=== PATIENT | male | born 1945 | race Caucasian/White ===

== ENCOUNTER 2018-10-31 08:51 | Inpatient (IN) | payer MEDICAID, SELFPAY ==
[2018-09-10 11:54] VITALS: BMI 28.5
[2018-10-31] VITALS (17 sets, daily range): BP systolic 127–143; BP diastolic 66–98; PULSE 100–124; RESP 15–29; TEMP 36.2–37.3; O2SAT 90–96; BMI 28.8; BMI 29.7; BMI 29.8
--- NOTE | 2018-10-31 08:53 | EKG12_ITS ---
Test Reason : SYNCOPE Blood Pressure : / mmHG Vent. Rate : 101 BPM Atrial Rate : 101 BPM P-R Int : 150 ms QRS Dur : 100 ms QT Int : 394 ms P-R-T Axes : 060 001 060 degrees QTc Int : 510 ms Sinus tachycardia Incomplete right bundle branch block Nonspecific T wave abnormality Abnormal ECG Confirmed by CARMEN HERNANDEZ, FRANCIS ([id number]), health editor ALLYSON HENSLEY ([id number]) on 11/04/2018 4:39:38 PM Referred By: AMBERLY Confirmed By:FRANCIS MORALES MD
--- NOTE | 2018-10-31 08:53 | RAD_ITS ---
STUDY: X-RAY CHEST REASON FOR EXAM: Male, 73 years old. Cough and syncope. TECHNIQUE: Single AP portable view of the chest. COMPARISON: None. FINDINGS: EKG electrodes are seen. The lungs are clear and expanded. There is no demonstrated pleural abnormality. Normal size heart. Normal mediastinum and margarito. Normal visualized pulmonary arteries. There is atherosclerotic tortuosity of the aortic arch and descending thoracic aorta. There are diffuse degenerative changes of the visualized thoracic spine. Normal visualized ribs, clavicles, and shoulders. There is no demonstrated abnormality of the visualized soft tissue structures of the upper abdomen. RAD/Chest 1 View (Portable) IMPRESSION: No acute abnormality is seen. Electronically Signed: Macario Chang MD at 9:43 EST , Service support ,
--- NOTE | 2018-10-31 09:07 | NURSING ---
NO OLD EKGS
--- NOTE | 2018-10-31 09:08 | CT_ITS ---
STUDY: CTA CHEST REASON FOR EXAM: Male, 73 years old. Hypoxia x2 days RADIATION DOSAGE (If Supplied By Facility): CTDIvol = ( 18.27 ) mGy, DLP = ( 492.59 ) mGycm TECHNIQUE: The examination was performed with the intravenous administration of Isovue 370 100 IV. Post-processing of the angiographic images was performed, with multiplanar reformation and 3D reconstruction. Individualized dose optimization techniques were used for this CT. COMPARISON: None. FINDINGS: Large amount of pulmonary emboli noted beginning at the distal aspect of the right and left main pulmonary artery extending into the first and second order branch vessels of both the upper and lower lobes. Currently, there is no saddle component. There appears to be early right heart strain. There is no demonstrated aortic dissection. Normal heart and pericardium. Normal mediastinum. Normal hilar regions. Normal visualized trachea and bronchi. The lungs are well expanded. Normal pulmonary parenchyma. Calcified pleural plaques are noted. Normal chest wall structures. Normal osseous structures. Normal visualized upper abdomen. CT/CTA Chest W/WO Contrast IMPRESSION: Large bilateral pulmonary emboli burden beginning in the distal aspect of the right and left main pulmonary arteries and extending to the first and second branch order vessels of the upper and lower lobes. No evidence of saddle component at this time. Early right heart strain is noted. N.B. : The above information has been verbally conveyed by Ran Zambrano DO to ZE Chacko, on 10/31/2018 10:42:07 (ET). Electronically Signed: Ran Zambrano DO at 10:43 EST Tel , Service support ,
[2018-10-31] MEDS: Ipratropium/Albuterol Sulfate 3 ML AMPUL.NEB INHALATION (09:25)
[2018-10-31 09:28] LABS: Absolute Lymphocyte Count 1.53 X10^3/ul (0.83-4.51); Absolute Neutrophil Count 7.5 X10^3/uL (2.0-7.7); Basophil# 0.03 X10^3/uL; Basophil% 0.3 % (0-1); Eosinophil# 0.31 X10^3/uL; Eosinophils% 3.1 % (0-5); Hematocrit 43.7 % (40-54); Hemoglobin 14.8 g/dl (13.0-16.5); Lymphocyte # 1.53 X10^3/ul (4.0); Lymphocyte % 15.5 % (19-41); Mean Corp Hgb Conc 33.9 g/gl (32-36); Mean Corpuscular Hgb 31.2 pg (27.0-32.0); Mean Platelet Vol. 9.9 fl (6.2-12.0); Monocyte# 0.53 X10^3/uL; Monocyte% 5.4 % (0-10); Neutrophil # 7.46 X10^3/uL (2.7-7.7); Neutrophil % 75.5 % (47-70); POSITIVE COUNT NO; POSITIVE DIFFERENTIAL NO; POSITIVE MORPHOLOGY NO; Platelet Count 160 K/mm3 (150-450); RBC Distribution Width CV 12.8 % (11.6-14.6); RBC Distribution Width SD 42.4 fl (35.1-43.9); Red Blood Count 4.75 M/mm3 (4.6-6.2); White Blood Count 9.9 K/mm3 (4.4-11.0)
--- NOTE | 2018-10-31 09:30 | ED.DCSUM_ITS ---
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 He states over the past few days, he has had shortness of breath. He states he had a mild cough that has been nonproductive. He denies any fevers or chills. He states he is been taking some jbdo-dhq-brftwom medications and actually felt fine today. He states that he was going down his stairs. He had tightness across his chest and was feeling lightheaded. He states that his shortness of breath worsened. He states he got up to his bedroom and his helped him, but then he passed out. He denies any history of prior syncope. He denies any fevers. He states currently, he feels he is back to his normal state of health. His states that at the end of August, he had asymmetric leg swelling. She states that it resolved without any intervention. He has no history of DVT or pulmonary embolus. Physical Examination: Vital signs reviewed General: Well-nourished, well-developed Head: Normocephalic, atraumatic Eyes: Pupils equal and reactive, extraocular muscles intact Neck, supple, no lymphadenopathy Heart: Regular rate and rhythm Respiratory: No distress, clear bilaterally Abdomen: Soft, nontender, nondistended, no peritoneal signs Back: Nontender Extremities: Nontender, no edema, no cords Skin: Normal color no rash Neuro: Alert and oriented, no focal or lateralizing deficits Test Results: [] Emergency Department Course and Treatment: The patient presents with scant cough, chest tightness, dyspnea, and a syncopal event. EKG was obtained on patient arrival. He has an incomplete right bundle branch block and anterior T wave inversions. His chest x-ray was normal. My suspicion was obviously for pulmonary embolus given this patient's history. He was given a nebulized grazyna athing treatment with some improvement of his aeration, but was still having rather significant oxygen requirement. The patient underwent CT of the chest. This does demonstrate rather large bilateral pulmonary emboli. With his EKG changes, indeterminate troponin, hypoxia requiring supplemental oxygen and these bilateral pulmonary emboli, patient is going require admission. I did discuss the patient with the hospitalist will start Lovenox at this time. He did also request an ABG which I feel is reasonable. The patient will be admitted to a monitored unit especially given his significant oxygen requirement. Treatment Plan: [] Disposition: [] Impression: 1. Bilateral pulmonary emboli 2. Hypoxia 3. Syncope. EKG changes This note was generated with [employer] dictation software. It may contain incorrect words, spelling, and punctuation that were not noted in review of the chart prior to signing ED Disposition - Plan for ED Patient: Referrals: Wil Bradshaw DO [Primary Care Provider] -
[2018-10-31 09:45] LABS: ALB/GLOB Ratio 0.9 RATIO (0.9-2.4); AST(SGOT) 47 U/L (15-37); Alanine Aminotransfer ALT/SGPT 37 U/L (16-61); Albumin, Serum 3.1 g/dL (3.2-5.0); Alkaline Phosphatase 75 U/L (45-117); Anion Gap 11 (5-15); BUN 18 mg/dL (7-18); BUN/Creat Ratio 16.5 RATIO (10-20); Calcium,Total 7.9 mg/dL (8.5-10.1); Chloride 108 mmol/L (98-107); Creatinine, Serum 1.09 mg/dL (0.70-1.30); EST Glomerular Filtration Rate 71 mL/min (>60); Est Glom Filt Rate - Afr Amer 86 mL/min (>60); Estimated Creatinine Clearance 55.28 ml/min; Globulin 3.6 g/dL (2.2-4.2); Glucose 245 mg/dL (74-106); Potassium 4.1 mmol/L (3.5-5.1); Protein, Total 6.7 g/dL (6.4-8.2); Sodium Level 139 mmol/L (136-145)
[2018-10-31 09:50] LABS: International Normalized Ratio 1.1; Prothrombin Time (Protime)PT. 14.4 SECONDS (11.7-14.9)
[2018-10-31 09:51] LABS: Partial Thromboplast Time 27.5 Seconds (24.1-36.2)
[2018-10-31 09:54] LABS: BNP,B-Type NATRIURETIC PEPTIDE 93.9 pg/mL (0-100)
--- NOTE | 2018-10-31 10:19 | NURSING ---
PCU PE, SYNCOPE ASHELFAH
[2018-10-31] MEDS: Enoxaparin 80 MG/0.8 ML Syringe SC (10:38)
[2018-10-31 11:01] LABS: Allen Test POS; Base Excess -8 mmol/L (-2 to +2); Blood Gas Specimen Type ART; O2 Delivery Device Nasal Can; PO2 66 mmHG (75-100); SITE R Brachial; SO2 93 % (95-99); Time Given 1054; Total Carbon Dioxide 18 mmol/L; pCO2 28.1 mmHg (35-45); pH 7.39 (7.35-7.45)
--- NOTE | 2018-10-31 11:26 | VDLE_ITS ---
Reason For Study: PE RIGHT LEFT CFV is compressible, spontaneous, phasic, GSV is normal. competent and demonstrates normal CFV is compressible, spontaneous, phasic, augmentation. competent, and demonstrates normal FV is compressible, spontaneous, phasic, augmentation. competent and demonstrates normal FV is compressible, spontaneous, phasic, augmentation. competent and demonstrates normal POP V is compressible, spontaneous, phasic, augmentation. competent and demonstrates normal POP V is compressible, spontaneous, phasic, augmentation. competent and demonstrates normal PTV is compressible. augmentation. T/P Trunk is partially compressible. DVT T/P Trunk is compressible. appears to be loosley attached. PTV is compressible. Peroneal V and Soleus V are dilated and LT PerV is compressible. noncompressible. GSV is dilated and noncompressible up to the S-F Junction. SVT does not extend into the CFV. Procedure Exam performed portable in patient room. The exam was diagnostic. A preliminary report was called and/or faxed to Katiuska KERNS and Dr. Antoine. Interpretation Summary There is no evidence of left lower extremity deep vein thrombosis. Left greater saphenous vein appears patent and compressible segmentally. Acute deep venous thrombosis right tibioperoneal trunk with loose thrombus. Acute deep venous thrombosis right peroneal and soleus veins. Superficial thrombophlebitis right great saphenous vein up to but not extending into the right common femoral vein. Ordering Physician: Matthew Antoine Performed By: Jean Rowland RVT
--- NOTE | 2018-10-31 11:26 | ECHOD_ITS ---
Reason For Study: Emboli Procedure This was a 2D Doppler, Color Flow transthoracic echocardiogram. Exam performed portable in patient room. Left Ventricle Normal LV size. D shaped septum in systole and diastole. Left ventricular systolic function is normal. The estimated ejection fraction is 65 %. No evidence for diastolic dysfunction. No regional wall motion abnormalities noted. Right Ventricle Moderately dilated right ventricle. Normal systolic function. Atria Normal left atrium. The right atrium is moderately enlarged. No doppler evidence for ASD. Mitral Valve There is no mitral annular calcification. Normal mitral valve. Trivial mitral valve insufficiency. Tricuspid Valve Normal tricuspid valve. Mild tricuspid valve insufficiency. Right ventricular systolic pressure estimated to be 78 mmHg. Aortic Valve Trisinus/trileaflet aortic valve. Normal aortic valve. Pulmonic Valve The pulmonic valve is not well visualized. Trivial pulmonic valve insufficiency. Great Vessels Normal sized aortic root. Pericardium/Pleural No pericardial effusion. MMode/2D Measurements & Calculations LVIDd: 3.5 cm IVSd: 1.4 cm Ao root diam: 3.5 cm LVIDs: 2.0 cm LVPWd: 1.2 cm RVDd: 4.8 cm FS: 43.0 % LAV(MOD-bp): 18.2 ml LVAd ap4: 13.1 cm2 SV(MOD-sp4): 16.3 ml LAV(MOD-bp) Indexed: 9.8 ml/m2 EDV(MOD-sp4): 24.0 ml LAV(MOD-sp2): 23.6 ml EDV(sp4-el): 24.2 ml LAV(MOD-sp4): 12.9 ml LVAs ap4: 6.3 cm2 ESV(MOD-sp4): 7.8 ml ESV(sp4-el): 7.5 ml EF(MOD-sp4): 67.7 % EF(sp4-el): 69.2 % SV(sp4-el): 16.7 ml LA A4 area: 7.4 cm2 LA dimension(2D): 3.5 cm RA A4 area: 22.1 cm2 Doppler Measurements & Calculations MV E max arsalan: 45.7 cm/sec Lat Peak E' Arsalan: 11.2 cm/sec Med Peak E' Arsalan: 7.5 cm/sec MV A max arsalan: 74.7 cm/sec E/E' lat: 4.1 E/E' med: 6.1 MV E/A: 0.61 Ao V2 max: 131.0 cm/sec LV V1 max: 118.9 cm/sec PA V2 max: 38.9 cm/sec Ao max P.9 mmHg LV V1 max P.7 mmHg Ao V2 mean: 86.1 cm/sec Ao mean P.4 mmHg Ao V2 VTI: 16.4 cm PI end-d arsalan: 97.1 cm/sec TR max arsalan: 416.8 cm/sec TR max P.5 mmHg Interpretation Summary Left ventricular systolic function is normal. The estimated ejection fraction is 65 %. D shaped septum in systole and diastole. Moderately dilated right ventricle. Normal systolic function. The right atrium is moderately enlarged. Trivial mitral valve insufficiency. Mild tricuspid valve insufficiency. Trivial pulmonic valve insufficiency. Right ventricular systolic pressure estimated to be 78 mmHg c/w severe pulmonary hypertension. No evidence for diastolic dysfunction. Ordering Physician: Matthew Antoine Referring Physician: Wil Bradshaw Performed By: Ethel Underwood, NANDA, RVT
--- NOTE | 2018-10-31 12:09 | HP.PCM_ITS ---
Problem List (1) Indeterminate troponin Status: Acute (2) Acute respiratory failure with hypoxia Status: Acute (3) Bilateral pulmonary embolism Status: Acute (4) Benign tumor of colon Status: Chronic (5) Enlarged prostate Status: Chronic (6) Arthritis Status: Chronic History of Present Illness Date of Admission: 10/31/18 Chief Complaint: Syncope, shortness of breath. The patient is a 73 year old M with past medical history as mentioned above presented to the emergency room because of syncope and shortness of breath. Patient's illness started around 4 weeks ago with flulike symptoms, was given antibiotics for 5 days and since then, he has been complaining of slowly and progressively increasing shortness of breath, it is exertional, aggravated by any type of activity, relieved with rest, got worse over the last couple of days, associated with mild dry cough and he had syncopal episode this morning. Since yesterday, he noticed that he is more short of breath and this morning after he woke up, he was dizzy, lightheaded, had an episode of chest tightness, there was no real pain and he passed out. After he woke up, he feels better but he continued to have chest tightness and shortness of breath. He had a history of benign colon tumor that was removed 5 years ago, status post colostomy and he stated that after that surgery, he had DVT of the right leg. In the emergency department, patient was tachycardic, tachypneic and hypoxic, pulse ox was 90% on 6 L and he was afebrile. Blood pressure was stable. Routine blood work was remarkable for blood sugar of 245, otherwise normal. EKG revealed sinus tachycardia, prolonged QTC and no acute ischemic changes. His troponin was indeterminate at 0.067. Chest x-ray showed no acute findings. CTA of the chest revealed large bilateral pulmonary emboli in the distal aspect of the right and left main coronary arteries without evidence of saddle embolus. He is being admitted for acute extensive bilateral PEs, acute hypoxic respiratory failure and indeterminate troponin. Past Medical History Past Medical History (Chronic Problems): Chronic Problems (Last Updated 10/31/18 @ 12:03 by Matthew Antoine MD) Benign tumor of colon (Chronic) Enlarged prostate (Chronic) Arthritis (Chronic) Medical History: Medical History (Last Updated 10/31/18 @ 12:03 by Matthew Antoine MD) Benign tumor of colon (Chronic) D12.6 Enlarged prostate (Chronic) N40.0 Arthritis (Chronic) M19.90 Allergies No Known Allergies Allergy (Unverified 10/31/18 09:17) Home Medications: Ambulatory Orders Medication Instructions Recorded Ascorbic Acid [Vitamin C] 500 mg PO DAILY 10/31/18 Surgical History: Surgical History (Last Reviewed 09/10/18 @ 11:54 by Cecilia Vazquez) History of colostomy Surgical History: colectomy Psychiatric History: No pertinent psych hx Lives: Spouse/ Significant Other Smoking Status: Former smoker Alcohol: Rare Drugs: None - *Family History Maternal History Items: No pertinent history - No family history of clotting disorders. Paternal History Items: No pertinent history Review of Systems Constitutional: Denies: Anorexia, Chills, Fever, Weakness Eyes: Denies: Blurred vision, Drainage, Eyelid Inflammation, Redness, Vision Change HEENT: Denies: Difficulty Hearing, Ear Pain, Eye Pain, Nasal Congestion, Sore Throat Cardiovascular: Reports: Chest Tightness, Light Headedness, Syncope. Denies: Chest Pain, Edema, Heaviness, Orthopnea, Palpitations, Paroxysmal Noc. Dyspnea Respiratory: Reports: Cough, Shortness of Breath, Shortness of breath at rest, Shortness of breath upon exertion. Denies: Pleuritic Pain, Sputum production, Wheezing Gastrointestinal: Denies: Abdominal Pain, Constipation, Diarrhea, Nausea, Vomiting Genitourinary: Denies: Dysuria, Frequency, Hematuria Musculoskeletal: Denies: Arm Pain, Back Pain, Foot Pain Skin: Denies: Dryness, Rash Neurological: Denies: Balance problems, Double vision, Change in Speech, Slurred speech, Confusion, Headaches, Incoordination, Numbness Psychiatric: Denies: Anxiety, Depression Endocrine: Denies: Change in Body Habitus, Polydipsia VTE Information - Inpt Only VTE Present on Admission: Yes VTE Mechan Device Prophylaxis: None VTE Pharm Prophylaxis ordered?: No Patient Problems: Active and Suspected Problems (Last Updated 10/31/18 @ 12:03 by Matthew Antoine MD) Indeterminate troponin (Acute) Acute respiratory failure with hypoxia (Acute) Bilateral pulmonary embolism (Acute) - Physical Exam General: Alert, Oriented x3, Cooperative, - - Moderately short of breath. HEENT: Atraumatic, PERRLA, EOMI, Normocephalic Oral: Moist Mucosa, No Gingival or Mucosal Lesions/ Ulcerations Neck: Supple, No JVD, Negative Carotid Bruits, Trachea Midline, Thyroid Normal Size and Texture Lungs: Clear to auscultation, No rhonchi, No wheeze, No rales, Diminished Cardiovascular: Regular rate, Regular Rhythm, Normal S1, Normal S2, No murmurs, PMI Normal, Tachycardic Abdomen: Bowel Sounds Present, Soft, Non Tender, Non-Distended, No Hepato-sple nomegaly, - - Colostomy bag in place. Extremities: No clubbing, No cyanosis, No edema Skin: No rashes, No breakdown Lymphatic: No Cervical, Supraclavicular, or Inguinal Adenopathy Neurological: Cranial nerves II-XII grossly intact, Motor Exam 5/5 strength throughout Psych/Mental Status: Normal Affect, Appropriate, Alert and oriented to time, place, person, mood and affect Vital Signs Temp Pulse Resp BP Pulse Ox 97.1 F L 105 H 22 H 128/98 H 94 10/31/18 08:54 10/31/18 10:17 10/31/18 10:17 10/31/18 10:00 10/31/18 10:17 Oxygen Flow Rate (L/min) 6 Oxygen Delivery Method Nasal Cannula Weight: 178 lb 12.718 oz Body Mass Index (BMI) 28.8 Laboratory Tests Past 24 Hrs 10/31/18 10/31/18 10/31/18 09:15 09:15 09:15 WBC 9.9 RBC 4.75 Hgb 14.8 Hct 43.7 MCV 92.0 MCH 31.2 MCHC 33.9 RDW 12.8 RDW Differential 42.4 Plt Count 160 MPV 9.9 Immature Gran % (Auto) 0.200 Neut % (Auto) 75.5 H Lymph % (Auto) 15.5 L Greeley % (Auto) 5.4 Eos % (Auto) 3.1 Baso % (Auto) 0.3 Absolute Neuts (auto) 7.5 Absolute Lymphs (auto) 1.53 Total Counted Not Reportable PT INR APTT Specimen Type Sample Site pH Bicarbonate Actual POC Total CO2 Base Excess O2 Saturation ABG pCO2 ABG pO2 Ronni Test O2 Delivery Device Liter Flow Blood Gas Notified Whom Blood Gas Notified Time Sodium 139 Potassium 4.1 Chloride 108 H Carbon Dioxide 20.0 L Anion Gap 11 BUN 18 Creatinine 1.09 Estim Creat Clear Calc 55.28 Est GFR (MDRD) Af Amer 86 Est GFR (MDRD) Non-Af 71 BUN/Creatinine Ratio 16.5 Glucose 245 H Hemoglobin A1c Calcium 7.9 L Total Bilirubin 0.70 AST 47 H ALT 37 Alkaline Phosphatase 75 Troponin I 0.067 H B-Natriuretic Peptide 93.9 Total Protein 6.7 Albumin 3.1 L Globulin 3.6 Albumin/Globulin Ratio 0.9 10/31/18 10/31/18 10/31/18 09:15 09:30 10:55 WBC RBC Hgb Hct MCV MCH MCHC RDW RDW Differential Plt Count MPV Immature Gran % (Auto) Neut % (Auto) Lymph % (Auto) Gree[place] % (Auto) Eos % (Auto) Baso % (Auto) Absolute Neuts (auto) Absolute Lymphs (auto) Total Counted PT 14.4 INR 1.1 APTT 27.5 Specimen Type ART Sample Site R Brachial pH 7.39 Bicarbonate Actual 17.0 L POC Total CO2 18 Base Excess -8 L O2 Saturation 93 L ABG pCO2 28.1 L ABG pO2 66 L Ronni Test POS O2 Delivery Device Nasal Can Liter Flow 6.0 Blood Gas Notified Whom ED Blood Gas Notified Time 1054 Sodium Potassium Chloride Carbon Dioxide Anion Gap BUN Creatinine Estim Creat Clear Calc Est GFR (MDRD) Af Amer Est GFR (MDRD) Non-Af BUN/Creatinine Ratio Glucose Hemoglobin A1c Pending Calcium Total Bilirubin AST ALT Alkaline Phosphatase Troponin I B-Natriuretic Peptide Total Protein Albumin Globulin Albumin/Globulin Ratio Clinical Impression(s) from Imaging Studies Chest X-Ray 10/31/18 08:53 IMPRESSION: No acute abnormality is seen. Electronically Signed: Macario Chang MD at 9:43 EST , Service support , Chest CTA 10/31/18 09:08 IMPRESSION: Large bilateral pulmonary emboli burden beginning in the distal aspect of the right and left main pulmonary arteries and extending to the first and second branch order vessels of the upper and lower lobes. No evidence of saddle component at this time. Early right heart strain is noted. N.B. : The above information has been verbally conveyed by Ran Zambrano DO to ZE Chacko, on 10/31/2018 10:42:07 (ET). Electronically Signed: Ran Zambrano DO at 10:43 EST Tel , Service support , ADDENDUM: 10/31/18 1050 IMPRESSION: Large bilateral pulmonary emboli burden beginning in the distal aspect of the right and left main pulmonary arteries and extending to the first and second branch order vessels of the upper and lower lobes. No evidence of saddle component at this time. Early right heart strain is noted. N.B. : The above information has been verbally conveyed by Ran Zambrano DO to ZE Chacko, on 10/31/2018 10:42:07 (ET). Electronically Signed: Ran Zambrano DO at 10:43 EST Tel , Service support , Assessment/Plan All Active Problems (Last Updated 10/31/18 @ 12:03 by Matthew Antoine MD) Indeterminate troponin (Acute) Acute respiratory failure with hypoxia (Acute) Bilateral pulmonary embolism (Acute) This is a 73 years old male patient presented to the emergency because of syncopal episode of shortness of breath, found to have large extensive bilateral pulmonary embolism complicated by acute hypoxic respiratory failure as well as indeterminate troponin likely due to heart strain. #1 acute extensive bilateral pulmonary emboli: Probably due to lower leg DVT as patient mentioned that he had leg swelling on the right leg a few weeks ago, resolved spontaneously. He has no history of cancer, no recent surgery and he is active at home. CTA chest reviewed. EKG revealed sinus tachycardia, no acute ischemic changes or cardiac arrhythmias. Troponin is indeterminate. At this time, patient is hypoxic, requiring up to 6 L of oxygen. Plan: Admit to PCU, cardiac monitoring, serial cardiac enzymes, start IV heparin drip without bolus as patient received 1 dose of Lovenox in the ED, hypercoagulable workup, 2D echocardiogram, bilateral venous Doppler of both legs, IV fluids, Tylenol as needed, Zofran as needed, PT OT evaluation and treatment. #2 acute hypoxic respiratory failure: Secondary to above. Patient is dyspneic, tachypneic and tachycardic, ABG revealed pH of 7.39, PCO2 of 28 and PO2 of 66. He is requiring up to 6 days of oxygen. Plan: IV heparin as above, O2 by nasal cannula to keep O2 sat more than 92%, albuterol every 6 hours. #3 indeterminate troponin: Probably due to heart strain secondary to extensive PEs. Plan: Cardiac monitoring, serial cardiac enzymes, repeat EKG tomorrow morning, 2D echocardiogram. #4 syncopal episode: Probably due to the massive bilateral PEs. EKG revealed sinus tachycardia, no acute ischemic changes or cardiac arrhythmias. Blood pressure stable, tachycardic. Plan as above. #5 hyperglycemia: Without history of diabetes. Blood glucose is 245. Plan: Hemoglobin A1c, Accu-Cheks every 6 hours, insulin sliding scale. #6 history of elevated PSA: Patient has a history of prostate issues, his PSA was 1140 on Jan, 2017. He was seen by urology [facility] and he was informed that he has prostate cancer based on his numbers, never had a prostate biopsy and according to him, he was started on injections for prostate cancer. Since then, he had not followed up with his urologist. Today, I recommended that we should consult urology but he was hesitant because he is afraid that his insurance will not pay for this consultation as he supposed to see Dr. Allen as outpatient but his insurance denied coverage. Prostate cancer is in the differential diagnosis. Plan: We will check PSA. #7 history of benign tumor of the colon: Status post resection of the rectum, status post colostomy. Stable. #8 DVT prophylaxis: Plan to start IV heparin as above. This note was generated with [employer] dictation software. It may contain incorrect words, spelling, and punctuation that were not noted in checking the note before signing. Code Visit Inpatient E&M: 88647 Init Hosp L3
[2018-10-31 12:45] LABS: Hemoglobin A1c 7.5 % (4.2-6.3)
[2018-10-31] MEDS: HEPARIN/D5w 25,000 UNITS 25,000 UNITS/250 ML IV.SOLN. 12 UNITS IV (13:12)
[2018-10-31 17:45] LABS: Bedside Glucose 166 mg/dL (70-110)
[2018-10-31] MEDS: 0.9% Normal Saline 1,000 ML 75 ML IV (18:36)
[2018-10-31 19:30] LABS: Partial Thromboplast Time 75.4 Seconds (24.1-36.2)
[2018-10-31] MEDS: Acetaminophen 325 MG Tablet 650 MG PO (19:56)
[2018-10-31 20:32] LABS: PSA,Total- Diagnostic > 2000.00 ng/mL (0.0-4.0)
[2018-10-31 23:20] LABS: Bedside Glucose 186 mg/dL (70-110)
[2018-11-01] VITALS (22 sets, daily range): BP systolic 102–136; BP diastolic 71–121; PULSE 92–105; RESP 12–25; TEMP 36.3–37; O2SAT 92–96
[2018-11-01 02:04] LABS: Partial Thromboplast Time 100.1 Seconds (24.1-36.2)
--- NOTE | 2018-11-01 05:55 | EKG12_ITS ---
Test Reason : AM EKG Blood Pressure : / mmHG Vent. Rate : 095 BPM Atrial Rate : 095 BPM P-R Int : 134 ms QRS Dur : 092 ms QT Int : 394 ms P-R-T Axes : 062 017 170 degrees QTc Int : 495 ms Normal sinus rhythm Incomplete right bundle branch block Inferior infarct , age undetermined , cannot be excluded T wave abnormality, consider anterolateral ischemia Abnormal ECG Confirmed by LILIA HERNANDEZ, VEE ([id number]), associate editor ALLYSON HENSLEY ([id number]) on 11/05/2018 10:56:53 AM Referred By: JOSE JUAN Confirmed By:VEE RODRIGUES MD
[2018-11-01] MEDS: Aspirin 325 MG Tablet PO (06:19)
[2018-11-01] MEDS: Acetaminophen 325 MG Tablet 650 MG PO (06:20)
[2018-11-01 06:30] LABS: Bedside Glucose 183 mg/dL (70-110)
[2018-11-01 07:03] LABS: Absolute Lymphocyte Count 1.73 X10^3/ul (0.83-4.51); Absolute Neutrophil Count 6.1 X10^3/uL (2.0-7.7); Basophil# 0.03 X10^3/uL; Basophil% 0.3 % (0-1); Eosinophil# 0.06 X10^3/uL; Eosinophils% 0.7 % (0-5); Hematocrit 41.4 % (40-54); Hemoglobin 13.5 g/dl (13.0-16.5); Lymphocyte # 1.73 X10^3/ul (4.0); Lymphocyte % 20.1 % (19-41); Mean Corp Hgb Conc 32.6 g/gl (32-36); Mean Corpuscular Hgb 30.5 pg (27.0-32.0); Mean Corpuscular Volume 93.5 fL (80-94); Mean Platelet Vol. 10.3 fl (6.2-12.0); Monocyte% 8.1 % (0-10); Neutrophil # 6.08 X10^3/uL (2.7-7.7); Neutrophil % 70.6 % (47-70); Platelet Count 168 K/mm3 (150-450); RBC Distribution Width CV 13.1 % (11.6-14.6); RBC Distribution Width SD 43.6 fl (35.1-43.9); Red Blood Count 4.43 M/mm3 (4.6-6.2); White Blood Count 8.6 K/mm3 (4.4-11.0)
[2018-11-01 07:05] LABS: POSITIVE COUNT NO; POSITIVE DIFFERENTIAL NO; POSITIVE MORPHOLOGY NO
[2018-11-01 07:14] LABS: Anion Gap 9 (5-15); BUN 17 mg/dL (7-18); BUN/Creat Ratio 16.5 RATIO (10-20); Chloride 109 mmol/L (98-107); Creatinine, Serum 1.03 mg/dL (0.70-1.30); EST Glomerular Filtration Rate 75 mL/min (>60); Est Glom Filt Rate - Afr Amer 91 mL/min (>60); Estimated Creatinine Clearance 52.17 ml/min; Glucose 174 mg/dL (74-106); Potassium 4.1 mmol/L (3.5-5.1); Sodium Level 141 mmol/L (136-145)
--- NOTE | 2018-11-01 08:35 | PCM.PROGNOTE ---
Patient Problems: Active and Suspected Problems (Last Updated 10/31/18 @ 12:03 by Matthew Antoine MD) Indeterminate troponin (Acute) Acute respiratory failure with hypoxia (Acute) Bilateral pulmonary embolism (Acute) Subjective: Chief complaint: Follow-up after admission for extensive bilateral femoral emboli, acute DVT of the right leg, acute hypoxic respiratory failure, highly elevated PSA with high suspicion of prostate cancer and indeterminate troponin. Patient seen and examined. No acute events overnight. This morning, he is still complaining of shortness of breath, worsening on minimal exertion. Still complaining of chest tightness, no pain. Denied dizziness or lightheadedness. He is afebrile, heart rate is still has been around 100, blood pressure is maintained, pulse ox is 93% on 6 L. - Physical Exam General: Alert, Oriented x3, Cooperative, - - Moderately short of breath. HEENT: Atraumatic, PERRLA, EOMI, Normocephalic Oral: Moist Mucosa, No Gingival or Mucosal Lesions/ Ulcerations Neck: Supple, No JVD, Negative Carotid Bruits, Trachea Midline, Thyroid Normal Size and Texture Lungs: Clear to auscultation, No rhonchi, No wheeze, No rales, Diminished Cardiovascular: Regular rate, Regular Rhythm, Normal S1, Normal S2, No murmurs, PMI Normal, Tachycardic Abdomen: Bowel Sounds Present, Soft, Non Tender, Non-Distended, No Hepato-splenomegaly Extremities: No clubbing, No cyanosis, No edema Skin: No rashes, No breakdown Lymphatic: No Cervical, Supraclavicular, or Inguinal Adenopathy Neurological: Cranial nerves II-XII grossly intact, Motor Exam 5/5 strength throughout Psych/Mental Status: Normal Affect, Appropriate, Alert and oriented to time, place, person, mood and affect Vital Signs Temp Pulse Resp BP Pulse Ox 97.3 F L 92 18 115/86 H 94 11/01/18 08:28 11/01/18 08:28 11/01/18 08:28 11/01/18 08:28 11/01/18 08:28 Oxygen Flow Rate (L/min) 6 Oxygen Delivery Method Nasal Cannula Weight: 167 lb 15.876 oz Body Mass Index (BMI) 29.7 Intake and Output for Last 24 Hours 10/30/18 10/31/18 11/01/18 23:59 23:59 23:59 Intake Total 1076.5 / 1076.5 296 / 296 Output Total 300 / 300 150 / 150 Balance 776.5 / 776.5 146 / 146 Laboratory Tests Past 24 Hrs 10/31/18 10/31/18 10/31/18 09:15 09:15 09:15 WBC 9.9 RBC 4.75 Hgb 14.8 Hct 43.7 MCV 92.0 MCH 31.2 MCHC 33.9 RDW 12.8 RDW Differential 42.4 Plt Count 160 MPV 9.9 Immature Gran % (Auto) 0.200 Neut % (Auto) 75.5 H Lymph % (Auto) 15.5 L [place]illes[place] % (Auto) 5.4 Eos % (Auto) 3.1 Baso % (Auto) 0.3 Absolute Neuts (auto) 7.5 Absolute Lymphs (auto) 1.53 Total Counted Not Reportable PT INR APTT Protein C Antigen Prot C Funct Activity Functional Protein S Free Protein S Total Protein S Func Antithrombin III Factor V Leiden Mutat Specimen Type Sample Site pH Bicarbonate Actual POC Total CO2 Base Excess O2 Saturation ABG pCO2 ABG pO2 Ronni Test O2 Delivery Device Liter Flow Blood Gas Notified Whom Blood Gas Notified Time Sodium 139 Potassium 4.1 Chloride 108 H Carbon Dioxide 20.0 L Anion Gap 11 BUN 18 Creatinine 1.09 Estim Creat Clear Calc 55.28 Est GFR (MDRD) Af Amer 86 Est GFR (MDRD) Non-Af 71 BUN/Creatinine Ratio 16.5 Glucose 245 H Hemoglobin A1c Calcium 7.9 L Total Bilirubin 0.70 AST 47 H ALT 37 Alkaline Phosphatase 75 Troponin I 0.067 H B-Natriuretic Peptide 93.9 Total Protein 6.7 Albumin 3.1 L Globulin 3.6 Albumin/Globulin Ratio 0.9 Total PSA Anti-Cardiolipin IgG Ab Anti-Cardiolipin IgM Ab 10/31/18 10/31/18 10/31/18 09:30 10:55 12:10 WBC RBC Hgb Hct MCV MCH MCHC RDW RDW Differential Plt Count MPV Immature Gran % (Auto) Neut % (Auto) Lymph % (Auto) Gillespie % (Auto) Eos % (Auto) Baso % (Auto) Absolute Neuts (auto) Absolute Lymphs (auto) Total Counted PT 14.4 INR 1.1 APTT 27.5 Protein C Antigen Prot C Funct Activity Functional Protein S Free Protein S Total Protein S Func Antithrombin III Factor V Leiden Mutat Specimen Type ART Sample Site R Brachial pH 7.39 Bicarbonate Actual 17.0 L POC Total CO2 18 Base Excess -8 L O2 Saturation 93 L ABG pCO2 28.1 L ABG pO2 66 L Ronni Test POS O2 Delivery Device Nasal Can Liter Flow 6.0 Blood Gas Notified Whom ED MD Blood Gas Notified Time 1054 Sodium Potassium Chloride Carbon Dioxide Anion Gap BUN Creatinine Estim Creat Clear Calc Est GFR (MDRD) Af Amer Est GFR (MDRD) Non-Af BUN/Creatinine Ratio Glucose Hemoglobin A1c 7.5 H Calcium Total Bilirubin AST ALT Alkaline Phosphatase Troponin I B-Natriuretic Peptide Total Protein Albumin Globulin Albumin/Globulin Ratio Total PSA Anti-Cardiolipin IgG Ab Anti-Cardiolipin IgM Ab 10/31/18 10/31/18 10/31/18 12:10 15:13 15:13 WBC RBC Hgb Hct MCV MCH MCHC RDW RDW Differential Plt Count MPV Immature Gran % (Auto) Neut % (Auto) Lymph % (Auto) [place]illespie % (Auto) Eos % (Auto) Baso % (Auto) Absolute Neuts (auto) Absolute Lymphs (auto) Total Counted PT INR APTT Protein C Antigen Pending Prot C Funct Activity Pending Functional Protein S Pending Free Protein S Pending Total Protein S Pending Func Antithrombin III Pending Factor V Leiden Mutat Pending Specimen Type Sample Site pH Bicarbonate Actual POC Total CO2 Base Excess O2 Saturation ABG pCO2 ABG pO2 Ronni Test O2 Delivery Device Liter Flow Blood Gas Notified Whom Blood Gas Notified Time Sodium Potassium Chloride Carbon Dioxide Anion Gap BUN Creatinine Estim Creat Clear Calc Est GFR (MDRD) Af Amer Est GFR (MDRD) Non-Af BUN/Creatinine Ratio Glucose Hemoglobin A1c Calcium Total Bilirubin AST ALT Alkaline Phosphatase Troponin I 0.200 H 0.273 H B-Natriuretic Peptide Total Protein Albumin Globulin Albumin/Globulin Ratio Total PSA Anti-Cardiolipin IgG Ab Pending Anti-Cardiolipin IgM Ab Pending 10/31/18 10/31/18 11/01/18 15:13 18:59 01:42 WBC RBC Hgb Hct MCV MCH MCHC RDW RDW Differential Plt Count MPV Immature Gran % (Auto) Neut % (Auto) Lymph % (Auto) [place] % (Auto) Eos % (Auto) Baso % (Auto) Absolute Neuts (auto) Absolute Lymphs (auto) Total Counted PT INR APTT 75.4 H 100.1 H* Protein C Antigen Prot C Funct Activity Functional Protein S Free Protein S Total Protein S Func Antithrombin III Factor V Leiden Mutat Specimen Type Sample Site pH Bicarbonate Actual POC Total CO2 Base Excess O2 Saturation ABG pCO2 ABG pO2 Ronni Test O2 Delivery Device Liter Flow Blood Gas Notified Whom Blood Gas Notified Time Sodium Potassium Chloride Carbon Dioxide Anion Gap BUN Creatinine Estim Creat Clear Calc Est GFR (MDRD) Af Amer Est GFR (MDRD) Non-Af BUN/Creatinine Ratio Glucose Hemoglobin A1c Calcium Total Bilirubin AST ALT Alkaline Phosphatase Troponin I B-Natriuretic Peptide Total Protein Albumin Globulin Albumin/Globulin Ratio Total PSA > 2000.00 H Anti-Cardiolipin IgG Ab Anti-Cardiolipin IgM Ab 11/01/18 11/01/18 05:50 05:50 WBC 8.6 RBC 4.43 L Hgb 13.5 Hct 41.4 MCV 93.5 MCH 30.5 MCHC 32.6 RDW 13.1 RDW Differential 43.6 Plt Count 168 MPV 10.3 Immature Gran % (Auto) 0.200 Neut % (Auto) 70.6 H Lymph % (Auto) 20.1 [place]illespie % (Auto) 8.1 Eos % (Auto) 0.7 Baso % (Auto) 0.3 Absolute Neuts (auto) 6.1 Absolute Lymphs (auto) 1.73 Total Counted Not Reportable PT INR APTT Protein C Antigen Prot C Funct Activity Functional Protein S Free Protein S Total Protein S Func Antithrombin III Factor V Leiden Mutat Specimen Type Sample Site pH Bicarbonate Actual POC Total CO2 Base Excess O2 Saturation ABG pCO2 ABG pO2 Ronni Test O2 Delivery Device Liter Flow Blood Gas Notified Whom Blood Gas Notified Time Sodium 141 Potassium 4.1 Chloride 109 H Carbon Dioxide 23.0 Anion Gap 9 BUN 17 Creatinine 1.03 Estim Creat Clear Calc 52.17 Est GFR (MDRD) Af Amer 91 Est GFR (MDRD) Non-Af 75 BUN/Creatinine Ratio 16.5 Glucose 174 H Hemoglobin A1c Calcium 8.0 L Total Bilirubin AST ALT Alkaline Phosphatase Troponin I B-Natriuretic Peptide Total Protein Albumin Globulin Albumin/Globulin Ratio Total PSA Anti-Cardiolipin IgG Ab Anti-Cardiolipin IgM Ab POC Glucose 11/01/18 10/31/18 10/31/18 06:19 23:13 17:29 POC Glucose 183 H 186 H 166 H Medical Necessity - Tobacco Use Smoking Status: Former smoker Assessment/Plan All Active Problems (Last Updated 10/31/18 @ 12:03 by Matthew Antoine MD) Indeterminate troponin (Acute) Acute respiratory failure with hypoxia (Acute) Bilateral pulmonary embolism (Acute) This is a 73 years old male patient presented to the emergency because of syncopal episode of shortness of breath, found to have large extensive bilateral pulmonary embolism complicated by acute hypoxic respiratory failure as well as indeterminate troponin likely due to heart strain. #1 acute extensive bilateral pulmonary emboli: He is on IV heparin drip. He remained slightly tachycardic, hypoxic, still requiring 6 L of oxygen, remained dyspneic and tachypneic. Etiology of this extensive PEs and DVTs could be due to undiagnosed prostate cancer. PSA is very highly elevated. Hypercoagulability workup is pending. 2D echocardiogram revealed ejection fraction of 65%, moderately dilated right ventricle, RVSP of 78 consistent with severe pulmonary hypertension. Plan to continue same treatment. #2 acute hypoxic respiratory failure: Secondary to above. Patient remains symptomatic, dyspneic, tachypneic, heart rate slightly improved. Plan to treat underlying etiology as above. #3 acute DVT of the right peroneal and soleus vein: Patient has a history of DVT of the right leg 5 years ago and again this could be due to undiagnosed prostate cancer. He is on IV heparin as above, plan as above. #4 indeterminate troponin/severe pulmonary hypertension: Probably due to heart strain secondary to extensive PEs. Troponin are borderline elevated. 2D echocardiogram revealed normal ejection fraction, RVSP of 78, other findings reviewed. Plan as above. #5 syncopal episode: Probably due to the massive bilateral PEs. EKG revealed sinus tachycardia, no acute ischemic changes or cardiac arrhythmias. #6 Type 2 diabetes mellitus: Diagnosed based on fasting blood sugar more than 200 as well as hemoglobin A1c of 7.5. At this time, patient is on sliding scale only. His blood sugar has been around 160-180. Plan to change diet to ADA diet, continue same treatment for now, will start glimepiride. #7 history of elevated PSA: PSA repeated again yesterday and it came back highly elevated more than 2000. I spoke to the patient and I explained to him that this highly elevated PSA is likely due to prostate cancer and this cancer could be the reason why he had blood clots in his legs and his lungs as well. I explained to him that prostate cancer is curable if treated early and chances of recovery are good but he still wants to take care of this issue as outpatient and refused to have neurology or oncology see him during this hospital stay. I tried to explain to him that we should take care of this issue as soon as we can but he again mentioned that he would like to hold off now and he will take care of it as outpatient. 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 Stable. #9 DVT prophylaxis: Plan to start IV heparin as above. This note was generated with [employer] software. It may contain incorrect words, spelling, and punctuation that were not noted in checking the note before signing. Code Visit Inpatient E&M: 67743 Subs Hosp L3
[2018-11-01] MEDS: HEPARIN/D5w 25,000 UNITS 25,000 UNITS/250 ML IV.SOLN. 10 UNITS IV (10:16)
[2018-11-01 10:26] LABS: Partial Thromboplast Time 68.9 Seconds (24.1-36.2)
--- NOTE | 2018-11-01 11:14 | EKG12_ITS ---
Test Reason : AM EKG Blood Pressure : / mmHG Vent. Rate : 083 BPM Atrial Rate : 083 BPM P-R Int : 130 ms QRS Dur : 092 ms QT Int : 426 ms P-R-T Axes : 055 002 000 degrees QTc Int : 500 ms Normal sinus rhythm ST & T wave abnormality, consider anterolateral ischemia Prolonged QT Abnormal ECG Confirmed by LILIA HERNANDEZ, VEE ([id number]), pictures editor ALLYSON HENSLEY ([id number]) on 11/05/2018 10:50:07 AM Referred By: JOSE JUAN Confirmed By:VEE RODRIGUES MD
[2018-11-01 11:31] LABS: Bedside Glucose 191 mg/dL (70-110)
--- NOTE | 2018-11-01 11:56 | CM.UR ---
Addendum entered by Yoly Monaco 11/01/18 15:51: Attempted to see patient again but he was sleeping. Said, not now. Jesus Monaco RN, CCM. Original Note: Addendum entered by Yoly Monaco 11/01/18 12:56: Dr. Antoine mentioned concern over patient being able to pay for assisted anticoagulation. He has [employer] and according to their formulary they cover Eliquis, Xarelto and Coumadin. There is no copay & no PA required. Notified LUIS F Okeefe. Jesus Monaco RN, CCM. Original Note: Attempted to meet with patient to do RN CM assessment however the patient requested we do at a later time due to he wasn't feeling well. Jesus Monaco RN, CCM.
--- NOTE | 2018-11-01 13:17 | NURSING ---
student nurse charting reviewed.
[2018-11-01] MEDS: Morphine 2 MG/ML Syringe 1 MG IV (13:41)
--- NOTE | 2018-11-01 14:04 | CON.PCM_ITS ---
Problem List (1) Chest pain Status: Acute (2) Indeterminate troponin Status: Acute (3) Abnormal electrocardiogram Status: Acute (4) Bilateral pulmonary embolism Status: Acute (5) Abnormal PSA Status: Chronic Reason for Consult Date of Consultation: 11/01/18 History of Present Illness: The patient is a 73 year old White male with no past cardiovascular history who presents for evaluation of syncope with associated concerns of chest discomfort, difficulty breathing, findings compatible with tachycardia, tachypnea, hypoxemia, with subsequent notation of a report of extensive bilateral pulmonary emboli who is now referred for evaluation of indeterminate troponin I level, abnormal ECG, as well as an abnormal transthoracic echocardiogram. The patient states that the best of his knowledge he has no definitive cardiovascular disease and does not recall undergoing cardiovascular testing in the past. He states he has been diagnosed in the past with DVT. He was treated for such. He does not recall any history of pulmonary emboli. He also notes that he has been diagnosed in the past with colon carcinoma. He is status post medical therapy/surgical therapy. He does have a colostomy. He knows his PSA level has been elevated. He has been evaluated by [facility] urology x1. He has not presented back for outpatient followup. He states he has never had a prostate biopsy for definitive diagnosis. His most recent PSA level available for review was reported at greater than 2000. Recently he has been having episodes of chest discomfort and shortness of breath/dyspnea. He states he was treated for upper respiratory tract related illnesses with medical management. However he was at home, with his family member present, when he stated he felt as if he was going to lose consciousness. Apparently he did transiently lose consciousness. She was brought to the emergency department for further evaluation. He underwent evaluation that demonstrated the aforementioned objective findings on his vital signs and subsequent evaluation demonstrating by a chest CT scan extensive bilateral pulmo nary emboli. He was placed in the PCU for further evaluation and care. He was placed on medical management including IV heparin. He has had troponin I levels which have been indeterminate. His ECG has been followed. He was noted to have sinus rhythm with an incomplete right bundle branch block pattern with nonspecific T-wave abnormality. He has subsequently been noted to have a change in his T-wave abnormality compatible with T- waves/inversion compatible with anterolateral myocardial ischemia. He had a transthoracic echocardiogram performed. His left ventricle was normal at the time with respect wall motion and systolic function. His right ventricle and right atrium were enlarged. His estimated RV systolic pressure was markedly elevated at 78 mmHg. He has denied, when feeling well, any other concerning chest discomfort at rest or with activity. He has denied, when feeling well, any concerns of worsening shortness of breath or dyspnea. There has been no other reports of near syncope or syncope. He states he has had intermittent erythema, edema, and warmth of his lower extremity. At the present time he states, since his admission and initiation medical therapy he still feels discomfort in his shoulder/neck area. He also still feels short of breath and dyspneic with activity/movement. [] Past Medical History Allergies/Adverse Reactions: Allergies No Known Allergies Allergy (Unverified 10/31/18 09:17) Home Medications: Ambulatory Orders Medication Instructions Recorded Ascorbic Acid [Vitamin C] 500 mg PO DAILY 10/31/18 Past Medical History (Chronic Problems): Chronic Problems (Last Updated 10/31/18 @ 12:03 by Matthew Antoine MD) Abnormal PSA (Chronic) Benign tumor of colon (Chronic) Enlarged prostate (Chronic) Arthritis (Chronic) Surgical History: colectomy Psychiatric History: No pertinent psych hx - *Family History Maternal History Items: No pertinent history - No family history of clotting disorders. Paternal History Items: No pertinent history Lives: Spouse/ Significant Other Smoking Status: Former smoker Alcohol: Rare Drugs: None Review of Systems - Review of Systems General: Denies: Fever, Night Sweats, Fatigue Cardiovascular: Reports: Chest Discomfort, Shortness of Breath, Syncope. Denies: Orthopnea, PND, Peripheral Edema, Palpitations, Lightheadedness, Dizziness, Near Syncope Respiratory: Reports: Shortness of Breath. Denies: Cough, Sputum Production, Hemoptysis Gastrointestinal: Denies: Hematemesis, Hematochezia, Melena Genitourinary: Denies: Dysuria, Hematuria Skin: Denies: Rash Subjectve: This is a 73-year-old white male who despite his ongoing symptoms does not appear to be in any acute distress at this time. Objective: Vital Signs Temp Pulse Resp BP Pulse Ox 97.4 F L 92 18 125/91 H 95 11/01/18 11:25 11/01/18 11:25 11/01/18 11:25 11/01/18 11:25 11/01/18 11:25 Oxygen Flow Rate (L/min) 6 Oxygen Delivery Method Nasal Cannula Weight: 167 lb 15.876 oz Body Mass Index (BMI) 29.7 Intake and Output for Last 24 Hours 10/30/18 10/31/18 11/01/18 23:59 23:59 23:59 Intake Total 1076.5 / 1076.5 839 / 839 Output Total 300 / 300 150 / 150 Balance 776.5 / 776.5 689 / 689 General: Awake, Alert, Oriented x 3, Cooperative HEENT: Atraumatic, Normocephalic, PERRL, EOMI, Sclera Non Icteric Oral: Moist Mucosa Neck: Supple, Good ROM, No JVD Lungs: Diminished Ze Bases Cardiovascular: Regular Rhythm, Normal S1, Normal S2 Vascular: No Carotid Bruits Abdomen: Bowel Sounds Present, Soft, Non Tender Extremities: Trace RLE Edema Psych/Mental Status: Appropriate 10/31/18 15:13: Troponin I 0.273 H 10/31/18 18:59: APTT 75.4 H 11/01/18 01:42: APTT 100.1 H* 11/01/18 05:50: WBC 8.6, RBC 4.43 L, Hgb 13.5, Hct 41.4, MCV 93.5, MCH 30.5, MCHC 32.6, RDW 13.1, RDW Differential 43.6, Plt Count 168, MPV 10.3, Immature Gran % (Auto) 0.200, Neut % (Auto) 70.6 H, Lymph % (Auto) 20.1, [place] % (Auto) 8.1, Eos % (Auto) 0.7, Baso % (Auto) 0.3, Absolute Neuts (auto) 6.1, Total Counted Not Reportable 11/01/18 05:50: Sodium 141, Potassium 4.1, Chloride 109 H, Carbon Dioxide 23.0, Anion Gap 9, BUN 17, Creatinine 1.03, Est GFR (MDRD) Af Amer 91, Est GFR (MDRD) Non-Af 75, BUN/Creatinine Ratio 16.5, Glucose 174 H, Calcium 8.0 L 11/01/18 09:10: APTT 68.9 H Rhythm:Sinus rhythm EKG:As noted above ECHO:[id number]: Left ventricle normal with an LVEF of 65%, moderately dilated right ventricle with overall preserved RV systolic function; moderately dilated right atrium; estimated RV systolic pressure of 78 mmHg Assessment/Plan 1. Chest pain The patient continues with an episode of chest pain and shortness of breath. This may be compatible with his extensive bilateral pulmonary emboli demonstrated on his chest CT scan. There is some concern as to whether or not he has any underlying cardiovascular component with respect of CAD or myocardial ischemia. He has had cardiac enzymes which have been indeterminate. They may be related to his pulmonary emboli and RV strain. He has had ECG changes suggesting myocardial ischemia in the anterolateral distribution. It is unclear whether this is related to his underlying pulmonary disease process alone versus being superimposed upon an underlying previously undiagnosed cardiovascular disease process. At the present time he will continue to be followed. He will be monitored. He will have followup enzymes and ECGs. He will continue medical management which will include medical therapy for the possibility of underlying CAD and myocardial ischemia. This will include his aspirin therapy, anticoagulant therapy, nitrates, beta blockers, etc. He may eventually need further noninvasive and/or invasive cardiovascular evaluation to further define his coronary anatomy/physiology, etc. However hopefully he can continue initial medical management for his extensive bilateral pulmonary emboli went off anticoagulation for a period of time period of proceed ing in such a manner. 2. Indeterminate troponin I level Again this may be secondary to his pulmonary emboli and right ventricular strain. This will be followed. He will continue vitamin E care as noted above. 3. Abnormal electrocardiogram His electrocardiogram does suggest changes compatible with anterolateral myocardial ischemia. It is unclear whether this represents changes related to th is acute pulmonary disease process and elevated right sided pressures alone versus being superimposed upon some underlying cardiovascular disease/CT process. At the present time he will continue evaluation care as noted above. He will continue medical therapy. Again he may eventually need further noninvasive or invasive studies. Hopefully he can continue initial medical management for his bilateral pulmonary emboli prior too and eruption on medical therapy for additional studies-especially invasive studies, etc. 4. Pulmonary emboli He does have extensive bilateral pulmonary emboli. He has had DVTs. There is concern this may be related to underlying history of carcinoma including undiagnosed prostate carcinoma. At the present time based upon his marked bilateral pulmonary embolisms he remains in the hospital. He remains on cardiac rhythm monitoring. He continues with O2 support. He continues with IV heparin. 5. Carcinoma There is concern based upon his elevated PSA of underlying prostate carcinoma. He should consider allowing himself be further evaluated by urology/oncology. Comment: The patient's case was discussed with the patient's family member is present, and Dr. Antoine. This note was generated using a voice recognition system and there may be incorrect words, spelling or punctuation that were not noted when reviewing the office note prior to saving.
[2018-11-01] MEDS: Isosorbide DN 10 MG Tablet PO ×2 (15:30→22:31)
[2018-11-01] MEDS: oxyCODONE 5 MG Tablet PO (15:32)
[2018-11-01 15:43] LABS: Partial Thromboplast Time 53.2 Seconds (24.1-36.2)
[2018-11-01] MEDS: Heparin Injection (Vial) 5,000 UNIT/ML VIAL IV (16:39)
[2018-11-01 17:00] LABS: Bedside Glucose 185 mg/dL (70-110)
[2018-11-01] MEDS: Metoprolol Tartrate 25 MG Tablet PO (22:31)
[2018-11-01 22:41] LABS: Bedside Glucose 223 mg/dL (70-110)
--- NOTE | 2018-11-01 23:04 | NURSING ---
Patient refused 0000 insulin
[2018-11-01 23:14] LABS: Partial Thromboplast Time 67.5 Seconds (24.1-36.2)
[2018-11-02] VITALS (13 sets, daily range): BP systolic 101–120; BP diastolic 71–83; PULSE 75–95; RESP 16–20; TEMP 36.2–36.6; O2SAT 92–96
[2018-11-02] MEDS: oxyCODONE 5 MG Tablet PO ×2 (02:58→20:21)
[2018-11-02] MEDS: Isosorbide DN 10 MG Tablet PO ×3 (05:49→21:51)
--- NOTE | 2018-11-02 05:55 | EKG12_ITS ---
Test Reason : CP Blood Pressure : / mmHG Vent. Rate : 094 BPM Atrial Rate : 094 BPM P-R Int : 138 ms QRS Dur : 092 ms QT Int : 418 ms P-R-T Axes : 051 -09 167 degrees QTc Int : 522 ms Normal sinus rhythm Incomplete right bundle branch block Minimal voltage criteria for LVH, may be normal variant T wave abnormality, consider anterolateral ischemia Prolonged QT Abnormal ECG Confirmed by LILIA HERNANDEZ, VEE ([id number]), supervising editor trailer ALLYSON HENSLEY ([id number]) on 11/05/2018 10:55:16 AM Referred By: HAYDE Confirmed By:VEE RODRIGUES MD
[2018-11-02 06:01] LABS: Bedside Glucose 178 mg/dL (70-110)
[2018-11-02 06:28] LABS: Partial Thromboplast Time 63.4 Seconds (24.1-36.2)
--- NOTE | 2018-11-02 08:12 | PCM.PROGNOTE ---
Patient Problems: Active and Suspected Problems (Last Updated 10/31/18 @ 12:03 by Matthew Antoine MD) Abnormal electrocardiogram (Acute) Chest pain (Acute) Indeterminate troponin (Acute) Acute respiratory failure with hypoxia (Acute) Bilateral pulmonary embolism (Acute) Subjective: Chief complaint: Follow-up after admission for extensive bilateral femoral emboli, acute DVT of the right leg, acute hypoxic respiratory failure, highly elevated PSA with high suspicion of prostate cancer and indeterminate troponin/EKG changes. Patient seen and examined. No acute events overnight. This morning, he reported minimal improvement of his shortness of breath. Chest pain and discomfort improved. Denied palpitation, dizziness or lightheadedness. He is afebrile, heart rate is down to 80s, blood pressure stable, pulse ox is 94% on 5 L. - Physical Exam General: Alert, Oriented x3, Cooperative, No apparent distress HEENT: Atraumatic, PERRLA, EOMI, Normocephalic Oral: Moist Mucosa, No Gingival or Mucosal Lesions/ Ulcerations Neck: Supple, No JVD, Negative Carotid Bruits, Trachea Midline, Thyroid Normal Size and Texture Lungs: Clear to auscultation, No rhonchi, No wheeze, No rales, Diminished Cardiovascular: Regular rate, Regular Rhythm, Normal S1, Normal S2, No murmurs, PMI Normal Abdomen: Bowel Sounds Present, Soft, Non Tender, Non-Distended, No Hepato-splenomegaly Extremities: No clubbing, No cyanosis, No edema Skin: No rashes, No breakdown Lymphatic: No Cervical, Supraclavicular, or Inguinal Adenopathy Neurological: Cranial nerves II-XII grossly intact, Neuro grossly intact Psych/Mental Status: Normal Affect, Appropriate, Alert and oriented to time, place, person, mood and affect Vital Signs Temp Pulse Resp BP Pulse Ox 97.8 F 80 20 H 101/83 H 94 11/02/18 03:00 11/02/18 07:18 11/02/18 03:00 11/02/18 03:00 11/02/18 03:00 Oxygen Flow Rate (L/min) 5 Oxygen Delivery Method Nasal Cannula Weight: 167 lb 15.876 oz Body Mass Index (BMI) 29.7 Intake and Output for Last 24 Hours 10/31/18 11/01/18 11/02/18 23:59 23:59 23:59 Intake Total 1076.5 / 1076.5 1689.9 / 1689.9 240 / 240 Output Total 300 / 300 350 / 350 100 / 100 Balance 776.5 / 776.5 1339.9 / 1339.9 140 / 140 Laboratory Tests Past 24 Hrs 11/01/18 11/01/18 11/01/18 09:10 15:15 15:15 APTT 68.9 H 53.2 H Troponin I 0.135 H 11/01/18 11/02/18 22:56 04:56 APTT 67.5 H 63.4 H Troponin I POC Glucose 11/02/18 11/01/18 11/01/18 05:48 22:34 16:45 POC Glucose 178 H 223 H 185 H 11/01/18 11:21 POC Glucose 191 H Medical Necessity - Tobacco Use Smoking Status: Former smoker Assessment/Plan All Active Problems (Last Updated 10/31/18 @ 12:03 by Matthew Antoine MD) Abnormal electrocardiogram (Acute) Chest pain (Acute) Indeterminate troponin (Acute) Acute respiratory failure with hypoxia (Acute) Bilateral pulmonary embolism (Acute) This is a 73 years old male patient presented to the emergency because of syncopal episode of shortness of breath, found to have large extensive bilateral pulmonary embolism complicated by acute hypoxic respiratory failure as well as indeterminate troponin likely due to heart strain. #1 acute extensive bilateral pulmonary emboli: Remained on IV heparin drip. He is less tachycardic, oxygen requirement is down to 5 L, blood pressure stable, afebrile. Etiology of this extensive PEs and DVTs could be due to undiagnosed prostate cancer. PSA is very highly elevated. Hypercoagulability workup is pending. 2D echocardiogram revealed ejection fraction of 65%, moderately dilated right ventricle, RVSP of 78 consistent with severe pulmonary hypertension. Plan to continue same treatment. #2 acute hypoxic respiratory failure: Secondary to above. Patient symptoms improved, he is down to 5 L, less tachycardic. Plan as above. #3 acute DVT of the right peroneal and soleus vein: Patient has a history of DVT of the right leg 5 years ago and again this could be due to undiagnosed prostate cancer. He is on IV heparin as above, plan as above. #4 indeterminate troponin/EKG changes: EKG from yesterday revealed T wave inversion in lateral chest leads. His troponin was indeterminate. Cardiology consulted and recommended no intervention at this time. His EKG changes and abnormal troponin is likely due to extensive bilateral PEs. 2D echocardiogram revealed normal ejection fraction, RVSP of 78, other findings reviewed. Started on isosorbide mononitrate and metoprolol. Plan to continue same treatment. #5 syncopal episode: Probably due to the massive bilateral PEs. EKG revealed sinus tachycardia, no acute ischemic changes or cardiac arrhythmias. #6 Type 2 diabetes mellitus: Blood sugar has been around 150-200. He is on insulin sliding scale, will start glimepiride today. Diagnosed based on fasting blood sugar more than 200 as well as hemoglobin A1c of 7.5. #7 history of elevated PSA: PSA repeated again yesterday and it came back highly elevated more than 2000. I spoke to the patient and I explained to him that this highly elevated PSA is likely due to prostate cancer and this cancer could be the reason why he had blood clots in his legs and his lungs as well. I explained to him that prostate cancer is curable if treated early, chances of recovery are good but he still wants to take care of this issue as outpatient and refused to have urology or oncology see him during this hospital stay. I tried to explain to him that we should take care of this issue as soon as we can but he again mentioned that he would like to hold off now and he will take care of it as outpatient. 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 Stable. #9 DVT prophylaxis he is on IV heparin as above. This note was generated with [employer] dictation software. It may contain incorrect words, spelling, and punctuation that were not noted in checking the note before signing. Code Visit Inpatient E&M: 54816 Subs Hosp L2
[2018-11-02] MEDS: Metoprolol Tartrate 25 MG Tablet PO (09:20)
[2018-11-02] MEDS: HEPARIN/D5w 25,000 UNITS 25,000 UNITS/250 ML IV.SOLN. 11 UNITS IV (10:34)
[2018-11-02 11:36] LABS: Bedside Glucose 196 mg/dL (70-110)
--- NOTE | 2018-11-02 13:59 | PCM.PN.CARD ---
Subjectve: The patient states she is feeling better today. He states his chest discomfort is less prominent and his breathing concerns or less prominent. Objective: Vital Signs Temp Pulse Resp BP Pulse Ox 97.5 F L 75 16 109/71 96 11/02/18 09:00 11/02/18 11:08 11/02/18 09:00 11/02/18 09:20 11/02/18 09:00 Oxygen Flow Rate (L/min) 4 Oxygen Delivery Method Nasal Cannula Weight: 167 lb 15.876 oz Body Mass Index (BMI) 29.7 Intake and Output for Last 24 Hours 10/31/18 11/01/18 11/02/18 23:59 23:59 23:59 Intake Total 1076.5 / 1076.5 1689.9 / 1689.9 240 / 240 Output Total 300 / 300 350 / 350 100 / 100 Balance 776.5 / 776.5 1339.9 / 1339.9 140 / 140 General: Awake, Alert, Oriented x 3, Cooperative, No Acute Distress HEENT: Atraumatic, Normocephalic, PERRL, EOMI, Sclera Non Icteric Oral: Moist Mucosa Neck: Supple, Good ROM, No JVD Lungs: - - No obvious rales or rhonchi Cardiovascular: Regular Rhythm, Normal S1, Normal S2 Abdomen: Bowel Sounds Present, Soft, Non Tender Extremities: No edema Psych/Mental Status: Appropriate 11/01/18 15:15: APTT 53.2 H 11/01/18 15:15: Troponin I 0.135 H 11/01/18 22:56: APTT 67.5 H 11/02/18 04:56: APTT 63.4 H Rhythm:Sinus rhythm EKG:Sinus rhythm; T-wave abnormality compatible with anterolateral myocardial ischemia; compared to the previous ECG the aforementioned T-wave abnormality in the high lateral limb leads appears to be less prominent and returning towards baseline at this time Medical Necessity - Tobacco Use Smoking Status: Former smoker Assessment/Plan 1. Chest pain The patient continues with an episode of chest pain and shortness of breath. This may be compatible with his extensive bilateral pulmonary emboli demonstrated on his chest CT scan. There is some concern as to whether or not he has any underlying cardiovascular component with respect of CAD or myocardial ischemia. He has had cardiac enzymes which have been indeterminate. His repeat troponin level is decreasing. They may be related to his pulmonary emboli and RV strain. He has had ECG changes suggesting myocardial ischemia in the anterolateral distribution. This appears to be somewhat improved with respect to as high lateral limb leads. It is unclear whether this is related to his underlying pulmonary disease process alone versus being superimposed upon an underlying previously undiagnosed cardiovascular disease process. At the present time he will continue to be followed. He will be monitored. He will continue medical management which will include medical therapy for the possibility of underlying CAD and myocardial ischemia. This will include his aspirin therapy, anticoagulant therapy, nitrates, beta blockers, etc. He may eventually need further noninvasive and/or invasive cardiovascular evaluation to further define his coronary anatomy/physiology, etc. However hopefully he can continue initial medical management for his extensive bilateral pulmonary emboli went off anticoagulation for a period of time period of proceeding in such a manner. 2. Indeterminate troponin I level Again this may be secondary to his pulmonary emboli and right ventricular strain. His troponin I levels are decreasing. 3. Abnormal electrocardiogram His electrocardiogram does suggest changes compatible with anterolateral myocardial ischemia. It is unclear whether this represents changes related to this acute pulmonary disease process and elevated right sided pressures alone versus being superimposed upon some underlying cardiovascular disease/CT process. At the present time he will continue evaluation care as noted above. He will continue medical therapy. Again he may eventually need further noninvasive or invasive studies. Hopefully he can continue initial medical management for his bilateral pulmonary emboli prior too and eruption on medical therapy for additional studies-especially invasive studies, etc. 4. Pulmonary emboli He does have extensive bilateral pulmonary emboli. He has had DVTs. There is concern this may be related to underlying history of carcinoma including undiagnosed prostate carcinoma.He has declined evaluation by urology/oncology. At the present time based upon his marked bilateral pulmonary embolisms he remains in the hospital. He remains on cardiac rhythm monitoring. He continues with O2 support. He continues with IV heparin. 5. Carcinoma There is concern based upon his elevated PSA of underlying prostate carcinoma. Again he has declined evaluation by urology/oncology. Comment: The patient's case was discussed with the patient's family member present. This note was generated using a voice recognition system and there may be incorrect words, spelling or punctuation that were not noted when reviewing the office note prior to saving.
[2018-11-02] MEDS: Morphine 2 MG/ML Syringe 1 MG IV ×2 (16:27→21:42)
[2018-11-02 16:45] LABS: Bedside Glucose 166 mg/dL (70-110)
[2018-11-02] MEDS: BENZOCAINE/MENTHOL 1 LOZENGE MUCOUS MEM (20:21)
[2018-11-02] MEDS: 0.9% NaCl Peripheral Flush Adult/Peds IV ×2 (21:42→21:45)
[2018-11-02 23:11] LABS: Bedside Glucose 186 mg/dL (70-110)
[2018-11-03] VITALS (13 sets, daily range): BP systolic 114–149; BP diastolic 73–87; PULSE 89–113; RESP 18; TEMP 36.6–37; O2SAT 94–95
[2018-11-03] MEDS: Morphine 2 MG/ML Syringe 1 MG IV (01:42)
[2018-11-03] MEDS: 0.9% NaCl Peripheral Flush Adult/Peds IV ×2 (01:42→01:44)
[2018-11-03] MEDS: oxyCODONE 5 MG Tablet PO ×3 (03:01→21:13)
[2018-11-03] MEDS: Isosorbide DN 10 MG Tablet PO ×3 (05:16→21:14)
[2018-11-03 05:21] LABS: Bedside Glucose 160 mg/dL (70-110)
--- NOTE | 2018-11-03 05:55 | EKG12_ITS ---
Test Reason : AM EKG Blood Pressure : / mmHG Vent. Rate : 092 BPM Atrial Rate : 092 BPM P-R Int : 128 ms QRS Dur : 094 ms QT Int : 402 ms P-R-T Axes : 053 015 005 degrees QTc Int : 497 ms Normal sinus rhythm Possible Left atrial enlargement ST & T wave abnormality, consider anterolateral ischemia Prolonged QT Abnormal ECG Confirmed by LILIA HERNANDEZ, VEE ([id number]), editor school photograph ALLYSON HENSLEY ([id number]) on 11/05/2018 10:45:28 AM Referred By: DR MANZANO Confirmed By:VEE RODRIGUES MD
[2018-11-03 06:33] LABS: Partial Thromboplast Time 59.2 Seconds (24.1-36.2)
--- NOTE | 2018-11-03 08:10 | PCM.PN.CARD ---
Subjectve: The patient states that he is feeling better overall. He continues with an element of chest/back discomfort and shortness of breath. He has been able to be up in the chair. Objective: Vital Signs Temp Pulse Resp BP Pulse Ox 97.8 F 89 18 114/81 H 94 11/03/18 03:15 11/03/18 07:13 11/03/18 03:15 11/03/18 03:15 11/03/18 03:15 Oxygen Flow Rate (L/min) 3 Oxygen Delivery Method Nasal Cannula Weight: 167 lb 15.876 oz Body Mass Index (BMI) 29.7 Intake and Output for Last 24 Hours 11/01/18 11/02/18 11/03/18 23:59 23:59 23:59 Intake Total 1689.9 / 1689.9 2172 / 2172 182 / 182 Output Total 350 / 350 900 / 900 Balance 1339.9 / 1339.9 1272 / 1272 182 / 182 General: Awake, Alert, Oriented x 3, Cooperative, No Acute Distress HEENT: Atraumatic, Normocephalic, PERRL, EOMI, Sclera Non Icteric Oral: Moist Mucosa Neck: Supple, Good ROM, No JVD Lungs: Diminished Right Base Cardiovascular: Regular Rhythm, Normal S1, Normal S2, Positive S4 Abdomen: Bowel Sounds Present, Soft, Non Tender Extremities: No Cyanosis, No Clubbing, No edema Psych/Mental Status: Appropriate 11/03/18 05:25: APTT 59.2 H Rhythm: Sinus rhythm EKG: Sinus rhythm; possible left atrial enlargement; T wave abnormality compatible with anterolateral myocardial ischemia-compared to the previous ECGs the T wave abnormality appears to be somewhat less prominent Medical Necessity - Tobacco Use Smoking Status: Former smoker Assessment/Plan 1. Chest pain The patient continues with an episode of chest pain and shortness of breath. This may be compatible with his extensive bilateral pulmonary emboli demonstrated on his chest CT scan. There is some concern as to whether or not he has any underlying cardiovascular component with respect of CAD or myocardial ischemia. He has had cardiac enzymes which have been indeterminate. His repeat troponin level is decreasing. They may be related to his pulmonary emboli and RV strain. He has had ECG changes suggesting myocardial ischemia in the anterolateral distribution. This appears to be somewhat improved with respect to as high lateral limb leads. It is unclear whether this is related to his underlying pulmonary disease process alone versus being superimposed upon an underlying previously undiagnosed cardiovascular disease process. He will continue medical management which will include medical therapy for the possibility of underlying CAD and myocardial ischemia. This will include his aspirin therapy, anticoagulant therapy, nitrates, beta blockers, etc. As he appears to stabilize from his acute pulmonary embolic event consideration will be given to a pharmacologic stress nuclear imaging study to further evaluate him for any obvious underlying significant myocardial ischemia that would warrant interruption of his anticoagulant therapy and further cardiovascular invasive evaluation with diagnostic cardiac catheterization. 2. Indeterminate troponin I level Again this may be secondary to his pulmonary emboli and right ventricular strain. His troponin I levels are decreasing. 3. Abnormal electrocardiogram His electrocardiogram does suggest changes compatible with anterolateral myocardial ischemia. It is unclear whether this represents changes related to this acute pulmonary disease process and elevated right sided pressures alone versus being superimposed upon some underlying cardiovascular disease/CT process. At the present time he will continue evaluation care as noted above. He will continue medical therapy. He will be considered for further evaluation as noted above. 4. Pulmonary emboli He does have extensive bilateral pulmonary emboli. He has had DVTs. There is concern this may be related to underlying history of carcinoma including undiagnosed prostate carcinoma.He has declined evaluation by urology/oncology. At the present time based upon his marked bilateral pulmonary embolisms he remains in the hospital. He remains on cardiac rhythm monitoring. He continues with O2 support. He continues with IV heparin. Will eventually need to be transitioned to oral anticoagulant therapy. 5. Carcinoma There is concern based upon his elevated PSA of underlying prostate carcinoma. Again he has declined evaluation by urology/oncology. Comment: The patient's case was discussed with the patient. This note was generated using a voice recognition system and there may be incorrect words, spelling or punctuation that were not noted when reviewing the office note prior to saving.
[2018-11-03 08:28] LABS: International Normalized Ratio 1.2; Prothrombin Time (Protime)PT. 15.3 SECONDS (11.7-14.9)
[2018-11-03] MEDS: HEPARIN/D5w 25,000 UNITS 25,000 UNITS/250 ML IV.SOLN. 12 UNITS IV (10:06)
--- NOTE | 2018-11-03 11:45 | CASEMGMT ---
Addendum entered by Gilma Hugo 11/03/18 15:14: Pt states no preference for DME company if oxygen needed at discharge. Vicky KERNS CM Original Note: LUIS F LOPEZ assessment: Face to Face with patient for initial transition planning/care coordination assessment. LUIS F LOPEZ introduced self and role at [facility], pt voices understanding and consents to assessment at this time. Pt is sitting up in chair in no distress at this time. Pt is A/Ox4 at this time and answers all questions appropriately at this time. Care providers, pharmacy, and demographics verified at this time. PCP: [facility] Specialists: Pt states currently has no specialists. Preferred Pharmacy: [facility] Insurance: [facility] Prescription Benefit: CRS Living Will/HPOA: Pt states does not have LW/HPOA and declines info at this time. LNOK: Geoffrey Foster, Living Arrangements: Pt states lives with in 1 story home and states no concerns at home at this time. Pt states is normally independent with ADL's. Transportation: Pt states drives self and states no transportation concerns at this time. DME/HHC: Pt states does not currently have any DME and states no need for any DME at this time. Pt states has had [facility]HC in the past but states no need for any HHC at discharge. Pt states no hx of SNF. Pt states no concerns with going home at time of discharge. Pt states is retired. Pt states does not smoke or drink ETOH. Pt states no further concerns/needs at this time. CM to follow for Eliquis coverage/co-pay, home oxygen, and for any further discharge planning/needs. Advised pt to ask for CM if any further questions/concerns/needs arise, voices understanding.. Plan: Home Vicky KERNS CM
[2018-11-03 11:55] LABS: Bedside Glucose 278 mg/dL (70-110)
--- NOTE | 2018-11-03 12:51 | PCM.PN.HOSP ---
Patient Problems: Active and Suspected Problems (Last Updated 10/31/18 @ 12:03 by Matthew Antoine MD) Abnormal electrocardiogram (Acute) Chest pain (Acute) Indeterminate troponin (Acute) Acute respiratory failure with hypoxia (Acute) Bilateral pulmonary embolism (Acute) Subjective: Patient is a 73-year-old gentleman admitted with extensive bilateral femoral emboli, acute DVT of the right leg,. He was also found to have markedly elevated PSA levels suspicious for prostate cancer. Patient also had indeterminate troponin EKG changes consultation was placed to cardiology patient has been seen by Dr. Ledesma with plans for patient to undergo a nuclear stress test on 11/04/2018 Objective: GENERAL: cooperative HEENT: Atraumatic; moist oral mucosa EYES; Anicteric, Normal Conjunctiva NECK; supple, normal thyroid, no distended JVD. RESPIRATORY: Diminished to auscultation bilaterally, CARDIOVASCULAR: Regular S1 S2, no audible murmurs GI: soft, non-tender, normoactive bowel sounds, : No Renal angle tenderness; EXTREMITIES: No edema, no clubbing, no cyanosis. MUSCULOSKELETAL: No Joint Tenderness; no muscle waisting NEURO: Awake; no lateralizing signs. SKIN: No Rash PSYCH; flat affect Vitals/I&O's: Vital Signs Temp Pulse Resp BP Pulse Ox 98.5 F 113 H 18 125/73 H 95 11/03/18 10:00 11/03/18 12:18 11/03/18 10:00 11/03/18 10:00 11/03/18 10:00 Oxygen Flow Rate (L/min) 3 Oxygen Delivery Method Nasal Cannula Weight: 76.2 kg Body Mass Index (BMI) 29.7 Intake and Output for Last 24 Hours 11/01/18 11/02/18 11/03/18 23:59 23:59 23:59 Intake Total 1689.9 / 1689.9 2172 / 2172 602 / 602 Output Total 350 / 350 900 / 900 350 / 350 Balance 1339.9 / 1339.9 1272 / 1272 252 / 252 Laboratory Results 11/02/18 16:23: POC Glucose 166 H 11/02/18 23:07: POC Glucose 186 H 11/03/18 05:13: POC Glucose 160 H 11/03/18 05:25: APTT 59.2 H 11/03/18 05:25: PT 15.3 H, INR 1.2 11/03/18 11:52: POC Glucose 278 H Current Medications Acetaminophen (Tylenol) 650 mg PO Q6H PRN PRN PRN Reason: Fever, headache, pain Last Admin: 11/01/18 06:20 Dose: 650 mg Alprazolam (Xanax) 0.5 mg PO Q12H PRN PRN Reason: ANXIETY Glimepiride (Amaryl) 4 mg PO DAILY@0800 [facility] Last Admin: 11/03/18 10:14 Dose: Not Given Heparin Sodium (Porcine) (Heparin Na) 0 unit IV UD PRN; Protocol Last Admin: 11/01/18 16:39 Dose: 1,000 unit Heparin Sodium/Dextrose () 25,000 units in 250 mls @ 12 mls/hr IV .[id number] [facility]; Protocol Last Admin: 11/03/18 10:06 Dose: 12 mls/hr Insulin Human Lispro (Humalog Kwikpen (Bkc)) 0 unit SC Q6 [facility]; Protocol Last Admin: 11/03/18 11:58 Dose: Not Given Isosorbide Dinitrate (Isordil) 10 mg PO TID [facility] Last Admin: 11/03/18 05:16 Dose: 10 mg Magnesium Hydroxide (Milk Of Magnesia) 30 ml PO DAILY PRN PRN Reason: Constipation Metoprolol Tartrate (Lopressor (Beta Jessica)) 5 mg IV Q6 PRN PRN Reason: tachycardia Metoprolol Tartrate (Lopressor (Beta Jessica)) 25 mg PO BID [facility] Last Admin: 11/03/18 10:14 Dose: Not Given Morphine Sulfate () 1 mg IV Q4H PRN PRN PRN Reason: SEVERE PAIN (6-10/10) Last Admin: 11/03/18 01:42 Dose: 1 mg Ondansetron HCl (Zofran) 4 mg IV Q6H PRN PRN PRN Reason: NAUSEA/VOMITING Oxycodone HCl (Oxyir) 5 mg PO Q6H PRN PRN PRN Reason: SEVERE PAIN (6-10/10) Last Admin: 11/03/18 03:01 Dose: 5 mg Sodium Chloride () 5 - 15 ml IV UD PRN PRN Reason: SALINE FLUSH Last Admin: 11/03/18 01:44 Dose: 10 ml Throat Lozenges (Cepacol Sore Throat Lozenge) 1 lozenge MUCOUS MEM Q4H PRN PRN PRN Reason: SORE THROAT Last Admin: 11/02/18 20:21 Dose: 1 lozenge Zolpidem Tartrate (Ambien (Generic)) 5 mg PO QHS PRN PRN PRN Reason: INSOMNIA Medical Necessity - Tobacco Use Smoking Status: Former smoker Assessment/Plan All Active Problems (Last Updated 10/31/18 @ 12:03 by Matthew Antoine MD) Abnormal electrocardiogram (Acute) Chest pain (Acute) Indeterminate troponin (Acute) Acute respiratory failure with hypoxia (Acute) Bilateral pulmonary embolism (Acute) Patient is a 73-year-old gentleman admitted with extensive bilateral femoral emboli, acute DVT of the right leg,. He was also found to have markedly elevated PSA levels suspicious for prostate cancer. Patient also had indeterminate troponin EKG changes consultation was placed to cardiology patient has been seen by Dr. Ledesma with plans for patient to undergo a nuclear stress test on 11/04/2018 1. Acute thromboembolism. CTA of the chest obtained demonstrated Large bilateral pulmonary emboli burden beginning in the distal aspect of the right and left main pulmonary arteries and extending to the first and second branch order vessels of the upper and lower lobes. No evidence of saddle component at this time. Early right heart strain is noted. Patient was also noted to have extensive bilateral femoral emboli patient remains on heparin with plans to start new oral anticoagulant on discharge insurance approval 2. Acute hypoxic respiratory failure present on admission 3. Indeterminate troponin with EKG changes do suspect patient massive pulmonary embolism to be the etiology however consultation was placed to cardiology patient has been seen by Dr. Ledesma plan is for patient undergo nuclear stress test in a.m (11/04/2018) 4. New onset diabetes mellitus type 2 hemoglobin A1c on admission 7.5 patient has been started on glimepiride as well as sliding scale coverage 5. Markedly elevated PSA greater than 2000 has been explained to patient by several physicians on the need to undergo urological evaluation however he is reluctant due to insurance concerns. He is afraid he may not be paid by his insurance did explain to patient that since he is in the hospital but this would likely be covered he asked for time to think about this to make a decision this discussion was held in the presence of patient's 6. 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 Active Medications Acetaminophen (Tylenol) 650 mg PO Q6H PRN PRN PRN Reason: Fever, headache, pain Last Admin: 11/01/18 06:20 Dose: 650 mg Alprazolam (Xanax) 0.5 mg PO Q12H PRN PRN Reason: ANXIETY Glimepiride (Amaryl) 4 mg PO DAILY@0800 [facility] Last Admin: 11/03/18 10:14 Dose: Not Given Heparin Sodium (Porcine) (Heparin Na) 0 unit IV UD PRN; Protocol Last Admin: 11/01/18 16:39 Dose: 1,000 unit Heparin Sodium/Dextrose () 25,000 units in 250 mls @ 12 mls/hr IV .[id number] [facility]; Protocol Last Admin: 11/03/18 10:06 Dose: 12 mls/hr Insulin Human Lispro (Humalog Kwikpen (Bkc)) 0 unit SC Q6 [facility]; Protocol Last Admin: 11/03/18 11:58 Dose: Not Given Isosorbide Dinitrate (Isordil) 10 mg PO TID [facility] Last Admin: 11/03/18 05:16 Dose: 10 mg Magnesium Hydroxide (Milk Of Magnesia) 30 ml PO DAILY PRN PRN Reason: Constipation Metoprolol Tartrate (Lopressor (Beta Jessica)) 5 mg IV Q6 PRN PRN Reason: tachycardia Metoprolol Tartrate (Lopressor (Beta Jessica)) 25 mg PO BID [facility] Last Admin: 11/03/18 10:14 Dose: Not Given Morphine Sulfate () 1 mg IV Q4H PRN PRN PRN Reason: SEVERE PAIN (6-10/10) Last Admin: 11/03/18 01:42 Dose: 1 mg Ondansetron HCl (Zofran) 4 mg IV Q6H PRN PRN PRN Reason: NAUSEA/VOMITING Oxycodone HCl (Oxyir) 5 mg PO Q6H PRN PRN PRN Reason: SEVERE PAIN (6-10/10) Last Admin: 11/03/18 03:01 Dose: 5 mg Sodium Chloride () 5 - 15 ml IV UD PRN PRN Reason: SALINE FLUSH Last Admin: 11/03/18 01:44 Dose: 10 ml Throat Lozenges (Cepacol Sore Throat Lozenge) 1 lozenge MUCOUS MEM Q4H PRN PRN PRN Reason: SORE THROAT Last Admin: 11/02/18 20:21 Dose: 1 lozenge Zolpidem Tartrate (Ambien (Generic)) 5 mg PO QHS PRN PRN PRN Reason: INSOMNIA Clinical Impression(s) from Imaging Studies Chest X-Ray 10/31/18 08:53 IMPRESSION: No acute abnormality is seen. Electronically Signed: Macario Chang MD at 9:43 EST , Service support , Chest CTA 10/31/18 09:08 IMPRESSION: Large bilateral pulmonary emboli burden beginning in the distal aspect of the right and left main pulmonary arteries and extending to the first and second branch order vessels of the upper and lower lobes. No evidence of saddle component at this time. Early right heart strain is noted. N.B. : The above information has been verbally conveyed by Ran Zambrano DO to ZE Chacko, on 10/31/2018 10:42:07 (ET). Electronically Signed: Ran Zambrano DO at 10:43 EST Tel , Service support , ADDENDUM: 10/31/18 1050 IMPRESSION: Large bilateral pulmonary emboli burden beginning in the distal aspect of the right and left main pulmonary arteries and extending to the first and second branch order vessels of the upper and lower lobes. No evidence of saddle component at this time. Early right heart strain is noted. N.B. : The above information has been verbally conveyed by Ran Zambrano DO to ZE Chacko, on 10/31/2018 10:42:07 (ET). Electronically Signed: Ran Zambrano DO at 10:43 EST Tel , Service support , Code Visit Inpatient E&M: [id number] [facility] Hosp L3
[2018-11-03 18:01] LABS: Bedside Glucose 209 mg/dL (70-110)
[2018-11-03 20:07] LABS: Protein C Antigen 94 % (60-150); Protein C, Functional 125 % (73-180)
[2018-11-04] VITALS (19 sets, daily range): BP systolic 116–155; BP diastolic 71–117; PULSE 80–140; RESP 18–28; TEMP 36.3–37.1; O2SAT 91–98
[2018-11-04 05:40] LABS: Absolute Lymphocyte Count 1.85 X10^3/ul (0.83-4.51); Absolute Neutrophil Count 4.8 X10^3/uL (2.0-7.7); Basophil# 0.03 X10^3/uL; Basophil% 0.4 % (0-1); Eosinophil# 0.13 X10^3/uL; Eosinophils% 1.7 % (0-5); Hematocrit 38.2 % (40-54); Hemoglobin 12.6 g/dl (13.0-16.5); Lymphocyte # 1.85 X10^3/ul (4.0); Lymphocyte % 24.6 % (19-41); Mean Corpuscular Hgb 30.5 pg (27.0-32.0); Mean Corpuscular Volume 92.5 fL (80-94); Monocyte# 0.64 X10^3/uL; Monocyte% 8.5 % (0-10); Neutrophil # 4.82 X10^3/uL (2.7-7.7); Neutrophil % 64.3 % (47-70); Platelet Count 217 K/mm3 (150-450); Red Blood Count 4.13 M/mm3 (4.6-6.2); White Blood Count 7.5 K/mm3 (4.4-11.0)
[2018-11-04 05:41] LABS: POSITIVE COUNT NO; POSITIVE DIFFERENTIAL NO; POSITIVE MORPHOLOGY NO
[2018-11-04 05:46] LABS: International Normalized Ratio 1.2
[2018-11-04 05:48] LABS: Partial Thromboplast Time 61.2 Seconds (24.1-36.2)
--- NOTE | 2018-11-04 05:55 | EKG12_ITS ---
Test Reason : AM EKG Blood Pressure : / mmHG Vent. Rate : 090 BPM Atrial Rate : 090 BPM P-R Int : 132 ms QRS Dur : 092 ms QT Int : 412 ms P-R-T Axes : 049 003 012 degrees QTc Int : 504 ms Normal sinus rhythm Incomplete right bundle branch block Inferior infarct , age undetermined ST & T wave abnormality, consider anterolateral ischemia Prolonged QT Abnormal ECG Confirmed by CARMEN HERNANDEZ, FRANCIS ([id number]), tape editor ALLYSON HENSLEY ([id number]) on 11/06/2018 4:01:57 PM Referred By: JOSE JUAN Confirmed By:FRANCIS MORALES MD
[2018-11-04 05:58] LABS: Anion Gap 11 (5-15); BUN 24 mg/dL (7-18); BUN/Creat Ratio 22.9 RATIO (10-20); Calcium,Total 8.2 mg/dL (8.5-10.1); Chloride 104 mmol/L (98-107); Creatinine, Serum 1.05 mg/dL (0.70-1.30); EST Glomerular Filtration Rate 74 mL/min (>60); Est Glom Filt Rate - Afr Amer 89 mL/min (>60); Estimated Creatinine Clearance 51.18 ml/min; Glucose 154 mg/dL (74-106); Sodium Level 138 mmol/L (136-145)
[2018-11-04 06:40] LABS: Bedside Glucose 160 mg/dL (70-110)
[2018-11-04 08:18] LABS: Anti-Cardiolipin Ab, IgG, Qn < 9 GPL U/mL (0-14); Anti-Cardiolipin Ab, IgM, Qn 11 MPL U/mL (0-12); Antithrombin 3 Function 118 % (75-135); Protein S, Free 162 % (57-157); Protein S, Funtional 122 % (63-140); Protein S, Total 151 % (60-150)
--- NOTE | 2018-11-04 09:46 | PN_ITS ---
Patient Problems: Active and Suspected Problems (Last Updated 10/31/18 @ 12:03 by Matthew Antoine MD) Abnormal electrocardiogram (Acute) Chest pain (Acute) Indeterminate troponin (Acute) Acute respiratory failure with hypoxia (Acute) Bilateral pulmonary embolism (Acute) Subjective: Patient seen scheduled to undergo nuclear stress test this a.m. Objective: GENERAL: cooperative HEENT: Atraumatic; moist oral mucosa EYES; Anicteric, Normal Conjunctiva NECK; supple, normal thyroid, no distended JVD. RESPIRATORY: Diminished to auscultation bilaterally, CARDIOVASCULAR: Regular S1 S2, no audible murmurs GI: soft, non-tender, normoactive bowel sounds, : No Renal angle tenderness; EXTREMITIES: No edema, no clubbing, no cyanosis. MUSCULOSKELETAL: No Joint Tenderness; no muscle waisting NEURO: Awake; no lateralizing signs. SKIN: No Rash PSYCH; flat affect Vitals/I&O's: Vital Signs Temp Pulse Resp BP Pulse Ox 97.9 F 90 18 130/71 H 93 11/04/18 08:26 11/04/18 08:26 11/04/18 08:26 11/04/18 08:26 11/04/18 08:26 Oxygen Flow Rate (L/min) 2 Oxygen Delivery Method Nasal Cannula Weight: 76.2 kg Body Mass Index (BMI) 29.7 Intake and Output for Last 24 Hours 11/02/18 11/03/18 11/04/18 23:59 23:59 23:59 Intake Total 2172 / 2172 1161.5 / 1161.5 65.1 / 65.1 Output Total 900 / 900 1100 / 1100 200 / 200 Balance 1272 / 1272 61.5 / 61.5 -134.9 / -134.9 Laboratory Results 10/31/18 15:13: Protein C Antigen 94, Prot C Funct Activity 125, Functional Protein S 122, Free Protein S 162 H, Total Protein S 151 H, Func Antithrombin III 118, Factor V Leiden Mutat Comment, Anti-Cardiolipin IgG Ab < 9, Anti- Cardiolipin IgM Ab 11 11/03/18 11:52: POC Glucose 278 H 11/03/18 17:48: POC Glucose 209 H 11/04/18 05:25: PT 15.0 H, INR 1.2, APTT 61.2 H 11/04/18 05:25: WBC 7.5, RBC 4.13 L, Hgb 12.6 L, Hct 38.2 L, MCV 92.5, MCH 30.5, MCHC 33.0, RDW 13.0, RDW Differential 43.0, Plt Count 217, MPV 10.0, Immature Gran % (Auto) 0.500, Neut % (Auto) 64.3, Lymph % (Auto) 24.6, [place] % (Auto) 8.5, Eos % (Auto) 1.7, Baso % (Auto) 0.4, Absolute Neuts (auto) 4.8, Absolute Lymphs (auto) 1.85, Total Counted Not Reportable 11/04/18 05:25: Sodium 138, Potassium 4.0, Chloride 104, Carbon Dioxide 23.0, Anion Gap 11, BUN 24 H, Creatinine 1.05, Estim Creat Clear Calc 51.18, Est GFR (MDRD) Af Amer 89, Est GFR (MDRD) Non-Af 74, BUN/Creatinine Ratio 22.9 H, Glucose 154 H, Calcium 8.2 L 11/04/18 06:04: POC Glucose 160 H Current Medications Acetaminophen (Tylenol) 650 mg PO Q6H PRN PRN PRN Reason: Fever, headache, pain Last Admin: 11/01/18 06:20 Dose: 650 mg Alprazolam (Xanax) 0.5 mg PO Q12H PRN PRN Reason: ANXIETY Glimepiride (Amaryl) 4 mg PO DAILY@0800 [facility] Last Admin: 11/04/18 08:33 Dose: Not Given Heparin Sodium (Porcine) (Heparin Na) 0 unit IV UD PRN; Protocol Last Admin: 11/01/18 16:39 Dose: 1,000 unit Heparin Sodium/Dextrose () 25,000 units in 250 mls @ 12 mls/hr IV .[id number] [facility]; Protocol Last Admin: 11/03/18 23:33 Dose: Not Given Insulin Human Lispro (Humalog Kwikpen (Bkc)) 0 unit SC ACHS [facility]; Protocol Isosorbide Dinitrate (Isordil) 10 mg PO TID [facility] Last Admin: 11/04/18 06:11 Dose: Not Given Magnesium Hydroxide (Milk Of Magnesia) 30 ml PO DAILY PRN PRN Reason: Constipation Metoprolol Tartrate (Lopressor (Beta Jessica)) 5 mg IV Q6 PRN PRN Reason: tachycardia Metoprolol Tartrate (Lopressor (Beta Jessica)) 25 mg PO BID [facility] Last Admin: 11/03/18 21:14 Dose: Not Given Morphine Sulfate () 1 mg IV Q4H PRN PRN PRN Reason: SEVERE PAIN (6-10/10) Last Admin: 11/03/18 01:42 Dose: 1 mg Ondansetron HCl (Zofran) 4 mg IV Q6H PRN PRN PRN Reason: NAUSEA/VOMITING Oxycodone HCl (Oxyir) 5 mg PO Q6H PRN PRN PRN Reason: SEVERE PAIN (6-10/10) Last Admin: 11/03/18 21:13 Dose: 5 mg Senna (Senokot) 1 tablet PO BID PRN PRN Reason: CONSTIPATION Sodium Chloride () 5 - 15 ml IV UD PRN PRN Reason: SALINE FLUSH Last Admin: 11/03/18 01:44 Dose: 10 ml Throat Lozenges (Cepacol Sore Throat Lozenge) 1 lozenge MUCOUS MEM Q4H PRN PRN PRN Reason: SORE THROAT Last Admin: 11/02/18 20:21 Dose: 1 lozenge Zolpidem Tartrate (Ambien (Generic)) 5 mg PO QHS PRN PRN PRN Reason: INSOMNIA Medical Necessity - Tobacco Use Smoking Status: Former smoker Assessment/Plan All Active Problems (Last Updated 10/31/18 @ 12:03 by Matthew Antoine MD) Abnormal electrocardiogram (Acute) Chest pain (Acute) Indeterminate troponin (Acute) Acute respiratory failure with hypoxia (Acute) Bilateral pulmonary embolism (Acute) Patient is a 73-year-old gentleman admitted with extensive bilateral femoral emboli, acute DVT of the right leg,. He was also found to have markedly elevated PSA levels suspicious for prostate cancer. Patient also had indeterminate troponin EKG changes consultation was placed to cardiology patient has been seen by Dr. Ledesma with plans for patient to undergo a nuclear stress test on 11/04/2018 1. Acute thromboembolism. CTA of the chest obtained demonstrated Large bilateral pulmonary emboli burden beginning in the distal aspect of the right and left main pulmonary arteries and extending to the first and second branch order vessels of the upper and lower lobes. No evidence of saddle component at this time. Early right heart strain is noted. Patient was also noted to have extensive bilateral femoral emboli patient remains on heparin with plans to start new oral anticoagulant on discharge insurance approval 2. Acute hypoxic respiratory failure present on admission 3. Indeterminate troponin with EKG changes do suspect patient massive pulmonary embolism to be the etiology however consultation was placed to cardiology patient has been seen by Dr. Ledesma plan is for patient undergo nuclear stress test (11/04/2018) 4. New onset diabetes mellitus type 2 hemoglobin A1c on admission 7.5 patient has been started on glimepiride as well as sliding scale coverage 5. Markedly elevated PSA greater than 2000 has been explained to patient by several physicians on the need to undergo urological evaluation however he is reluctant due to insurance concerns. He is afraid he may not be paid by his insurance did explain to patient that since he is in the hospital but this would likely be covered he asked for time to think about this to make a decision this discussion was held in the presence of patient's 6. 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
--- NOTE | 2018-11-04 11:15 | NURSING ---
Patient came back from stress test lab intermittently in afib rvr. HR ranging from 160-190. Patient asymptomatic, BP stable. Dr. Ledesma notified and Lopressor PO was increased.
[2018-11-04] MEDS: HEPARIN/D5w 25,000 UNITS 25,000 UNITS/250 ML IV.SOLN. 12 UNITS IV (12:12)
[2018-11-04] MEDS: Metoprolol Tartrate 50 MG Tablet PO (12:13)
[2018-11-04 12:20] LABS: Bedside Glucose 147 mg/dL (70-110)
[2018-11-04] MEDS: Isosorbide DN 10 MG Tablet PO ×2 (13:57→21:57)
[2018-11-04] MEDS: Senna Tablet 1 TABLET PO (15:31)
--- NOTE | 2018-11-04 17:00 | STRESSREP ---
Stress Test Report Date: 11-04-2018 Procedure: Pharmacologic stress nuclear imaging study Indications: Chest pain; shortness of breath; abnormal ECG; bilateral pulmonary emboli Consent: Per the patient Procedure: Myocardial perfusion imaging study: Technique: The patient was injected with 12.0 millicuries of technetium 99m Cardiolite and subsequently rest SPECT Cardiolite nuclear imaging was obtained in the horizontal long, vertical long, and short axis views. The patient was subsequently noted to develop atrial fibrillation with rapid ventricular response. Thus, the remainder of the pharmacologic stress nuclear imaging study procedure was not performed. The patient was returned to the PCU for further evaluation and care. Interpretation: Rest SPECT Cardiolite nuclear imaging status post realignment and normalization demonstrated relative uniform tracer uptake and myocardial perfusion appearing within normal limits . Impression: 1. Rest aspect Cardiolite nuclear imaging status post realignment normalization demonstrated relative uniform tracer uptake and myocardial perfusion appearing within normal limits . This note was generated with Fundbaseation software. It may contain incorrect words, spelling, and punctuation that were not noted in checking the note before signing.
--- NOTE | 2018-11-04 17:03 | STRESSREP_ITS ---
Stress Test Report Date: 11-04-2018 Procedure: Pharmacologic stress nuclear imaging study Indications: Chest pain; shortness of breath; abnormal ECG; bilateral pulmonary emboli Consent: Per the patient Procedure: Myocardial perfusion imaging study: Technique: The patient was injected with 12.0 millicuries of technetium 99m Cardiolite and subsequently rest SPECT Cardiolite nuclear imaging was obtained in the horizontal long, vertical long, and short axis views. The patient was subsequently noted to develop atrial fibrillation with rapid ventricular r esponse. Thus, the remainder of the pharmacologic stress nuclear imaging study procedure was not performed. The patient was returned to the PCU for further evaluation and care. Interpretation: Rest SPECT Cardiolite nuclear imaging status post realignment and normalization demonstrated relative uniform tracer uptake and myocardial perfusion appearing within normal limits . Impression: 1. Rest aspect Cardiolite nuclear imaging status post realignment normalization demonstrated relative uniform tracer uptake and myocardial perfusion appearing within normal limits . This note was generated with Zin.[employer] software. It may contain incorrect words, spelling, and punctuation that were not noted in checking the note before signing.
--- NOTE | 2018-11-04 19:39 | PN.CARD_ITS ---
Subjectve: The patient was noted earlier this day, during his attempt at a pharmacologic stress nuclear imaging study, between his baseline images and the initiation of his pharmacologic stress nuclear protocol, to develop atrial fibrillation with rapid ventricular response. Thus he did not proceed with completion of his procedure at that time. He was subsequently noted have spontaneous returned to sinus rhythm. At the present time he states he is resting comfortably. He does not have any ongoing chest discomfort or worsening shortness of breath or dyspnea. He is not complaining of palpitations. There was no near syncope or syncope. Objective: Vital Signs Temp Pulse Resp BP Pulse Ox 97.7 F L 84 27 H 123/98 H 94 11/04/18 16:00 11/04/18 18:57 11/04/18 16:00 11/04/18 16:00 11/04/18 16:00 Oxygen Flow Rate (L/min) 2 Oxygen Delivery Method Nasal Cannula Weight: 167 lb 15.876 oz Body Mass Index (BMI) 29.7 Intake and Output for Last 24 Hours 11/02/18 11/03/18 11/04/18 23:59 23:59 23:59 Intake Total 2172 / 2172 1161.5 / 1161.5 689.4 / 689.4 Output Total 900 / 900 1100 / 1100 1000 / 1000 Balance 1272 / 1272 61.5 / 61.5 -310.6 / -310.6 General: Awake, Alert, Oriented x 3, Cooperative, No Acute Distress HEENT: Atraumatic, Normocephalic, EOMI, Sclera Non Icteric Oral: Moist Mucosa Neck: Supple, Good ROM, No JVD Lungs: - - No obvious rales or rhonchi Cardiovascular: Regular Rhythm, Normal S1, Normal S2 Abdomen: Bowel Sounds Present, Soft, Non Tender Extremities: No edema Psych/Mental Status: Appropriate 11/04/18 05:25: PT 15.0 H, INR 1.2, APTT 61.2 H 11/04/18 05:25: WBC 7.5, RBC 4.13 L, Hgb 12.6 L, Hct 38.2 L, MCV 92.5, MCH 30.5, MCHC 33.0, RDW 13.0, RDW Differential 43.0, Plt Count 217, MPV 10.0, Immature Gran % (Auto) 0.500, Neut % (Auto) 64.3, Lymph % (Auto) 24.6, Frederick % (Auto) 8.5, Eos % (Auto) 1.7, Baso % (Auto) 0.4, Absolute Neuts (auto) 4.8, Total Counted Not Reportable 11/04/18 05:25: Sodium 138, Potassium 4.0, Chloride 104, Carbon Dioxide 23.0, Anion Gap 11, BUN 24 H, Creatinine 1.05, Est GFR (MDRD) Af Amer 89, Est GFR (MDRD) Non-Af 74, BUN/Creatinine Ratio 22.9 H, Glucose 154 H, Calcium 8.2 L Rhythm:Sinus rhythm Stress Test:Baseline rest aspect a nuclear imaging: Myocardial perfusion appearing within normal limits Medical Necessity - Tobacco Use Smoking Status: Former smoker Assessment/Plan 1. Chest pain The patient was to undergo further evaluation this day with a pharmacologic stress nuclear imaging study. Status post the baseline images, after urinating, he developed atrial fibrillation with rapid ventricular response. Thus he did not complete the examination. He was subsequently noted to have spontaneous returned to sinus rhythm. He has been resting comfortably at that time with no acute symptoms. He has remained in sinus rhythm. He was offered a reattempt to complete his aforementioned pharmacologic stress nuclear imaging study which the pharmacologic portion and the post stress specked images. However the present time he states he does not want to proceed with any other diagnostic studies. He only wants to continue medical therapy for his underlying blood clots . 2. Indeterminate troponin I level Again this may be secondary to his pulmonary emboli and right ventricular strain. His troponin I levels are decreasing. 3. Abnormal electrocardiogram His electrocardiogram does suggest changes compatible with anterolateral myocardial ischemia. It is unclear whether this represents changes related to this acute pulmonary disease process and elevated right sided pressures alone versus being superimposed upon some underlying cardiovascular disease/CT process. At the present time he will continue evaluation care as noted above. He will continue medical therapy. 4. Paroxysmal atrial fibrillation The patient did have an episode of paroxysmal fibrillation with rapid ventricular response. He returned to sinus rhythm spontaneously. He will continue rate control therapy. His beta anand dose was increased. He will continue anticoagulant therapy. 5. Pulmonary emboli He does have extensive bilateral pulmonary emboli. He has had DVTs. There is concern this may be related to underlying history of carcinoma including undiagnosed prostate carcinoma.He has declined evaluation by urology/oncology. At the present time based upon his marked bilateral pulmonary embolisms he remains in the hospital. He remains on cardiac rhythm monitoring. He continues with O2 support. He continues with IV heparin. As he does not want to proceed with any other noninvasive or invasive studies at this time, he can be considered for transition from IV heparin to an oral systemic anticoagulant agent. 6. Carcinoma There is concern based upon his elevated PSA of underlying prostate carcinoma. Again he has declined evaluation by urology/oncology. Comment: The patient's case was discussed with the patient. This note was generated using a voice recognition system and there may be incorrect words, spelling or punctuation that were not noted when reviewing the office note prior to saving.
[2018-11-04 19:51] LABS: Bedside Glucose 196 mg/dL (70-110)
[2018-11-04 22:20] LABS: Bedside Glucose 160 mg/dL (70-110)
[2018-11-05] VITALS (8 sets, daily range): BP systolic 106–115; BP diastolic 70–79; PULSE 77–92; RESP 16–20; TEMP 36.4–36.7; O2SAT 85–95
[2018-11-05] MEDS: HEPARIN/D5w 25,000 UNITS 25,000 UNITS/250 ML IV.SOLN. 12 UNITS IV (04:08)
[2018-11-05 05:57] LABS: Partial Thromboplast Time 55.4 Seconds (24.1-36.2)
[2018-11-05] MEDS: Isosorbide DN 10 MG Tablet PO (06:06)
[2018-11-05] MEDS: Senna Tablet 1 TABLET PO (06:11)
[2018-11-05 07:00] LABS: Bedside Glucose 128 mg/dL (70-110)
--- NOTE | 2018-11-05 08:47 | DCINST_ITS ---
- Discharge Diagnoses Current Active Problems: Current Active and Chronic Problems (Last Updated 10/31/18 @ 12:03 by Matthew Antoine MD) Abnormal electrocardiogram (Acute) Chest pain (Acute) Abnormal PSA (Chronic) Indeterminate troponin (Acute) Acute respiratory failure with hypoxia (Acute) Bilateral pulmonary embolism (Acute) You will use the following diet at home:: Calorie/Carbohydrate Controlled (specify 1200, 1400, etc) - 1800 Your food should be the consistency of: Regular Discharge Activity: Return to Normal Activity Allergies/Adverse Reactions: Allergies No Known Allergies Allergy (Unverified 10/31/18 09:17) Medications to take at Discharge Ascorbic Acid [Vitamin C] 500 mg PO DAILY 10/31/18 Acetaminophen [Tylenol Tablet] 650 mg PO Q6H PRN PRN tablet 11/05/18 Apixaban [Eliquis] 5 mg PO BID #120 tablet 11/05/18 Glimepiride [Amaryl] 4 mg PO DAILY@0800 #60 tablet 11/05/18 Metoprolol Tartrate [Lopressor (beta anand)] 50 mg PO BID #120 tablet 11/05/18 Zolpidem Tartrate [Ambien] 5 mg PO QHS PRN PRN tablet 11/05/18 The following prescriptions were given: Apixaban [Eliquis] 5 mg PO BID #120 tablet Glimepiride [Amaryl] 4 mg PO DAILY@0800 #60 tablet Metoprolol Tartrate [Lopressor (beta anand)] 50 mg PO BID #120 tablet Primary Care Physician: Wil Bradshaw DO [Primary Care Provider] - Please follow up with your Primary Care Physician in: in 5-7 days Test Results: Test results from this visit will be discussed in further detail at your follow- up appointment, if applicable. Please Follow Up With: Yossi Ledesma MD When: in 2-4 weeks Please Follow Up With: Yung Allen MD When: please call for an Appt Proposed Discharge Date: 11/05/18
--- NOTE | 2018-11-05 08:47 | PCM.DC.SUM ---
Discharge Date and Diagnosis - Problem List Patient Problems: Active and Suspected Problems (Last Updated 10/31/18 @ 12:03 by Matthew Antoine MD) Abnormal electrocardiogram (Acute) Chest pain (Acute) Indeterminate troponin (Acute) Acute respiratory failure with hypoxia (Acute) Bilateral pulmonary embolism (Acute) Date of Admission: 10/31/18 Date of Discharge: 11/05/18 - Primary Discharge Diagnosis Active and Suspected Problems (Last Updated 10/31/18 @ 12:03 by Matthew Antoine MD) Abnormal electrocardiogram (Acute) Chest pain (Acute) Indeterminate troponin (Acute) Acute respiratory failure with hypoxia (Acute) Bilateral pulmonary embolism (Acute) - Secondary Discharge Diagnosis Chronic Problems (Last Updated 10/31/18 @ 12:03 by Matthew Antoine MD) Abnormal PSA (Chronic) Benign tumor of colon (Chronic) Enlarged prostate (Chronic) Arthritis (Chronic) Hospital Course and Treatment Imaging Results: Clinical Impression(s) from Imaging Studies Chest X-Ray 10/31/18 08:53 IMPRESSION: No acute abnormality is seen. Electronically Signed: Macario Chang MD at 9:43 EST , Service support , Chest CTA 10/31/18 09:08 IMPRESSION: Large bilateral pulmonary emboli burden beginning in the distal aspect of the right and left main pulmonary arteries and extending to the first and second branch order vessels of the upper and lower lobes. No evidence of saddle component at this time. Early right heart strain is noted. N.B. : The above information has been verbally conveyed by Ran Zambrano DO to ZE Chacko, on 10/31/2018 10:42:07 (ET). Electronically Signed: Ran Zambrano DO at 10:43 EST Tel , Service support , ADDENDUM: 10/31/18 1050 IMPRESSION: Large bilateral pulmonary emboli burden beginning in the distal aspect of the right and left main pulmonary arteries and extending to the first and second branch order vessels of the upper and lower lobes. No evidence of saddle component at this time. Early right heart strain is noted. N.B. : The above information has been verbally conveyed by Ran Zambrano DO to ZE Chacko, on 10/31/2018 10:42:07 (ET). Electronically Signed: Ran Zambrano DO at 10:43 EST Tel , Service support , Summary of Care Provided: Patient is a 73-year-old gentleman admitted with extensive bilateral femoral emboli, acute DVT of the right leg,. He was also found to have markedly elevated PSA levels suspicious for prostate cancer. Patient also had indeterminate troponin EKG changes c 1. Acute thromboembolism. CTA of the chest obtained demonstrated Large bilateral pulmonary emboli burden beginning in the distal aspect of the right and left main pulmonary arteries and extending to the first and second branch order vessels of the upper and lower lobes. No evidence of saddle component at this time. Early right heart strain is noted. Patient was also noted to have extensive bilateral femoral emboli patient remains on heparin with plans to start new oral anticoagulant on discharge insurance approval 2. Acute hypoxic respiratory failure present on admission 3. Indeterminate troponin with EKG changes do suspect patient massive pulmonary embolism to be the etiology however consultation was placed to cardiology patient has been seen by Dr. Ledesma patient underwent nuclear stress test (11/04/2018) test could not be completed due to development of paroxysmal A. fib during the procedure 4. Paroxysmal atrial fibrillation managed on beta-blockers. Patient is on systemic anticoagulation for his acute VTE 5. New onset diabetes mellitus type 2 hemoglobin A1c on admission 7.5 patient has been started on glimepiride as well as sliding scale coverage 6. Markedly elevated PSA greater than 2000 has been explained to patient by several physicians on the need to undergo urological evaluation however he is reluctant due to insurance concerns. He is afraid he may not be paid by his insurance did explain to patient that since he is in the hospital but this would likely be covered he asked for time to think about this to make a decision this discussion was held in the presence of patient's patient was once again instructed to call Dr. Allen's office to schedule an appointment for an evaluation of his markedly elevated PSA level 7. 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 RESPIRATORY: Diminished to auscultation bilaterally, CARDIOVASCULAR: Regular S1 S2, no audible murmurs GI: soft, non-tender, normoactive bowel sounds, : No Renal angle tenderness; EXTREMITIES: No edema, no clubbing, no cyanosis. MUSCULOSKELETAL: No Joint Tenderness; no muscle waisting NEURO: Awake; no lateralizing signs. SKIN: No Rash PSYCH; flat affect - Physical Exam Vital Signs Temp Pulse Resp BP Pulse Ox 97.6 F L 77 20 H 115/79 95 11/05/18 04:00 11/05/18 04:00 11/05/18 04:00 11/05/18 04:00 11/05/18 07:25 Oxygen Flow Rate (L/min) 2 Oxygen Delivery Method Nasal Cannula Weight: 76.2 kg Body Mass Index (BMI) 29.7 Intake and Output for Last 24 Hours 11/03/18 11/04/18 11/05/18 23:59 23:59 23:59 Intake Total 1161.5 / 1161.5 1000.7 / 1000.7 305.3 / 305.3 Output Total 1100 / 1100 1675 / 1675 600 / 600 Balance 61.5 / 61.5 -674.3 / -674.3 -294.7 / -294.7 Laboratory Tests Past 24 Hrs 11/05/18 05:15 APTT 55.4 H POC Glucose 11/05/18 11/04/18 11/04/18 06:54 21:55 17:38 POC Glucose 128 H 160 H 196 H 11/04/18 12:10 POC Glucose 147 H Discharge Diet: No Restrictions Discharge Activity: Return to Normal Activity Home Medications: Medications to take at Discharge Ascorbic Acid [Vitamin C] 500 mg PO DAILY 10/31/18 Acetaminophen [Tylenol Tablet] 650 mg PO Q6H PRN PRN tablet 11/05/18 Apixaban [Eliquis] 5 mg PO BID #120 tablet 11/05/18 Glimepiride [Amaryl] 4 mg PO DAILY@0800 #60 tablet 11/05/18 Metoprolol Tartrate [Lopressor (beta anand)] 50 mg PO BID #120 tablet 11/05/18 Zolpidem Tartrate [Ambien] 5 mg PO QHS PRN PRN tablet 11/05/18 Following Prescrptions Were Given to Patient: Apixaban [Eliquis] 5 mg PO BID #120 tablet Glimepiride [Amaryl] 4 mg PO DAILY@0800 #60 tablet Metoprolol Tartrate [Lopressor (beta anand)] 50 mg PO BID #120 tablet Primary Care Physician: Wil Bradshaw, [Primary Care Provider] - Please follow up with your Primary Care Physician in: in 5-7 days Please Follow Up With: Yossi Ledesma MD When: in 2-4 weeks Please Follow Up With: Yung Allen MD When: please call for an Appt Disposition: Home Minutes spent on discharge:: 45 Patient Condition:: Stable Medical Necessity - Tobacco Use Smoking Status: Former smoker Meaningful Use Info Meaningful Use Diagnoses (Choose all that apply): VTE - VTE Anticoag overlap given w/in hospital stay or rx'd at dc?: No Pt receive overlap for 5 days?: No Reason overlap not ordered, prescribed, or given for 5 days: Treatment Not Indicated Code Visit Inpatient E&M: 33092 Disch Hosp
--- NOTE | 2018-11-05 08:51 | DS.PCM_ITS ---
Discharge Date and Diagnosis - Problem List Patient Problems: Active and Suspected Problems (Last Updated 10/31/18 @ 12:03 by Matthew Antoine MD) Abnormal electrocardiogram (Acute) Chest pain (Acute) Indeterminate troponin (Acute) Acute respiratory failure with hypoxia (Acute) Bilateral pulmonary embolism (Acute) Date of Admission: 10/31/18 Date of Discharge: 11/05/18 - Primary Discharge Diagnosis Active and Suspected Problems (Last Updated 10/31/18 @ 12:03 by Matthew Antoine MD) Abnormal electrocardiogram (Acute) Chest pain (Acute) Indeterminate troponin (Acute) Acute respiratory failure with hypoxia (Acute) Bilateral pulmonary embolism (Acute) - Secondary Discharge Diagnosis Chronic Problems (Last Updated 10/31/18 @ 12:03 by Matthew Antoine MD) Abnormal PSA (Chronic) Benign tumor of colon (Chronic) Enlarged prostate (Chronic) Arthritis (Chronic) Hospital Course and Treatment Imaging Results: Clinical Impression(s) from Imaging Studies Chest X-Ray 10/31/18 08:53 IMPRESSION: No acute abnormality is seen. Electronically Signed: Macario Chang MD at 9:43 EST , Service support , Chest CTA 10/31/18 09:08 IMPRESSION: Large bilateral pulmonary emboli burden beginning in the distal aspect of the right and left main pulmonary arteries and extending to the first and second branch order vessels of the upper and lower lobes. No evidence of saddle component at this time. Early right heart strain is noted. N.B. : The above information has been verbally conveyed by Ran Zambrano DO to ZE Chacko, on 10/31/2018 10:42:07 (ET). Electronically Signed: Ran Zambrano DO at 10:43 EST Tel , Service support , ADDENDUM: 10/31/18 1050 IMPRESSION: Large bilateral pulmonary emboli burden beginning in the distal aspect of the right and left main pulmonary arteries and extending to the first and second branch order vessels of the upper and lower lobes. No evidence of saddle component at this time. Early right heart strain is noted. N.B. : The above information has been verbally conveyed by Ran Zambrano DO to ZE Chacko, on 10/31/2018 10:42:07 (ET). Electronically Signed: Ran Zambrano DO at 10:43 EST Tel , Service support , Summary of Care Provided: Patient is a 73-year-old gentleman admitted with extensive bilateral femoral emboli, acute DVT of the right leg,. He was also found to have markedly elevated PSA levels suspicious for prostate cancer. Patient also had indeterminate troponin EKG changes c 1. Acute thromboembolism. CTA of the chest obtained demonstrated Large bilateral pulmonary emboli burden beginning in the distal aspect of the right and left main pulmonary arteries and extending to the first and second branch order vessels of the upper and lower lobes. No evidence of saddle component at this time. Early right heart strain is noted. Patient was also noted to have extensive bilateral femoral emboli patient remains on heparin with plans to start new oral anticoagulant on discharge insurance approval 2. Acute hypoxic respiratory failure present on admission 3. Indeterminate troponin with EKG changes do suspect patient massive pulmonary embolism to be the etiology however consultation was placed to cardiology patient has been seen by Dr. Ledesma patient underwent nuclear stress test (11/04/2018) test could not be completed due to development of paroxysmal A. fib during the procedure 4. Paroxysmal atrial fibrillation managed on beta-blockers. Patient is on systemic anticoagulation for his acute VTE 5. New onset diabetes mellitus type 2 hemoglobin A1c on admission 7.5 patient has been started on glimepiride as well as sliding scale coverage 6. Markedly elevated PSA greater than 2000 has been explained to patient by several physicians on the need to undergo urological evaluation however he is reluctant due to insurance concerns. He is afraid he may not be paid by his insurance did explain to patient that since he is in the hospital but this would likely be covered he asked for time to think about this to make a decision this discussion was held in the presence of patient's patient was once again instructed to call Dr. Allen's office to schedule an appointment for an evaluation of his markedly elevated PSA level 7. 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 RESPIRATORY: Diminished to auscultation bilaterally, CARDIOVASCULAR: Regular S1 S2, no audible murmurs GI: soft, non-tender, normoactive bowel sounds, : No Renal angle tenderness; EXTREMITIES: No edema, no clubbing, no cyanosis. MUSCULOSKELETAL: No Joint Tenderness; no muscle waisting NEURO: Awake; no lateralizing signs. SKIN: No Rash PSYCH; flat affect - Physical Exam Vital Signs Temp Pulse Resp BP Pulse Ox 97.6 F L 77 20 H 115/79 95 11/05/18 04:00 11/05/18 04:00 11/05/18 04:00 11/05/18 04:00 11/05/18 07:25 Oxygen Flow Rate (L/min) 2 Oxygen Delivery Method Nasal Cannula Weight: 76.2 kg Body Mass Index (BMI) 29.7 Intake and Output for Last 24 Hours 11/03/18 11/04/18 11/05/18 23:59 23:59 23:59 Intake Total 1161.5 / 1161.5 1000.7 / 1000.7 305.3 / 305.3 Output Total 1100 / 1100 1675 / 1675 600 / 600 Balance 61.5 / 61.5 -674.3 / -674.3 -294.7 / -294.7 Laboratory Tests Past 24 Hrs 11/05/18 05:15 APTT 55.4 H POC Glucose 11/05/18 11/04/18 11/04/18 06:54 21:55 17:38 POC Glucose 128 H 160 H 196 H 11/04/18 12:10 POC Glucose 147 H Discharge Diet: No Restrictions Discharge Activity: Return to Normal Activity Home Medications: Medications to take at Discharge Ascorbic Acid [Vitamin C] 500 mg PO DAILY 10/31/18 Acetaminophen [Tylenol Tablet] 650 mg PO Q6H PRN PRN tablet 11/05/18 Apixaban [Eliquis] 5 mg PO BID #120 tablet 11/05/18 Glimepiride [Amaryl] 4 mg PO DAILY@0800 #60 tablet 11/05/18 Metoprolol Tartrate [Lopressor (beta anand)] 50 mg PO BID #120 tablet 11/05/18 Zolpidem Tartrate [Ambien] 5 mg PO QHS PRN PRN tablet 11/05/18 Following Prescrptions Were Given to Patient: Apixaban [Eliquis] 5 mg PO BID #120 tablet Glimepiride [Amaryl] 4 mg PO DAILY@0800 #60 tablet Metoprolol Tartrate [Lopressor (beta anand)] 50 mg PO BID #120 tablet Primary Care Physician: Wil Bradshaw, [Primary Care Provider] - Please follow up with your Primary Care Physician in: in 5-7 days Please Follow Up With: Yossi Ledesma MD When: in 2-4 weeks Please Follow Up With: Yung Allen MD When: please call for an Appt Disposition: Home Minutes spent on discharge:: 45 Patient Condition:: Stable Medical Necessity - Tobacco Use Smoking Status: Former smoker Meaningful Use Info Meaningful Use Diagnoses (Choose all that apply): VTE - VTE Anticoag overlap given w/in hospital stay or rx'd at dc?: No Pt receive overlap for 5 days?: No Reason overlap not ordered, prescribed, or given for 5 days: Treatment Not Indicated Code Visit Inpatient E&M: 67094 Disch Hosp
--- NOTE | 2018-11-05 09:33 | CASEMGMT ---
Pt to be sent home on Eliquis and med e-scribed to [facility]. Once [facility] updated on [facility] insurance, pt has no co-pay for Eliquis at this time. This RN CM awaiting oxygen qualification at this time. Pt to be updated on Eliquis. SStchapito KERNS CM
[2018-11-05] MEDS: APIXABAN 5 MG TABLET 10 MG PO (09:47)
--- NOTE | 2018-11-05 11:16 | CASEMGMT ---
Pt did qualify for home oxygen at 85% RA at rest. Pt states no preference for DME company at this time. Daughter states that she knows where [facility] is located after list of local to pt at this time. Referral faxed to [facility] at this time and call to [facility] at this time to notify of referral, voices understanding. Pt/daughter aware of $0 co-pay for Eliquis at this time, voice understanding. Pt/daughter voice no further questions/concerns/needs at this time. Pt awaiting oxygen tank from [facility] for discharge. Vicky KERNS CM
--- NOTE | 2018-11-06 15:23 | CASEMGMT ---
LUIS F LOPEZ Discharge Follow-up Phone Call: PEDRO: Francesco Strata: 4 Call Date: 11/06/18 Discharge Date:11/05/18 Time of Call: 1520 Duration: 1 min Admitting Diagnosis: Bilateral PE RN JESSICA attempted to complete follow-up phone call after recent hospitalization. No answer, voice message left with return contact information. Patient had follow-up appts scheduled prior to discharge. Patient was setup with home oxygen.
== END 2018-11-05 14:58 | disposition home or self-care (01) | DRG 134 ==
LOC: ED 09:05 → PCU 11:12
PROVIDERS: Internal Medicine Cardiovascular Disease; Admitting Provider Hospitalist; Emergency Provider Emergency Medicine; Family Provider Family Medicine; PCP Family Medicine; Visit Provider Internal Medicine
DX: I26.99 Other pulmonary embolism without acute cor pulmonale (principal); J96.01 Acute respiratory failure with hypoxia; I82.4Z1 Acute embolism and thrombosis of unspecified deep veins of right distal lower extremity; R55 Syncope and collapse; E11.9 Type 2 diabetes mellitus without complications; R97.20 Elevated prostate specific antigen [PSA]; I48.0 Paroxysmal atrial fibrillation; N40.0 Benign prostatic hyperplasia without lower urinary tract symptoms; R74.8 Abnormal levels of other serum enzymes; R94.31 Abnormal electrocardiogram [ECG] [EKG]; Z93.3 Colostomy status; Z87.891 Personal history of nicotine dependence; Z86.718 Personal history of other venous thrombosis and embolism; Z90.49 Acquired absence of other specified parts of digestive tract; R07.9 Chest pain, unspecified
CPT/HCPCS: 36415; 36600; 71045; 71275; 78452; 80048; 80053; 81241; 82803; 82962; 83036; 83880; 84153; 84484; 85025; 85300; 85302; 85303; 85305; 85306; 85610; 85730; 86147; 93005; 93017; 93306; 93970; 94640; 99285; A9500; J7030; J7040; Q9967; A4216; J2785

== ENCOUNTER → 2018-12-01 08:48 | Outpatient (CLI) | payer MEDICAID, SELFPAY ==
[2018-11-27 14:27] VITALS: BMI 27.2
[2018-12-01 09:57] LABS: AST(SGOT) 16 U/L (15-37); Alanine Aminotransfer ALT/SGPT 19 U/L (16-61); Albumin, Serum 3.4 g/dL (3.2-5.0); Alkaline Phosphatase 60 U/L (45-117); Bilirubin, Direct 0.14 mg/dL (0.00-0.30); Cholesterol 203 mg/dL (200); Globulin 3.3 g/dL (2.2-4.2); High Density Lipoprotein 41 mg/dL; Protein, Total 6.7 g/dL (6.4-8.2); Triglycerides 214 mg/dL; Very Low Density Lipoprotein 43 mg/dL (5-40)
== END ==
PROVIDERS: Family Provider Family Medicine; PCP Family Medicine; Referring Provider Internal Medicine Cardiovascular Disease; Visit Provider Internal Medicine Cardiovascular Disease
DX: I48.0 Paroxysmal atrial fibrillation (principal); I27.20 Pulmonary hypertension, unspecified; R07.9 Chest pain, unspecified; R94.31 Abnormal electrocardiogram [ECG] [EKG]
CPT/HCPCS: 36415; 80061; 80076

== ENCOUNTER → 2019-05-21 08:52 | Outpatient (CLI) | payer MEDICAID, SELFPAY ==
[2019-05-12 09:34] VITALS: BMI 27.9
--- NOTE | 2019-05-21 08:54 | VDLE_ITS ---
Reason For Study: PE RIGHT LEFT CFV is compressible, spontaneous, phasic, CFV is compressible, spontaneous, phasic, competent and demonstrates normal competent, and demonstrates normal augmentation. augmentation. FV is compressible, spontaneous, phasic, competent and demonstrates normal augmentation. POP V is compressible, spontaneous, phasic, competent and demonstrates normal augmentation. PTV is compressible. RT PerV is compressible. T/P Trunk is compressible. Soleus V is compressible. Peroneal V is partially compressible. GSV is partially compressible. Improvement from previous study done 10/31/2018. Procedure Exam performed in department. The exam was diagnostic. Interpretation Summary Chronic deep venous thrombosis right peroneal vein. Chronic superficial thrombophlebitis right great saphenous vein. Improvement noted since 10/31/18. Patent and compressible left common femoral vein Ordering Physician: Wil Bradshaw Performed By: Jean Rowland RVT
== END ==
PROVIDERS: Family Provider Family Medicine; PCP Family Medicine; Referring Provider Family Medicine; Visit Provider Family Medicine
DX: I26.99 Other pulmonary embolism without acute cor pulmonale (principal)
CPT/HCPCS: 93971

== ENCOUNTER → 2019-11-03 | Outpatient (CLI) | payer MEDICAID, SELFPAY ==
[2019-11-02 12:05] VITALS: BMI 28.4
== END | disposition home or self-care (01) ==
LOC: LABSPEC 14:35
PROVIDERS: PCP Family Medicine; Referring Provider Physician Assistant Surgical; Visit Provider Physician Assistant Surgical
DX: N30.00 Acute cystitis without hematuria (principal)
CPT/HCPCS: 87077; 87086; 87088; 87186

== ENCOUNTER → 2019-11-12 09:28 | Outpatient (CLI) | payer MEDICAID, SELFPAY ==
[2019-11-12 09:02] VITALS: BMI 27.7
[2019-11-12 09:49] LABS: Red Blood Cells-Urine 0 SEEN /hpf (0-5); White Blood Cells 0 SEEN /hpf (0-5)
[2019-11-12 12:29] LABS: Color, Urine Yellow (Yellow); Glucose, Dipstick Normal (Normal); Ketone-Dipstick Negative (Negative); Leukocyte Esterase-Dipstick 25 /ul (Negative); Nitrite-Dipstick Negative (Negative); Occult Blood-Urine Negative /ul (Negative); Protein-Dipstick 15 mg/dl (Negative); Specific Gravity, Urine 1.025 (1.002-1.030); Urine Bilirubin Dipstick Negative (Negative); Urine Clarity Clear (Clear); Urine Urobilinogen Normal (Normal)
[2019-11-12 12:38] LABS: Bacteria RARE /hpf (None Seen); Mucous, Urine RARE /hpf (<or=2+); Squamous Epithelial Cells - UA 0-5 SEEN /hpf (0-5)
== END ==
PROVIDERS: PCP Family Medicine; Referring Provider Family Medicine; Visit Provider Family Medicine
DX: N39.0 Urinary tract infection, site not specified (principal)
CPT/HCPCS: 81001; 87086

== ENCOUNTER 2020-08-15 16:09 | Emergency (ER) | payer MEDICAID, SELFPAY ==
[2020-08-15 13:26] VITALS: BMI 27.7
[2020-08-15 16:11] VITALS: BP 139/68; PULSE 77; RESP 17; TEMP 36.3; O2SAT 98; BMI 30.7
--- NOTE | 2020-08-15 16:57 | ED.DCSUM_ITS ---
- ER Visit Summary Date of Service: 08/15/20 Chief Complaint: Concern for blood clot History of Present Illness: The patient is a 74 M presenting with concern for blood clot left leg. Patient states [facility] earlier today. He states the provider felt his leg and told him that he likely had a superficial clot. He was advised to follow-up with his primary care physician. He has a history of previous PE. He stopped Eliquis approximately 6 months ago. He currently takes aspirin. He denies chest pain or shortness of breath. Physical Examination: Vitals are stable. Patient is afebrile. Alert no acute distress. HEENT exam is unremarkable. Neck is supple. Lungs are clear and equal bilaterally. Heart is regular rate and rhythm. Extremities mild left medial calf tenderness. Normal distal pulses Skin is warm and dry. No focal neurologic deficit. Remainder of exam is unremarkable. Emergency Department Course and Treatment: Venous doppler left lower extremity shows Deep venous thrombosis of the left calf. Superficial venous thrombosis of the right saphenous vein. Fluid collection in the left inguinal region with hematoma versus thrombosed pseudoaneurysm. Per photo optics technician the superficial thrombosis in the right saphenous vein is very close to the common femoral and very close to becoming a deep vein thrombosis. He has a history of previous PE on Eliquis. He will be restarted on Eliquis. He has no tenderness or recent injury to the left inguinal region. He will follow-up with his primary care physician. He is advised to return to the ED for worsening complaints. Disposition: Discharge home Impression: Left lower extremity DVT, right lower extremity superficial thrombosis This note was generated with [employer] dictation software. It may contain incorrect words, spelling, and punctuation that were not noted in review of the chart prior to signing ED Disposition - Plan for ED Patient: Instructions: Treating Deep Vein Thrombosis Prescriptions: Apixaban [Eliquis] 5 mg PO BID #74 tab Transmission Status: Received by [facility]/pharmacy #[id number] Referrals: Wil Bradshaw DO [Primary Care Provider] -
--- NOTE | 2020-08-15 17:03 | US_ITS ---
STUDY: VENOUS DOPPLER ULTRASOUND - BILATERAL LOWER EXTREMITIES REASON FOR EXAM: Male, 74 years old. LT MID CALF PAIN, RT THIGH SORENESS TECHNIQUE: Ultrasound evaluation of the deep vein system to include yost-scale imaging and compression was performed. Yost-scale imaging and Doppler sonographic evaluation, including duplex spectral analysis and qualitative color flow sonography, was performed. COMPARISON: None. FINDINGS: RIGHT LEG Common Femoral Vein: Normal compression, spontaneity and augmentation. Normal color Doppler. Greater Saphenous Vein: Incomplete compression. Echogenic material within the lumen. Absent flow from the common femoral to the lower thigh. Deep Femoral Vein: Normal compression, spontaneity and augmentation. Normal color Doppler. Femoral Proximal: Normal compression, spontaneity and augmentation. Normal color Doppler. Femoral Middle: Normal compression, spontaneity and augmentation. Normal color Doppler. Femoral Distal: Normal compression, spontaneity and augmentation. Normal color Doppler. Popliteal Vein: Normal compression, spontaneity and augmentation. Normal color Doppler. Posterior Tibial Vein: Normal compression, spontaneity and augmentation. Normal color Doppler. Peroneal Vein: Normal compression, spontaneity and augmentation. Normal color Doppler. LEFT LEG Common Femoral Vein: Normal compression, spontaneity and augmentation. Normal color Doppler. Common Femoral Vein/Greater Saphenous Junction: Normal compression, spontaneity and augmentation. Normal color Doppler. Deep Femoral Vein: Normal compression, spontaneity and augmentation. Normal color Doppler. Femoral Proximal: Normal compression, spontaneity and augmentation. Normal color Doppler. Femoral Middle: Normal compression, spontaneity and augmentation. Normal color Doppler. Femoral Distal: Normal compression, spontaneity and augmentation. Normal color Doppler. Popliteal Vein: Normal compression, spontaneity and augmentation. Normal color Doppler. Posterior Tibial Vein: Incomplete compression. Echogenic material within the lumen. Absent flow. Peroneal Vein: Incomplete compression. Echogenic material within the lumen. Absent flow. The above findings are consistent with an acute thrombosis. There is 4.9 x 4.3 cm fluid collection at the left inguinal region adjacent to the femoral vessels. US/Venous Duplex Imag/Ze Extrem IMPRESSION: Deep venous thrombosis of the left calf. Superficial venous thrombosis of the right saphenous vein. Fluid collection in the left inguinal region with hematoma versus thrombosed pseudoaneurysm. Electronically Signed: Marco Antonio Guillory MD at 18:27 EST , Service support ,
--- NOTE | 2020-08-15 18:46 | ED.DEP ---
ED Disposition - Plan for ED Patient: Instructions: Treating Deep Vein Thrombosis Prescriptions: Apixaban [Eliquis] 5 mg PO BID #74 tab Transmission Status: Pending to [facility]/pharmacy #[id number] Referrals: Wil Bradshaw DO [Primary Care Provider] -
[2020-08-15 19:34] LABS: Anion Gap 8 (5-15); BUN 19 mg/dL (7-18); BUN/Creat Ratio 17.9 RATIO (10-20); Chloride 106 mmol/L (98-107); Creatinine, Serum 1.06 mg/dL (0.70-1.30); EST Glomerular Filtration Rate 73 mL/min (>60); Est Glom Filt Rate - Afr Amer 88 mL/min (>60); Estimated Creatinine Clearance 51.97 ml/min; Glucose 112 mg/dL (74-106); Potassium 4.3 mmol/L (3.5-5.1); Sodium Level 141 mmol/L (136-145)
[2020-08-15] MEDS: APIXABAN 5 MG TABLET 10 MG PO (20:03)
[2020-08-15 20:04] VITALS: RESP 16
== END 2020-08-15 20:05 | disposition home or self-care (01) ==
LOC: ED 16:55
PROVIDERS: Emergency Provider Emergency Medicine; PCP Family Medicine
DX: I82.4Z2 Acute embolism and thrombosis of unspecified deep veins of left distal lower extremity (principal); I82.811 Embolism and thrombosis of superficial veins of right lower extremity; R30.0 Dysuria; Z86.711 Personal history of pulmonary embolism
CPT/HCPCS: 80048; 81001; 87086; 87088; 93970; 99282

== ENCOUNTER → 2020-08-15 | Outpatient (CLI) | payer MEDICAID, SELFPAY ==
[2020-08-15 13:26] VITALS: BMI 27.7
[2020-08-15 16:31] LABS: Bacteria 0 SEEN /hpf (None Seen); Mucous, Urine 0 SEEN /hpf (<or=2+); Red Blood Cells-Urine 0 SEEN /hpf (0-5)
[2020-08-15 17:05] LABS: Color, Urine Yellow (Yellow); Glucose, Dipstick Normal (Normal); Ketone-Dipstick 5 mg/dl (Negative); Leukocyte Esterase-Dipstick 100 /ul (Negative); Nitrite-Dipstick Negative (Negative); Occult Blood-Urine 25 /ul (Negative); Protein-Dipstick 30 mg/dl (Negative); Urine Bilirubin Dipstick Negative (Negative); Urine Clarity Clear (Clear); Urine Urobilinogen Normal (Normal)
[2020-08-15 17:42] LABS: Squamous Epithelial Cells - UA 0-5 SEEN /hpf (0-5); White Blood Cells 5-10 SEEN /hpf (0-5)
== END | disposition home or self-care (01) ==
LOC: LABSPEC 15:28
PROVIDERS: PCP Family Medicine; Referring Provider Physician Assistant Surgical; Visit Provider Physician Assistant Surgical
DX: R30.0 Dysuria (principal)
CPT/HCPCS: 81001; 87086

== ENCOUNTER → 2020-08-30 15:51 | Outpatient (CLI) | payer MEDICAID, SELFPAY ==
[2020-08-30 15:00] VITALS: BMI 31.0
[2020-08-30 17:01] LABS: Absolute Lymphocyte Count 0.83 X10^3/uL (0.83-4.51); Absolute Neutrophil Count 7.9 X10^3/uL (2.0-7.7); Basophil# 0.03 X10^3/uL; Basophil% 0.3 % (0-1); Eosinophil# 0.01 X10^3/uL; Eosinophils% 0.1 % (0-5); Hematocrit 42.4 % (40-54); Hemoglobin 13.4 g/dL (13.0-16.5); Lymphocyte # 0.83 X10^3/ul (4.0); Lymphocyte % 8.5 % (19-41); Mean Corp Hgb Conc 31.6 g/dL (32-36); Mean Corpuscular Hgb 29.1 pg (27.0-32.0); Mean Platelet Vol. 10.7 fl (6.2-12.0); Monocyte# 0.91 X10^3/uL; Monocyte% 9.4 % (0-10); NRBC Flagged by Analyzer 0 % (0-5); Neutrophil # 7.91 X10^3/uL (2.7-7.7); Neutrophil % 81.4 % (47-70); Platelet Count 185 K/mm3 (150-450); RBC Distribution Width CV 13.3 % (11.6-14.6); RBC Distribution Width SD 45.5 fl (35.1-43.9); Red Blood Count 4.61 M/mm3 (4.6-6.2); White Blood Count 9.7 K/mm3 (4.4-11.0)
[2020-08-30 17:50] LABS: Anion Gap 5 (5-15); BUN 21 mg/dL (7-18); BUN/Creat Ratio 15.4 RATIO (10-20); Calcium,Total 9.1 mg/dL (8.5-10.1); Chloride 104 mmol/L (98-107); Creatinine, Serum 1.36 mg/dL (0.70-1.30); EST Glomerular Filtration Rate 55 mL/min (>60); Est Glom Filt Rate - Afr Amer 66 mL/min (>60); Glucose 139 mg/dL (74-106); PSA,Total- Diagnostic > 2000.00 ng/mL (0.0-4.0); Potassium 3.9 mmol/L (3.5-5.1); Sodium Level 137 mmol/L (136-145)
== END ==
PROVIDERS: PCP Family Medicine; Referring Provider Internal Medicine; Visit Provider Internal Medicine
DX: R97.20 Elevated prostate specific antigen [PSA] (principal); N13.9 Obstructive and reflux uropathy, unspecified
CPT/HCPCS: 36415; 80048; 84153; 85025

== ENCOUNTER → 2020-11-04 11:23 | Outpatient (CLI) | payer MEDICAID, SELFPAY ==
[2020-08-30 15:00] VITALS: BMI 31.0
--- NOTE | 2020-11-04 11:30 | RAD_ITS ---
STUDY: X-RAY - CERVICAL SPINE REASON FOR EXAM: Male, 75 years old. CERVICAL RADICULOPATHY TECHNIQUE: 5 view(s) of the cervical spine were obtained including oblique views. COMPARISON: None FINDINGS: There are degenerative changes of the anterior atlantoaxial articulation. Normal odontoid process. There is straightening of the normal cervical lordosis. There is multi-level endplate spondylosis. There is multi-level degenerative disc disease with multilevel disc space narrowing. Facet joint osteoarthritis moderate degree of lateral neural foraminal stenosis at the C5-6 and C6-C7 levels. There are atherosclerotic vascular calcifications of the carotid arteries. RAD/Cerv Spine 4 or 5 Views IMPRESSION: Multilevel disc space narrowing and spondylosis with narrowing of the intervertebral foramen at the C5-C6 and C6-C7 levels bilaterally. Electronically Signed: Macario Chang MD at 13:51 EST , Service support ,
--- NOTE | 2020-11-04 11:30 | RAD_ITS ---
STUDY: X-RAY - THORACIC SPINE REASON FOR EXAM: Male, 75 years old. THORACIC STRAIN TECHNIQUE: 3 view(s) of the thoracic spine were obtained. COMPARISON: None. FINDINGS: Normal kyphosis of the thoracic spine. Mild dextroscoliosis. Approximately 20% loss of height of a mid dorsal vertebra. There is multilevel disc space narrowing of the thoracic spine. The soft tissue structures are unremarkable. RAD/Thoracic Spine 3 Views IMPRESSION: Multilevel disc space narrowing with loss of height of a mid dorsal vertebrae. Electronically Signed: Macario Chang MD at 13:52 EST , Service support ,
== END ==
PROVIDERS: PCP Family Medicine; Referring Provider Chiropractor; Visit Provider Chiropractor
DX: M54.12 Radiculopathy, cervical region (principal); S23.3XXA Sprain of ligaments of thoracic spine, initial encounter; X58.XXXA Exposure to other specified factors, initial encounter; Y93.9 Activity, unspecified; Y92.9 Unspecified place or not applicable; Y99.9 Unspecified external cause status
CPT/HCPCS: 72050; 72072

== ENCOUNTER 2020-11-05 11:30 | Inpatient (IN) | payer MEDICAID, SELFPAY ==
[2020-08-30 15:00] VITALS: BMI 31.0
[2020-11-05] VITALS (12 sets, daily range): BP systolic 133–156; BP diastolic 71–94; PULSE 79–105; RESP 15–24; TEMP 36.1–37.2; O2SAT 93–100; BMI 30.1; BMI 28.8
--- NOTE | 2020-11-05 12:02 | EKG12_ITS ---
Test Reason : HAND NUMBNESS Blood Pressure : / mmHG Vent. Rate : 077 BPM Atrial Rate : 077 BPM P-R Int : 136 ms QRS Dur : 092 ms QT Int : 420 ms P-R-T Axes : 003 -30 015 degrees QTc Int : 475 ms Sinus rhythm with occasional Premature ventricular complexes Left axis deviation Incomplete right bundle branch block Moderate voltage criteria for LVH, may be normal variant Nonspecific T wave abnormality Prolonged QT Abnormal ECG Confirmed by LILIA HERNANDEZ, VEE ([id number]), image editor MALLORIE FERRER ([id number]) on 11/07/2020 10:04:45 AM Referred By: CHANEL Confirmed By:VEE RODRIGUES MD
--- NOTE | 2020-11-05 12:02 | RAD_ITS ---
STUDY: X-RAY CHEST REASON FOR EXAM: Male, 75 years old. Neuro deficit, acute, stroke suspected TECHNIQUE: Single AP portable view of the chest. COMPARISON: 10/31/2018 FINDINGS: The lungs are clear and expanded. There is no demonstrated pleural abnormality. Normal size heart. Normal mediastinum and margarito. Normal visualized pulmonary arteries. Normal visualized aortic arch and descending thoracic aorta. Normal visualized thoracic spine. Normal visualized ribs, clavicles, and shoulders. There is no demonstrated abnormality of the visualized soft tissue structures of the upper abdomen. RAD/Chest 1 View IMPRESSION: Normal x-ray examination of the chest. Electronically Signed: Ayush Arita MD at 13:00 EST Tel , Service support ,
--- NOTE | 2020-11-05 12:03 | CT_ITS ---
STUDY: CTA HEAD AND NECK WITH CONTRAST REASON FOR EXAM: Male, 75 years old. Neuro deficit, acute, stroke suspected RADIATION DOSAGE (If Supplied By Facility): CTDIvol = ( 27.71 ) mGy, DLP = ( 1454.73 ) mGycm TECHNIQUE: CT angiography was performed with a multi-detector CT scanner. Data acquisition was obtained from the skull base through the vertex following intravenous administration of IV 100mL Isovue-370. MIP images were reconstructed from the axial data set. Post-processing of the angiographic images was performed, with multiplanar reformation and 3D reconstruction. Individualized dose optimization techniques were used for this CT. COMPARISON: No relevant priors. FINDINGS: Normal petrous right internal carotid artery. The left internal carotid arteries occluded. There is calcified plaque formation of the right cavernous carotid artery, without a cross-sectional luminal stenosis. The cavernous left internal carotid artery is occluded. Normal right A1 segments of the anterior cerebral artery. Normal left A1 segments of the anterior cerebral artery. Normal intact anterior communicating artery (ACOM). Normal bilateral A2 segments of the anterior cerebral arteries. Normal right M1 and M2 segments of the middle cerebral arteries, with a normal M1 bifurcation. Normal left M1 and M2 segments of the middle cerebral arteries, with a normal M1 bifurcation. There is a persistent origin of the right posterior cerebral artery with absence of the posterior communicating artery (PCOM). Normal left posterior communicating artery (PCOM). Normal bilateral vertebral arteries. Normal basilar artery with a normal basilar bifurcation. The visualized bilateral superior cerebellar (SCA) arteries are normal. Normal bilateral P1, P2 and visualized P3 segments of the posterior cerebral arteries. There is no demonstrated aneurysm of the [place] of [place]. There is no demonstrated abnormality of the visualized brain. AORTIC ARCH: Normal visualized aortic arch. Normal origins of the brachiocephalic, left common carotid, and left subclavian arteries. RIGHT CAROTID ARTERIES: Normal right common carotid artery (CCA). There is mild atherosclerotic plaque formation with minimal narrowing of the right carotid bulb. There is mild atherosclerotic plaque formation of the origin of the right internal carotid artery with less than 50% cross sectional diameter stenosis. Normal visualized cervical portion of the right internal carotid artery. Normal origin of the right external carotid artery (ECA). LEFT CAROTID ARTERIES: Normal left common carotid artery (CCA). There is mild atherosclerotic plaque formation with minimal narrowing of the left carotid bulb. 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 Normal visualized cervical portion of the left internal carotid artery. Normal origin of the left external carotid artery (ECA). VERTEBRAL ARTERIES: Normal bilateral vertebral arteries. CT/STROKE CTA Head AND Neck W/Con IMPRESSION: 1. Mild (20%) right carotid stenosis. 2. 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 3. Patent vertebral arteries bilaterally. The left vertebral artery arises directly from the aortic arch. The left vertebral artery is dominant. 4. Intracranially normal. N.B. : The above information has been verbally conveyed by Ayush Arita MD to Jaden Leach on 11/05/2020 13:55:59 (ET). Electronically Signed: Ayush Arita MD at 13:57 EST Tel , Service support ,
--- NOTE | 2020-11-05 12:03 | ED.VISSUMM ---
- ER Visit Summary Date of Service: 11/05/20 Chief Complaint: Left hand weakness and loss of dexterity History of Present Illness: The patient is a 75 M 3 of chronic back problems with C5, 6 and 7 foraminal stenosis., Hypertension and prior DVT and PE on Eliquis. Presents since his left hand has been weak with loss of dexterity. He denies any fall or trauma. He saw a chiropractor they did x-rays but he had no stroke work-up. He has had no trouble with his vision or speech. He also states he is walking abnormally but he thinks that is due to his back because he denies any weakness or numbness in his left leg. Physical Examination: Older male coming by his vital signs stable afebrile. H EENT exam unremarkable. Pupils round reactive laser motions are intact. Normal speech. No slurring. No facial droop. Neck nontender. Lungs clear to auscultation bilaterally. Heart regular rhythm rate about 80 no murmur. Abdomen soft nontender normal bowel sounds no peritoneal signs. Patient moving all 4 extremities. No edema. Nontender. Back nontender. Neurologically is awake and alert. 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 5 out of 5 on the right. Loss of dexterity with his left hand cannot do fingertip to nose. He has normal flexion-extension of his elbow and shrugging of his shoulder. NIH score is 2. Test Results: CBC normal white count of 6 hemoglobin 11 hematocrit 35. No bands chemistries BUN 20 creatinine 1.66 worsening renal insufficiency gap of 8. Glucose 148. PT PTT INR unremarkable troponin slightly elevated at 0.421 they been elevated in the past. EKG normal sinus rhythm rhythm rate of 77 with PVCs. No acute signs of OH or ischemia. Chest x-ray portable 1 view shows no acute abnormality interpreted both by myself and the radiologist. CTA head neck showed 100% occlusion left internal carotid artery. Vascular disease. No bleed or mass. No acute stroke called by the radiologist. The CT and CTAs read by the radiologist and reviewed by me. Repeat exam no change at 1600. Emergency Department Course and Treatment: Older male with weakness and loss of dexterity to his left hand only. This has been going on since . Will undergo stroke work-up. Treatment Plan: Spoken to the hospitalist patient will be admitted to the PCU under observation status for further stroke evaluation and work-up. 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 It may contain incorrect words, spelling, and punctuation that were not noted in review of the chart prior to signing ED Disposition - Plan for ED Patient: Referrals: Wil Bradshaw DO [Primary Care Provider] -
[2020-11-05 12:39] LABS: Absolute Lymphocyte Count 1.48 X10^3/uL (0.83-4.51); Absolute Neutrophil Count 3.7 X10^3/uL (2.0-7.7); Basophil# 0.06 X10^3/uL; Eosinophil# 0.23 X10^3/uL; Eosinophils% 3.7 % (0-5); Hematocrit 35.1 % (40-54); Lymphocyte # 1.48 X10^3/ul (4.0); Lymphocyte % 23.6 % (19-41); Mean Corp Hgb Conc 31.3 g/dL (32-36); Mean Corpuscular Volume 92.6 fL (80-94); Mean Platelet Vol. 10.6 fl (6.2-12.0); Monocyte# 0.57 X10^3/uL; Monocyte% 9.1 % (0-10); NRBC Flagged by Analyzer 0.3 % (0-5); Neutrophil % 58.8 % (47-70); Platelet Count 154 K/mm3 (150-450); RBC Distribution Width CV 14.4 % (11.6-14.6); RBC Distribution Width SD 48.1 fl (35.1-43.9); Red Blood Count 3.79 M/mm3 (4.6-6.2); White Blood Count 6.3 K/mm3 (4.4-11.0)
[2020-11-05 12:42] LABS: International Normalized Ratio 1.8
[2020-11-05 12:43] LABS: Partial Thromboplast Time 29.6 Seconds (24.1-36.2)
[2020-11-05 13:01] LABS: Anion Gap 8 (5-15); BUN 28 mg/dL (7-18); BUN/Creat Ratio 16.9 RATIO (10-20); Calcium,Total 9.8 mg/dL (8.5-10.1); Chloride 104 mmol/L (98-107); Creatinine, Serum 1.66 mg/dL (0.70-1.30); EST Glomerular Filtration Rate 43 mL/min (>60); Est Glom Filt Rate - Afr Amer 52 mL/min (>60); Estimated Creatinine Clearance 31.42 ml/min; Glucose 148 mg/dL (74-106); Potassium 3.5 mmol/L (3.5-5.1); Sodium Level 140 mmol/L (136-145)
--- NOTE | 2020-11-05 16:16 | HP.PCM_ITS ---
<Kaya Johnston [employer] DRIVER - Last Filed: 11/05/20 16:50> Problem List (1) History of pulmonary embolism Status: Chronic (2) Balanitis Status: Resolved (3) DM type 2 (diabetes mellitus, type 2) Status: Chronic (4) Nonrheumatic tricuspid (valve) insufficiency Status: Chronic (5) History of creation of ostomy Status: Chronic (6) Nonrheumatic tricuspid (valve) insufficiency Status: Chronic Comment: Mild (1+) pe echo 10/31/2018 (7) Pulmonary hypertension Status: Chronic Comment: RVSP 78 mmhg per echo 10/31/2018 (8) Elevated PSA Status: Chronic (9) Paroxysmal atrial fibrillation Status: Chronic (10) Right bundle branch block Status: Chronic (11) Elevated troponin I level Status: Acute (12) Blood clotting disorder Status: Chronic (13) Abnormal electrocardiogram Status: Chronic (14) Abnormal PSA Status: Chronic (15) Acute respiratory failure with hypoxia Status: Acute (16) Bilateral pulmonary embolism Status: Resolved (17) Benign tumor of colon Status: Chronic (18) Enlarged prostate Status: Chronic (19) Arthritis Status: Chronic History of Present Illness Date of Admission: 11/05/20 Chief Complaint: Left wrist and hand weakness. The patient is a 75 year old M who presents to the emergency room due to left wrist and hand weakness. Patient states this began on and has been intermittent since that time. Patient's at bedside states patient was able to use his left hand yesterday and his weakness became significantly worse today. He denies numbness, tingling. He is able to raise his left arm however his left hand and wrist have minimal use. He denies lower extremity weakness. Denies slurred speech, vision changes or other neurologic symptoms or focal deficits. Patient states he has been seeing a chiropractor due to thoracic back pain. He denies neck pain. 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 Past Medical History Past Medical History (Chronic Problems): Chronic Problems (Last Reviewed 08/30/20 @ 15:08 by Catarina Cruz) History of pulmonary embolism (Chronic) DM type 2 (diabetes mellitus, type 2) (Chronic) Nonrheumatic tricuspid (valve) insufficiency (Chronic) History of creation of ostomy (Chronic) Nonrheumatic tricuspid (valve) insufficiency (Chronic) Mild (1+) pe echo 10/31/2018 Pulmonary hypertension (Chronic) RVSP 78 mmhg per echo 10/31/2018 Elevated PSA (Chronic) Paroxysmal atrial fibrillation (Chronic) Right bundle branch block (Chronic) Blood clotting disorder (Chronic) Abnormal electrocardiogram (Chronic) Abnormal PSA (Chronic) Benign tumor of colon (Chronic) Enlarged prostate (Chronic) Arthritis (Chronic) Medical History: Medical History (Last Reviewed 08/30/20 @ 15:08 by Catarina Cruz) Nonrheumatic tricuspid (valve) insufficiency (Chronic) I36.1 Mild (1+) pe echo 10/31/2018 Pulmonary hypertension (Chronic) I27.20 RVSP 78 mmhg per echo 10/31/2018 Elevated PSA (Chronic) R97.20 Paroxysmal atrial fibrillation (Chronic) I48.0 Right bundle branch block (Chronic) I45.10 Elevated troponin I level (Acute) R74.8 Blood clotting disorder (Chronic) D68.9 Abnormal electrocardiogram (Chronic) R94.31 Acute respiratory failure with hypoxia (Acute) J96.01 Bilateral pulmonary embolism (Resolved) I26.99 Benign tumor of colon (Chronic) D12.6 Enlarged prostate (Chronic) N40.0 Arthritis (Chronic) M19.90 Allergies No Known Allergies Allergy (Verified 11/05/20 11:31) Home Medications: Ambulatory Orders Medication Instructions Recorded ascorbic acid (vitamin C) 500 mg 500 mg PO DAILY 08/30/20 capsule apixaban 5 mg tablet 5 mg PO BID #60 tab 09/05/20 metoprolol tartrate 50 mg tablet 25 mg PO BID #180 tab 10/19/20 Surgical History: Surgical History (Last Reviewed 08/30/20 @ 15:08 by Catarina Cruz) History of colostomy Surgical History: colectomy - Benign colon tumor resection Psychiatric History: No pertinent psych hx Lives: Spouse/ Significant Other Smoking Status: Former smoker Alcohol: Occasional Drugs: None - *Family History Maternal History Items: - - States his mom was in and out of the hospital however denies known specific medical history including cardiac history. Paternal History Items: - - Denies known paternal medical history including cardiac history. Review of Systems Constitutional: Denies: Chills, Fever, Weight Change HEENT: Denies: Head Aches, Sinus Congestion, Sinus Drainage Cardiovascular: Denies: Chest Pain, Palpitations Respiratory: Denies: Cough, Shortness of breath at rest, Sputum production Gastrointestinal: Denies: Abdominal Pain, Nausea, Vomiting Genitourinary: Reports: - - Intermittent difficulty voiding. Denies: Dysuria, Frequency, Hematuria Musculoskeletal: Reports: - - Thoracic back pain Skin: Denies: Rash, Wounds Neurological: Reports: - - Left hand and wrist weakness. Denies: Numbness, Tingling Psychiatric: Denies: Anxiety, Depression, Homicidal Ideations, Suicidal Ideations Hematologic/ Lymphatic: Denies: Easy Bruising, Easy Bleeding VTE Information - Inpt Only VTE Present on Admission: No VTE Mechan Device Prophylaxis: None VTE Pharm Prophylaxis ordered?: No Reason prophylaxis not ordered:: Treatment Not Indicated - Already on anticoagulation with Eliquis Patient Problems: Active and Suspected Problems (Last Reviewed 08/30/20 @ 15:08 by Catarina Cruz) Elevated troponin I level (Acute) Acute respiratory failure with hypoxia (Acute) - Physical Exam Vitals/I&O's: Vital Signs Temp Pulse Resp BP Pulse Ox 97 F L 82 15 133/71 H 98 11/05/20 11:31 11/05/20 13:30 11/05/20 13:30 11/05/20 13:30 11/05/20 13:30 Oxygen Delivery Method Room Air Weight: 170 lb Body Mass Index (BMI) 30.1 Finger Stick Blood Glucose 148 General: Alert, Oriented x3, Cooperative HEENT: Atraumatic, PERRLA, EOMI, Normocephalic Oral: Dry Mucosa Neck: Supple, No JVD, Negative Carotid Bruits Lungs: Clear to auscultation, Normal air movement Cardiovascular: Regular rate, No murmurs Abdomen: Bowel Sounds Present, Soft, Non Tender, Non-Distended, - - Colostomy in place Extremities: No clubbing, No cyanosis, No edema, Capillary Refill Less than 3 Seconds Skin: No rashes, No breakdown Musculoskeletal: No Tenderness to Palpation of Joints or Extremities Neurological: Cranial nerves II-XII grossly intact, - - Severe left wrist and hand weakness, mild tongue deviation to left, mild left facial droop. Psych/Mental Status: Normal Affect, Appropriate Laboratory Results 11/05/20 12:15: WBC 6.3, RBC 3.79 L, Hgb 11.0 L, Hct 35.1 L, MCV 92.6, MCH 29.0, MCHC 31.3 L, RDW Std Deviation 48.1 H, RDW Coeff of Tulio 14.4, Plt Count 154, MPV 10.6, Immature Gran % (Auto) 3.800 H, Neut % (Auto) 58.8, Lymph % (Auto) 23.6, [place] % (Auto) 9.1, Eos % (Auto) 3.7, Baso % (Auto) 1.0, Absolute Neuts (auto) 3.7, Absolute Lymphs (auto) 1.48, Nucleated RBC % 0.3 11/05/20 12:15: PT 20.0 H, INR 1.8, APTT 29.6 11/05/20 12:15: Sodium 140, Potassium 3.5, Chloride 104, Carbon Dioxide 28.0, Anion Gap 8, BUN 28 H, Creatinine 1.66 H, Estim Creat Clear Calc 31.42, Est GFR (MDRD) Af Amer 52 L, Est GFR (MDRD) Non-Af 43 L, BUN/Creatinine Ratio 16.9, Glucose 148 H, Calcium 9.8, Troponin I 0.421 H Current Medications Labetalol HCl (Labetalol (Prefilled) 20 Mg/4 Ml) 20 mg IV X1 PRN PRN Reason: Blood Pressure Assessment/Plan All Active Problems (Last Reviewed 08/30/20 @ 15:08 by Catarina Cruz) Balanitis (Resolved) Elevated troponin I level (Acute) Acute respiratory failure with hypoxia (Acute) Bilateral pulmonary embolism (Resolved) 1. Left wrist/hand weakness-rule out CVA. CTA of head and neck demonstrates mild right carotid stenosis and occluded left internal carotid artery. Patent vertebral arteries. Awaiting brain CT read. Aspirin, statin. Obtain MRI of brain. PT/OT/ST. Echocardiogram ordered. Check hemoglobin A1c, fasting lipid panel. Check TSH, mag. 2. Abnormal troponin-unclear etiology. Trend enzymes. Obtain echocardiogram as noted above. 3. Acute kidney injury-mild. Gentle IV fluids. Trend BMP. 4. Carotid stenosis-CTA of head and neck demonstrates mild right carotid stenosis and occluded left internal carotid artery distal to bifurcation. Patent vertebral arteries bilaterally. Aspirin, statin. 5. 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 Type 2 diabetes mellitus-hemoglobin A1c October 2018 7.5%. Patient is not on medication regimen. Accu-Cheks with sliding scale insulin. Will repeat hemoglobin A1c. 7. Hypertension-stable, continue metoprolol regimen. 8. Hyperlipidemia-fasting lipid panel in a.m. High-dose statin initiated. 9. 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 Paroxysmal atrial fibrillation-on metoprolol, Eliquis. 11. BPH-not on regimen. Patient states he intermittently self caths at home due to difficulty with urination. Will begin Flomax. 12. Markedly elevated PSA-advised as outpatient to follow-up with urology. Patient states he was informed by urology in the past that he likely has prostate cancer based on his numbers however has never had a biopsy. Patient has declined follow-up with urology. Patient reports he is reluctant to follow- up with urology as he is concerned insurance will not cover as local urologist do not take care source, will consult case management. Last total PSA August 2020 greater than 1999. DVT prophylaxis-Eliquis CODE STATUS: Discussed with patient and who is healthcare power of trial attorney. Patient elects full CODE STATUS. This patient was seen by EVERETTE Ramirez under the supervision of Dr. Dunbar. <Jazmin Dunbar - Last Filed: 11/05/20 18:08> History of Present Illness I agree with the above and the following is a representation of my independent history and physical examination Mr. Foster is a 75 year old WM with a past medical history of pulmonary embolism, DM-2, hyperlipidemia hypertension, benign colon tumor, PAF, BPH, and suspected prostate cancer with a markedly elevated PSA who presented to the emergency department at [facility] on 11/05/2020 with a complaint of left hand weakness. He noted that his the symptoms first started on and have waxed and waned since that time. Today he reports that his symptoms are markedly worse and he has the inability to use his left hand. He denies having any other symptoms although his does report he has had some difficulty using his left leg as well. He has been seeing a chiropractor due to thoracic back pain which has been present for 6 to 8 months at this time. He denies any other bone or joint pain. His PSA in 2019 was noted to be greater than 2000 and it appears he has been referred multiple times for urology follow-up but is unclear if he has done so at this time. Based on his medications I suspect he has not followed up. No signs in the emergency department were stable other than some mild hypertension with a max systolic blood pressure of 145. CBC shows a mild anemia with a hemoglobin of 11 this appears to be relatively new in comparison with old data. His BMP shows an elevated BUN and creatinine at 28 and 1.6 respectively (baseline is 20 and 1.0- 1.2 respectively). His blood sugar was 148. He had a mildly elevated troponin at 0.421, up when compared to other troponins drawn here he has chronically elevated but this is higher than he has been in the past. He is having no cardiac symptoms. His EKG shows no acute signs of ischemia. Chest x-ray was performed and had no acute findings. CTA was done and shows mild (20%) right carotid stenosis, an occluded left internal carotid artery just distal to the bifurcation and patent vertebral arteries bilaterally. A CT of the brain was not performed but has been ordered and is pending. The patient will be admitted to PCU and stroke work-up has been initiated. Past Medical History Medical History: Medical History (Last Reviewed 11/05/20 @ 18:[address] Jazmin Dunbar DO) Nonrheumatic tricuspid (valve) insufficiency (Chronic) I36.1 Mild (1+) pe echo 10/31/2018 Pulmonary hypertension (Chronic) I27.20 RVSP 78 mmhg per echo 10/31/2018 Elevated PSA (Chronic) R97.20 Paroxysmal atrial fibrillation (Chronic) I48.0 Right bundle branch block (Chronic) I45.10 Elevated troponin I level (Acute) R74.8 Blood clotting disorder (Chronic) D68.9 Abnormal electrocardiogram (Chronic) R94.31 Acute respiratory failure with hypoxia (Acute) J96.01 Bilateral pulmonary embolism (Resolved) I26.99 Benign tumor of colon (Chronic) D12.6 Enlarged prostate (Chronic) N40.0 Arthritis (Chronic) M19.90 Allergies No Known Allergies Allergy (Verified 11/05/20 11:31) Surgical History: Surgical History (Last Reviewed 11/05/20 @ 18:[address] Jazmin Dunbar DO) History of colostomy Tobacco Use: Non-smoker Review of Systems Constitutional: Denies: Anorexia, Chills, Fever, Night Sweats, Malaise, Weakness, Weight Change, Fatigue Eyes: Denies: Blurred vision, Cataracts, Conjunctivae Inflammation, Double vision, Drainage, Eyelid Inflammation, Pain, Redness, Vision Change HEENT: Denies: Difficulty Hearing, Difficulty Swallowing, Eye Pain, Head Aches, Nasal bleeding, Nasal Congestion, Post Nasal Drip, Sinus Congestion, Sinus Drainage, Sore Throat, Visual Changes Cardiovascular: Denies: Chest Pain, Claudication, Chest Pressure, Chest Tightness, Edema, Heaviness, Light Headedness, Orthopnea, Palpitations, Paroxysmal Noc. Dyspnea, Syncope Respiratory: Denies: Cough, Hemoptysis, Pleuritic Pain, Shortness of Breath, Shortness of breath at rest, Shortness of breath upon exertion, Sputum production, Wheezing Gastrointestinal: Denies: Abdominal Pain, Constipation, Diarrhea, Dyspepsia, Hematemesis, Hematochezia, Nausea, Melena, Vomiting Genitourinary: Reports: Hesitancy, Nocturia, Retention, - - Intermittent difficulty voiding has had to utilize intermittent self cathing. Denies: Dysuria, Frequency, Hematuria, Incontinence, Urgency Musculoskeletal: Reports: Back Pain, -. Denies: Arm Pain, Hand Pain, Joint Pain, Joint stiffness, Joint swelling, Joint Tenderness, Leg Pain, Muscle pain, Neck Pain, Shoulder Pain Skin: Denies: Dryness, Jaundice, Lesions, Pruritis, Rash, Wounds Neurological: Reports: -. Denies: Balance problems, Blurred vision, Double vision, Slurred speech, Confusion, Difficulty swallowing, Focal weakness, Headaches, Incoordination, Numbness, Tingling, Tremor, Seizures Psychiatric: Denies: Anxiety, Depression Endocrine: Denies: Change in Body Habitus, Heat/ Cold Intolerance, Polydipsia, Polyuria Hematologic/ Lymphatic: Reports: Hx of blood clot. Denies: Adenopathy, Anemia, Easy Bruising, Easy Bleeding, Petechiae, Purpura VTE Information - Inpt Only VTE Present on Admission: No VTE Mechan Device Prophylaxis: None VTE Pharm Prophylaxis ordered?: No - Physical Exam Vitals/I&O's: Vital Signs Temp Pulse Resp BP Pulse Ox 97.7 F L 90 24 H 141/82 H 96 11/05/20 16:22 11/05/20 16:22 11/05/20 16:22 11/05/20 16:22 11/05/20 16:22 Oxygen Delivery Method Room Air Weight: 73.8 kg Body Mass Index (BMI) 28.8 Finger Stick Blood Glucose 148 General: Alert, Oriented x3, Cooperative, No apparent distress, Well developed, Well nourished, - - Older white male who appears older than stated age, standing at his bedside, at bedside HEENT: Atraumatic, PERRLA, EOMI, Normocephalic, EAC Clear Oral: No Gingival or Mucosal Lesions/ Ulcerations, Dry Mucosa, - - No thrush, Mallampati 2, poor dentition Neck: Supple, No JVD, Negative Carotid Bruits, Negative Hepatojugular Reflux, No Nodes, No Nuchal Rigidity, Trachea Midline, Thyroid Normal Size and Texture Lungs: Clear to auscultation, Normal air movement, No rhonchi, No wheeze, No rales Cardiovascular: Regular rate, Regular Rhythm, Normal S1, Normal S2, No murmurs, No Ectopic Activity, No rub noted, No Gallop Abdomen: Soft, Non Tender, Non-Distended, - Extremities: No clubbing, No cyanosis, No edema, Capillary Refill Less than 3 Seconds, Peripheral Pulses Normal Skin: No rashes, No breakdown Musculoskeletal: No Tenderness to Palpation of Joints or Extremities, Arthritic Changes Lymphatic: No Cervical, Supraclavicular, or Inguinal Adenopathy Neurological: - - Severe left wrist and hand weakness, mild tongue deviation to left, mild left facial droop. Strength of left wrist and hand are 2- out of 5 for flexion and 1 out of 5 for extension, all other upper extremity testing was 5 out of 5, left foot dorsiflexion was 4+ out of 5, patient was able to toe wal Comment: Hyperreflexia at 3+ on left, slight right tongue deviation, slight left fac Laboratory Results 11/05/20 12:15: WBC 6.3, RBC 3.79 L, Hgb 11.0 L, Hct 35.1 L, MCV 92.6, MCH 29.0, MCHC 31.3 L, RDW Std Deviation 48.1 H, RDW Coeff of Tulio 14.4, Plt Count 154, MPV 10.6, Immature Gran % (Auto) 3.800 H, Neut % (Auto) 58.8, Lymph % (Auto) 23.6, [place] % (Auto) 9.1, Eos % (Auto) 3.7, Baso % (Auto) 1.0, Absolute Neuts (auto) 3.7, Absolute Lymphs (auto) 1.48, Nucleated RBC % 0.3 11/05/20 12:15: PT 20.0 H, INR 1.8, APTT 29.6 11/05/20 12:15: Sodium 140, Potassium 3.5, Chloride 104, Carbon Dioxide 28.0, Anion Gap 8, BUN 28 H, Creatinine 1.66 H, Estim Creat Clear Calc 31.42, Est GFR (MDRD) Af Amer 52 L, Est GFR (MDRD) Non-Af 43 L, BUN/Creatinine Ratio 16.9, Glucose 148 H, Calcium 9.8, Troponin I 0.421 H 11/05/20 12:15: Magnesium Pending, Troponin I Pending, TSH Pending 11/05/20 12:15: Hemoglobin A1c Pending Current Medications Acetaminophen (Acetaminophen 325 Mg Tablet) 650 mg PO Q6H PRN PRN PRN Reason: Pain Score 1-10/Temp > 100.7 F Apixaban (Apixaban 5 Mg Tablet) 5 mg PO BID [facility] Aspirin (Aspirin 81 Mg Tab.Chew) 81 mg PO DAILY@0800 [facility] Atorvastatin Calcium (Atorvastatin Calcium 80 Mg Tablet) 80 mg PO QHS [facility] Sodium Chloride () 1,000 mls @ 100 mls/hr IV .Q10H [facility] Stop: 11/06/20 03:12 Sodium Chloride () 250 mls @ 15 mls/hr IV .[id number] PRN PRN Reason: Saline Flush Sodium Chloride () 250 mls @ 15 mls/hr IV .[id number] PRN PRN Reason: Additional IVPB Infusion Insulin Human Lispro (Insulin Lispro 100 Unit/Ml Insuln.Pen) 0 unit SC ACHS [facility]; Protocol Metoprolol Tartrate (Metoprolol Tartrate 25 Mg Tablet) 25 mg PO BID [facility] Ondansetron HCl (Ondansetron 4 Mg/2 Ml Vial) 4 mg IV Q8H PRN PRN PRN Reason: NAUSEA/VOMITING Oxycodone HCl (Oxycodone 5 Mg Tablet) 5 mg PO Q4H PRN PRN PRN Reason: Pain Score 4-5 Sodium Chloride (0.9% Saline Lock 10 Ml Syringe) 10 - 40 ml IV UD PRN PRN Reason: SALINE FLUSH Tamsulosin HCl (Tamsulosin Hcl 0.4 Mg Capsule) 0.4 mg PO DAILY@1730 [facility] Assessment/Plan ASSESSMENT Left wrist and hand weakness/mild left facial droop/tongue with rightward deviation Occluded left internal carotid artery Mild right carotid stenosis Troponin elevation COY Thoracic pain History of recurrent DVT/PE Markedly elevated PSA--> prostate cancer suspected but patient has not followed up History of DM-2 HTN HPL PAF BPH History of benign colon tumor status post colostomy Normocytic anemia PLAN -CT of head read pending -MRI in a.m. -Check echo -Check a.m. lipids -Start daily baby aspirin -Continue atorvastatin but increase dose to 80 mg nightly -If abnormality on CT or MRI consult SOC -Continue apixaban -Continue metoprolol -Check A1c -Cardiac carb controlled diet -We will discuss PSA status further tomorrow as it appears this has been an issue and he has been instructed to follow-up but has been reluctant to do so as of yet -Flomax -Gentle hydration -Cycle cardiac enzymes -Would recommend outpatient CT of thoracic spine given suspected prostate cancer and prevalence for bony mets Inpatient E&M: 59010 Init Hosp L3
[2020-11-05 17:51] LABS: Hemoglobin A1c 7.1 % (3.8-5.6)
[2020-11-05] MEDS: 0.9% Normal Saline 1,000 ML 100 ML IV (17:59)
[2020-11-05 18:06] LABS: Magnesium 2.1 mg/dL (1.6-2.6); Thyroid Stim Hormone (TSH) 2.15 uIU/mL (0.358-3.74)
[2020-11-05] MEDS: Tamsulosin HCl 0.4 MG Capsule PO (18:41)
[2020-11-05] MEDS: oxyCODONE 5 MG Tablet PO (20:25)
[2020-11-05] MEDS: Metoprolol Tartrate 25 MG Tablet PO (20:25)
[2020-11-05] MEDS: APIXABAN 5 MG TABLET PO (20:25)
[2020-11-05] MEDS: Insulin Lispro 100 UNIT/ML INSULN.PEN SC (21:52)
[2020-11-05 22:30] LABS: Bedside Glucose 151 mg/dL (70-110)
[2020-11-06] VITALS (13 sets, daily range): BP systolic 131–148; BP diastolic 76–81; PULSE 77–101; RESP 16–18; TEMP 36.4–36.9; O2SAT 93–96; BMI 28.8
--- NOTE | 2020-11-06 00:54 | NURSING ---
This RN gave evening meds early per pt request.
[2020-11-06] MEDS: oxyCODONE 5 MG Tablet PO ×4 (01:47→20:32)
[2020-11-06 06:38] LABS: Absolute Lymphocyte Count 1.68 X10^3/uL (0.83-4.51); Absolute Neutrophil Count 3.5 X10^3/uL (2.0-7.7); Basophil# 0.05 X10^3/uL; Basophil% 0.8 % (0-1); Eosinophil# 0.26 X10^3/uL; Hematocrit 30.8 % (40-54); Hemoglobin 9.8 g/dL (13.0-16.5); Lymphocyte # 1.68 X10^3/ul (4.0); Lymphocyte % 26.1 % (19-41); Mean Corp Hgb Conc 31.8 g/dL (32-36); Mean Corpuscular Hgb 29.4 pg (27.0-32.0); Mean Corpuscular Volume 92.5 fL (80-94); Mean Platelet Vol. 10.5 fl (6.2-12.0); Monocyte% 10.9 % (0-10); NRBC Flagged by Analyzer 0.3 % (0-5); Neutrophil # 3.49 X10^3/uL (2.7-7.7); Neutrophil % 54.3 % (47-70); Platelet Count 130 K/mm3 (150-450); RBC Distribution Width CV 14.3 % (11.6-14.6); RBC Distribution Width SD 48.3 fl (35.1-43.9); Red Blood Count 3.33 M/mm3 (4.6-6.2); White Blood Count 6.4 K/mm3 (4.4-11.0)
[2020-11-06 06:51] LABS: Bedside Glucose 138 mg/dL (70-110)
[2020-11-06 07:07] LABS: Anion Gap 11 (5-15); BUN 26 mg/dL (7-18); BUN/Creat Ratio 15.9 RATIO (10-20); Calcium,Total 9.1 mg/dL (8.5-10.1); Chloride 104 mmol/L (98-107); Cholesterol 197 mg/dL (200); Creatinine, Serum 1.64 mg/dL (0.70-1.30); EST Glomerular Filtration Rate 44 mL/min (>60); Est Glom Filt Rate - Afr Amer 53 mL/min (>60); Glucose 134 mg/dL (74-106); High Density Lipoprotein 39 mg/dL; Potassium 3.3 mmol/L (3.5-5.1); Sodium Level 140 mmol/L (136-145); Triglycerides 274 mg/dL; Very Low Density Lipoprotein 55 mg/dL (5-40)
[2020-11-06] MEDS: APIXABAN 5 MG TABLET PO ×2 (09:53→20:32)
[2020-11-06] MEDS: Aspirin 81 MG TAB.CHEW PO (09:53)
[2020-11-06] MEDS: Metoprolol Tartrate 25 MG Tablet PO ×2 (09:53→20:31)
--- NOTE | 2020-11-06 10:09 | PCM.PROGNOTE ---
<PrestonKaya [employer] - Last Filed: 11/06/20 10:18> Patient Problems: Active and Suspected Problems (Last Reviewed 11/05/20 @ 18:[address] Jazmin Dunbar DO) Elevated troponin I level (Acute) Acute respiratory failure with hypoxia (Acute) Subjective: Patient seen and examined. Continues to have left wrist/hand weakness. Denies new neuro symptoms or focal deficits. Discussed recent elevated PSA and patient states he does not want to pursue further workup or treatment for this. - Physical Exam Vitals/I&O's: Vital Signs Temp Pulse Resp BP Pulse Ox 97.6 F L 95 16 133/76 H 94 11/06/20 09:50 11/06/20 09:53 11/06/20 09:50 11/06/20 09:50 11/06/20 09:50 Oxygen Delivery Method Room Air Weight: 162 lb 11.218 oz Body Mass Index (BMI) 28.8 Finger Stick Blood Glucose 148 Intake and Output for Last 24 Hours 11/04/20 11/05/20 11/06/20 23:59 23:59 23:59 Intake Total 240 / 360 1240 / 1240 Output Total 550 / 550 Balance 240 / 10 690 / 690 General: Alert, Oriented x3, Cooperative HEENT: Atraumatic, PERRLA, EOMI, Normocephalic Neck: Supple, No JVD, Negative Carotid Bruits Lungs: Clear to auscultation, Normal air movement Cardiovascular: Regular rate, No murmurs Abdomen: Bowel Sounds Present, Soft, Non Tender, Non-Distended, - - Colostomy in place Extremities: No clubbing, No cyanosis, No edema, Capillary Refill Less than 3 Seconds Skin: No rashes, No breakdown Musculoskeletal: No Tenderness to Palpation of Joints or Extremities Neurological: Cranial nerves II-XII grossly intact, - - Severe left wrist and hand weakness, mild tongue deviation to left, mild left facial droop. Psych/Mental Status: Normal Affect, Appropriate Laboratory Results 11/05/20 12:15: WBC 6.3, RBC 3.79 L, Hgb 11.0 L, Hct 35.1 L, MCV 92.6, MCH 29.0, MCHC 31.3 L, RDW Std Deviation 48.1 H, RDW Coeff of Tulio 14.4, Plt Count 154, MPV 10.6, Immature Gran % (Auto) 3.800 H, Neut % (Auto) 58.8, Lymph % (Auto) 23.6, [place] % (Auto) 9.1, Eos % (Auto) 3.7, Baso % (Auto) 1.0, Absolute Neuts (auto) 3.7, Absolute Lymphs (auto) 1.48, Nucleated RBC % 0.3 11/05/20 12:15: PT 20.0 H, INR 1.8, APTT 29.6 11/05/20 12:15: Sodium 140, Potassium 3.5, Chloride 104, Carbon Dioxide 28.0, Anion Gap 8, BUN 28 H, Creatinine 1.66 H, Estim Creat Clear Calc 31.42, Est GFR (MDRD) Af Amer 52 L, Est GFR (MDRD) Non-Af 43 L, BUN/Creatinine Ratio 16.9, Glucose 148 H, Calcium 9.8, Troponin I 0.421 H 11/05/20 12:15: Magnesium 2.1, Troponin I 0.406 H, TSH 2.15 11/05/20 12:15: Hemoglobin A1c 7.1 H 11/05/20 20:13: Troponin I 0.523 H 11/05/20 21:47: POC Glucose 151 H 11/05/20 23:35: Troponin I 0.499 H 11/06/20 05:56: WBC 6.4, RBC 3.33 L, Hgb 9.8 L, Hct 30.8 L, MCV 92.5, MCH 29.4, MCHC 31.8 L, RDW Std Deviation 48.3 H, RDW Coeff of Tulio 14.3, Plt Count 130 L, MPV 10.5, Immature Gran % (Auto) 3.900 H, Neut % (Auto) 54.3, Lymph % (Auto) 26.1, [place] % (Auto) 10.9 H, Eos % (Auto) 4.0, Baso % (Auto) 0.8, Absolute Neuts (auto) 3.5, Absolute Lymphs (auto) 1.68, Nucleated RBC % 0.3 11/06/20 05:56: Sodium 140, Potassium 3.3 L, Chloride 104, Carbon Dioxide 25.0, Anion Gap 11, BUN 26 H, Creatinine 1.64 H, Estim Creat Clear Calc 31.80, Est GFR (MDRD) Af Amer 53 L, Est GFR (MDRD) Non-Af 44 L, BUN/Creatinine Ratio 15.9, Glucose 134 H, Calcium 9.1, Triglycerides 274 H, Cholesterol 197, LDL Cholesterol 103, VLDL Cholesterol 55 H, HDL Cholesterol 39 L 11/06/20 06:36: POC Glucose 138 H Current Medications Acetaminophen (Acetaminophen 325 Mg Tablet) 650 mg PO Q6H PRN PRN PRN Reason: Pain Score 1-10/Temp > 100.7 F Apixaban (Apixaban 5 Mg Tablet) 5 mg PO BID [facility] Last Admin: 11/06/20 09:53 Dose: 5 mg Documented by: Aspirin (Aspirin 81 Mg Tab.Chew) 81 mg PO DAILY@0800 [facility] Last Admin: 11/06/20 09:53 Dose: 81 mg Documented by: Atorvastatin Calcium (Atorvastatin Calcium 80 Mg Tablet) 80 mg PO QHS [facility] Last Admin: 11/05/20 20:29 Dose: Not Given Documented by: Sodium Chloride () 250 mls @ 15 mls/hr IV .[id number] PRN PRN Reason: Saline Flush Sodium Chloride () 250 mls @ 15 mls/hr IV .[id number] PRN PRN Reason: Additional IVPB Infusion Insulin Human Lispro (Insulin Lispro 100 Unit/Ml Insuln.Pen) 0 unit SC [facility]; Protocol Last Admin: 11/06/20 06:37 Dose: Not Given Documented by: Metoprolol Tartrate (Metoprolol Tartrate 25 Mg Tablet) 25 mg PO BID [facility] Last Admin: 11/06/20 09:53 Dose: 25 mg Documented by: Ondansetron HCl (Ondansetron 4 Mg/2 Ml Vial) 4 mg IV Q8H PRN PRN PRN Reason: NAUSEA/VOMITING Oxycodone HCl (Oxycodone 5 Mg Tablet) 5 mg PO Q4H PRN PRN PRN Reason: Pain Score 4-5 Last Admin: 11/06/20 07:03 Dose: 5 mg Documented by: Sodium Chloride (0.9% Saline Lock 10 Ml Syringe) 10 - 40 ml IV UD PRN PRN Reason: SALINE FLUSH Tamsulosin HCl (Tamsulosin Hcl 0.4 Mg Capsule) 0.4 mg PO DAILY@1730 [facility] Last Admin: 11/05/20 18:41 Dose: 0.4 mg Documented by: Medical Necessity - Tobacco Use Smoking Status: Former smoker Tobacco Use: Non-smoker Assessment/Plan All Active Problems (Last Reviewed 11/05/20 @ 18:[address] Jazmin Dunbar DO) Balanitis (Resolved) Elevated troponin I level (Acute) Acute respiratory failure with hypoxia (Acute) Bilateral pulmonary embolism (Resolved) 1. Left wrist/hand weakness-rule out CVA. CTA of head and neck demonstrates mild right carotid stenosis and occluded left internal carotid artery. Patent vertebral arteries. Brain CT without acute ischemic infarct.. Aspirin, statin. Obtain MRI of brain. PT/OT/ST. Echocardiogram ordered. Plan for SOC consult pending MRI. 2. Abnormal troponin-possibly demand ischemia. Echocardiogram ordered. If acute CVA work-up unremarkable, will consider further cardiac evaluation/cardiology consultation. 3. Acute kidney injury vs CKD-not improved with fluids. Trend BMP. Suspect underlying CKD. 4. Carotid stenosis-CTA of head and neck demonstrates mild right carotid stenosis and occluded left internal carotid artery distal to bifurcation. Patent vertebral arteries bilaterally. Aspirin, statin. 5. 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 Type 2 diabetes mellitus-hemoglobin A1c October 2018 7.5%. Patient is not on medication regimen. Accu-Cheks with sliding scale insulin. Repeat hemoglobin A1c 7.1%. Recommend addition of oral agent at discharge. 7. Hypertension-stable, continue metoprolol regimen. 8. Hyperlipidemia- High-dose statin initiated. 9. 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 Paroxysmal atrial fibrillation-on metoprolol, Eliquis. 11. BPH-not on regimen. Patient states he intermittently self caths at home due to difficulty with urination. Will begin Flomax. 12. Markedly elevated PSA-advised as outpatient to follow-up with urology. Patient states he was informed by urology in the past that he likely has prostate cancer based on his numbers however has never had a biopsy. Patient has declined follow-up with urology. Last total PSA August 2020 greater than 2000. Discussed with patient and he states he does not want to undergo any further evaluation or treatment for presumed prostate cancer. DVT prophylaxis-Eliquis This patient was seen by EVERETTE Ramirez under the supervision of Dr. Marroquin. <Trent Marroquin - Last Filed: 11/06/20 12:06> Subjective: Seen and examined. Patient felt left hand weakness about 3 days ago. Denies any other stroke symptoms including loss of visual field, language/speech abnormality, dysarthria, dysphagia. Patient denies history of previous stroke, [place]/coronary artery disease or peripheral arterial disease. Heart rate and blood pressure in normal range. Physical exam General: Alert, Oriented x3, Cooperative HEENT: Atraumatic, PERRLA, EOMI, Normocephalic Oral: No Gingival or Mucosal Lesions/ Ulcerations Neck: Supple, No JVD, Negative Carotid Bruits Lungs: Air entry diminished in bilateral lung bases. No crepitation/rhonchi Cardiovascular: Normal sinus rhythm, PVCs, Normal S1, Normal S2, No murmurs Abdomen: Bowel Sounds Present, Soft, Non Tender, Non-Distended : No renal angle tenderness. No suprapubic tenderness. Extremities: No edema, Capillary Refill Less than 3 Seconds Skin: No rashes, No breakdown Musculoskeletal: No Tenderness to Palpation of Joints or Extremities. Right lower extremity is swollen, bigger than the LLE probably secondary to chronic DVT Neurological: NIH stroke scale 2, slight drifting left arm and limb ataxia. Cranial nerves II-XII grossly intact. Psych/Mental Status: Normal Affect, Appropriate. - Physical Exam Vitals/I&O's: Vital Signs Temp Pulse Resp BP Pulse Ox 97.6 F L 95 16 133/76 H 94 11/06/20 09:50 11/06/20 09:53 11/06/20 09:50 11/06/20 09:50 11/06/20 09:50 Oxygen Delivery Method Room Air Weight: 162 lb 11.218 oz Body Mass Index (BMI) 28.8 Finger Stick Blood Glucose 148 Intake and Output for Last 24 Hours 11/04/20 11/05/20 11/06/20 23:59 23:59 23:59 Intake Total 240 / 360 1240 / 1240 Output Total 550 / 550 Balance 240 / 10 690 / 690 Laboratory Results 11/05/20 12:15: WBC 6.3, RBC 3.79 L, Hgb 11.0 L, Hct 35.1 L, MCV 92.6, MCH 29.0, MCHC 31.3 L, RDW Std Deviation 48.1 H, RDW Coeff of Tulio 14.4, Plt Count 154, MPV 10.6, Immature Gran % (Auto) 3.800 H, Neut % (Auto) 58.8, Lymph % (Auto) 23.6, [place] % (Auto) 9.1, Eos % (Auto) 3.7, Baso % (Auto) 1.0, Absolute Neuts (auto) 3.7, Absolute Lymphs (auto) 1.48, Nucleated RBC % 0.3 11/05/20 12:15: PT 20.0 H, INR 1.8, APTT 29.6 11/05/20 12:15: Sodium 140, Potassium 3.5, Chloride 104, Carbon Dioxide 28.0, Anion Gap 8, BUN 28 H, Creatinine 1.66 H, Estim Creat Clear Calc 31.42, Est GFR (MDRD) Af Amer 52 L, Est GFR (MDRD) Non-Af 43 L, BUN/Creatinine Ratio 16.9, Glucose 148 H, Calcium 9.8, Troponin I 0.421 H 11/05/20 12:15: Magnesium 2.1, Troponin I 0.406 H, TSH 2.15 11/05/20 12:15: Hemoglobin A1c 7.1 H 11/05/20 20:13: Troponin I 0.523 H 11/05/20 21:47: POC Glucose 151 H 11/05/20 23:35: Troponin I 0.499 H 11/06/20 05:56: WBC 6.4, RBC 3.33 L, Hgb 9.8 L, Hct 30.8 L, MCV 92.5, MCH 29.4, MCHC 31.8 L, RDW Std Deviation 48.3 H, RDW Coeff of Tulio 14.3, Plt Count 130 L, MPV 10.5, Immature Gran % (Auto) 3.900 H, Neut % (Auto) 54.3, Lymph % (Auto) 26.1, [place] % (Auto) 10.9 H, Eos % (Auto) 4.0, Baso % (Auto) 0.8, Absolute Neuts (auto) 3.5, Absolute Lymphs (auto) 1.68, Nucleated RBC % 0.3 11/06/20 05:56: Sodium 140, Potassium 3.3 L, Chloride 104, Carbon Dioxide 25.0, Anion Gap 11, BUN 26 H, Creatinine 1.64 H, Estim Creat Clear Calc 31.80, Est GFR (MDRD) Af Amer 53 L, Est GFR (MDRD) Non-Af 44 L, BUN/Creatinine Ratio 15.9, Glucose 134 H, Calcium 9.1, Triglycerides 274 H, Cholesterol 197, LDL Cholesterol 103, VLDL Cholesterol 55 H, HDL Cholesterol 39 L 11/06/20 06:36: POC Glucose 138 H Current Medications Acetaminophen (Acetaminophen 325 Mg Tablet) 650 mg PO Q6H PRN PRN PRN Reason: Pain Score 1-10/Temp > 100.7 F Apixaban (Apixaban 5 Mg Tablet) 5 mg PO BID [facility] Last Admin: 11/06/20 09:53 Dose: 5 mg Documented by: Aspirin (Aspirin 81 Mg Tab.Chew) 81 mg PO DAILY@0800 [facility] Last Admin: 11/06/20 09:53 Dose: 81 mg Documented by: Atorvastatin Calcium (Atorvastatin Calcium 80 Mg Tablet) 80 mg PO QHS [facility] Last Admin: 11/05/20 20:29 Dose: Not Given Documented by: Sodium Chloride () 250 mls @ 15 mls/hr IV .[id number] PRN PRN Reason: Saline Flush Sodium Chloride () 250 mls @ 15 mls/hr IV .[id number] PRN PRN Reason: Additional IVPB Infusion Insulin Human Lispro (Insulin Lispro 100 Unit/Ml Insuln.Pen) 0 unit SC [facility]; Protocol Last Admin: 11/06/20 06:37 Dose: Not Given Documented by: Metoprolol Tartrate (Metoprolol Tartrate 25 Mg Tablet) 25 mg PO BID [facility] Last Admin: 11/06/20 09:53 Dose: 25 mg Documented by: Ondansetron HCl (Ondansetron 4 Mg/2 Ml Vial) 4 mg IV Q8H PRN PRN PRN Reason: NAUSEA/VOMITING Oxycodone HCl (Oxycodone 5 Mg Tablet) 5 mg PO Q4H PRN PRN PRN Reason: Pain Score 4-5 Last Admin: 11/06/20 07:03 Dose: 5 mg Documented by: Sodium Chloride (0.9% Saline Lock 10 Ml Syringe) 10 - 40 ml IV UD PRN PRN Reason: SALINE FLUSH Tamsulosin HCl (Tamsulosin Hcl 0.4 Mg Capsule) 0.4 mg PO DAILY@1730 [facility] Last Admin: 11/05/20 18:41 Dose: 0.4 mg Documented by: Assessment/Plan This patient was seen in conjunction with Kaya CALDERON. I have independently interviewed and examined the patient and reviewed pertinent history, examination findings, laboratory and plan of management. I have reviewed the note and agree with the documented findings with the few additional points. In brief, patient is 75 question intermittently with left wrist/hand weakness. I think patient has mild chronic right lower extremity weakness secondary to recurrent DVT and is bigger in size than the left lower extremity. CT angio head and neck shows mild right carotid stenosis and occluded left ICA, just distal to the bifurcation. MRI brain shows involutional changes. Acute/subacute embolic infarcts in the periventricular white matter of the parietal lobes, both hemispheres and cerebellum consistent with acute/subacute embolic infarcts. 2D echo has been ordered. Plan for SOC consult. Mildly elevated troponin 0 0.42-0.49 probably secondary to demand supply mismatch ischemia. Patient denies any chest pain. COY or CKD: Patient last normal creatinine was 1.06 in August 2020. Current 1.64. BUN 28. Monitor electrolytes and kidney function. Other comorbidities include recurrent DVT/PE on Eliquis, type 2 diabetes mellitus, hypertension, dyslipidemia, benign colon neoplasm status post resection and colostomy. Paroxysmal A. fib on Eliquis. There is also concern of possible prostate cancer based on elevated PSA, more than 2000 in October 2018 and August 2020. Follow-up urology as an outpatient. Repeat A1c 7.1. Blood sugars are controlled. Mild hypokalemia, potassium replaced. I have discussed my assessment with Kaya CALDERON and orders have been reviewed. Clinical Impression(s) from Imaging Studies Chest X-Ray 11/05/20 12:02 IMPRESSION: Normal x-ray examination of the chest. Head/Neck CTA 11/05/20 12:03 IMPRESSION: 1. Mild (20%) right carotid stenosis. 2. 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 3. Patent vertebral arteries bilaterally. The left vertebral artery arises directly from the aortic arch. The left vertebral artery is dominant. 4. Intracranially normal. IMPRESSION: Chronic involutional changes of the brain. Brain MRI 11/06/20 10:30 IMPRESSION: Involutional changes of the brain, as described above. 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 Electronically Signed: Ayush Arita MD at 11:57 EST Tel , Service support , Inpatient E&M: [id number] Subs Hosp L2
[2020-11-06] MEDS: Potassium Chloride Oral Tablet 20 MEQ 40 MEQ PO (10:21)
--- NOTE | 2020-11-06 10:30 | MRI_ITS ---
We are attempting to reach an attending provider to discuss findings. An addendum with communication details will be sent when the communication is complete. STUDY: MRI BRAIN WITHOUT CONTRAST REASON FOR EXAM: Male, 75 years old. CVA TECHNIQUE: Standardized multiplanar fat and water weighted pulse sequences were obtained. COMPARISON: CT 11/05/2020 FINDINGS: There is moderate cerebral atrophy with widening of the extra-axial spaces and ventricular dilatation. There are a limited number of small white matter hyperintensities, distributed throughout the deep white matter tracts of the cerebral hemispheres, consistent with mild chronic white matter ischemic changes. There are punctate hyperintensities of the periventricular white matter of the parietal lobes as well as both hemispheres and cerebellum which demonstrate diffusion consistent with a acute/subacute embolic infarcts. Normal T2* images of the brain without demonstrated susceptibility artifact. There is no demonstrated hemosiderin stain. Normal bilateral basal ganglia. Normal thalami. There is no extra-axial fluid accumulation. Normal flow voids within the major intracranial circulation suggesting patency by spin echo criteria. Normal sella turcica, pituitary gland, infundibular stalk, optic chiasm and hypothalamus. Normal tectal plate and pineal gland. Normal midbrain, valentine and medulla. Normal cerebellum. Normal basal cisterns. Normal bilateral temporal bones. Normal bilateral internal auditory canals. No demonstrated orbital abnormality, within the constraints of a routine brain study. Normal visualized paranasal sinuses. Normal calvarium and skull base. Normal visualized soft tissue structures. Normal visualized upper cervical spine. MRI/Brain without Contrast IMPRESSION: Involutional changes of the brain, as described above. 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 Electronically Signed: Ayush Arita MD at 11:57 EST Tel , Service support ,
[2020-11-06] MEDS: Insulin Lispro 100 UNIT/ML INSULN.PEN SC ×2 (12:18→20:32)
[2020-11-06 12:26] LABS: Bedside Glucose 155 mg/dL (70-110)
--- NOTE | 2020-11-06 12:31 | TELEMED_ITS ---
SOC Telemed has confirmed receipt of a request for visit. This document confirms receipt of the order initiating the consult. To find the results of the consultation, please view the patient's reports for the scanned Telemed Consult.
--- NOTE | 2020-11-06 15:03 | ECHOTEE_ITS ---
Reason For Study: TIA/CVA Medication LIBBY probe 6VT-D (SN [id number]) passed without difficulty. No complications were noted. Cetacaine Topical Alsey given X3 orally. Versed 1 mg given slow IVP. Fentanyl 50 mcg given slow IVP. Performed a rapid injection of agitated mix of 9 cc saline and 1cc air to assess for atrial septal defect. Left Ventricle Normal LV size. Left ventricular systolic function is normal. The estimated ejection fraction is 60 %. No regional wall motion abnormalities noted. Right Ventricle Normal RV size. Normal systolic function. Atria Normal atrial septum. Bubble contrast study negative for right to left interatrial shunt. Normal left atrium. No thrombus is detected in the left atrial appendage. Normal right atrium. Mitral Valve Normal mitral valve. Mild (1+) eccentric mitral valve insufficiency. Tricuspid Valve Normal tricuspid valve. Aortic Valve Normal aortic valve. Trisinus/trileaflet aortic valve. Pulmonic Valve Normal pulmonic valve. Vessels Normal aortic root. Pericardium No pericardial effusion. Interpretation Summary Normal LV size. Left ventricular systolic function is normal. The estimated ejection fraction is 60 %. Bubble contrast study negative for right to left interatrial shunt. No obvious evidence of embolic source. Ordering Physician: Kaya Johnston Referring Physician: Wil Bradshaw Performed By: Nancy Faust, RDCS, RVT
[2020-11-06 16:11] LABS: Bedside Glucose 148 mg/dL (70-110)
[2020-11-06] MEDS: Tamsulosin HCl 0.4 MG Capsule PO (17:22)
[2020-11-06] MEDS: Atorvastatin Calcium 80 MG Tablet PO (20:32)
--- NOTE | 2020-11-06 22:00 | NURSING ---
Notified pt that he has a LIBBY scheduled for tomorrow and would need to be NPO at midnight. Pt reports that he did not know about this. Educated pt on what a LIBBY is, pt states that he does not want to have that done, and does not want to be NPO overnight. Advised that we cannot make him have this procedure, but recommends being NPO overnight as to not delay procedure if he would decide to go through with it after speaking to the Dr. Pt did not want to do this. Notified ramonita Barajas RN. LUIS F Tyler
[2020-11-06 22:10] LABS: Bedside Glucose 154 mg/dL (70-110)
[2020-11-07] VITALS (7 sets, daily range): BP systolic 115–121; BP diastolic 69–70; PULSE 75–95; RESP 12–14; TEMP 36.5–37.1; O2SAT 93–94; BMI 28.8
[2020-11-07] MEDS: oxyCODONE 5 MG Tablet PO (00:35)
[2020-11-07 05:53] LABS: Hematocrit 29.7 % (40-54); Hemoglobin 9.4 g/dL (13.0-16.5); Mean Corp Hgb Conc 31.6 g/dL (32-36); Mean Corpuscular Hgb 29.2 pg (27.0-32.0); Mean Corpuscular Volume 92.2 fL (80-94); Mean Platelet Vol. 10.4 fl (6.2-12.0); Platelet Count 120 K/mm3 (150-450); RBC Distribution Width CV 14.3 % (11.6-14.6); RBC Distribution Width SD 48.6 fl (35.1-43.9); Red Blood Count 3.22 M/mm3 (4.6-6.2); White Blood Count 5.4 K/mm3 (4.4-11.0)
[2020-11-07 06:23] LABS: Anion Gap 10 (5-15); BUN 28 mg/dL (7-18); BUN/Creat Ratio 17.7 RATIO (10-20); Calcium,Total 9.5 mg/dL (8.5-10.1); Chloride 104 mmol/L (98-107); Creatinine, Serum 1.58 mg/dL (0.70-1.30); EST Glomerular Filtration Rate 46 mL/min (>60); Est Glom Filt Rate - Afr Amer 55 mL/min (>60); Estimated Creatinine Clearance 33.01 ml/min; Glucose 146 mg/dL (74-106); Potassium 3.6 mmol/L (3.5-5.1); Sodium Level 140 mmol/L (136-145)
[2020-11-07 07:06] LABS: Bedside Glucose 158 mg/dL (70-110)
--- NOTE | 2020-11-07 10:44 | CASEMGMT ---
SW met with patient. Introduced self and role at [facility]. SW explained depression screen and purpose. Patient politely declined stating he is fine. Lena DE LA TORRE MSW
--- NOTE | 2020-11-07 11:05 | NURSING ---
NIH late d/t pt being off unit for LIBBY
[2020-11-07] MEDS: Metoprolol Tartrate 25 MG Tablet PO (11:17)
[2020-11-07] MEDS: Aspirin 81 MG TAB.CHEW PO (11:18)
[2020-11-07] MEDS: APIXABAN 5 MG TABLET PO (11:18)
--- NOTE | 2020-11-07 11:40 | DCINST_ITS ---
- Discharge Diagnoses Current Active Problems: Current Active and Chronic Problems (Last Reviewed 11/05/20 @ 18:[address] Jazmin Dunbar DO) History of pulmonary embolism (Chronic) DM type 2 (diabetes mellitus, type 2) (Chronic) Nonrheumatic tricuspid (valve) insufficiency (Chronic) History of creation of ostomy (Chronic) Nonrheumatic tricuspid (valve) insufficiency (Chronic) Mild (1+) pe echo 10/31/2018 Pulmonary hypertension (Chronic) RVSP 78 mmhg per echo 10/31/2018 Elevated PSA (Chronic) Paroxysmal atrial fibrillation (Chronic) Right bundle branch block (Chronic) Elevated troponin I level (Acute) Blood clotting disorder (Chronic) Abnormal electrocardiogram (Chronic) Abnormal PSA (Chronic) Acute respiratory failure with hypoxia (Acute) Benign tumor of colon (Chronic) Enlarged prostate (Chronic) Arthritis (Chronic) You will use the following diet at home:: No restrictions Discharge Activity: Return to Normal Activity Call your doctor if you observe: Shortness of breath, Dizziness, Fainting spells, Chest pain Allergies/Adverse Reactions: Allergies No Known Allergies Allergy (Verified 11/05/20 11:31) Medications to take at Discharge ascorbic acid (vitamin C) 500 mg capsule 500 mg PO DAILY 08/30/20 apixaban 5 mg tablet 5 mg PO BID #60 tab 09/05/20 metoprolol tartrate 50 mg tablet 25 mg PO BID #180 tab 10/19/20 Aspirin [Aspirin, Baby] 81 mg PO DAILY@0800 #30 tab.chew 11/07/20 Atorvastatin Calcium [Lipitor] 80 mg PO QHS #30 tab 11/07/20 Tamsulosin HCl [Flomax] 0.4 mg PO DAILY@1730 #30 cap 11/07/20 The following prescriptions were given: Aspirin [Aspirin, Baby] 81 mg PO DAILY@0800 #30 tab.chew Transmission Status: Pending to [id number] Tamsulosin HCl [Flomax] 0.4 mg PO DAILY@1730 #30 cap Transmission Status: Pending to [id number] Atorvastatin Calcium [Lipitor] 80 mg PO QHS #30 tab Transmission Status: Pending to [id number] Primary Care Physician: Wil Bradshaw DO [Primary Care Provider] - Please follow up with your Primary Care Physician in: 1 Week Test Results: Test results from this visit will be discussed in further detail at your follow- up appointment, if applicable. Please Follow Up With: Matias Adkins MD - Neurology When: 1-2 Weeks Please Follow Up With: Dani Melendez MD - Oncology When: 1 Week, call for appointment Proposed Discharge Date: 11/07/20
[2020-11-07 12:36] LABS: Bedside Glucose 136 mg/dL (70-110)
--- NOTE | 2020-11-07 13:13 | DS.PCM_ITS ---
<Kaya Johnston NP - Last Filed: 11/07/20 13:50> Discharge Date and Diagnosis - Problem List Patient Problems: Active and Suspected Problems (Last Updated 11/07/20 @ 13:26 by Kaya Johnston RETAIL SALESMAN, RETAIL SALESMAN-C) Elevated troponin I level (Acute) Date of Admission: 11/05/20 Date of Discharge: 11/07/20 - Primary Discharge Diagnosis Acute Problems: Active Problems (Last Reviewed 11/05/20 @ 18:[address] Jazmin Dunbar DO) 1. Acute embolic infarcts 2. Abnormal troponin 3. Suspect chronic kidney disease 4. Carotid stenosis 5. 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 Type 2 diabetes mellitus 7. Hypertension 8. Hyperlipidemia 9. 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 Paroxysmal atrial fibrillation 11. BPH 12. Markedly elevated PSA - Secondary Discharge Diagnosis Chronic Problems: Chronic Problems (Last Reviewed 11/05/20 @ 18:[address] Jazmin Dunbar DO) History of pulmonary embolism (Chronic) DM type 2 (diabetes mellitus, type 2) (Chronic) Nonrheumatic tricuspid (valve) insufficiency (Chronic) History of creation of ostomy (Chronic) Nonrheumatic tricuspid (valve) insufficiency (Chronic) Mild (1+) pe echo 10/31/2018 Pulmonary hypertension (Chronic) RVSP 78 mmhg per echo 10/31/2018 Elevated PSA (Chronic) Paroxysmal atrial fibrillation (Chronic) Right bundle branch block (Chronic) Blood clotting disorder (Chronic) Abnormal electrocardiogram (Chronic) Abnormal PSA (Chronic) Benign tumor of colon (Chronic) Enlarged prostate (Chronic) Arthritis (Chronic) Hospital Course and Treatment Imaging Results: Diagnostic Data Chest X-Ray 11/05/20 12:02 IMPRESSION: Normal x-ray examination of the chest. Electronically Signed: Ayush Arita MD at 13:00 EST Tel , Service support , Head/Neck CTA 11/05/20 12:03 IMPRESSION: 1. Mild (20%) right carotid stenosis. 2. 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 3. Patent vertebral arteries bilaterally. The left vertebral artery arises directly from the aortic arch. The left vertebral artery is dominant. 4. Intracranially normal. N.B. : The above information has been verbally conveyed by Ayush Arita MD to Jaden Leach on 11/05/2020 13:55:59 (ET). Electronically Signed: Ayush Arita MD at 13:57 EST Tel , Service support , ADDENDUM: 11/05/20 1404 IMPRESSION: 1. Mild (20%) right carotid stenosis. 2. 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 3. Patent vertebral arteries bilaterally. The left vertebral artery arises directly from the aortic arch. The left vertebral artery is dominant. 4. Intracranially normal. N.B. : The above information has been verbally conveyed by Ayush Arita MD to Jaden Leach on 11/05/2020 13:55:59 (ET). Electronically Signed: Ayush Arita MD at 13:57 EST Tel , Service support , ADDENDUM: 11/05/20 1831 IMPRESSION: Chronic involutional changes of the brain. Electronically Signed: Kamlesh Roblero MD at 18:24 EST , Service support , N.B. : The above information has been verbally conveyed by Ayush Arita MD to Jaden Leach on 11/05/2020 13:55:59 (ET). ADDENDUM: 11/05/20 1834 IMPRESSION: 1. Mild (20%) right carotid stenosis. 2. 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 3. Patent vertebral arteries bilaterally. The left vertebral artery arises directly from the aortic arch. The left vertebral artery is dominant. 4. Intracranially normal. N.B. : The above information has been verbally conveyed by Ayush Arita MD to Jaden Leach on 11/05/2020 13:55:59 (ET). Electronically Signed: Ayush Arita MD at 13:57 EST Tel , Service support , ADDENDUM: 11/05/20 1834 IMPRESSION: Chronic involutional changes of the brain. Electronically Signed: Kamlesh Roblero MD at 18:24 EST , Service support , N.B. : The above information has been verbally conveyed by Ayush Arita MD to Jaden Leach on 11/05/2020 13:55:59 (ET). Brain MRI 11/06/20 10:30 IMPRESSION: Involutional changes of the brain, as described above. 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 Electronically Signed: Ayush Arita MD at 11:57 EST Tel , Service support , ADDENDUM: 11/06/20 1207 IMPRESSION: Involutional changes of the brain, as described above. 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 N.B. : The above information has been verbally conveyed by Ayush Arita MD to Cem Yeboah RN, on 11/06/2020 12:00:08 (ET). Electronically Signed: Ayush Arita MD at 11:57 EST Tel , Service support , Dr. Melendez- Oncology SOC Neurology Operations: None Procedures: Transesophageal Echo Summary of Care Provided: The patient is a 75 year old M admitted 11/05/2020 due to left wrist and hand weakness. 1. Acute embolic infarcts- CTA of head and neck demonstrates mild right carotid stenosis and occluded left internal carotid artery. Patent vertebral arteries. Brain CT without acute ischemic infarct. MRI of brain demonstrates acute embolic infarcts in the periventricular white matter of the parietal lobes in both hemispheres and cerebellum. Suspect hypercoagulable condition/embolic state. Concern for hypercoagulable condition related to presumed cancer. Patient is amendable to outpatient work-up regarding potential prostate/metastatic cancer. In the meantime, plan to continue full anticoagulation with Eliquis along with aspirin and high-dose statin. Once further outpatient work-up is completed regarding extent of underlying cancer, consideration may be made to switch to Lovenox versus Xarelto or continuing Eliquis depending on outpatient findings. Oncology consulted during admission to initiate outpatient follow-up given patient has had poor compliance/follow-up in the past and is now amendable to undergo further evaluation. Follow-up with PCP and neurology in 1 week. Patient underwent LIBBY during admission was reported to be normal per cardiology, report pending. 2. Abnormal troponin-possibly demand ischemia. LIBBY completed as noted above and reported to be normal. Given acute CVA, further cardiac evaluation/consultation deferred at this time. Recommend referral by primary care physician as out patient pending clearance per #1 as well as further cancer evaluation. On aspirin, statin, beta-anand. 3. Suspected chronic kidney disease stage III-follow BMP as outpatient. 4. Carotid stenosis-CTA of head and neck demonstrates mild right carotid stenosis and occluded left internal carotid artery distal to bifurcation. Patent vertebral arteries bilaterally. Occlusion is presumed to be chronic and not contributing to #1. Aspirin, statin at discharge. 5. 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 6. Type 2 diabetes mellitus-hemoglobin A1c October 2018 7.5%. Repeat hemoglobin A1c 7.1%. Discussed in length with patient as he states he was not aware he is a diabetic and thought he was prediabetic. Initiated on Metformin 500 mg daily at discharge. Follow-up with PCP. 7. Hypertension-stable, continue metoprolol regimen. 8. Hyperlipidemia- High-dose statin initiated. 9. 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 Paroxysmal atrial fibrillation-on metoprolol, Eliquis. Patient reports this was found following significant PE, no known recurrence. 11. BPH-not on regimen. Patient states he intermittently self caths at home due to difficulty with urination. Initiated on Flomax. 12. Markedly elevated PSA-Last total PSA August 2020 greater than 2000. patient has been reluctant to undergo work-up/diagnosis as an outpatient and states he has been aware of elevated PSA for several years. He states he was seen at [facility] and told he was not able to undergo biopsy, unclear circumstances behind this. On admission, patient declined further work-up or evaluation and states he did not want to undergo treatment however during admission with subsequent conversations as well as conversation with neurology, patient now agreeable to undergo further work-up and diagnosis. As underlying cancer may contribute to hypercoagulable state, discussed importance of obtaining further work-up to determine if anticoagulation regimen needs adjusted. Given poor compliance and outpatient follow-up with recommendations in the past as well as patient is now agreeable for consultation/further work-up, oncology consulted during admission and patient was seen by Dr. Melendez. Plan is to obtain prior medical records including [facility] records and follow-up with oncology as outpatient for further management. General: Alert, Oriented x3, Cooperative HEENT: Atraumatic, PERRLA, EOMI, Normocephalic Neck: Supple, No JVD, Negative Carotid Bruits Lungs: Clear to auscultation, Normal air movement Cardiovascular: Regular rate, No murmurs Abdomen: Bowel Sounds Present, Soft, Non Tender, Non-Distended, Colostomy in place Extremities: No clubbing, No cyanosis, No edema, Capillary Refill Less than 3 Seconds Skin: No rashes, No breakdown Musculoskeletal: No Tenderness to Palpation of Joints or Extremities Neurological: Cranial nerves II-XII grossly intact, - - Severe left wrist and hand weakness, mild tongue deviation to left, mild left facial droop. Psych/Mental Status: Normal Affect, Appropriate Patient seen and examined prior to discharge. Physical assessment as noted above. Patient is stable for discharge with follow up recommendations as noted above. This patient was seen by EVERETTE Ramirez under the supervision of Dr. Antoine. Patient Problems: Active and Suspected Problems (Last Updated 11/07/20 @ 13:26 by Kaya Johnston NP, RETAIL SALESMAN-C) Elevated troponin I level (Acute) - Physical Exam Vitals/I&O's: Vital Signs Temp Pulse Resp BP Pulse Ox 97.7 F L 91 14 121/70 H 94 11/07/20 11:04 11/07/20 11:17 11/07/20 11:04 11/07/20 11:04 11/07/20 11:04 Oxygen Delivery Method Room Air Weight: 162 lb 11.218 oz Body Mass Index (BMI) 28.8 Finger Stick Blood Glucose 148 Intake and Output for Last 24 Hours 11/05/20 11/06/20 11/07/20 23:59 23:59 23:59 Intake Total 240 / 360 1720 / 1720 Output Total 1775 / 1775 275 / 275 Balance 240 / 10 -55 / -55 -275 / -275 Microbiology Past 72 Hours 11/07/20 09:05 Mucosa - Nasopharyngeal SARS-CoV-2 Antigen (Rapid) - Final Laboratory Results 11/06/20 16:06: POC Glucose 148 H 11/06/20 20:27: POC Glucose 154 H 11/07/20 05:24: WBC 5.4, RBC 3.22 L, Hgb 9.4 L, Hct 29.7 L, MCV 92.2, MCH 29.2, MCHC 31.6 L, RDW Std Deviation 48.6 H, RDW Coeff of Tulio 14.3, Plt Count 120 L, MPV 10.4 11/07/20 05:24: Sodium 140, Potassium 3.6, Chloride 104, Carbon Dioxide 26.0, Anion Gap 10, BUN 28 H, Creatinine 1.58 H, Estim Creat Clear Calc 33.01, Est GFR (MDRD) Af Amer 55 L, Est GFR (MDRD) Non-Af 46 L, BUN/Creatinine Ratio 17.7, Glucose 146 H, Calcium 9.5 11/07/20 06:59: POC Glucose 158 H 11/07/20 12:30: POC Glucose 136 H Current Medications Acetaminophen (Acetaminophen 325 Mg Tablet) 650 mg PO Q6H PRN PRN PRN Reason: Pain Score 1-10/Temp > 100.7 F Apixaban (Apixaban 5 Mg Tablet) 5 mg PO BID [facility] Last Admin: 11/07/20 11:18 Dose: 5 mg Documented by: Aspirin (Aspirin 81 Mg Tab.Chew) 81 mg PO DAILY@0800 [facility] Last Admin: 11/07/20 11:18 Dose: 81 mg Documented by: Atorvastatin Calcium (Atorvastatin Calcium 80 Mg Tablet) 80 mg PO QHS [facility] Last Admin: 11/06/20 20:32 Dose: 80 mg Documented by: Sodium Chloride () 250 mls @ 15 mls/hr IV .[id number] PRN PRN Reason: Saline Flush Sodium Chloride () 250 mls @ 15 mls/hr IV .[id number] PRN PRN Reason: Additional IVPB Infusion Insulin Human Lispro (Insulin Lispro 100 Unit/Ml Insuln.Pen) 0 unit [place] [facility]; Protocol Last Admin: 11/07/20 07:02 Dose: Not Given Documented by: Metoprolol Tartrate (Metoprolol Tartrate 25 Mg Tablet) 25 mg PO BID [facility] Last Admin: 11/07/20 11:17 Dose: 25 mg Documented by: Ondansetron HCl (Ondansetron 4 Mg/2 Ml Vial) 4 mg IV Q8H PRN PRN PRN Reason: NAUSEA/VOMITING Oxycodone HCl (Oxycodone 5 Mg Tablet) 5 mg PO Q4H PRN PRN PRN Reason: Pain Score 4-5 Last Admin: 11/07/20 00:35 Dose: 5 mg Documented by: Sodium Chloride (0.9% Saline Lock 10 Ml Syringe) 10 - 40 ml IV UD PRN PRN Reason: SALINE FLUSH Tamsulosin HCl (Tamsulosin Hcl 0.4 Mg Capsule) 0.4 mg PO DAILY@1730 [facility] Last Admin: 11/06/20 17:22 Dose: 0.4 mg Documented by: Discharge Diet: Low fat/ Low Cholesterol, Carb Control Diet Discharge Activity: Return to Normal Activity Call your doctor if you observe: Shortness of breath, Dizziness, Fainting spells, Chest pain Home Medications: Medications to take at Discharge ascorbic acid (vitamin C) 500 mg capsule 500 mg PO DAILY 08/30/20 apixaban 5 mg tablet 5 mg PO BID #60 tab 09/05/20 metoprolol tartrate 50 mg tablet 25 mg PO BID #180 tab 10/19/20 Aspirin [Aspirin, Baby] 81 mg PO DAILY@0800 #30 tab.chew 11/07/20 Atorvastatin Calcium [Lipitor] 80 mg PO QHS #30 tab 11/07/20 Tamsulosin HCl [Flomax] 0.4 mg PO DAILY@1730 #30 cap 11/07/20 metFORMIN (XR) [Glucophage Xr] 500 mg PO DAILY #30 tab 11/07/20 Following Prescriptions Were Given to Patient: Aspirin [Aspirin, Baby] 81 mg PO DAILY@0800 #30 tab.chew Transmission Status: Received by [facility]/pharmacy #[id number] Tamsulosin HCl [Flomax] 0.4 mg PO DAILY@1730 #30 cap Transmission Status: Received by [facility]/pharmacy #[id number] metFORMIN (XR) [Glucophage Xr] 500 mg PO DAILY #30 tab Transmission Status: Received by [facility]/pharmacy #[id number] Atorvastatin Calcium [Lipitor] 80 mg PO QHS #30 tab Transmission Status: Received by [facility]/pharmacy #[id number] Primary Care Physician: Wil Bradshaw, [Primary Care Provider] - Please follow up with your Primary Care Physician in: 1 Week Please Follow Up With: Matias Adkins MD - Neurology When: 1-2 Weeks Please Follow Up With: Dani Melendez MD - Oncology When: 1 Week, call for appointment Disposition: Home Minutes spent on discharge:: 35 Patient Condition:: Stable Medical Necessity - Tobacco Use Smoking Status: Former smoker Tobacco Use: Non-smoker Meaningful Use Info Meaningful Use Diagnoses (Choose all that apply): Ischemic CVA - CVA Therapy Assessed for PT,OT and/or ST?: Yes - Ischemic Stroke Antithrombotic order at d/c?: Yes Dx of Atrial fib/flutter?: Yes Anticoagulant at discharge?: Yes Statins at discharge?: Yes Primary Dx Acute Ischemic CVA?: Yes IV tPA ordered during stay?: No Reason IV t-PA not ordered: Medical Contraindication <Matthew Antoine - Last Filed: 11/08/20 11:43> Discharge Date and Diagnosis - Primary Discharge Diagnosis Acute Problems: Active Problems (Last Updated 11/07/20 @ 13:26 by Kaya Johnston NP, RETAIL SALESMAN-C) Elevated troponin I level (Acute) - Secondary Discharge Diagnosis Chronic Problems: Chronic Problems (Last Updated 11/07/20 @ 13:26 by Kaya Johnston NP, RETAIL SALESMAN-C) History of pulmonary embolism (Chronic) DM type 2 (diabetes mellitus, type 2) (Chronic) Nonrheumatic tricuspid (valve) insufficiency (Chronic) History of creation of ostomy (Chronic) Nonrheumatic tricuspid (valve) insufficiency (Chronic) Mild (1+) pe echo 10/31/2018 Pulmonary hypertension (Chronic) RVSP 78 mmhg per echo 10/31/2018 Elevated PSA (Chronic) Paroxysmal atrial fibrillation (Chronic) Right bundle branch block (Chronic) Blood clotting disorder (Chronic) Abnormal electrocardiogram (Chronic) Abnormal PSA (Chronic) Benign tumor of colon (Chronic) Enlarged prostate (Chronic) Arthritis (Chronic) Hospital Course and Treatment Summary of Care Provided: Hospitalist note: Discharge summary above reviewed and I concur with above discharge and treatment plan. Patient was presented to the emergency room because of left hand weakness. Initial CT scan brain showed no acute infarct or hemorrhage. He was not a candidate for TPA. MRI brain done and showed acute/Subacute embolic infarcts in the periventricular white matter of the parietal lobes bilaterally as well as cerebellum. CTA of the head and neck done and showed 20% stenosis of the right carotid artery, occluded left internal carotid artery. His EKG revealed normal sinus rhythm, incomplete RBBB, no evidence of cardiac arrhythmias. Patient was started on aspirin, statins. SOC tele-neurology consulted and recommended to start patient on anticoagulation and recommended LIBBY. Patient was started on Eliquis 5 mg p.o. twice daily. LIBBY was done and showed normal LV size and function, bubble contrast study was negative for [id number]-as-hwot shunt, no evidence of embolic source. Patient's blood pressure remained stable throughout the stay. Apart from weakness of the left hand which is minimal, no other focal deficit. Patient had markedly elevated PSA and according to him, this has been going on for several years. He stated that he was seen at [facility] in the past for the same problem. During this hospital stay, we had a conversation with the patient regarding the need for evaluation of this elevation of the PSA and he is agreeable. Patient was evaluated by oncology during this hospital stay and he will follow up with them as outpatient. Patient discharged home in a stable medical condition, discharged on Eliquis, aspirin, statins, continued on his previous home medications including Metformin, metoprolol and Flomax, plan to follow-up with oncology in 1 week, follow-up with neurology in 1 to 2 weeks, follow-up with PCP in 1 week. - Physical Exam General: Alert, Oriented x3, Cooperative, No apparent distress. HEENT: Atraumatic, PERRLA, EOMI. Neck: Supple, No JVD, Negative Carotid Bruits, Trachea Midline, Thyroid Normal. Lungs: Clear to auscultation, Normal air movement, No rhonchi, No wheeze, No rales. Cardiovascular: Regular rate, Regular Rhythm, Normal S1, Normal S2, PMI Normal. Abdomen: Bowel Sounds Present, Soft, Non Tender, Non-Distended, No Hepato- splenomegaly. Extremities: No clubbing, No cyanosis, No edema Skin: No rashes, No breakdown Neurological: Left hand weakness, otherwise no focal deficit. Cranial nerves are intact. This note was generated with e[employer]ov dictation software. It may contain incorrect words, spelling, and punctuation that were not noted in checking the note before signing. - Physical Exam Vitals/I&O's: Vital Signs Temp Pulse Resp BP Pulse Ox 97.7 F L 91 14 121/70 H 94 11/07/20 11:04 11/07/20 11:17 11/07/20 11:04 11/07/20 11:04 11/07/20 11:04 Oxygen Delivery Method Room Air Weight: 162 lb 11.218 oz Body Mass Index (BMI) 28.8 Finger Stick Blood Glucose 148 Intake and Output for Last 24 Hours 11/05/20 11/06/20 11/07/20 23:59 23:59 23:59 Intake Total 240 / 360 1720 / 1720 Output Total 1775 / 1775 275 / 275 Balance 240 / 10 -55 / -55 -275 / -275 Microbiology Past 72 Hours 11/07/20 09:05 Mucosa - Nasopharyngeal SARS-CoV-2 Antigen (Rapid) - Final Laboratory Results 11/06/20 16:06: POC Glucose 148 H 11/06/20 20:27: POC Glucose 154 H 11/07/20 05:24: WBC 5.4, RBC 3.22 L, Hgb 9.4 L, Hct 29.7 L, MCV 92.2, MCH 29.2, MCHC 31.6 L, RDW Std Deviation 48.6 H, RDW Coeff of Tulio 14.3, Plt Count 120 L, MPV 10.4 11/07/20 05:24: Sodium 140, Potassium 3.6, Chloride 104, Carbon Dioxide 26.0, Anion Gap 10, BUN 28 H, Creatinine 1.58 H, Estim Creat Clear Calc 33.01, Est GFR (MDRD) Af Amer 55 L, Est GFR (MDRD) Non-Af 46 L, BUN/Creatinine Ratio 17.7, Glucose 146 H, Calcium 9.5 11/07/20 06:59: POC Glucose 158 H 11/07/20 12:30: POC Glucose 136 H Current Medications Acetaminophen (Acetaminophen 325 Mg Tablet) 650 mg PO Q6H PRN PRN PRN Reason: Pain Score 1-10/Temp > 100.7 F Apixaban (Apixaban 5 Mg Tablet) 5 mg PO BID [facility] Last Admin: 11/07/20 11:18 Dose: 5 mg Documented by: Aspirin (Aspirin 81 Mg Tab.Chew) 81 mg PO DAILY@0800 [facility] Last Admin: 11/07/20 11:18 Dose: 81 mg Documented by: Atorvastatin Calcium (Atorvastatin Calcium 80 Mg Tablet) 80 mg PO QHS [facility] Last Admin: 11/06/20 20:32 Dose: 80 mg Documented by: Sodium Chloride () 250 mls @ 15 mls/hr IV .[id number] PRN PRN Reason: Saline Flush Sodium Chloride () 250 mls @ 15 mls/hr IV .[id number] PRN PRN Reason: Additional IVPB Infusion Insulin Human Lispro (Insulin Lispro 100 Unit/Ml Insuln.Pen) 0 unit [place] [facility]; Protocol Last Admin: 11/07/20 14:06 Dose: Not Given Documented by: Metoprolol Tartrate (Metoprolol Tartrate 25 Mg Tablet) 25 mg PO BID [facility] Last Admin: 11/07/20 11:17 Dose: 25 mg Documented by: Ondansetron HCl (Ondansetron 4 Mg/2 Ml Vial) 4 mg IV Q8H PRN PRN PRN Reason: NAUSEA/VOMITING Oxycodone HCl (Oxycodone 5 Mg Tablet) 5 mg PO Q4H PRN PRN PRN Reason: Pain Score 4-5 Last Admin: 11/07/20 00:35 Dose: 5 mg Documented by: Sodium Chloride (0.9% Saline Lock 10 Ml Syringe) 10 - 40 ml IV UD PRN PRN Reason: SALINE FLUSH Tamsulosin HCl (Tamsulosin Hcl 0.4 Mg Capsule) 0.4 mg PO DAILY@1730 [facility] Last Admin: 11/06/20 17:22 Dose: 0.4 mg Documented by: Disposition: Home Minutes spent on discharge:: 33 Patient Condition:: Stable Meaningful Use Info Meaningful Use Diagnoses (Choose all that apply): Ischemic CVA - CVA Therapy Assessed for PT,OT and/or ST?: Yes - Ischemic Stroke Antithrombotic order at d/c?: Yes Dx of Atrial fib/flutter?: Yes Anticoagulant at discharge?: Yes Statins at discharge?: Yes Primary Dx Acute Ischemic CVA?: Yes IV tPA ordered during stay?: No Reason IV t-PA not ordered: Treatment not Indicated Inpatient E&M: [id number] Disch Hosp
--- NOTE | 2020-11-07 14:23 | CASEMGMT ---
LUIS F LOPEZ assessment: Face to Face with patient for initial transition planning/care coordination assessment. LUIS F LOPEZ introduced self and role at [facility], pt voices understanding and consents to assessment. Pt is sitting up on edge of bed awaiting w/c for discharge at this time. Pt is A/Ox4 and answers all questions at this time. Care providers, pharmacy, and demographics verified. Presentation: Left arm weakness, back pain Admitting dx: Left wrist/hand weakness, r/o CVA PCP: [facility] Specialists: None known Preferred Pharmacy: [facility] Insurance: [facility] Prescription Benefit: [facility] Living Will/HPOA: Pt does not have LW/HPOA and declines AD info at this time. LNOK: Geoffrey Foster, Living Arrangements: Pt states lives with in 1 story home with no steps to enter and states no concerns at home. Pt states is independent with ADL's. Transportation: Pt states drives and states no transportation concerns. DME/HHC: Pt states no current DME or need for any at this time. Pt states no hx of HHC or SNF in the past. Therapy states no further therapy recommended for pt at this time. Pt states no concerns with going home at time of discharge. Pt is retired. Pt states does not smoke cigarettes or drink ETOH. Pt states no further concerns/needs. CM to follow for any further discharge planning/needs. Pt Goal: Home Plan: Home [place] LUIS F LOPEZ
--- NOTE | 2020-11-07 14:43 | PHA.DC.MR ---
Pharmacy Service has performed discharge medication reconciliation for this patient. No new medications at time of discharge medication review. Medications reviewed are from previously reported home medications. Home Medications ascorbic acid (vitamin C) 500 mg capsule 500 mg PO DAILY 08/30/20 apixaban 5 mg tablet 5 mg PO BID #60 tab 09/05/20 metoprolol tartrate 50 mg tablet 25 mg PO BID #180 tab 10/19/20 Aspirin [Aspirin, Baby] 81 mg PO DAILY@0800 #30 tab.chew 11/07/20 Atorvastatin Calcium [Lipitor] 80 mg PO QHS #30 tab 11/07/20 Tamsulosin HCl [Flomax] 0.4 mg PO DAILY@1730 #30 cap 11/07/20 metFORMIN (XR) [Glucophage Xr] 500 mg PO DAILY #30 tab 11/07/20 The patient's discharge medication list was reviewed for discrepancies and discrepancies were resolved.
--- NOTE | 2020-11-08 15:16 | CASEMGMT ---
RN CM Discharge F/U Phone Call LACE: 10 Strata: 3 Discharge date: 11/07/20 Call date: 11/08/20 Call time: [phone] Attempted to reach pt without success at this time, message left for pt to call this RN CM back if/when able. [place] RN CM Admission dx: Left wrist/hand weakness, CVA
== END 2020-11-07 14:30 | disposition home or self-care (01) | DRG 45 ==
LOC: ED 12:12 → PCU 16:52
PROVIDERS: Internal Medicine; Admitting Provider Nurse Practitioner Family; Emergency Provider Emergency Medicine; PCP Family Medicine; Visit Provider Hospitalist
DX: I63.9 Cerebral infarction, unspecified (principal); G83.24 Monoplegia of upper limb affecting left nondominant side; R29.810 Facial weakness; R29.702 NIHSS score 2; I65.22 Occlusion and stenosis of left carotid artery; I12.9 Hypertensive chronic kidney disease with stage 1 through stage 4 chronic kidney disease, or unspecified chronic kidney disease; E11.22 Type 2 diabetes mellitus with diabetic chronic kidney disease; N18.30 Chronic kidney disease, stage 3 unspecified; I24.8 Other forms of acute ischemic heart disease; E87.6 Hypokalemia; I48.20 Chronic atrial fibrillation, unspecified; I48.0 Paroxysmal atrial fibrillation; D68.9 Coagulation defect, unspecified; I36.1 Nonrheumatic tricuspid (valve) insufficiency; I27.20 Pulmonary hypertension, unspecified; N40.0 Benign prostatic hyperplasia without lower urinary tract symptoms; R97.20 Elevated prostate specific antigen [PSA]; E78.5 Hyperlipidemia, unspecified; M54.12 Radiculopathy, cervical region; S23.3XXA Sprain of ligaments of thoracic spine, initial encounter; X58.XXXA Exposure to other specified factors, initial encounter; Y93.9 Activity, unspecified; Y92.9 Unspecified place or not applicable; Y99.9 Unspecified external cause status; M19.90 Unspecified osteoarthritis, unspecified site; Z93.3 Colostomy status; Z79.01 Long term (current) use of anticoagulants; Z79.84 Long term (current) use of oral hypoglycemic drugs; Z79.899 Other long term (current) drug therapy; Z86.718 Personal history of other venous thrombosis and embolism; Z86.711 Personal history of pulmonary embolism; Z87.891 Personal history of nicotine dependence
CPT/HCPCS: 36415; 70496; 70498; 70551; 71045; 72050; 72072; 80048; 80061; 82962; 83036; 83735; 84443; 84484; 85025; 85027; 85610; 85730; 87426; 92523; 92610; 93005; 93312; 93320; 93325; 94762; 97161; 97165; 97530; 97535; 99285; J7030; J7040; Q9967; A4216

== ENCOUNTER → 2020-11-16 15:58 | Outpatient (CLI) | payer MEDICAID, SELFPAY ==
[2020-11-08 11:36] VITALS: BMI 28.8
--- NOTE | 2020-11-16 16:01 | RAD_ITS ---
STUDY: X-RAY - PELVIS AND LEFT HIP REASON FOR EXAM: Male, 75 years old. Hip pain. Left hip pain for several days. Pain has worsened today. TECHNIQUE: 3 views of the pelvis and hip. COMPARISON: None. FINDINGS: There is a non-specific bowel gas pattern. Normal visualized soft tissue structures. Colostomy site is seen overlying the left iliac wing. There are surgical clips in the right pelvis. There is an overall mottled appearance of the visualized bony structures. There are multiple small hypodensities with a loss of the evening appearance most marked in the lower pelvis and left femoral neck. Normal bilateral iliac wings, sacroiliac joints and visualized sacrum. Normal bilateral superior and inferior pubic rami. There is marked sclerosis along the right aspect of the pubic symphysis.. Normal bilateral ischial tuberosities. There is moderate narrowing of the right hip joint. Normal visualized left femoral head. Normal left acetabulum. There is moderate articular joint space narrowing of the left hip. RAD/HIP, UNI W/ Pelvis 2-3 Views IMPRESSION: 1. Moderate narrowing of the left hip joint without fracture or dislocation. 2. Question mottled appearance of the visualized osseous structures. Question metastatic disease. 3. Evidence of left lower quadrant ostomy. Electronically Signed: Christian Mei DO at 21:06 EST Tel [phone], Service support ,
== END ==
PROVIDERS: PCP Family Medicine; Referring Provider Family Medicine; Visit Provider Family Medicine
DX: M25.552 Pain in left hip (principal)
CPT/HCPCS: 73502

== ENCOUNTER 2020-12-24 16:18 | Inpatient (IN) | payer MEDICAID, SELFPAY ==
[2020-12-21 13:11] VITALS: BMI 24.3
[2020-12-24 16:19] VITALS: BP 121/74; PULSE 92; RESP 18; TEMP 36.5; O2SAT 94; BMI 22.8
--- NOTE | 2020-12-24 16:32 | CT_ITS ---
STUDY: CT CHEST WITHOUT CONTRAST REASON FOR EXAM: Male, 75 years old. Increasing weakness for 4-6 weeks, history of prostate cancer, fall today RADIATION DOSAGE (If Supplied By Facility): CTDIvol = ( 17.05 ) mGy, DLP = ( 687.64 ) mGycm TECHNIQUE: Transaxial imaging was performed without the administration of intravenous contrast material. Multiplanar coronal and sagittal images were reformatted. Individualized dose optimization techniques were used for this CT. COMPARISON: None. FINDINGS: Lungs are underexpanded with atelectasis in the bilateral lower lobes. Trace volume right pleural effusion. There is no demonstrated pleural abnormality. There is mild cardiac enlargement. Mildly enlarged lymph nodes of the mediastinum including a 1.6 x 2.0 cm precarinal station for lymph node. No dominant aj mass. No obvious hilar adenopathy. Normal unenhanced pulmonary arteries. Normal aorta arch and descending thoracic aorta. There are multi-level degenerative changes of the thoracic spine. Significant heterogeneity throughout the thoracic spine with areas of sclerosis and lysis new since prior CTA of 10/31/2018. There is a transverse fracture of the posterior left eighth rib. Lateral seventh rib fracture is also demonstrated. Mild right hydronephrosis is partially visualized. There are calcifications layer dependently within the collecting system. Rounded soft tissue density posterior to the right kidney measures 1.8 x 2.2 cm that could represent perinephric lymph node versus an exophytic lesion. Adenopathy of the abdominal retroperitoneum is partially visualized with largest lymph node measuring 2.8 x 3.4 cm. Asymmetric enlargement of the right psoas as related to the left psoas is incompletely visualized. CT/Chest without Contrast IMPRESSION: 1. Retroperitoneal adenopathy suspicious for neoplasm including metastasis or lymphoma. Right hydronephrosis, incompletely visualized, could be from distal ureteral obstruction from either extrinsic mass effect or ureteral calculus. 2. Diffuse sclerosis and lysis of the thoracic spine new since 2019 and suspicious for bone marrow replacement/metastasis. 3. Mild mediastinal adenopathy. 4. Trace right pleural effusion. Atelectasis in the lung bases. 5. Right perinephric soft tissue density could represent renal lesion versus enlarged lymph node. Dedicated renal ultrasound and/or abdomen/pelvis CT with IV contrast recommended. 6. Posterior left eighth and lateral left evident rib fractures. 7. Asymmetric enlargement of the right psoas muscle as compared to the left could be related to retroperitoneal adenopathy but incompletely visualized. Electronically Signed: Tyler He MD ([place]) at 18:08 EDT , Service support ,
--- NOTE | 2020-12-24 16:32 | CT_ITS ---
STUDY: CT BRAIN WITHOUT CONTRAST REASON FOR EXAM: Male, 75 years old. trauma RADIATION DOSAGE (If Supplied By Facility): CTDIvol = ( 44.99 ) mGy, DLP = ( 832.67 ) mGycm TECHNIQUE: Transaxial CT imaging of the brain was performed without administration of intravenous contrast material. Individualized dose optimization techniques were used for this CT. COMPARISON: No relevant priors. FINDINGS: Normal soft tissue structures. Normal calvarium. Normal size ventricles and extra-axial spaces for the patient''s age. Normal white matter tracts of the cerebral hemispheres. Normal basal ganglia and thalami. Normal brainstem. Normal cerebellum. There is no intracranial hemorrhage. There are no findings of an acute ischemic infarction. Normal visualized paranasal sinuses. CT/Brain/Head without Contrast IMPRESSION: No acute intracranial hemorrhage or mass effect. Electronically Signed: Tyler He MD ([place]) at 17:56 EDT , Service support ,
--- NOTE | 2020-12-24 16:34 | MRI_ITS ---
STUDY: MRI LUMBAR SPINE WITH AND WITHOUT CONTRAST REASON FOR EXAM: Male, 75 years old. cord compression -- prostate CA, back pain, weakness TECHNIQUE: Standardized fat and water weighted pulse sequences were obtained in the sagittal and axial planes. 13ml Dotarem via IV was administered for the contrast portion of the examination. COMPARISON: None FINDINGS: There is diffuse osseous metastatic disease with combination of lesions and marrow replacement. However, MRI is suboptimal for evaluation of sclerotic metastases such as prostate cancer. There are probably late subacute or chronic unhealed fractures of T12, L1 and L3 with mild compression of T12. Fractures are pathologic due to heterogeneous neoplastic marrow infiltration. There are extra osseous soft tissue metastases with posterior cortical breakthrough at multiple levels. Thecal sac is severely stenotic at L4-L5 due to disc extrusion and ligamentum flavum and facet hypertrophic degenerative change. Thecal sac is mildly stenotic at L2 due to extensive left anterolateral epidural metastasis. There are large bulky retroperitoneal metastatic lymph nodes. There is right hydronephrosis. Metastatic disease involves the right paraspinous musculature, psoas and obliques. MRI/Spine Lumbar W/WO Contrast IMPRESSION: 1. 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 2. Diffuse osseous metastatic disease. 3. Multiple epidural metastases with mild thecal sac compression. 4. Extensive metastatic retroperitoneal and paraspinous muscle metastases. 5. Right hydronephrosis. N.B. : The above information has been verbally conveyed by Ban Hernandez MD to Yossi Lux MD, , on 12/24/2020 19:24:59 (ET). Electronically Signed: Ban Hernandez MD at 19:25 EDT Tel , Service support ,
--- NOTE | 2020-12-24 16:36 | ED.DCSUM_ITS ---
History of Present Illness Chief Complaint: Weakness Narrative: Patient is complaining of generalized weakness for the past few weeks however worse today to the point where he fell he is also complaining of back pain. He has a history of prostate cancer just started treatment earlier this week. Next week. He has no urinary retention symptoms, he has a history of rectal mass, he now has a colostomy. No recent fever or chills. No upper extremity weakness. He did hurt his left chest wall and his head after the fall he has no neck pain. Social: Noncontributory Medications: Reviewed Past medical history: Reviewed at the bedside and in HPI Review of systems General: Patient has no head injury or loss of consciousness HEENT: No facial injury Neck: No neck pain Cardiovascular: Patient denies any chest pain or palpitations Chest wall: Left-sided chest wall pain Respiratory: There is no shortness of breath GI: There is no nausea vomiting diarrhea or abdominal pain, no abdominal wall contusions Skin: No lacerations or abrasions Neurological: Patient has no memory loss, confusion or any mental status ch anges. He does have lower extremity weakness bilaterally Psychiatric: No recent behavioral changes Back: Back pain Musculoskeletal: No extremity injury All other systems are reviewed and normal Physical exam Vitals reviewed General: Patient appears chronically ill. He does not appear in significant distress currently. HEENT: No facial injury. Dry mucous membranes Head: No head injury Eyes: Extraocular movements intact Neck: No C-spine tenderness with full range of motion Heart: Regular rate normal pulses Chest wall: Left-sided chest wall pain however I do not see any contusions Lungs clear lungs bilaterally with normal inspiration and expiration without tachypnea GI: Abdomen is soft and nontender there is no mass no guarding no abdominal wall contusion : Stable pelvis Musculoskeletal: Moves all extremities without any signs of trauma, there is some bilateral lower extremity weakness but it is symmetric. Back: There is lumbar tenderness without any step-offs Skin: No abrasions or laceration Neurological: Patient is alert and oriented with no focal deficits. He has negative straight leg test bilaterally. He is hyperreflexic on patellar and Achilles on the right and hyporeflexic on the left. Normal plantar flexion bilaterally normal dorsiflexion of feet and great toe bilaterally. Past Medical History - Allergies and Home Meds Allergies/Adverse Reactions: Allergies No Known Allergies Allergy (Verified 12/24/20 16:22) Primary Care Physician: Wil Bradshaw DO [Primary Care Provider] - Surgical History: colectomy Smoking Status: Former smoker - Family History Maternal Family History: Reports: - - States his mom was in and out of the hospital however denies known specific medical history including cardiac history. Paternal Family History: Reports: - - Denies known paternal medical history including cardiac history. Physical Exam Vital Signs/Narrative: Vital Signs Temp Pulse Resp BP Pulse Ox 12/24/20 16:19 97.7 F L 92 18 121/74 H 94 Diagnostic/Tx/Re-eval - Medical Decision Making Patient appears to have multiple metastases throughout the abdomen as well as the spine. No other metastases are impinging on the cord although he does have an L4-L5 disc that is impinging on the thecal sac. He was given steroids initially. Patient will be admitted to weigh his options but this is quite concerning and I believe he will need palliation. ED Disposition - Plan for ED Patient: Disposition: Acute Care Hospital [facility] Diagnosis: Back pain, Prostate cancer metastatic to bone Referrals: Wil Bradshaw DO [Primary Care Provider] -
[2020-12-24 16:53] LABS: Hematocrit 30.7 % (40-54); Hemoglobin 9.9 g/dL (13.0-16.5); Mean Corp Hgb Conc 32.2 g/dL (32-36); Mean Corpuscular Hgb 31.2 pg (27.0-32.0); Mean Corpuscular Volume 96.8 fL (80-94); Mean Platelet Vol. 9.4 fl (6.2-12.0); POSITIVE COUNT YES; POSITIVE MORPHOLOGY YES; Platelet Count 180 K/mm3 (150-450); RBC Distribution Width CV 18.1 % (11.6-14.6); RBC Distribution Width SD 62.6 fl (35.1-43.9); Red Blood Count 3.17 M/mm3 (4.6-6.2); White Blood Count 6.2 K/mm3 (4.4-11.0)
[2020-12-24] MEDS: Ondansetron 4 MG/2 ML Vial IV ×2 (16:57→19:52)
[2020-12-24] MEDS: Morphine 2 MG/ML Syringe IV (16:57)
[2020-12-24] MEDS: 0.9% Normal Saline 1,000 ML 1000 ML IV (16:57)
[2020-12-24 16:58] LABS: Differential Indicated MANUAL DIFF
[2020-12-24] MEDS: dexAMETHasone 10 MG/ML Vial IV (17:06)
[2020-12-24 17:09] LABS: ALB/GLOB Ratio 0.6 RATIO (0.9-2.4); AST(SGOT) 23 U/L (15-37); Alanine Aminotransfer ALT/SGPT 14 U/L (16-61); Albumin, Serum 2.7 g/dL (3.2-5.0); Alkaline Phosphatase 163 U/L (45-117); Anion Gap 8 (5-15); BUN 34 mg/dL (7-18); BUN/Creat Ratio 25.4 RATIO (10-20); Calcium,Total 9.2 mg/dL (8.5-10.1); Chloride 99 mmol/L (98-107); Creatinine, Serum 1.34 mg/dL (0.70-1.30); EST Glomerular Filtration Rate 55 mL/min (>60); Est Glom Filt Rate - Afr Amer 67 mL/min (>60); Estimated Creatinine Clearance 46.72 ml/min; Globulin 4.2 g/dL (2.2-4.2); Glucose 213 mg/dL (74-106); Lipase 253 U/L (73-393); Potassium 3.7 mmol/L (3.5-5.1); Protein, Total 6.9 g/dL (6.4-8.2); Sodium Level 138 mmol/L (136-145)
[2020-12-24 17:27] LABS: Blast 1 % (0-0); Lymphocyte 31 % (19-41); Metamyelocyte 2 % (0-1); Monocyte 3 % (0-10); Neutrophil-Band 8 % (0-5); Neutrophil-Segmented 55 % (47-70); Nucleated Red Bld Cells,Manual 3 % (0-5); Total Cells Counted 100 (MANUAL DIFF)
[2020-12-24 17:29] LABS: Anisocytosis 1+; Polychromasia RARE
[2020-12-24 17:30] LABS: Mucous, Urine 0 SEEN /hpf (<or=2+); Red Blood Cells-Urine 0 SEEN /hpf (0-5); Squamous Epithelial Cells - UA 0 SEEN /hpf (0-5)
[2020-12-24 17:31] LABS: Color, Urine Yellow (Yellow); Glucose, Dipstick 50 mg/dl (Normal); Ketone-Dipstick Negative (Negative); Leukocyte Esterase-Dipstick 100 /ul (Negative); Nitrite-Dipstick Negative (Negative); Occult Blood-Urine 10 /ul (Negative); Protein-Dipstick 30 mg/dl (Negative); Urine Bilirubin Dipstick Negative (Negative); Urine Clarity Sl. Cloudy (Clear); Urine Urobilinogen Normal (Normal)
[2020-12-24 17:31] LABS: Red Cell Morphology N CHROM NORMAL (NORM C&C)
[2020-12-24 17:32] LABS: Absolute Lymphocyte Count 1.92 X10^3/uL (0.83-4.51); Absolute Neutrophil Count 3.9 X10^3/uL (2.0-7.7)
[2020-12-24 17:36] LABS: Bacteria 2+ /hpf (None Seen); White Blood Cells 0-5 SEEN /hpf (0-5)
[2020-12-24] MEDS: HYDROmorphone 1 MG/ML Syringe IV (18:10)
[2020-12-24 19:10] VITALS: BP 106/65; PULSE 86; RESP 16; O2SAT 89
[2020-12-24 19:11] VITALS: O2SAT 92
--- NOTE | 2020-12-24 19:41 | HP.PCM_ITS ---
Problem List (1) Weakness Status: Acute (2) Abnormal PSA Status: Chronic (3) History of creation of ostomy Status: Chronic (4) Nonrheumatic tricuspid (valve) insufficiency Status: Chronic (5) DM type 2 (diabetes mellitus, type 2) Status: Chronic Qualifiers: (6) Balanitis Status: Resolved (7) History of pulmonary embolism Status: Chronic (8) Left hip pain Status: Inactive (9) Restless leg syndrome Status: Chronic (10) Prostate cancer Status: Chronic (11) Lower extremity weakness Status: Acute Qualifiers: Laterality: bilateral Qualified Code(s): R29.898 - Other symptoms and signs involving the musculoskeletal system (12) Urinary frequency Status: Inactive (13) Back pain Status: Acute Qualifiers: Back pain location: thoracic back pain Chronicity: chronic Back pain laterality: midline Qualified Code(s): M54.6 - Pain in thoracic spine; G89.29 - Other chronic pain (14) Prostate cancer metastatic to bone Status: Acute (15) Nonrheumatic tricuspid (valve) insufficiency Status: Chronic Comment: Mild (1+) pe echo 10/31/2018 (16) Pulmonary hypertension Status: Chronic Comment: RVSP 78 mmhg per echo 10/31/2018 (17) Elevated PSA Status: Chronic (18) Paroxysmal atrial fibrillation Status: Chronic (19) Right bundle branch block Status: Chronic (20) Elevated troponin I level Status: Inactive (21) Blood clotting disorder Status: Chronic (22) Abnormal electrocardiogram Status: Chronic (23) Bilateral pulmonary embolism Status: Resolved (24) Benign tumor of colon Status: Chronic Comment: Rectum - 2013 (25) Enlarged prostate Status: Chronic (26) Arthritis Status: Chronic History of Present Illness Date of Admission: 12/24/20 Chief Complaint: weakness The patient is a 75 year old M with a significant history of bilateral pulmonary embolism; CVA; atrial fibrillation; prostate cancer; and colostomy who presents to the emergency department with persistent weakness x1 week. Patient report that patient was weak and causing him to slip and fell at the bathroom. The ambulance was called and he was brought to the emergency department. Of note patient straight cath himself at home. His report that recently patient has had cloudy and strong urinary odor. Patient was recently started on ciprofloxacin at home. Reportedly had taken only 1 dose of the ciprofloxacin. Further, patient has back pain. He was started on Lupron about 3 days ago. History was taken predominantly from patient's over the phone as patient is partly incoherent. Of note patient was admitted on 11/05/2020 at our hospital and discharged on 11/07/2020 for Acute embolic infarcts. Past Medical History Past Medical History (Chronic Problems): Chronic Problems (Last Reviewed 12/24/20 @ 22:[address] 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) insufficiency (Chronic) DM type 2 (diabetes mellitus, type 2) (Chronic) History of pulmonary embolism (Chronic) Restless leg syndrome (Chronic) Prostate cancer (Chronic) Nonrheumatic tricuspid (valve) insufficiency (Chronic) Mild (1+) pe echo 10/31/2018 Pulmonary hypertension (Chronic) RVSP 78 mmhg per echo 10/31/2018 Elevated PSA (Chronic) Paroxysmal atrial fibrillation (Chronic) Right bundle branch block (Chronic) Blood clotting disorder (Chronic) Abnormal electrocardiogram (Chronic) Benign tumor of colon (Chronic) Rectum - 2012 Enlarged prostate (Chronic) Arthritis (Chronic) Medical History: Medical History (Last Reviewed 12/25/20 @ 02:[address] Dani Rinaldi MD) Nonrheumatic tricuspid (valve) insufficiency (Chronic) I36.1 Mild (1+) pe echo 10/31/2018 Pulmonary hypertension (Chronic) I27.20 RVSP 78 mmhg per echo 10/31/2018 Elevated PSA (Chronic) R97.20 Paroxysmal atrial fibrillation (Chronic) I48.0 Right bundle branch block (Chronic) I45.10 Elevated troponin I level (Inactive) R74.8 Blood clotting disorder (Chronic) D68.9 Abnormal electrocardiogram (Chronic) R94.31 Bilateral pulmonary embolism (Resolved) I26.99 Benign tumor of colon (Chronic) D12.6 Rectum - 2013 Enlarged prostate (Chronic) N40.0 Arthritis (Chronic) M19.90 Acute respiratory failure with hypoxia (Resolved) J96.01 Allergies No Known Allergies Allergy (Verified 12/24/20 16:22) Home Medications: Ambulatory Orders Medication Instructions Recorded ascorbic acid (vitamin C) 500 mg 500 mg PO DAILY 08/30/20 capsule apixaban 5 mg tablet 5 mg PO BID #60 tab 09/05/20 metoprolol tartrate 50 mg tablet 25 mg PO BID #180 tab 10/19/20 Atorvastatin Calcium [Lipitor] 80 mg PO QHS #30 tab 11/07/20 hydrocodone 5 mg-acetaminophen 325 1 tablet PO Q6H PRN #20 tablet 11/22/20 mg tablet aspirin 81 mg chewable tablet 81 mg PO DAILY@0800 #90 tablet 12/07/20 metformin 500 mg tablet,extended 500 mg PO DAILY #90 tablet 12/07/20 release 24 hr tamsulosin 0.4 mg capsule 0.4 mg PO DAILY@1730 #90 cap 12/07/20 Ciprofloxacin [Cipro] 500 mg PO DAILY 5 Days #5 tab 12/23/20 Surgical History: Surgical History (Last Reviewed 12/25/20 @ 02:[address] Dani Rinaldi MD) History of colostomy Hx of tonsillectomy Z90.89 Surgical History: colectomy Psychiatric History: No pertinent psych hx Smoking Status: Former smoker - *Family History Maternal History Items: - - States his mom was in and out of the hospital however denies known specific medical history including cardiac history. Paternal History Items: - - Denies knowledge of paternal medical history including cardiac history. Stated that his father lost his leg. Review of Systems Constitutional: Reports: Weakness. Denies: Chills, Fever, Weight Change HEENT: Denies: Head Aches, Sinus Congestion, Sinus Drainage Cardiovascular: Denies: Chest Pain, Palpitations Respiratory: Denies: Cough, Shortness of breath at rest, Sputum production Gastrointestinal: Denies: Abdominal Pain, Nausea, Vomiting Genitourinary: Denies: Dysuria Musculoskeletal: Reports: Back Pain. Denies: Joint Pain, Joint Tenderness Skin: Denies: Rash, Wounds Neurological: Reports: Confusion. Denies: Focal weakness, Numbness, Tingling Psychiatric: Denies: Anxiety, Depression, Homicidal Ideations, Suicidal Ideations Hematologic/ Lymphatic: Denies: Easy Bruising, Easy Bleeding VTE Information - Inpt Only VTE Present on Admission: No VTE Mechan Device Prophylaxis: None VTE Pharm Prophylaxis ordered?: No Reason prophylaxis not ordered:: Treatment Not Indicated - Home Eliquis cont inued Patient Problems: Active and Suspected Problems (Last Reviewed 12/24/20 @ 22:[address] Dani Rinaldi MD) Back pain (Acute) Prostate cancer metastatic to bone (Acute) Weakness (Acute) - Physical Exam Vitals/I&O's: Vital Signs Temp Pulse Resp BP Pulse Ox 97.7 F L 86 16 106/65 92 12/24/20 16:19 12/24/20 19:10 12/24/20 19:10 12/24/20 19:10 12/24/20 19:11 Oxygen Flow Rate (L/min) 2 Oxygen Delivery Method Nasal Cannula Weight: 68.3 kg Body Mass Index (BMI) 22.8 Finger Stick Blood Glucose 148 Intake and Output for Last 24 Hours 12/22/20 12/23/20 12/24/20 23:59 23:59 23:59 Intake Total 1000 / 1000 Balance 1000 / 1000 General: Alert, Confused HEENT: Atraumatic, PERRLA, EOMI, Normocephalic Neck: Supple, No JVD, Negative Carotid Bruits Lungs: Wheezes - mild Cardiovascular: Normal S1, Normal S2, No murmurs Abdomen: Bowel Sounds Present, Soft, Non Tender Extremities: No edema, Capillary Refill Less than 3 Seconds Skin: Excoriated - coccyx, - Musculoskeletal: No Tenderness to Palpation of Joints or Extremities Neurological: Cranial nerves II-XII grossly intact Psych/Mental Status: Normal Affect, Appropriate Laboratory Results 12/24/20 16:43: WBC 6.2, RBC 3.17 L, Hgb 9.9 L, Hct 30.7 L, MCV 96.8 H, MCH 31.2, MCHC 32.2, RDW Std Deviation 62.6 H, RDW Coeff of Tulio 18.1 H, Plt Count 180, MPV 9.4, Neut % (Auto) Not Reportable, Absolute Neuts (auto) 3.9, Absolute Lymphs (auto) 1.92, Total Counted 100, Neutrophils % (Manual) 55, Band Neutrophils % 8 H, Lymphocytes % (Manual) 31, Monocytes % (Manual) 3, Metamyelocytes % 2 H, Blast Cells % 1 H*, Nucleated RBCs/100 WBC 3, Diff Path Review May foll, RBC Morphology N CHROM, Polychromasia RARE, Anisocytosis 1+ 12/24/20 16:43: Sodium 138, Potassium 3.7, Chloride 99, Carbon Dioxide 31.0, Anion Gap 8, BUN 34 H, Creatinine 1.34 H, Estim Creat Clear Calc 46.72, Est GFR (MDRD) Af Amer 67, Est GFR (MDRD) Non-Af 55 L, BUN/Creatinine Ratio 25.4 H, Glucose 213 H, Calcium 9.2, Total Bilirubin 0.60, AST 23, ALT 14 L, Alkaline Phosphatase 163 H, Troponin I < 0.015, Total Protein 6.9, Albumin 2.7 L, Globulin 4.2, Albumin/Globulin Ratio 0.6 L, Lipase 253 12/24/20 17:20: Urine Color Yellow, Urine Clarity Sl. Cloudy, Urine pH 7.0, Ur Specific [place] 1.010, Urine Protein 30 H, Urine Glucose (UA) 50 H, Urine Ketones Negative, Urine Occult Blood 10 H, Urine Nitrite Negative, Urine Bilirubin Negative, Urine Urobilinogen Normal, Ur Leukocyte Esterase 100 H, Urine RBC 0 SEEN, Urine WBC 0-5 SEEN, Ur Squamous Epith Cells 0 SEEN, Urine Bacteria 2+, Urine Mucus 0 SEEN Assessment/Plan All Active Problems (Last Reviewed 12/24/20 @ 22:[address] Dani Rinaldi MD) Balanitis (Resolved) Lower extremity weakness (Acute) Back pain (Acute) Prostate cancer metastatic to bone (Acute) Weakness (Acute) Bilateral pulmonary embolism (Resolved) Acute respiratory failure with hypoxia (Resolved) The patient is a 75 year old M with a significant history of bilateral pulmonary embolism; atrial fibrillation; prostate cancer; and colostomy who presents emergency department with persistent weakness x1 week; back pain and was found to have extensive metastatic lesions throughout his body. Metastatic cancer/intractable back pain Chest CT showed right hydronephrosis; right perinephric soft tissue density for which further imaging was recommended. Renal ultrasound ordered. Received Decadron IV at emergency department. Decadron 4 mg p.o. every 6 hours ordered. Oxycodone and Tylenol as needed for pain. Patient is still a full code. Discussed with patient's that patient may need palliative or hospice involvement. UTI Was on Cipro p.o. which he took 1 dose at home. Will change IV for now. Atrial Fibrillation Eliquis continued. Stage II T2 pressure ulcer Calmoseptine ordered. BPH and urinary retention Flomax continue At home patient straight cath. Indwelling Bhakta urinary catheter ordered while inpatient. Hypertension Blood pressure is within goal Metoprolol continued. Trend blood pressure and adjust blood pressure medications. Diabetes mellitus Patient with hyperglycemia on presentation Metformin held in the hospital setting. Accu-Chek QA CHS with correction scale insulin ordered. 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
[2020-12-24 19:44] VITALS: BP 116/70; PULSE 90; RESP 18; TEMP 36.9; O2SAT 96
[2020-12-24] MEDS: Morphine 4 MG/ML Syringe IV (19:51)
[2020-12-24 20:20] VITALS: BMI 23.7
[2020-12-24 20:36] VITALS: BP 104/59; PULSE 88; RESP 16; TEMP 36.8; O2SAT 96
--- NOTE | 2020-12-24 21:08 | NURSING ---
Called and talked to about pt's home meds since he was unsure of a couple of them. She states pt will need Eliquis, Metoprolol and Flomax tonight.
--- NOTE | 2020-12-24 21:48 | US_ITS ---
STUDY: RENAL ULTRASOUND - COMPLETE REASON FOR EXAM: Male, 75 years old. Right perinephric density; right hydronephrosis TECHNIQUE: Ultrasound evaluation of the kidneys was performed with real-time and static sandoval-scale imaging. COMPARISON: None. FINDINGS: RIGHT KIDNEY: Normal location of the right kidney, which is normal in size. The right kidney measures 10.4 cm x 5.7 cm x 4.5 cm. There is a normal cortex of the right kidney. The renal cortex measures 1.6 cm. There is a 1 cm x 1.1 cm x 1.1 cm cyst. There is a 1.2 cm x 1.3 cm x 1.2 cm echogenic density within the renal pelvis. A neoplastic process should be ruled out. There are no right renal calculi. There is mild hydronephrosis of the right kidney. DISTAL RIGHT URETER: There is non-visualization of the distal right ureter. There is no demonstrated right ureterovesical junction calculus. There is no demonstrated right ureteral jet. LEFT KIDNEY: Normal location of the left kidney, which is normal in size. The left kidney measures 10.5 cm x 5.2 cm x 5.2 cm. There is a normal cortex of the left kidney. The renal cortex measures 1.3 cm. There is no left renal mass or cyst. There are no left renal calculi. There is no left hydronephrosis. DISTAL LEFT URETER: There is non-visualization of the distal left ureter. There is no demonstrated left ureterovesical junction calculus. There is no demonstrated left ureteral jet. BLADDER: A HOPSON catheter is seen within the urinary bladder. The urinary bladder is empty at the time of the examination. US/Kidney and Bladder IMPRESSION: Mild degree of right hydronephrosis. 1.2 cm x 1.3 cm x 1.2 cm echogenic density within the renal pelvis. A neoplastic process should be ruled out. Electronically Signed: Macario Chang MD at 8:46 EDT , Service support ,
[2020-12-24 23:03] VITALS: BP 111/62; PULSE 85
[2020-12-24] MEDS: Tamsulosin HCl 0.4 MG Capsule PO (23:03)
[2020-12-24] MEDS: Metoprolol Tartrate 25 MG Tablet PO (23:03)
[2020-12-24] MEDS: Atorvastatin Calcium 80 MG Tablet PO (23:04)
[2020-12-24] MEDS: Insulin Lispro 100 UNIT/ML INSULN.PEN SC (23:05)
[2020-12-24] MEDS: APIXABAN 5 MG TABLET PO (23:05)
[2020-12-24] MEDS: Ciprofloxacin 400 MG/200 ML BAG 200 MG IV (23:05)
[2020-12-24] MEDS: Menthol/Lanolin/Calamine/Znox 113 GM Tube 1 APPLIC TOPICAL (23:05)
[2020-12-24] MEDS: dexAMETHasone 4 MG Tablet PO (23:06)
[2020-12-24 23:31] LABS: Bedside Glucose 216 mg/dL (70-110)
[2020-12-25] VITALS (7 sets, daily range): BP systolic 98–120; BP diastolic 57–73; PULSE 74–98; RESP 18; TEMP 36.6–36.7; O2SAT 94–96; BMI 23.7
[2020-12-25] MEDS: Insulin Lispro 100 UNIT/ML INSULN.PEN SC ×4 (06:35→23:13)
[2020-12-25] MEDS: dexAMETHasone 4 MG Tablet PO ×4 (06:35→23:12)
[2020-12-25 06:46] LABS: Bedside Glucose 208 mg/dL (70-110)
[2020-12-25 06:47] LABS: Hematocrit 30.1 % (40-54); Hemoglobin 9.3 g/dL (13.0-16.5); Mean Corp Hgb Conc 30.9 g/dL (32-36); Mean Corpuscular Hgb 30.9 pg (27.0-32.0); POSITIVE COUNT YES; POSITIVE MORPHOLOGY YES; Platelet Count 163 K/mm3 (150-450); RBC Distribution Width CV 18.1 % (11.6-14.6); Red Blood Count 3.01 M/mm3 (4.6-6.2); White Blood Count 8.1 K/mm3 (4.4-11.0)
[2020-12-25 07:14] LABS: Anion Gap 8 (5-15); BUN 32 mg/dL (7-18); Calcium,Total 8.9 mg/dL (8.5-10.1); Chloride 103 mmol/L (98-107); Creatinine, Serum 1.23 mg/dL (0.70-1.30); EST Glomerular Filtration Rate 61 mL/min (>60); Est Glom Filt Rate - Afr Amer 74 mL/min (>60); Estimated Creatinine Clearance 47.55 ml/min; Glucose 201 mg/dL (74-106); Potassium 4.2 mmol/L (3.5-5.1); Sodium Level 138 mmol/L (136-145)
[2020-12-25 07:20] LABS: Differential Indicated MANUAL DIFF
[2020-12-25] MEDS: APIXABAN 5 MG TABLET PO ×2 (08:22→23:12)
[2020-12-25] MEDS: Ascorbic Acid 500 MG Tablet PO (08:22)
[2020-12-25] MEDS: Metoprolol Tartrate 25 MG Tablet PO ×2 (08:22→23:12)
[2020-12-25] MEDS: Aspirin 81 MG TAB.CHEW PO (08:22)
[2020-12-25] MEDS: Menthol/Lanolin/Calamine/Znox 113 GM Tube 1 APPLIC TOPICAL ×2 (08:22→23:12)
[2020-12-25] MEDS: Glucerna Shake 120 ML LIQUID PO ×4 (08:27→23:12)
[2020-12-25 08:57] LABS: Eosinophil 3 % (0-5); Lymphocyte 15 % (19-41); Metamyelocyte 3 % (0-1); Monocyte 4 % (0-10); Myelocyte 4 % (0-0); Neutrophil-Band 3 % (0-5); Neutrophil-Segmented 68 % (47-70); Total Cells Counted 100 (MANUAL DIFF)
[2020-12-25 08:58] LABS: Platelet Morphology LARGE
[2020-12-25 09:05] LABS: Absolute Lymphocyte Count 1.22 X10^3/uL (0.83-4.51); Absolute Neutrophil Count 5.8 X10^3/uL (2.0-7.7)
[2020-12-25 09:17] LABS: Platelet Estimate ADEQUATE (ADEQ); Red Cell Morphology NORM C+C NORMAL (NORM C&C)
[2020-12-25] MEDS: Ciprofloxacin 400 MG/200 ML BAG 200 MG IV (09:55)
[2020-12-25 11:31] LABS: Bedside Glucose 252 mg/dL (70-110)
--- NOTE | 2020-12-25 15:03 | PCM.NTREPORT ---
Nutrition Therapy Report - History Nutrition Services has been consulted to:: Manage nutrient details of diet order Current diet / nutrition support order:: Regular diet. 120ml glucerna shake 4 times per day w/ medpass - Anthropometric Measurements Height:: 5 ft 6 in Weight:: 66.7 kg Body Mass Index (BMI):: 23.7 - Relevant Labs Relevant Labs:: RBC 3.01 M/mm3 (4.6-6.2) L 12/25/20 06:10 Hgb 9.3 g/dL (13.0-16.5) L 12/25/20 06:10 Hct 30.1 % (40-54) L 12/25/20 06:10 MCV 100.0 fL (80-94) H 12/25/20 06:10 MCHC 30.9 g/dL (32-36) L 12/25/20 06:10 RDW Std Deviation 65.0 fl (35.1-43.9) H 12/25/20 06:10 RDW Coeff of Tulio 18.1 % (11.6-14.6) H 12/25/20 06:10 Band Neutrophils % 8 % (0-5) H 12/24/20 16:43 Lymphocytes % (Manual) 15 % (19-41) L 12/25/20 06:10 Metamyelocytes % 3 % (0-1) H 12/25/20 06:10 Myelocytes % 4 % (0-0) H 12/25/20 06:10 Blast Cells % 1 % (0-0) H* 12/24/20 16:43 BUN 32 mg/dL (7-18) H 12/25/20 06:10 Creatinine 1.34 mg/dL (0.70-1.30) H 12/24/20 16:43 Est GFR (MDRD) Non-Af 55 mL/min (>60) L 12/24/20 16:43 BUN/Creatinine Ratio 26.0 RATIO (10-20) H 12/25/20 06:10 Glucose 201 mg/dL (74-106) H 12/25/20 06:10 ALT 14 U/L (16-61) L 12/24/20 16:43 Alkaline Phosphatase 163 U/L (45-117) H 12/24/20 16:43 Albumin 2.7 g/dL (3.2-5.0) L 12/24/20 16:43 Albumin/Globulin Ratio 0.6 RATIO (0.9-2.4) L 12/24/20 16:43 - Assessment Food / Nutrition-Related History:: 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 Pt is too painful to conduct NFPA at this time but, does not show visible signs of muscle/fat wasting. Breakfast tray observed~100% consumed including glucerna shake as ordered. Blood glucose elevated but, HgbA1C 7.1% indicates overall good glycemic control. Will provide Corey BID for wound healing and continue glucerna shake as well. - Nutrition Diagnosis Problem / Etiology / Signs & Symptoms (PES):: Severe pro/he malnutrition in the context of chronic/metastatic disease related to increased nutrition needs/energyexpenditure as evidenced by~18% wt loss x past 4-5 months, decline in oral intake and pressure injury of coccyx. Evidence of Malnutrition Exists:: Yes Severe PCM:: Chronic Illness - Nutrition Intervention Nutrition Prescription:: Estimated nutrition needs~9584-0470 kcal (30 kcal/Kg +200 kcal) and ~90-100 gm pro/day (1.4 gm pro/Kg) to meet increased nutrition needs for catabolic/metastatic disease. Estimated fluid needs~0873-8312 ml/day (30 ml/Kg). - Food / Nutrient Delivery Interventions Summary of nutrition intervention:: Will change diet to general carbohydrate-controlled (no caloric restriction) with extra 1-2 oz protein TID with meals. Will add Corey BID w/ meals for wound healing. Will continue glucerna shake w/ medpass as ordered [id number] calories & 20 gm protein). Nutrition support ordered as / adjusted to:: no nutrition support at this time Nutrition education provided?: Yes - MNT Monitoring Further MNT monitoring and evaluation required?: Yes MNT Follow-up in:: 3-5 days
[2020-12-25] MEDS: Magnesium Hydroxide 30 ML UDC PO (15:12)
[2020-12-25 16:31] LABS: Bedside Glucose 231 mg/dL (70-110)
--- NOTE | 2020-12-25 16:36 | PCM.PN.HOSP ---
Patient Problems: Active and Suspected Problems (Last Reviewed 12/25/20 @ 02:[address] Dani Rinaldi MD) Lower extremity weakness (Acute) Back pain (Acute) Prostate cancer metastatic to bone (Acute) Weakness (Acute) Subjective: Feels about the same as when he came in. He has back pain due to metastatic prostate cancer as well as UTI that was recently diagnosed as an outpatient Vitals/I&O's: Vital Signs Temp Pulse Resp BP Pulse Ox 98.1 F 93 18 120/71 94 12/25/20 15:00 12/25/20 15:00 12/25/20 15:00 12/25/20 15:00 12/25/20 15:00 Oxygen Flow Rate (L/min) 2 Oxygen Delivery Method Nasal Cannula Weight: 147 lb 0.773 oz Body Mass Index (BMI) 23.7 Finger Stick Blood Glucose 148 Intake and Output for Last 24 Hours 12/23/20 12/24/20 12/25/20 23:59 23:59 23:59 Intake Total 1036.67 / 1036.67 1043.33 / 1043.33 Output Total 1150 / 1150 Balance 1036.67 / 1036.67 -106.67 / -106.67 General: Alert, Cooperative, No apparent distress HEENT: Atraumatic, PERRLA, EOMI, Normocephalic Oral: Moist Mucosa Neck: Supple, No JVD Lungs: Clear to auscultation, Normal air movement, No rhonchi, No wheeze, No rales, Diminished Cardiovascular: Regular rate, Regular Rhythm, Normal S1, Normal S2, No murmurs Abdomen: Soft, Non Tender, Non-Distended, No Hepato-splenomegaly Extremities: No edema, Capillary Refill Less than 3 Seconds Skin: Ulcer/ Wound - Excoriation over his coccyx Neurological: Neuro grossly intact, Sensory exam intact to light touch and pain Psych/Mental Status: Flat Affect Laboratory Results 12/24/20 16:43: WBC 6.2, RBC 3.17 L, Hgb 9.9 L, Hct 30.7 L, MCV 96.8 H, MCH 31.2, MCHC 32.2, RDW Std Deviation 62.6 H, RDW Coeff of Tulio 18.1 H, Plt Count 180, MPV 9.4, Neut % (Auto) Not Reportable, Absolute Neuts (auto) 3.9, Absolute Lymphs (auto) 1.92, Total Counted 100, Neutrophils % (Manual) 55, Band Neutrophils % 8 H, Lymphocytes % (Manual) 31, Monocytes % (Manual) 3, Metamyelocytes % 2 H, Blast Cells % 1 H*, Nucleated RBCs/100 WBC 3, Diff Path Review May , RBC Morphology N CHROM, Polychromasia RARE, Anisocytosis 1+ 12/24/20 16:43: Sodium 138, Potassium 3.7, Chloride 99, Carbon Dioxide 31.0, Anion Gap 8, BUN 34 H, Creatinine 1.34 H, Estim Creat Clear Calc 46.72, Est GFR (MDRD) Af Amer 67, Est GFR (MDRD) Non-Af 55 L, BUN/Creatinine Ratio 25.4 H, Glucose 213 H, Calcium 9.2, Total Bilirubin 0.60, AST 23, ALT 14 L, Alkaline Phosphatase 163 H, Troponin I < 0.015, Total Protein 6.9, Albumin 2.7 L, Globulin 4.2, Albumin/Globulin Ratio 0.6 L, Lipase 253 12/24/20 17:20: Urine Color Yellow, Urine Clarity Sl. Cloudy, Urine pH 7.0, Ur Specific Shelby 1.010, Urine Protein 30 H, Urine Glucose (UA) 50 H, Urine Ketones Negative, Urine Occult Blood 10 H, Urine Nitrite Negative, Urine Bilirubin Negative, Urine Urobilinogen Normal, Ur Leukocyte Esterase 100 H, Urine RBC 0 SEEN, Urine WBC 0-5 SEEN, Ur Squamous Epith Cells 0 SEEN, Urine Bacteria 2+, Urine Mucus 0 SEEN 12/24/20 22:54: POC Glucose 216 H 12/25/20 06:10: WBC 8.1, RBC 3.01 L, Hgb 9.3 L, Hct 30.1 L, MCV 100.0 H, MCH 30.9, MCHC 30.9 L, RDW Std Deviation 65.0 H, RDW Coeff of Tulio 18.1 H, Plt Count 163, MPV 10.0, Neut % (Auto) Not Reportable, Absolute Neuts (auto) 5.8, Absolute Lymphs (auto) 1.22, Total Counted 100, Neutrophils % (Manual) 68, Band Neutrophils % 3, Lymphocytes % (Manual) 15 L, Monocytes % (Manual) 4, Eosinophils % (Manual) 3, Metamyelocytes % 3 H, Myelocytes % 4 H, Diff Path Review May foll, Platelet Estimate ADEQUATE, Plt Morphology Comment LARGE, RBC Morphology NORM C+C 12/25/20 06:10: Sodium 138, Potassium 4.2, Chloride 103, Carbon Dioxide 27.0, Anion Gap 8, BUN 32 H, Creatinine 1.23, Estim Creat Clear Calc 47.55, Est GFR (MDRD) Af Amer 74, Est GFR (MDRD) Non-Af 61, BUN/Creatinine Ratio 26.0 H, Glucose 201 H, Calcium 8.9 12/25/20 06:33: POC Glucose 208 H 12/25/20 11:20: POC Glucose 252 H 12/25/20 16:25: POC Glucose 231 H Current Medications Acetaminophen (Acetaminophen 325 Mg Tablet) 650 mg PO Q6H PRN PRN PRN Reason: Pain Score 1-10/Temp > 100.7 F Apixaban (Apixaban 5 Mg Tablet) 5 mg PO BID [facility] Last Admin: 12/25/20 08:22 Dose: 5 mg Documented by: Ascorbic Acid (Ascorbic Acid 500 Mg Tablet) 500 mg PO DAILY [facility] Last Admin: 12/25/20 08:22 Dose: 500 mg Documented by: Aspirin (Aspirin 81 Mg Tab.Chew) 81 mg PO DAILY@0800 [facility] Last Admin: 12/25/20 08:22 Dose: 81 mg Documented by: Atorvastatin Calcium (Atorvastatin Calcium 80 Mg Tablet) 80 mg PO QHS [facility] Last Admin: 12/24/20 23:04 Dose: 80 mg Documented by: Calamine/Phenol (Menthol/Lanolin/Calamine/Znox 113 Gm Tube) 1 applic TOPICAL BID [facility]; Protocol Last Admin: 12/25/20 08:22 Dose: 1 applic Documented by: Dexamethasone (Dexamethasone 4 Mg Tablet) 4 mg PO Q6 [facility] Last Admin: 12/25/20 11:22 Dose: 4 mg Documented by: Dextrose (Dextrose 50%-Water 25 Gm/50 Ml Disp.Syrin) 0 gm IV X1 PRN; Protocol PRN Reason: Hypoglycemia Glucagon (Glucagon 1 Mg/Ml Syringe) 1 mg IM .X1 PRN PRN Reason: Hypoglycemia Ciprofloxacin (Cipro) 400 mg in 200 mls @ 200 mls/hr IV Q12 [facility] Last Infusion: 12/25/20 10:55 Dose: Infused Documented by: Sodium Chloride () 250 mls @ 15 mls/hr IV .[id number] PRN PRN Reason: Saline Flush Last Infusion: 12/25/20 00:38 Dose: 15 mls/hr Documented by: Sodium Chloride () 250 mls @ 15 mls/hr IV .[id number] PRN PRN Reason: Additional IVPB Infusion Insulin Human Lispro (Insulin Lispro 100 Unit/Ml Insuln.Pen) 0 unit SC ACHS [facility]; Protocol Last Admin: 12/25/20 11:21 Dose: 4 u Documented by: Magnesium Hydroxide (Magnesium Hydroxide 30 Ml Udc) 30 ml PO DAILY PRN PRN PRN Reason: Constipation Last Admin: 12/25/20 15:12 Dose: 30 ml Documented by: Metoprolol Tartrate (Metoprolol Tartrate 25 Mg Tablet) 25 mg PO BID [facility] Last Admin: 12/25/20 08:22 Dose: 25 mg Documented by: Nutritional Formula (Lactose Free) (Glucerna Shake 120 Ml Liquid) 120 ml PO 4X/DAY [facility] Last Admin: 12/25/20 15:12 Dose: 120 ml Documented by: Ondansetron HCl (Ondansetron 4 Mg/2 Ml Vial) 4 mg IV Q8H PRN PRN PRN Reason: NAUSEA/VOMITING Oxycodone HCl (Oxycodone 5 Mg Tablet) 5 mg PO Q4H PRN PRN PRN Reason: Pain Score 4-5 Oxycodone HCl (Oxycodone 5 Mg Tablet) 10 mg PO Q4H PRN PRN PRN Reason: Pain Score 6-10/10 Senna/Docusate Sodium (Senna/Docusate Sodium 1 Tablet) 1 tablet PO BID [facility] Sodium Chloride (0.9% Saline Lock 10 Ml Syringe) 10 - 40 ml IV UD PRN PRN Reason: SALINE FLUSH Tamsulosin HCl (Tamsulosin Hcl 0.4 Mg Capsule) 0.4 mg PO DAILY@1730 [facility] Last Admin: 12/24/20 23:03 Dose: 0.4 mg Documented by: STROKE Vital Signs/Narrative: Vital Signs Temp Pulse Resp BP Pulse Ox 12/25/20 15:00 98.1 F 93 18 120/71 94 12/25/20 14:06 94 Medical Necessity - Tobacco Use Smoking Status: Former smoker Assessment/Plan All Active Problems (Last Reviewed 12/25/20 @ 02:[address] Dani Rinaldi MD) Balanitis (Resolved) Lower extremity weakness (Acute) Back pain (Acute) Prostate cancer metastatic to bone (Acute) Weakness (Acute) Bilateral pulmonary embolism (Resolved) Acute respiratory failure with hypoxia (Resolved) 1. Weakness with inability to complete ADLs and back pain secondary to metastatic prostate cancer/stage II pressure ulcer/BPH -PT/OT for evaluation and possible placement -Decadron for his metastatic back pain -Recently started Lupron for his prostate cancer can resume on discharge -Continue with oxycodone -Continue with Flomax -Calmoseptine to those stage II pressure ulcer 2. UTI secondary to staph epidermidis -That is resistant to fluoroquinolones -Transition from Cipro to doxy given his history of self cathing and dysuria 3. A. fib/HTN/HLD/pulmonary hypertension -Blood pressure is stable -Continue with Eliquis -Continue with metoprolol for rate control -His previous echo demonstrated pulmonary hypertension with RVSP is in the 70s he is not on Lasix currently -Continue with oxygen via nasal cannula currently requiring 2 L 4. DM 2/CKD 3a -We will hold his metformin and place him on sliding scale insulin -Accu-Cheks AC at bedtime -We will adjust as necessary secondary to his Decadron -Renal function recently worsened any transition from a CKD 2 to a CKD 3a, will continue to monitor -Ultrasound of his kidneys pending DVT: Eliqukristen Inpatient E&M: [id number] Subs Hosp L2
[2020-12-25] MEDS: Tamsulosin HCl 0.4 MG Capsule PO (17:03)
[2020-12-25] MEDS: oxyCODONE 5 MG Tablet 10 MG PO (20:33)
[2020-12-25] MEDS: Atorvastatin Calcium 80 MG Tablet PO (23:12)
[2020-12-25] MEDS: Senna/Docusate Sodium 1 Tablet PO (23:18)
[2020-12-25 23:21] LABS: Bedside Glucose 269 mg/dL (70-110)
[2020-12-26] VITALS (9 sets, daily range): BP systolic 114–141; BP diastolic 66–74; PULSE 76–99; RESP 16–18; TEMP 36.4–36.8; O2SAT 86–95
[2020-12-26] MEDS: oxyCODONE 5 MG Tablet 10 MG PO ×2 (02:06→06:38)
[2020-12-26] MEDS: Acetaminophen 325 MG Tablet 650 MG PO ×3 (02:07→18:31)
[2020-12-26] MEDS: 0.9% Saline Lock 10 ML Syringe IV (02:08)
[2020-12-26] MEDS: Insulin Lispro 100 UNIT/ML INSULN.PEN SC ×4 (06:34→21:54)
[2020-12-26] MEDS: Magnesium Hydroxide 30 ML UDC PO (06:38)
[2020-12-26] MEDS: dexAMETHasone 4 MG Tablet PO ×4 (06:38→23:51)
[2020-12-26 06:55] LABS: Bedside Glucose 230 mg/dL (70-110)
[2020-12-26 07:06] LABS: Hematocrit 24.7 % (40-54); Hemoglobin 7.6 g/dL (13.0-16.5); Mean Corp Hgb Conc 30.8 g/dL (32-36); Mean Corpuscular Hgb 30.2 pg (27.0-32.0); Mean Platelet Vol. 10.2 fl (6.2-12.0); POSITIVE COUNT YES; POSITIVE MORPHOLOGY YES; Platelet Count 156 K/mm3 (150-450); RBC Distribution Width CV 17.9 % (11.6-14.6); Red Blood Count 2.52 M/mm3 (4.6-6.2); White Blood Count 9.2 K/mm3 (4.4-11.0)
[2020-12-26 07:09] LABS: Differential Indicated MANUAL DIFF
[2020-12-26 07:26] LABS: Anion Gap 5 (5-15); BUN 39 mg/dL (7-18); BUN/Creat Ratio 33.6 RATIO (10-20); Calcium,Total 7.9 mg/dL (8.5-10.1); Chloride 100 mmol/L (98-107); Creatinine, Serum 1.16 mg/dL (0.70-1.30); EST Glomerular Filtration Rate 65 mL/min (>60); Est Glom Filt Rate - Afr Amer 79 mL/min (>60); Estimated Creatinine Clearance 50.42 ml/min; Glucose 227 mg/dL (74-106); Potassium 4.6 mmol/L (3.5-5.1); Sodium Level 133 mmol/L (136-145)
[2020-12-26 07:27] LABS: Absolute Neutrophil Count 6.3 X10^3/uL (2.0-7.7); Lymphocyte 28 % (19-41); Metamyelocyte 1 % (0-1); Monocyte 3 % (0-10); Neutrophil-Band 3 % (0-5); Neutrophil-Segmented 65 % (47-70); Platelet Estimate ADEQUATE (ADEQ); Red Cell Morphology NORM C+C NORMAL (NORM C&C); Total Cells Counted 100 (MANUAL DIFF)
[2020-12-26] MEDS: APIXABAN 5 MG TABLET PO (09:36)
[2020-12-26] MEDS: Aspirin 81 MG TAB.CHEW PO (09:36)
[2020-12-26] MEDS: Metoprolol Tartrate 25 MG Tablet PO ×2 (09:36→21:55)
[2020-12-26] MEDS: Doxycycline 100 MG CAPSULE PO (09:43)
[2020-12-26] MEDS: Glucerna Shake 120 ML LIQUID PO ×2 (09:43→21:54)
[2020-12-26] MEDS: Senna/Docusate Sodium 1 Tablet PO ×2 (09:44→21:56)
[2020-12-26] MEDS: oxyCODONE 5 MG Tablet PO ×2 (10:03→18:31)
--- NOTE | 2020-12-26 10:07 | NURSING ---
Was consulted on patient for colostomy. patient states he cares for ostomy himself. states he uses disposable pouches and changes the flange typically 1-2 times a week. pt denies colostomy needs at this time. will monitor.
--- NOTE | 2020-12-26 10:23 | NURSING ---
wound photo: sugey
--- NOTE | 2020-12-26 10:45 | CASEMGMT ---
LUIS F LOPEZ Assessment: Face to Face with pt for initial transition planning/care coordination assessment. LUIS F LOPEZ introduced self and role at [facility], pt voices understanding and consents to assessment. Pt is drowsy but appears to answer questions appropriately at this time. Pt is lying in bed in no distress with O2 on. Care providers, pharmacy, and demographics verified/updated. Admitting Dx: intractable back pain; generalized weakness PCP: Juan Jose Specialists: Nora, oncologist Preferred Pharmacy: [facility] Insurance: [facility] Prescription Benefit: yes LW/HPOA: Pt denies having LW/DPOA. LNOK: , Geoffrey Foster Living Arrangements: Pt lives with in a single story house with 2 steps to enter without rail. Pt states he can be I in ADL's but his assists him. Pt denies concerns at home. Transportation: Pt does not drive now. States his transports him. Denies concerns with transportation. At this point in the assessment, pt became very tired and asked this CM to finish the assessment with . 1230- visiting. LUIS F LOPEZ and ERNESTINA Abarca in to room to finish assessment. DME/HHC/SNF: Pt has a rollator at home. He obtains his ostomy and straight cath supplies through [employer]. Pt reports no previous HHC or SNF stays. Pt states she takes the best care of the patient she can. Tevin discussed SNF stay with . Pt/ states no further concerns/needs. Advised pt to ask CM if any further question/concerns/needs arise, voices understanding. Pt Goal: SNF Plan: SNF
[2020-12-26] MEDS: Lactulose 20 GM/30 ML UDC PO ×2 (11:40→21:53)
[2020-12-26 12:11] LABS: Bedside Glucose 269 mg/dL (70-110)
--- NOTE | 2020-12-26 12:45 | CASEMGMT ---
Pt screened with [facility] Palliative Care Screening Tool, pt met criteria. Dr. Hernadez also requested order for Palliative Care. Referral sent and left message to confirm receipt of referral.
--- NOTE | 2020-12-26 12:55 | CASEMGMT ---
Social Work Note ERNESTINA updated that pt's is requesting SNF at discharge. ERNESTINA and RN CM in to speak with pt and pt's Geoffrey. Geoffrey confirms she would like pt to go to SNF for short term rehabilitation before pt returns home. Patient was provided a list of SNF providers including quality and resource use data and consistent with the patient?s preferred geographic region, medical needs, and insurance network. Geoffrey's preferred provider is [facility] as Geoffrey states they live on [facility]. ERNESTINA asked Geoffrey about pt's cancer and if pt is getting any Chemo. Geoffrey states pt is not on any Chemo, states he was just started on Lupron shot and he takes the shot once every 6 months. Geoffrey states pt hasn't had any of his COVID vaccinations. ERNESTINA explained referral process and that pt will need pre-cert. ERNESTINA explained that pt did refuse therapy today and he will need to work with therapy in order for insurance to pay for SNF. Geoffrey states he will tell pt to work with therapy. ERNESTINA placed a call to [place] at [facility] and provided referral. ERNESTINA faxed referral. Plan: [facility] pending acceptance and pre-cert Gilma Simpson VOLUNTEER COORDINATOR, EXTRACORPOREAL TECHNICIAN
--- NOTE | 2020-12-26 13:23 | PCM.HP.ID ---
Problem List (1) UTI (urinary tract infection) Status: Acute Reason for Consult: uti Consulted by: Dr. Hernadez History of Present Illness: The patient is a 75 year old M with metastatic prostate cancer, straight caths at home, does not re-use catheters. noticed several days of increased urine cloudiness/foul odor, pt had more weakness, dizziness, not feeling well. No fever or chills. Chronic back pain. Neither has gotten covid vaccine. Pt started on cipro, admitted here, started on tetracycline. Feeling a little better, urine no longer cloudy. Full ROS performed and neg except as noted above - Medical History Past Medical History (Chronic Problems): Chronic Problems (Last Reviewed 12/25/20 @ 02:[address] 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) insufficiency (Chronic) DM type 2 (diabetes mellitus, type 2) (Chronic) History of pulmonary embolism (Chronic) Restless leg syndrome (Chronic) Prostate cancer (Chronic) Nonrheumatic tricuspid (valve) insufficiency (Chronic) Mild (1+) pe echo 10/31/2018 Pulmonary hypertension (Chronic) RVSP 78 mmhg per echo 10/31/2018 Elevated PSA (Chronic) Paroxysmal atrial fibrillation (Chronic) Right bundle branch block (Chronic) Blood clotting disorder (Chronic) Abnormal electrocardiogram (Chronic) Benign tumor of colon (Chronic) Rectum - 2012 Enlarged prostate (Chronic) Arthritis (Chronic) Allergies/Adverse Reactions: Allergies No Known Allergies Allergy (Verified 12/24/20 16:22) Home Medications: Ambulatory Orders Medication Instructions Recorded ascorbic acid (vitamin C) 500 mg 500 mg PO DAILY 08/30/20 capsule apixaban 5 mg tablet 5 mg PO BID #60 tab 09/05/20 metoprolol tartrate 50 mg tablet 25 mg PO BID #180 tab 10/19/20 Atorvastatin Calcium [Lipitor] 80 mg PO QHS #30 tab 11/07/20 hydrocodone 5 mg-acetaminophen 325 1 tablet PO Q6H PRN #20 tablet 11/22/20 mg tablet aspirin 81 mg chewable tablet 81 mg PO DAILY@0800 #90 tablet 12/07/20 metformin 500 mg tablet,extended 500 mg PO DAILY #90 tablet 12/07/20 release 24 hr tamsulosin 0.4 mg capsule 0.4 mg PO DAILY@1730 #90 cap 12/07/20 Ciprofloxacin [Cipro] 500 mg PO DAILY 5 Days #5 tab 12/23/20 - Social History SMOKING STATUS:: Former smoker Vital Signs Temp Pulse Resp BP Pulse Ox 97.7 F L 85 18 114/67 94 12/26/20 09:32 12/26/20 09:36 12/26/20 09:32 12/26/20 09:32 12/26/20 09:32 Oxygen Flow Rate (L/min) 3 Oxygen Delivery Method Nasal Cannula Weight: 66.7 kg Body Mass Index (BMI) 23.7 Finger Stick Blood Glucose 148 Laboratory Tests Past 24 Hrs 12/26/20 12/26/20 06:00 06:00 WBC 9.2 RBC 2.52 L Hgb 7.6 L Hct 24.7 L MCV 98.0 H MCH 30.2 MCHC 30.8 L RDW Std Deviation 63.0 H RDW Coeff of Tulio 17.9 H Plt Count 156 MPV 10.2 Neut % (Auto) Not Reportable Absolute Neuts (auto) 6.3 Absolute Lymphs (auto) 2.60 Total Counted 100 Neutrophils % (Manual) 65 Band Neutrophils % 3 Lymphocytes % (Manual) 28 Monocytes % (Manual) 3 Metamyelocytes % 1 Diff Path Review May foll Platelet Estimate ADEQUATE RBC Morphology NORM C+C Sodium 133 L Potassium 4.6 Chloride 100 Carbon Dioxide 28.0 Anion Gap 5 BUN 39 H Creatinine 1.16 Estim Creat Clear Calc 50.42 Est GFR (MDRD) Af Amer 79 Est GFR (MDRD) Non-Af 65 BUN/Creatinine Ratio 33.6 H Glucose 227 H Calcium 7.9 L - Other Studies Radiology: [] reviewed Other Studies: [] Route of nutrition/ use of supplements: [] Nutritional Intake: [] IV Site: [] Bhakta Catheter: [] - Physical Exam General: Cooperative, - - ill appearing HEENT: Atraumatic, PERRLA, EOMI Neck: Supple, No Nodes Lungs: Clear to auscultation, Diminished Cardiovascular: Regular rate, Regular Rhythm Abdomen: Soft, Non Tender, - - ostomy in place Extremities: No edema Skin: No rashes IV Site: Peripheral Musculoskeletal: No Tenderness to Palpation of Joints or Extremities Neurological: Cranial nerves II-XII grossly intact - Assessment/Plan Antibiotics: [] Assessment/Plan: [] Active and Suspected Problems (Last Reviewed 12/25/20 @ 02:[address] Dani Rinaldi MD) Lower extremity weakness (Acute) Back pain (Acute) Prostate cancer metastatic to bone (Acute) Weakness (Acute) MRSElsa uti with straight cath at home - will do 7 days total po doxy. UA with pyuria 12/21. Will follow, thank you, d/w Dr. Hernadez
[2020-12-26 14:10] LABS: Pathologist Review Reviewed
[2020-12-26 14:11] LABS: Pathologist Review Reviewed
[2020-12-26 14:26] LABS: Pathologist Review Reviewed
[2020-12-26] MEDS: Tamsulosin HCl 0.4 MG Capsule PO (16:34)
[2020-12-26 16:41] LABS: Bedside Glucose 223 mg/dL (70-110)
--- NOTE | 2020-12-26 18:40 | PCM.PROGNOTE ---
Patient Problems: Active and Suspected Problems (Last Reviewed 12/25/20 @ 02:[address] Dani Rinaldi MD) Lower extremity weakness (Acute) Back pain (Acute) Prostate cancer metastatic to bone (Acute) Weakness (Acute) UTI (urinary tract infection) (Acute) - Physical Exam Vitals/I&O's: Vital Signs Temp Pulse Resp BP Pulse Ox 97.6 F L 76 18 123/74 H 95 12/26/20 15:48 12/26/20 15:48 12/26/20 15:48 12/26/20 15:48 12/26/20 15:48 Oxygen Flow Rate (L/min) 3 Oxygen Delivery Method Nasal Cannula Weight: 66.7 kg Body Mass Index (BMI) 23.7 Finger Stick Blood Glucose 148 Intake and Output for Last 24 Hours 12/24/20 12/25/20 12/26/20 23:59 23:59 23:59 Intake Total 1036.67 / 1036.67 2235.83 / 2235.83 1117.75 / 1117.75 Output Total 2150 / 2150 1275 / 1275 Balance 1036.67 / 1036.67 85.83 / 85.83 -157.25 / -157.25 Laboratory Results 12/24/20 16:43: Diff Path Review Reviewed 12/25/20 06:10: Diff Path Review Reviewed 12/25/20 23:10: POC Glucose 269 H 12/26/20 06:00: WBC 9.2, RBC 2.52 L, Hgb 7.6 L, Hct 24.7 L, MCV 98.0 H, MCH 30.2, MCHC 30.8 L, RDW Std Deviation 63.0 H, RDW Coeff of Tulio 17.9 H, Plt Count 156, MPV 10.2, Neut % (Auto) Not Reportable, Absolute Neuts (auto) 6.3, Absolute Lymphs (auto) 2.60, Total Counted 100, Neutrophils % (Manual) 65, Band Neutrophils % 3, Lymphocytes % (Manual) 28, Monocytes % (Manual) 3, Metamyelocytes % 1, Diff Path Review Reviewed, Platelet Estimate ADEQUATE, RBC Morphology NORM C+C 12/26/20 06:00: Sodium 133 L, Potassium 4.6, Chloride 100, Carbon Dioxide 28.0, Anion Gap 5, BUN 39 H, Creatinine 1.16, Estim Creat Clear Calc 50.42, Est GFR (MDRD) Af Amer 79, Est GFR (MDRD) Non-Af 65, BUN/Creatinine Ratio 33.6 H, Glucose 227 H, Calcium 7.9 L 12/26/20 06:31: POC Glucose 230 H 12/26/20 11:37: POC Glucose 269 H 12/26/20 16:32: POC Glucose 223 H Current Medications Acetaminophen (Acetaminophen 325 Mg Tablet) 650 mg PO Q6H PRN PRN PRN Reason: Pain Score 1-10/Temp > 100.7 F Last Admin: 12/26/20 18:31 Dose: 650 mg Documented by: Apixaban (Apixaban 5 Mg Tablet) 5 mg PO BID [facility] Last Admin: 12/26/20 09:36 Dose: 5 mg Documented by: Ascorbic Acid (Ascorbic Acid 500 Mg Tablet) 500 mg PO DAILY [facility] Last Admin: 12/26/20 09:52 Dose: Not Given Documented by: Aspirin (Aspirin 81 Mg Tab.Chew) 81 mg PO DAILY@0800 [facility] Last Admin: 12/26/20 09:36 Dose: 81 mg Documented by: Atorvastatin Calcium (Atorvastatin Calcium 80 Mg Tablet) 80 mg PO QHS [facility] Last Admin: 12/25/20 23:12 Dose: 80 mg Documented by: Calamine/Phenol (Menthol/Lanolin/Calamine/Znox 113 Gm Tube) 1 applic TOPICAL BID [facility]; Protocol Last Admin: 12/26/20 09:36 Dose: Not Given Documented by: Dexamethasone (Dexamethasone 4 Mg Tablet) 4 mg PO Q6 [facility] Last Admin: 12/26/20 16:35 Dose: 4 mg Documented by: Dextrose (Dextrose 50%-Water 25 Gm/50 Ml Disp.Syrin) 0 gm IV X1 PRN; Protocol PRN Reason: Hypoglycemia Doxycycline Monohydrate (Doxycycline 100 Mg Capsule) 100 mg PO BID [facility] Last Admin: 12/26/20 09:43 Dose: 100 mg Documented by: Glucagon (Glucagon 1 Mg/Ml Syringe) 1 mg IM .X1 PRN PRN Reason: Hypoglycemia Sodium Chloride () 250 mls @ 15 mls/hr IV .[id number] PRN PRN Reason: Saline Flush Last Infusion: 12/26/20 02:12 Dose: 0 mls/hr Documented by: Sodium Chloride () 250 mls @ 15 mls/hr IV .[id number] PRN PRN Reason: Additional IVPB Infusion Insulin Human Lispro (Insulin Lispro 100 Unit/Ml Insuln.Pen) 0 unit SC [facility]; Protocol Last Admin: 12/26/20 16:34 Dose: 4 u Documented by: Lactulose (Lactulose 20 Gm/30 Ml Udc) 20 gm PO BID [facility] Last Admin: 12/26/20 11:40 Dose: 20 gm Documented by: Magnesium Hydroxide (Magnesium Hydroxide 30 Ml Udc) 30 ml PO DAILY PRN PRN PRN Reason: Constipation Last Admin: 12/26/20 06:38 Dose: 30 ml Documented by: Metoprolol Tartrate (Metoprolol Tartrate 25 Mg Tablet) 25 mg PO BID [facility] Last Admin: 12/26/20 09:36 Dose: 25 mg Documented by: Nutritional Formula (Lactose Free) (Glucerna Shake 120 Ml Liquid) 120 ml PO 4X/DAY [facility] Last Admin: 12/26/20 16:35 Dose: Not Given Documented by: Ondansetron HCl (Ondansetron 4 Mg/2 Ml Vial) 4 mg IV Q8H PRN PRN PRN Reason: NAUSEA/VOMITING Oxycodone HCl (Oxycodone 5 Mg Tablet) 15 - 20 mg PO Q4H PRN PRN PRN Reason: Pain Score 6-10 Last Admin: 12/26/20 18:31 Dose: 15 mg Documented by: Oxycodone HCl (Oxycodone Cr 20 Mg Tablet) 20 mg PO BID [facility] Last Admin: 12/26/20 09:44 Dose: 20 mg Documented by: Senna/Docusate Sodium (Senna/Docusate Sodium 1 Tablet) 1 tablet PO BID [facility] Last Admin: 12/26/20 09:44 Dose: 1 tablet Documented by: Sodium Chloride (0.9% Saline Lock 10 Ml Syringe) 10 - 40 ml IV UD PRN PRN Reason: SALINE FLUSH Last Admin: 12/26/20 02:08 Dose: 10 ml Documented by: Tamsulosin HCl (Tamsulosin Hcl 0.4 Mg Capsule) 0.4 mg PO DAILY@1730 [facility] Last Admin: 12/26/20 16:34 Dose: 0.4 mg Documented by: Medical Necessity - Tobacco Use Smoking Status: Former smoker Assessment/Plan All Active Problems (Last Reviewed 12/25/20 @ 02:[address] Dani Rinaldi MD) Balanitis (Resolved) Lower extremity weakness (Acute) Back pain (Acute) Prostate cancer metastatic to bone (Acute) Weakness (Acute) UTI (urinary tract infection) (Acute) Bilateral pulmonary embolism (Resolved) Acute respiratory failure with hypoxia (Resolved)
--- NOTE | 2020-12-26 18:47 | PN_ITS ---
Patient Problems: Active and Suspected Problems (Last Reviewed 12/25/20 @ 02:[address] Dani Rinaldi MD) Lower extremity weakness (Acute) Back pain (Acute) Prostate cancer metastatic to bone (Acute) Weakness (Acute) UTI (urinary tract infection) (Acute) Subjective: Patient was seen and examined today, I talked with his who was in the room at the time of my examination, patient appears somnolent today, I had to increase his pain medication due to increased back pain. I talked to nursing about his pain medicine adjustment. I subsequently found out late this afternoon that the patient had known that he had had an elevated PSA and had 1 sought treatment but then declined treatment because he became confused whether it was necessary for the treatment. I talked his by phone late this afternoon and she is of the opinion that she would want him to be treated for his discomfort and if anything could be done for the prostate cancer, she would be in favor of it being offered to the patient. I told her that the patient has extensive disease in his spine and that I am not sure he would be a candidate for chemotherapy. I did talk with Dr. Melendez's covering nurse practitioner and they will see the patient tomorrow and probably recommend that he have at least palliative radiation treatment. In looking back of the patient's old PSA testing, he has had a highly elevated PSA since 2017. - Physical Exam Vitals/I&O's: Vital Signs Temp Pulse Resp BP Pulse Ox 97.6 F L 76 18 123/74 H 95 12/26/20 15:48 12/26/20 15:48 12/26/20 15:48 12/26/20 15:48 12/26/20 15:48 Oxygen Flow Rate (L/min) 3 Oxygen Delivery Method Nasal Cannula Weight: 66.7 kg Body Mass Index (BMI) 23.7 Finger Stick Blood Glucose 148 Intake and Output for Last 24 Hours 12/24/20 12/25/20 12/26/20 23:59 23:59 23:59 Intake Total 1036.67 / 1036.67 2235.83 / 2235.83 1117.75 / 1117.75 Output Total 2150 / 2150 1275 / 1275 Balance 1036.67 / 1036.67 85.83 / 85.83 -157.25 / -157.25 General: Oriented x3, Cooperative, No apparent distress, Well developed, Lethargic HEENT: Atraumatic, PERRLA, EOMI, Normocephalic Oral: Moist Mucosa Neck: Supple, No JVD, Negative Carotid Bruits, Trachea Midline, Thyroid Normal Size and Texture Lungs: Clear to auscultation, Normal air movement, No rhonchi, No wheeze, No rales Cardiovascular: Regular rate, Regular Rhythm, Normal S1, Normal S2, No murmurs, PMI Normal, No rub noted, No Gallop Abdomen: Bowel Sounds Present, Soft, Non Tender, Non-Distended, - - Ostomy present Extremities: No clubbing, No cyanosis, No edema, Capillary Refill Less than 3 Seconds Skin: No rashes, No breakdown Musculoskeletal: No Tenderness to Palpation of Joints or Extremities Neurological: Cranial nerves II-XII grossly intact, Neuro grossly intact, Sensory exam intact to light touch and pain, Coordination normal Psych/Mental Status: Normal Affect, Appropriate, Alert and oriented to time, place, person, mood and affect Laboratory Results 12/24/20 16:43: Diff Path Review Reviewed 12/25/20 06:10: Diff Path Review Reviewed 12/25/20 23:10: POC Glucose 269 H 12/26/20 06:00: WBC 9.2, RBC 2.52 L, Hgb 7.6 L, Hct 24.7 L, MCV 98.0 H, MCH 30.2, MCHC 30.8 L, RDW Std Deviation 63.0 H, RDW Coeff of Tulio 17.9 H, Plt Count 156, MPV 10.2, Neut % (Auto) Not Reportable, Absolute Neuts (auto) 6.3, Absolute Lymphs (auto) 2.60, Total Counted 100, Neutrophils % (Manual) 65, Band Neutrophils % 3, Lymphocytes % (Manual) 28, Monocytes % (Manual) 3, Metamyelo cytes % 1, Diff Path Review Reviewed, Platelet Estimate ADEQUATE, RBC Morphology NORM C+C 12/26/20 06:00: Sodium 133 L, Potassium 4.6, Chloride 100, Carbon Dioxide 28.0, Anion Gap 5, BUN 39 H, Creatinine 1.16, Estim Creat Clear Calc 50.42, Est GFR (MDRD) Af Amer 79, Est GFR (MDRD) Non-Af 65, BUN/Creatinine Ratio 33.6 H, Glucose 227 H, Calcium 7.9 L 12/26/20 06:31: POC Glucose 230 H 12/26/20 11:37: POC Glucose 269 H 12/26/20 16:32: POC Glucose 223 H Current Medications Acetaminophen (Acetaminophen 325 Mg Tablet) 650 mg PO Q6H PRN PRN PRN Reason: Pain Score 1-10/Temp > 100.7 F Last Admin: 12/26/20 18:31 Dose: 650 mg Documented by: Apixaban (Apixaban 5 Mg Tablet) 5 mg PO BID [facility] Last Admin: 12/26/20 09:36 Dose: 5 mg Documented by: Ascorbic Acid (Ascorbic Acid 500 Mg Tablet) 500 mg PO DAILY [facility] Last Admin: 12/26/20 09:52 Dose: Not Given Documented by: Aspirin (Aspirin 81 Mg Tab.Chew) 81 mg PO DAILY@0800 [facility] Last Admin: 12/26/20 09:36 Dose: 81 mg Documented by: Atorvastatin Calcium (Atorvastatin Calcium 80 Mg Tablet) 80 mg PO QHS [facility] Last Admin: 12/25/20 23:12 Dose: 80 mg Documented by: Calamine/Phenol (Menthol/Lanolin/Calamine/Znox 113 Gm Tube) 1 applic TOPICAL BID [facility]; Protocol Last Admin: 12/26/20 09:36 Dose: Not Given Documented by: Dexamethasone (Dexamethasone 4 Mg Tablet) 4 mg PO Q6 [facility] Last Admin: 12/26/20 16:35 Dose: 4 mg Documented by: Dextrose (Dextrose 50%-Water 25 Gm/50 Ml Disp.Syrin) 0 gm IV X1 PRN; Protocol PRN Reason: Hypoglycemia Doxycycline Monohydrate (Doxycycline 100 Mg Capsule) 100 mg PO BID [facility] Last Admin: 12/26/20 09:43 Dose: 100 mg Documented by: Glucagon (Glucagon 1 Mg/Ml Syringe) 1 mg IM .X1 PRN PRN Reason: Hypoglycemia Sodium Chloride () 250 mls @ 15 mls/hr IV .[id number] PRN PRN Reason: Saline Flush Last Infusion: 12/26/20 02:12 Dose: 0 mls/hr Documented by: Sodium Chloride () 250 mls @ 15 mls/hr IV .[id number] PRN PRN Reason: Additional IVPB Infusion Insulin Human Lispro (Insulin Lispro 100 Unit/Ml Insuln.Pen) 0 unit SC ACHS [facility]; Protocol Last Admin: 12/26/20 16:34 Dose: 4 u Documented by: Lactulose (Lactulose 20 Gm/30 Ml Udc) 20 gm PO BID [facility] Last Admin: 12/26/20 11:40 Dose: 20 gm Documented by: Magnesium Hydroxide (Magnesium Hydroxide 30 Ml Udc) 30 ml PO DAILY PRN PRN PRN Reason: Constipation Last Admin: 12/26/20 06:38 Dose: 30 ml Documented by: Metoprolol Tartrate (Metoprolol Tartrate 25 Mg Tablet) 25 mg PO BID [facility] Last Admin: 12/26/20 09:36 Dose: 25 mg Documented by: Nutritional Formula (Lactose Free) (Glucerna Shake 120 Ml Liquid) 120 ml PO 4X/DAY [facility] Last Admin: 12/26/20 16:35 Dose: Not Given Documented by: Ondansetron HCl (Ondansetron 4 Mg/2 Ml Vial) 4 mg IV Q8H PRN PRN PRN Reason: NAUSEA/VOMITING Oxycodone HCl (Oxycodone 5 Mg Tablet) 15 - 20 mg PO Q4H PRN PRN PRN Reason: Pain Score 6-10 Last Admin: 12/26/20 18:31 Dose: 15 mg Documented by: Oxycodone HCl (Oxycodone Cr 20 Mg Tablet) 20 mg PO BID [facility] Last Admin: 12/26/20 09:44 Dose: 20 mg Documented by: Senna/Docusate Sodium (Senna/Docusate Sodium 1 Tablet) 1 tablet PO BID [facility] Last Admin: 12/26/20 09:44 Dose: 1 tablet Documented by: Sodium Chloride (0.9% Saline Lock 10 Ml Syringe) 10 - 40 ml IV UD PRN PRN Reason: SALINE FLUSH Last Admin: 12/26/20 02:08 Dose: 10 ml Documented by: Tamsulosin HCl (Tamsulosin Hcl 0.4 Mg Capsule) 0.4 mg PO DAILY@1730 [facility] Last Admin: 12/26/20 16:34 Dose: 0.4 mg Documented by: Medical Necessity - Tobacco Use Smoking Status: Former smoker Assessment/Plan All Active Problems (Last Reviewed 12/25/20 @ 02:[address] Dani Rinaldi MD) Balanitis (Resolved) Lower extremity weakness (Acute) Back pain (Acute) Prostate cancer metastatic to bone (Acute) Weakness (Acute) UTI (urinary tract infection) (Acute) Bilateral pulmonary embolism (Resolved) Acute respiratory failure with hypoxia (Resolved) #1 acute generalized debility secondary to metastatic prostate cancer of the lumbar spine-patient will be seen in consultation by oncology tomorrow, I have adjusted the patient's pain medications and he had agreed to see palliative care-palliative care saw the patient today. I have adjusted the patient's pain medication and the is in favor the patient going to an extended care facility for rehab services of a temporary nature. 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 Inpatient E&M: 66528 Subs Hosp L2
[2020-12-26] MEDS: Atorvastatin Calcium 80 MG Tablet PO (21:54)
[2020-12-26 22:35] LABS: Bedside Glucose 322 mg/dL (70-110)
[2020-12-27] VITALS (11 sets, daily range): BP systolic 120–181; BP diastolic 66–91; PULSE 85–131; RESP 16–18; TEMP 36.2–36.8; O2SAT 2–98
[2020-12-27] MEDS: oxyCODONE 5 MG Tablet PO (02:24)
[2020-12-27] MEDS: Insulin Lispro 100 UNIT/ML INSULN.PEN SC ×4 (06:41→22:37)
[2020-12-27] MEDS: dexAMETHasone 4 MG Tablet PO (06:41)
[2020-12-27 06:50] LABS: Bedside Glucose 224 mg/dL (70-110)
--- NOTE | 2020-12-27 09:39 | CASEMGMT ---
Social Work Note SW placed a call to Gilma at [facility] in admissions and left message about referral. SW waiting for call back. Plan: [facility] pending acceptance and pre-cert Gilma Simpson TRANSMISSION SYSTEM OPERATOR, DRUM TENDER
--- NOTE | 2020-12-27 09:44 | CON.PCM_ITS ---
Problem List (1) Back pain Status: Acute Qualifiers: Back pain location: thoracic back pain Chronicity: chronic Back pain laterality: midline Qualified Code(s): M54.6 - Pain in thoracic spine; G89.29 - Other chronic pain (2) Weakness Status: Acute (3) Prostate cancer metastatic to bone Status: Acute (4) DM type 2 (diabetes mellitus, type 2) Status: Chronic Qualifiers: (5) Balanitis Status: Resolved (6) Restless leg syndrome Status: Chronic (7) Nonrheumatic tricuspid (valve) insufficiency Status: Chronic Comment: Mild (1+) pe echo 10/31/2018 (8) Pulmonary hypertension Status: Chronic Comment: RVSP 78 mmhg per echo 10/31/2018 (9) Paroxysmal atrial fibrillation Status: Chronic (10) Blood clotting disorder Status: Chronic (11) Bilateral pulmonary embolism Status: Resolved (12) Benign tumor of colon Status: Chronic Comment: Rectum - 2013 (13) Arthritis Status: Chronic (14) History of creation of ostomy Status: Chronic (15) Right bundle branch block Status: Chronic (16) Nonrheumatic tricuspid (valve) insufficiency Status: Chronic History of Present Illness Date of Consult: 12/27/20 Reason for Consult: intractable back pain, bone mets Requesting physician: [] Primary care physician: Dr. Wil Bradshaw, DO - History of Present Illness The patient is a 75 year old M with PMH as below, presented to the ED 12/24/2020 with complaints of several weeks of generalized weakness and progressive back pain. Patient ended up having a fall and hit the left side of his head and chest. Patient has a history of prostate cancer, just started treatment about a week ago. Also has history of a rectal mass s/p colostomy. In ED, he had a CT of the brain that was negative for hemorrhage or mass-effect, nothing acute. The patient self caths at home. Urine has recently been very cloudy with very strong and foul odor. He was started on ciprofloxacin at home. In ED: Chest CT had multiple findings, including: retroperitoneal adenopathy suspicious for neoplasm including metastasis or lymphoma, right hydronephrosis, diffuse sclerosis and lysis of the thoracic spine new since 2019 and suspicious for bone marrow replacement/metastasis. Also mild mediastinal adenopathy, trace right pleural effusion, atelectasis to lung bases, right perinephric soft tissue density could represent renal lesion versus enlarged lymph node, posterior left eighth and lateral left rib fractures, asymmetric enlargement of right psoas muscle, possibly related to retroperitoneal adenopathy. Given chest CT findings, a lumbar spine MRI was performed and revealed severe spondylitic thecal sac stenosis at L4-L5, diffuse osseous metastatic disease, multiple epidural metastases with mild thecal sac compression, extensive metastatic retroperitoneal and paraspinous muscle metastases, and right hydronephrosis. There was evidence of late subacute or chronic unhealed fractures at T12, L1, and L3 with mild compression of T12. Fractures likely p athologic due to neoplastic marrow infiltration. Patient was also admitted 11/05/2020 through 11/07/2020 for acute embolic infarcts and elevated troponin level. At that time, he had a head and neck CTA which showed an occluded left internal carotid artery, about 20% stenosis in the right. Brain MRI showed chronic involutional changes and acute/subacute embolic infarcts in the periventricular white matter of the parietal lobes in both hemispheres and cerebellum. It was thought at that time he had hypercoagulable condition related to his cancer. He was anticoagulated with Eliquis and aspirin. Oncology was consulted during that admission to initiate outpatient follow-up. He was noted to decline work-up as an outpatient in the past. A LIBBY was negative. Urine with MRSE UTI, ID consulted and recommended 7 days total of p.o. doxycycline. Patient's pain medication was increased 12/26 due to his uncontrolled back pain. Hospitalist spoke with oncology OFFICE ELECTRICIAN, stated they would probably recommend that he at least have palliative radiation treatment. Plan is for the patient to go to SNF for rehab prior to returning home with his , Geoffrey Foster. He lives in a single-story home with 2 steps to enter with rail. He is mostly independent with ADLs but assists him as needed. He does not drive but transports him. Patient does have a Rollator at home and cares for his ostomy independently. Patient does not have a living will or power of custom car builder. He uses [facility] for pharmacy. Patient does have a small open area to his coccyx. reports she is having increased difficulty taking care of him, he is becoming quite weak. She is at the bedside during my visit, states he is becoming more and more confused. As we are sitting there talking, patient is not making much sense. Trying to tell us about his night and morning. States he did not really know where he was. He denies any pain other than to his left subscapular area and shoulder. He does remember a doctor coming in this morning to discuss further imaging and plan of care. Nursing tells me this was Gertrudis Kenny, oncology OFFICE ELECTRICIAN and Dr. Brown, radiation oncologist. Patient Problems: Chronic Problems (Last Reviewed 12/25/20 @ 02:[address] 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) insufficiency (Chronic) DM type 2 (diabetes mellitus, type 2) (Chronic) History of pulmonary embolism (Chronic) Restless leg syndrome (Chronic) Prostate cancer (Chronic) Nonrheumatic tricuspid (valve) insufficiency (Chronic) Mild (1+) pe echo 10/31/2018 Pulmonary hypertension (Chronic) RVSP 78 mmhg per echo 10/31/2018 Elevated PSA (Chronic) Paroxysmal atrial fibrillation (Chronic) Right bundle branch block (Chronic) Blood clotting disorder (Chronic) Abnormal electrocardiogram (Chronic) Benign tumor of colon (Chronic) Rectum - 2012 Enlarged prostate (Chronic) Arthritis (Chronic) Surgical History: colectomy Psychiatric History: No pertinent psych hx Home Medications: Ambulatory Orders Medication Instructions Recorded ascorbic acid (vitamin C) 500 mg 500 mg PO DAILY 08/30/20 capsule apixaban 5 mg tablet 5 mg PO BID #60 tab 09/05/20 metoprolol tartrate 50 mg tablet 25 mg PO BID #180 tab 10/19/20 Atorvastatin Calcium [Lipitor] 80 mg PO QHS #30 tab 11/07/20 hydrocodone 5 mg-acetaminophen 325 1 tablet PO Q6H PRN #20 tablet 11/22/20 mg tablet aspirin 81 mg chewable tablet 81 mg PO DAILY@0800 #90 tablet 12/07/20 metformin 500 mg tablet,extended 500 mg PO DAILY #90 tablet 12/07/20 release 24 hr tamsulosin 0.4 mg capsule 0.4 mg PO DAILY@1730 #90 cap 12/07/20 Ciprofloxacin [Cipro] 500 mg PO DAILY 5 Days #5 tab 12/23/20 Allergies No Known Allergies Allergy (Verified 12/24/20 16:22) Maternal History Items: - - States his mom was in and out of the hospital however denies known specific medical history including cardiac history. Paternal History Items: - - Denies knowledge of paternal medical history including cardiac history. Stated that his father lost his leg. - Social History Smoking Status: Former smoker Review of Systems Constitutional: Reports: Malaise, Weakness, Fatigue. Denies: Anorexia, Chills, Fever, Weight Change Eyes: Denies: Vision Change HEENT: Denies: Difficulty Swallowing, Head Aches, Sinus Congestion, Sinus Drainage, Sore Throat Cardiovascular: Denies: Chest Pain, Edema, Orthopnea, Palpitations Respiratory: Reports: Shortness of breath upon exertion. Denies: Cough, Hemoptysis, Shortness of breath at rest, Sputum production, Wheezing Gastrointestinal: Reports: Dyspepsia. Denies: Abdominal Pain, Constipation, Diarrhea, Nausea, Vomiting Genitourinary: Reports: - - Bhakta catheter, urine is now clear. Denies: Dysuria Musculoskeletal: Reports: Shoulder Pain - Left-sided. Denies: Joint Pain, Joint Tenderness Skin: Reports: Wounds - Coccyx. Denies: Rash Neurological: Reports: Balance problems. Denies: Change in Speech, Focal weakness, Numbness, Tingling, Seizures Psychiatric: Denies: Anxiety, Depression, Homicidal Ideations, Suicidal Ideations Hematologic/ Lymphatic: Reports: Anemia, Easy Bruising, Hx of blood clot. Denies: Easy Bleeding Physical Exam Subjective: Lying in bed, somewhat confused but conversing. Says all his pain is to the left scapular area. No radiation. Rating about a 6 out of 10. Otherwise, states he has very good pain control. General: Alert, Cooperative, No apparent distress, Confused HEENT: Atraumatic, Normocephalic Oral: Moist Mucosa Neck: Supple, Trachea Midline Lungs: Clear to auscultation, No rhonchi, No wheeze, No rales, Diminished Cardiovascular: Regular rate, Regular Rhythm, Normal S1, Normal S2 Abdomen: Bowel Sounds Present, Soft, Non Tender, Distended Extremities: No edema, Capillary Refill Less than 3 Seconds Skin: No rashes Musculoskeletal: No Tenderness to Palpation of Joints or Extremities Neurological: Cranial nerves II-XII grossly intact Psych/Mental Status: Normal Affect, - - Oriented to self and place, knows the year Objective: Vital Signs Temp Pulse Resp BP Pulse Ox 97.9 F 97 16 158/85 H 94 12/27/20 09:29 12/27/20 09:29 12/27/20 09:29 12/27/20 09:29 12/27/20 09:29 Oxygen Flow Rate (L/min) 2 Oxygen Delivery Method Nasal Cannula Weight: 66.7 kg Body Mass Index (BMI) 23.7 Finger Stick Blood Glucose 148 Intake and Output for Last 24 Hours 12/25/20 12/26/20 12/27/20 23:59 23:59 23:59 Intake Total 2235.83 / 2235.83 1557.75 / 1557.75 Output Total 2150 / 2150 1675 / 1675 600 / 600 Balance 85.83 / 85.83 -117.25 / -117.25 -600 / -600 Laboratory Tests Past 24 Hrs 12/24/20 12/25/20 12/26/20 16:43 06:10 06:00 Diff Path Review Reviewed Reviewed Reviewed Assessment/Plan All Active Problems (Last Reviewed 12/25/20 @ 02:[address] Dani Rinaldi MD) Balanitis (Resolved) Lower extremity weakness (Acute) Back pain (Acute) Prostate cancer metastatic to bone (Acute) Weakness (Acute) UTI (urinary tract infection) (Acute) Bilateral pulmonary embolism (Resolved) Acute respiratory failure with hypoxia (Resolved) 75-year-old male with metastatic prostate cancer, seen today for initial palliative care consultation for symptom management of pain. Plans are for palliative radiation. 1. Back pain: [place] 5/325 mg tabs 1 q6h PRN at home. Current orders include Tylenol 650 mg q6h PRN, dexamethasone 4 mg p.o. q6 hours scheduled, oxycodone 15 to 20 mg q4 hours PRN for breakthrough pain, with OxyContin 20 mg p.o. twice daily. This was just increased on the . OxyContin is good choice for long- acting opioid, however tends to be very expensive. He is relatively opioid na?ve and his pain more controlled but he is having increased confusion. Confusion concerning given being started on long acting opioid, could also be dexa or disease processes, or combination. Recommendations: -decrease dexamethasone to 8mg BID -d/c oxycontin - if radiation effective, would not need long acting opioid -start oxyIR 10mg scheduled q6h -change prn oxyIR to 10mg q4h PRN breakthrough pain. -await cervical MRI and recommendations from oncology and Dr. Brown 2. Metastatic prostate cancer/progressive weakness: In initial stages of work- up, plans are for palliative radiation. Obtaining further imaging and then will await recommendations from oncology and the radiation oncologist, Dr. Brown. 3. PAF/recent bilateral PEs on Eliquis/pulmonary hypertension/RLS/T2DM/nonrheumatic TVI/history of colostomy secondary to benign tumor of rectum/arthritis/UTI: Complicates overall care, management, recovery, and prognosis. Unfortunately, his cancer seems quite advanced and he is having systemic symptoms. He is going to skilled therapy at a senior care once discharged from the hospital. We will continue to follow him there. Thank you for the opportunity to participate in this patient's care, please do not hesitate to contact [facility] with any further questions or concer ns. Palliative direct line is [phone]. We will have RN follow up approximately 3 days after discharge. Currently, and patient are agreeable to palliative services. Goals are for pain control and improvement of quality of life. We will work closely with his oncologist/radiation/PCP. Greater than 50% of F2F visit dedicated to education and counseling of palliative care services, medications, comorbid conditions and potential assistance with management, and plan of care moving forward. Discussed plan of care with my collaborating physician, Dr. Alicia Morris, as well as hospitalist, Dr. Hernadez. Start time: 937 End time: 1119
[2020-12-27] MEDS: Doxycycline 100 MG CAPSULE PO ×2 (10:05→22:16)
[2020-12-27] MEDS: Aspirin 81 MG TAB.CHEW PO (10:06)
[2020-12-27] MEDS: APIXABAN 5 MG TABLET PO ×2 (10:06→22:16)
[2020-12-27] MEDS: Metoprolol Tartrate 25 MG Tablet PO ×2 (10:07→22:16)
[2020-12-27] MEDS: Ascorbic Acid 500 MG Tablet PO (10:08)
--- NOTE | 2020-12-27 11:02 | CASEMGMT ---
TC to [facility] pharmacy per request of Gretta Ramirez to see how much pt oxycontin will be on dc. Per [facility], they cannot give the [place]ohnston of the med until they bill the insurance. Gretta ash.
--- NOTE | 2020-12-27 11:26 | CASEMGMT ---
Addendum entered by Gilma Simpson 12/27/20 14:14: ERNESTINA faxed updated PT to [facility] Original Note: Social Work Note ERNESTINA received message from Gilma in admissions at [facility] stating they are able to accept pt and submitted for pre-cert. ERNESTINA faxed updated OT to [facility], will fax updated PT when available. Plan: [facility] pending pre-cert Gilma Simpson PRODUCE FIELD MERCHANDISER, UX DEVELOPER
--- NOTE | 2020-12-27 11:34 | CON.PCM_ITS ---
Subjective Date of Service:: 12/27/20 Chief Complaint: Prostate Cancer History of Present Illness: Mr. Shyam Foster is a 75-year-old gentleman who was found by his pcp office to have increased PSA of greater than 2000 on 08/31/2020, accompanied by penile swelling, and fullness in groin bilat on physical exam. He underwent X ray of his The patient has claimed that he has had high PSA for many many years and was evaluated by [facility] most recently in 2017 but he has been lost to follow up since that time. Noted to have elevated PSA since 2017, patient reports he was offered a referral to urology but refused on multiple occasions. Also, he has history of a rectal mass and colostomy. 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 Patient was referred to medical oncology for new patient consultation with Dr. Melendez on 11/23/2020. Bone scan was ordered and scheduled however patient no showed for imaging appointment. He returned back to clinic on 12/07/2020 and verbalized concern about back pain but refused any imaging. Was seen again in medical onc ology clinic on 12/14/2020 to discuss treatment options, continued to complain of back pain, MRI spine was ordered and scheduled but again the patient no showed for imaging appointment. He was amenable to treatment with LHRH agonist and began leuprolide on 12/21/20. Presented to [facility] ED via ambulance on 12/24/20 with c/o generalized weakness and fall in his home. MRI lumbar spine showed diffuse osseous metastatic disease, multiple epidural metastases with mild thecal sac compression and extensive metastatic retroperitoneal and paraspinous muscle metastases, right hydronephrosis. Admitted for pain management. Underwent renal US which demonstrated mild degree of right hydronephrosis and 1.2 cm x 1.3 cm x 1.2 cm echogenic density within the renal pelvis. Comorbidities: DM, pulmonary hypertension, RBBB, a fib, h/o VTE and CVA. Upon entering the room, Mr. Foster is sitting upright in bed, awake. Rates back pain 7/10 describes as constant and deep and motions to center of his upper back. Specifically denies numbness/tingling involving his extremities and saddle anesthesia. He is unsure if current analgesia is lessening his pain. Ostomy produced BM last evening. Appetite fair. Past Medical History: Chronic Problems (Last Reviewed 12/25/20 @ 02:[address] 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) insufficiency (Chronic) DM type 2 (diabetes mellitus, type 2) (Chronic) History of pulmonary embolism (Chronic) Restless leg syndrome (Chronic) Prostate cancer (Chronic) Nonrheumatic tricuspid (valve) insufficiency (Chronic) Mild (1+) pe echo 10/31/2018 Pulmonary hypertension (Chronic) RVSP 78 mmhg per echo 10/31/2018 Elevated PSA (Chronic) Paroxysmal atrial fibrillation (Chronic) Right bundle branch block (Chronic) Blood clotting disorder (Chronic) Abnormal electrocardiogram (Chronic) Benign tumor of colon (Chronic) Rectum - 2012 Enlarged prostate (Chronic) Arthritis (Chronic) Past Medical/Surgical History: Past Medical History - Most Recent Inpatient Visit Past Medical History Start: 12/24/20 20:20 Text: Status: Complete Freq: ONCE Protocol: Document 12/24/20 20:20 DC (Rec: 12/24/20 20:35 DC [id number]) BMI Required to complete PMH What is Patient's BMI 23.7 Past Medical History Unable History Recalled No Query Text:Pt Unable/Family Not Present Neurologic Medical History Hx Stroke/TIA Yes: stroke in Oct Hx Dementia/Alzheimer's No Hx Parkinson's Disease No Hx Seizures No Hx Multiple Sclerosis No Hx Migraines No Cardiac Medical History VTE Present on Admission No Hx of Deep Vein Thrombosis/VTE/PE Yes: 5 years ago right leg Hx Hypertension Yes Hx Chest Pain/Angina No Hx Heart Attack No Hx Cardiac Surgery/Stents/Etc. No Hx Heart Failure No Hx Pacemaker/AICD No Hx Irregular Heartbeat and/or Afib No Hx Anticoagulant Therapy Yes: eliquis, ASA Query Text:(Coumadin, Aspirin, Plavix, Xarelto, etc.) Hx Pain in Legs when Walking/Leg Cramps No Respiratory Medical History Hx COPD No Hx Emphysema No Hx Smoking Yes Smoking Status Former smoker Hx Smoking Cessation Date 09/09/1959 Hx Smoking Cessation Counseling No Hx Tobacco Use in last 12 months No Hx of Pipe Smoking No Hx Sleep Apnea No Do you snore loudly (louder than talking No or can be heard through closed doors)? Do you often feel tired/ fatigued/ No sleepy during daytime? Has anyone observed you stop breathing No during sleep? STOP Results Negative GI Medical History Hx Ulcer No Hx Hepatitis No Hx Cirrhosis No Hx GI Bleed No Hx Unplanned Weight Loss Yes Genitourinary Medical History Indwelling Catheter in Place on Arrival/ No Admission Hx Renal Disease No Hx Dialysis No Musculoskeletal History Hx Arthritis Yes Hx Rheumatoid Arthritis No Endocrine Medical History Hx Diabetes Yes Hx Thyroid Disease No Hematologic Medical History Hx of Blood Transfusion No Hx of Transfusion in last 3 Months No Ever experience any problems with No transfusion(s)? Hx of Preganancy in last 3 Months N/A Nurse Filling Out Transfusion & [facility] Questions: Date: 12/24/20 Time: 20:34 Psycho/Social Medical History Hx Depression No Hx Anxiety No Hx Behavior Disorder No Hx Alcohol Use No Hx Substance Use No Other Medical History Hx Blood Disorders No Hx Anemia No Hx Cancer Yes: prostate Hx Drug Resistant Organism No Wound/Pressure Injury Present on Arrival Yes /Admission Query Text:If yes, chart assessment in Shift/Clinical Findings Central Line/PICC/VAD Present on Arrival No /Admission Antibiotics within last 7 days? No Methicillin Resistant Staphylococcus aureus Screening Active MRSA No Risk for Readmission Number of Risk Factors 4 At Risk for Readmission Patient is At Risk For Readmission Patient is eligible for Call Back Y Past Medical History (Last Reviewed 12/25/20 @ 02:[address] Dani Rinaldi MD) Nonrheumatic tricuspid (valve) insufficiency (Chronic) Pulmonary hypertension (Chronic) Elevated PSA (Chronic) Paroxysmal atrial fibrillation (Chronic) Right bundle branch block (Chronic) Elevated troponin I level (Inactive) Blood clotting disorder (Chronic) Abnormal electrocardiogram (Chronic) Bilateral pulmonary embolism (Resolved) Benign tumor of colon (Chronic) Enlarged prostate (Chronic) Arthritis (Chronic) Acute respiratory failure with hypoxia (Resolved) Past Surgical History (Last Reviewed 12/25/20 @ 02:[address] Dani Rinaldi MD) History of colostomy (Acute) Hx of tonsillectomy (Acute) Maternal Family History: - - States his mom was in and out of the hospital however denies known specific medical history including cardiac history. Paternal Family History: - - Denies knowledge of paternal medical history including cardiac history. Stated that his father lost his leg. - Social History Smoking Status: Former smoker Allergies/Adverse Reactions: Allergy/AdvReac Type Severity Reaction Status Date / Time No Known Allergies Allergy Verified 12/24/20 16:22 Review of Systems Constitutional:: Reports: Weakness, Fatigue, Weight loss. Denies: Fever, Sweats, Chills Cardiovascular:: Denies: Chest pain, Palpitations, Orthopnea, PND Respiratory: Denies: Cough, Hemoptysis, Shortness of Breath, Wheezing Gastrointestinal:: Denies: Abdominal pain, Nausea, Vomiting, Diarrhea, Constipation Genitourinary: Denies: Dysuria, Hematuria, 15, Flank pain Musculoskeletal:: Reports: Back pain Neurological:: Denies: Headache, Dizziness, Numbness, Tingling Vital Signs Temperature 97.9 F 12/27/20 09:29 Temperature Source Oral 12/27/20 09:29 Pulse Rate 97 12/27/20 10:07 Pulse Strength Normal (2+) 12/26/20 22:13 Respiratory Rate 16 12/27/20 09:29 Respiratory Effort Non-Labored 12/27/20 02:20 Respiratory Depth Normal 12/27/20 02:20 Respiratory Pattern Normal 12/27/20 02:20 Blood Pressure 158/85 H 12/27/20 09:29 Blood Pressure Mean 109 12/27/20 09:29 Blood Pressure Source Monitor 12/27/20 09:29 Blood Pressure Position Semi-Fowlers 12/27/20 09:29 Blood Pressure Location Right Arm 12/27/20 09:29 Pulse Ox 94 12/27/20 11:02 Oxygen Delivery Method Nasal Cannula 12/27/20 10:21 Oxygen Flow Rate (L/min) 2 12/27/20 10:21 - Physical Exam General: Alert, Oriented x3, No apparent distress HEENT: Atraumatic, PERRLA, EOMI, Normocephalic, - - wears glasses Oropharynx:: Negative for: Dry mucosa Neck:: Supple Cardiac:: Regular rate, Regular rhythm, Normal S1, Normal S2 Lungs: Clear to auscultation, Excusion symmetrical. Negative for: Rhonchi, Wheezes Abdomen:: Bowel sounds x 4, Soft, Non-tender, Non-distended. Negative for: Hepatosplenomegaly Extremities:: Negative for: Cyanosis, Edema Neurological: Neuro grossly intact Skin:: Negative for: Petechiae, Ecchymosis Psychiatric:: Appropriate affect, Euthymic Laboratory Data: Laboratory Tests 12/27/20 12/26/20 12/26/20 Range/Units 06:40 21:51 16:32 Diff Path Review POC Glucose 224 H 322 H 223 H (70-110) mg/dL 12/26/20 12/26/20 12/25/20 Range/Units 11:37 06:00 06:10 Diff Path Review Reviewed Reviewed POC Glucose 269 H (70-110) mg/dL 12/24/20 Range/Units 16:43 Diff Path Review Reviewed POC Glucose (70-110) mg/dL Diagnostic Data: Diagnostic Data Brain CT 12/24/20 16:32 IMPRESSION: No acute intracranial hemorrhage or mass effect. Electronically Signed: Tyler He MD ([place]) at 17:56 EDT , Service support , Chest CT 12/24/20 16:32 IMPRESSION: 1. Retroperitoneal adenopathy suspicious for neoplasm including metastasis or lymphoma. Right hydronephrosis, incompletely visualized, could be from distal ureteral obstruction from either extrinsic mass effect or ureteral calculus. 2. Diffuse sclerosis and lysis of the thoracic spine new since 2019 and suspicious for bone marrow replacement/metastasis. 3. Mild mediastinal adenopathy. 4. Trace right pleural effusion. Atelectasis in the lung bases. 5. Right perinephric soft tissue density could represent renal lesion versus enlarged lymph node. Dedicated renal ultrasound and/or abdomen/pelvis CT with IV contrast recommended. 6. Posterior left eighth and lateral left evident rib fractures. 7. Asymmetric enlargement of the right psoas muscle as compared to the left could be related to retroperitoneal adenopathy but incompletely visualized. Electronically Signed: Tyler He MD ([place]) at 18:08 EDT , Service support , Lumbar Spine MRI 12/24/20 16:34 IMPRESSION: 1. 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 2. Diffuse osseous metastatic disease. 3. Multiple epidural metastases with mild thecal sac compression. 4. Extensive metastatic retroperitoneal and paraspinous muscle metastases. 5. Right hydronephrosis. N.B. : The above information has been verbally conveyed by Ban Hernandez MD to Yossi Lux MD, , on 12/24/2020 19:24:59 (ET). Electronically Signed: Ban Hernandez MD at 19:25 EDT Tel , Service support , ADDENDUM: 12/24/20 193 IMPRESSION: 1. 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 2. Diffuse osseous metastatic disease. 3. Multiple epidural metastases with mild thecal sac compression. 4. Extensive metastatic retroperitoneal and paraspinous muscle metastases. 5. Right hydronephrosis. N.B. : The above information has been verbally conveyed by Ban Hernandez MD to Yossi Lux MD, , on 12/24/2020 19:24:59 (ET). Electronically Signed: Ban Hernandez MD at 19:25 EDT Tel , Service support , Renal Ultrasound 12/24/20 21:48 IMPRESSION: Mild degree of right hydronephrosis. 1.2 cm x 1.3 cm x 1.2 cm echogenic density within the renal pelvis. A neoplastic process should be ruled out. Electronically Signed: Macario Chang MD at 8:46 EDT , Service support , Assessment and Plan Mr. 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 1. Prostate Ca- Diagnosed in 2012, treated with 1 dose of Lupron. Has not sought care for this malignancy since 2017. Now with widely disseminated skeletal disease. He has refused imaging for adequate staging on multiple occasions. Elected to pursue treatment with LHRH agonist only. Began Lupron on 12/21/20. At present, he is not endorsing any s/sx of neurologic complications from epidural involvement. MRI cervical and thoracic spine ordered. Advise palliative care involvement and recommend palliative radiation oncology consultation. 2. Cancer metastatic to bone- Cr 1.16. Serum calcium WNL. Zometa ordered. Case discussed with his primary medical oncologist, Dr. Melendez who was in agreement with aforementioned plan. Gertrudis Kenny, MSN, CLINICAL RESEARCH ASSOCIATE, AOCNP Medications: Medications Added to Medication List This Visit Category Date Time Status Dexamethasone [Decadron] Med 12/27/20 22:00 Ordered 8 mg PO Q12 Oxycodone [Oxyir] Med 12/27/20 11:25 Ordered 10 mg PO Q4H PRN PRN Oxycodone [Oxyir] Med 12/27/20 12:00 Ordered 10 mg PO Q6H PRN Primary Care Provider: Dr. iWl Bradshaw, DO Referring Provider: - Problem List (1) Prostate cancer Status: Chronic (2) Prostate cancer metastatic to bone Status: Acute
--- NOTE | 2020-12-27 11:37 | MRI_ITS ---
STUDY: MRI CERVICAL SPINE WITHOUT CONTRAST REASON FOR EXAM: Male, 75 years old. back pain -- t2 and t1 sag done only ,,pt refused TECHNIQUE: Standardized fat and water weighted pulse sequences were obtained in the sagittal and axial planes. COMPARISON: X-ray 11/04/2020. FINDINGS: This study is significantly limited by the absence of axial imaging. Normal foramen magnum and brainstem-cervical cord junction. Normal craniovertebral junction. Normal visualized odontoid process. Normal cervical lordosis. Diffuse signal abnormality in the cervical and visualized thoracic vertebral bodies suspicious for metastatic disease. Chronic C7 compression fracture. C2-3: Mild retrolisthesis. Borderline canal stenosis due to retrolisthesis. Foramina are patent. C3-4: Disc space narrowing. Mild retrolisthesis. Mild canal stenosis due to retrolisthesis and shortened pedicles. Severe foraminal stenosis due to uncinate hypertrophy. C4-5: Disc space narrowing. Mild canal stenosis predominantly due to shortened pedicles. Severe foraminal stenosis due to uncinate hypertrophy. C5-6: Mild canal stenosis due to spondylosis and shortened pedicles. Severe foraminal stenosis due to uncinate hypertrophy. C6-7: Borderline canal stenosis predominantly due to short pedicles. Severe foraminal stenosis due to uncinate hypertrophy. C7-T1: No disc protrusion, canal or foraminal stenosis. Normal cervical cord. Normal visualized soft tissue structures. MRI/Spine Cervical (Routine) IMPRESSION: 1. Limited study due to patient termination. 2. Extensive vertebral metastases. 3. Mild canal stenosis from C3-4 through C5-6. Borderline stenosis at C2-3 and C6-7. 4. Severe foraminal stenosis from C3-4 through C6-7. Electronically Signed: Dulce Bethea MD at 20:59 EDT Tel , Service support ,
[2020-12-27 12:00] LABS: Bedside Glucose 293 mg/dL (70-110)
[2020-12-27] MEDS: Acetaminophen 325 MG Tablet 650 MG PO (13:36)
[2020-12-27] MEDS: oxyCODONE 5 MG Tablet 10 MG PO ×2 (13:37→18:30)
--- NOTE | 2020-12-27 13:42 | RAO.CONSULT ---
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 History of Present Illness: 2013: According to the patient and his the patient was diagnosed with metastatic prostate cancer in 2012 and received 1 injection of Lupron but then pursued no further therapy as there was confusion about the diagnosis and treatment. He was also diagnosed with what was and apparently a benign rectal tumor in 2012 and had surgery and ostomy creation. 11/06/2020: Patient underwent brain MRI without contrast. Suspected CVA. There is moderate cerebral atrophy with widening of the extra-axial spaces and ventricular dilation. There are limited number of small white matter hyperintensities distributed throughout the deep white matter tracts of the cerebral hemispheres consistent with chronic white matter ischemic changes. There are punctate hyperintensities of the periventricular white matter of the parietal lobes as well as both hemispheres and cerebellum which demonstrate diffusion consistent with acute/subacute embolic infarcts. 11/16/2020: X-ray of the left hip/pelvis was performed due to having left hip pain for several days. There is a question of mottled appearance of the visualized osseous structures which may represent metastatic disease. Moderate narrowing of the left hip joint without fracture or dislocation. 11/23/2020: Patient was evaluated by medical oncology due to having a very elevated PSA as well as pelvic bone changes on x-ray potentially consistent with metastatic disease. Recommended obtaining bone scan for further staging. 12/24/2020: Patient presented to the emergency room with generalized weakness and worse discomfort involving his back. 12/24/2020: CT chest without contrast was performed after sustaining a fall. This demonstrated evidence for retroperitoneal adenopathy suspicious for neoplasm. Right hydronephrosis which is incompletely visualized and may be from distal ureteral obstruction from either extrinsic mass or calculus. There is diffuse sclerosis and lysis of the thoracic spine which is new since 2019 and consistent with bone metastasis. There is mild mediastinal adenopathy. There is trace right pleural effusion with atelectasis in the lung bases. There is evidence for posterior left eighth and lateral left 11th rib fractures. There is asymmetric enlargement of the right psoas muscle which may be retroperitoneal adenopathy. There is a right perinephric soft tissue density which may represent a renal lesion versus enlarged retroperitoneal lymph node. 12/24/2020: MRI lumbar spine with and without contrast was performed. This demonstrated diffuse osseous metastatic disease with combination of lesions and marrow placement. There are probably late subacute or chronic unhealed fractures of T12, L1, and L3 with mild compression of T12. There are extraosseous soft tissue metastases with posterior cortical breakthrough at multiple levels and the thecal sac is severely stenotic at L4-L5, thecal sac is mildly stenotic at L2 due to extensive left anterolateral epidural metastasis. There is evidence of large bulky retroperitoneal metastatic lymph nodes as well as right hydronephrosis. Metastatic disease involves the right paraspinous musculature, psoas, and obliques. 12/24/2020: CT brain without contrast was performed which demonstrated no acute intracranial hemorrhage or mass-effect. Radiation Treatment History: No prior history of radiation therapy. No pacemaker. No diagnosis of collagen vascular disease. Interval History: Patient was seen in the hospital room with his . They report that he was originally diagnosed with metastatic prostate adenocarcinoma in 2012 and had a lot of confusion about the diagnosis and treatment as to whether he really had this disease or not and ended up only getting 1 injection of Lupron and for the last 7-8 years he has had no treatment and PSA has remained very high. Patient is currently on narcotic pain medication and has some difficulty with having accurate conversations and has some confusion so much of the history was gathered from discussing with his . Patient reports that he had been doing well overall in the last few months when he began having worsening back pain. It is not currently clear where most of the back pain is located but the patient and believe that it has been mostly in the upper back between the shoulders. However he did have a fall last Saturday which brought him into the emergency room which potentially could have caused injury. He denies having difficulty with the ostomy bag and has had regular bowel movements. He denies urinary incontinence, focal weakness or new numbness. Prior to the last couple months patient reports being able to care for himself very easily and was staying very active without any restrictions or limitations, he had no difficulty walking. He denies having cough, shortness of breath, chest pain, abdominal pain. Patient denies having unexpected weight loss or change in appetite recently. Medical History (Last Reviewed 12/25/20 @ 02:[address] Dani Rinaldi MD) Nonrheumatic tricuspid (valve) insufficiency (Chronic) Mild (1+) pe echo 10/31/2018 Pulmonary hypertension (Chronic) RVSP 78 mmhg per echo 10/31/2018 Elevated PSA (Chronic) Paroxysmal atrial fibrillation (Chronic) Right bundle branch block (Chronic) Elevated troponin I level (Inactive) Blood clotting disorder (Chronic) Abnormal electrocardiogram (Chronic) Bilateral pulmonary embolism (Resolved) Benign tumor of colon (Chronic) Rectum - 2013 Enlarged prostate (Chronic) Arthritis (Chronic) Acute respiratory failure with hypoxia (Resolved) Surgical History (Last Reviewed 12/25/20 @ 02:[address] Dani Rinaldi MD) History of colostomy (Acute) Hx of tonsillectomy (Acute) Social History - Tobacco Smoking Status Former smoker Social History - Living Arrangements Patients Living Arrangements With Significant Other Home Medications Medication Instructions Recorded ascorbic acid (vitamin C) 500 mg 500 mg PO DAILY 08/30/20 capsule apixaban 5 mg tablet 5 mg PO BID #60 tab 09/05/20 metoprolol tartrate 50 mg tablet 25 mg PO BID #180 tab 10/19/20 Atorvastatin Calcium [Lipitor] 80 mg PO QHS #30 tab 11/07/20 hydrocodone 5 mg-acetaminophen 325 1 tablet PO Q6H PRN #20 tablet 11/22/20 mg tablet aspirin 81 mg chewable tablet 81 mg PO DAILY@0800 #90 tablet 12/07/20 metformin 500 mg tablet,extended 500 mg PO DAILY #90 tablet 12/07/20 release 24 hr tamsulosin 0.4 mg capsule 0.4 mg PO DAILY@1730 #90 cap 12/07/20 Ciprofloxacin [Cipro] 500 mg PO DAILY 5 Days #5 tab 12/23/20 Allergy/AdvReac Type Severity Reaction Status Date / Time No Known Allergies Allergy Verified 12/24/20 16:22 Review of Systems: A 12-point review of systems was completed and was negative except for what is noted in the HPI/Interval History and by the nurse. Height/Weight/BMI: Height: 5 ft 6 in Weight: 147 lbs Vital Signs Temperature 98.1 F 12/27/20 13:16 Temperature Source Oral 12/27/20 13:16 Pulse Rate 85 12/27/20 13:16 Pulse Strength Normal (2+) 12/26/20 22:13 Respiratory Rate 16 12/27/20 13:16 Respiratory Effort Non-Labored 12/27/20 02:20 Respiratory Depth Normal 12/27/20 02:20 Respiratory Pattern Normal 12/27/20 02:20 Blood Pressure 120/76 12/27/20 13:16 Blood Pressure Mean 90 12/27/20 13:16 Blood Pressure Source Monitor 12/27/20 13:16 Blood Pressure Position Sitting 12/27/20 13:16 Blood Pressure Location Right Arm 12/27/20 13:16 Pulse Ox 93 12/27/20 13:16 Oxygen Delivery Method Nasal Cannula 12/27/20 13:16 Oxygen Flow Rate (L/min) 2 12/27/20 13:16 Physical Exam: ECO-3 KARNOFSKY SCORE: 50-60% CONSTITUTIONAL: Well-developed, well-nourished, and in no apparent distress. NECK: Supple,with no thyromegaly, and non-tender. Trachea midline. No cervical or supraclavicular adenopathy noted. CARDIAC: Regular rate and rhythm. Normal S1, S2. No murmurs, rubs, or gallops. PULMONARY/CHEST: Lungs are clear to auscultation and percussion bilaterally. No wheezes, rhonchi, or crackles noted. No increased work of breathing. ABDOMINAL: Abdomen soft, non-tender, non-distended. No hepatomegaly. Normoactive bowel sounds in all four quadrants. No guarding, rebound. BACK: Straight and aligned. No CVA tenderness. Axial skeleton non-tender to percussion. EXTREMITIES: Full range of motion in all four extremities, with normal strength equally and symmetrically. No evidence of edema. No clubbing. SKIN: Skin is warm and dry. No rashes or lesions evident. NEUROLOGICAL EXAM: Alert and oriented x 3. Cranial nerves II through XII are grossly intact. No focal neurological deficit. Speech is fluent. There is no upper or lower extremity sensory deficit or motor deficit. Muscle strength is 5/5 in all muscle groups. Gait and posture are steady. There are no abnormal cerebellar signs. PSYCHIATRIC: Appropriate mood and affect for the clinical situation. 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 Patient was seen in his hospital room with his . He does appear to have some confusion and difficulty remembering his medical story likely due to increase in narcotic pain medications, his was able to provide some history. He has had elevated PSA in the thousands for at least 4 years, previous PSA levels are not available to review at this time but his history is that he was diagnosed in 2012 and during 2012 had apparently received a Lupron injection but then nothing since then. I had a detailed discussion with the patient regarding the imaging findings including the MRI lumbar spine and CT chest which demonstrate evidence of diffuse metastatic disease involving the appendicular and axial skeleton as well as bulky disease involving the retroperitoneal lymph nodes and right paraspinal musculature. PSA is greater than 2000, he has apparently not had any treatment for prostate cancer and PSA has been elevated to a very high degree for many years. He is now taking Lupron since last week. Clinically he has declined and has a relatively poor performance status at this time, it is felt that he cannot tolerate any more aggressive systemic therapy at this time. He does not have any neurologic compromise from his disease but there is evidence of epidural disease involving L2 and I plan to review further with radiology to get a better sense of the extent of epidural disease. There is possibly evidence of old fractures within the lumbar spine but no significant height loss. I did review options of pursuing palliative radiation therapy and explained that treatment will need to be directed at the sites of disease that are felt to provide the largest degree of improvement in his current symptoms and also potentially to sites of disease where he has epidural involvement to prevent neurologic compromise. He currently believes that most of the pain is located in the upper thoracic spine near the shoulder blades and does not complain of pain elsewhere, his does corroborate this and says that he was complaining more of that sort of pain when he came into the hospital on Saturday. Plan is to complete further work-up including MRI of the cervical and thoracic spine as well as CT abdomen/pelvis to further define the extent of disease. I briefly reviewed the logistics of radiation therapy including CT simulation, treatment planning, and daily fractionated treatment delivery likely for 5 treatments, I did explain the for limited volume bone metastasis a single fraction may be an option. The risks, benefits, and alternatives to radiation therapy were reviewed and questions were addressed. Plan: 1) MRI of remaining spine and CT abdomen/pelvis to complete disease evaluation. Depending on imaging findings and ability to isolate areas needing palliation will pursue palliative radiation therapy in addition to ADT. Thank you for allowing me to participate in the management and care of your patient. If I may answer any questions in the interim, please do not hesitate to contact me at any time. Cali Brown DO, MS [employer] Engineer, Department of Radiation Oncology [facility] Inpatient E&M: 25505 Init Hosp L3
--- NOTE | 2020-12-27 14:08 | CT_ITS ---
STUDY: CT ABDOMEN AND PELVIS WITH AND WITHOUT CONTRAST REASON FOR EXAM: Male, 75 years old. hydronephrosis -- prostate CA, oral and IV contrast need to be used RADIATION DOSAGE (If Supplied By Facility): CTDIvol = ( 22.99 ) mGy, DLP = ( 2386.25 ) mGycm TECHNIQUE: Transaxial images were obtained from the dome of the diaphragm to the symphysis pubis without oral contrast. Oral and amp; IV Gastrografin and amp; 100mL Isovue-370 was administered. Sagittal and coronal images were reconstructed. Individualized dose optimization techniques were used for this CT. COMPARISON: None. FINDINGS: There are small bilateral pleural effusion slightly larger on the right.. The visualized portions of the heart are within normal limits. Normal liver. Normal gallbladder and extrahepatic biliary system. Normal spleen. Normal pancreas. Normal bilateral adrenal glands. There are tiny nonobstructing right renal calculi. There is moderate hydroureteronephrosis which appears to be due to obstruction by multiple enlarged retroperitoneal nodes. There is a small renal cyst. Normal left kidney. Nonspecific gastric distention in association with diffuse ileus pattern. No evidence for small bowel obstruction.. There is a colostomy in the left lower quadrant. No evidence for acute appendicitis. Atherosclerotic disease with distal abdominal aortic aneurysm measuring approximately 4.1 x 3.6 cm. There is atherosclerotic plaque however, there also appears to be an intimal flap suggesting short segmental dissection.. Normal inferior vena cava. There is massive retroperitoneal adenopathy the mid and lower abdomen as well as extensive bilateral iliac adenopathy greater on the right. There is left internal iliac adenopathy as well as obturator adenopathy and femoral adenopathy. There is also right internal iliac and external iliac, obturator and femoral adenopathy There is an enlarged prostate in association with indwelling HOPSON catheter within collapsed bladder. Normal abdominal wall. There is extensive osseous metastasis involving the entire lumbar spine and pelvis. There is an old healed fracture of the left ilium. CT/CT Abd/Pelvis W/WO Contrast IMPRESSION: Moderate right-sided hydronephrosis secondary to ureteral encasement by massive retroperitoneal adenopathy or severe on the right. There is also extensive osseous metastases involving the spine and pelvis from known prostate carcinoma.. Incidental finding of distal abdominal aortic aneurysm with findings suggestive of focal segmental dissection just proximal to the bifurcation without involvement of the common iliacs Electronically Signed: Jaden Ken MD at 21:05 EDT , Service support ,
--- NOTE | 2020-12-27 15:22 | PCM.PROGNOTE ---
Patient Problems: Active and Suspected Problems (Last Reviewed 12/25/20 @ 02:[address] Dani Rinaldi MD) Lower extremity weakness (Acute) Back pain (Acute) Prostate cancer metastatic to bone (Acute) Weakness (Acute) UTI (urinary tract infection) (Acute) Subjective: Patient was seen and examined today, I talked with his who was in the room at the time of my examination. I also talked with radiation oncology today as well as oncology about the patient's care. Oncology has ordered an MRI of the patient's neck to try to delineate if the patient has spread of his presumed prostate cancer into the cervical spine area. Radiation oncology requested a CT of the abdomen and pelvis to be ordered to help delineate the extent of the patient's prostate cancer inside the abdominal pelvic cavity. Patient still remains moderately confused today, I talked with palliative care and they thought it was secondary to his pain medications and they have adjusted them. - Physical Exam Vitals/I&O's: Vital Signs Temp Pulse Resp BP Pulse Ox 98.1 F 85 16 120/76 93 12/27/20 13:16 12/27/20 13:16 12/27/20 13:16 12/27/20 13:16 12/27/20 13:16 Oxygen Flow Rate (L/min) 2 Oxygen Delivery Method Nasal Cannula Weight: 66.7 kg Body Mass Index (BMI) 23.7 Finger Stick Blood Glucose 148 Intake and Output for Last 24 Hours 12/25/20 12/26/20 12/27/20 23:59 23:59 23:59 Intake Total 2235.83 / 2235.83 1557.75 / 1557.75 Output Total 2150 / 2150 1675 / 1675 600 / 600 Balance 85.83 / 85.83 -117.25 / -117.25 -600 / -600 General: Alert, No apparent distress, Well developed, - - Patient is frail-appearing and older than his stated age, he has moderate confusion HEENT: Atraumatic, PERRLA, EOMI, Normocephalic Oral: Moist Mucosa Neck: Supple, No JVD, Trachea Midline, Thyroid Normal Size and Texture Lungs: Clear to auscultation, Normal air movement, No rhonchi, No wheeze Cardiovascular: Regular rate, Regular Rhythm, Normal S1, Normal S2, No murmurs, PMI Normal, No rub noted, Tachycardic Abdomen: Bowel Sounds Present, Soft, Non Tender, Non-Distended Extremities: No clubbing, No cyanosis, No edema, Capillary Refill Less than 3 Seconds Skin: No rashes, No breakdown Musculoskeletal: No Tenderness to Palpation of Joints or Extremities Neurological: Cranial nerves II-XII grossly intact, Neuro grossly intact, Sensory exam intact to light touch and pain Psych/Mental Status: Flat Affect, - - Patient exhibits moderate confusion Laboratory Results 12/26/20 16:32: POC Glucose 223 H 12/26/20 21:51: POC Glucose 322 H 12/27/20 06:40: POC Glucose 224 H 12/27/20 11:50: POC Glucose 293 H Current Medications Acetaminophen (Acetaminophen 325 Mg Tablet) 650 mg PO Q6H PRN PRN PRN Reason: Pain Score 1-10/Temp > 100.7 F Last Admin: 12/27/20 13:36 Dose: 650 mg Documented by: Apixaban (Apixaban 5 Mg Tablet) 5 mg PO BID [facility] Last Admin: 12/27/20 10:06 Dose: 5 mg Documented by: Ascorbic Acid (Ascorbic Acid 500 Mg Tablet) 500 mg PO DAILY [facility] Last Admin: 12/27/20 10:08 Dose: 500 mg Documented by: Aspirin (Aspirin 81 Mg Tab.Chew) 81 mg PO DAILY@0800 [facility] Last Admin: 12/27/20 10:06 Dose: 81 mg Documented by: Atorvastatin Calcium (Atorvastatin Calcium 80 Mg Tablet) 80 mg PO QHS [facility] Last Admin: 12/26/20 21:54 Dose: 80 mg Documented by: Calamine/Phenol (Menthol/Lanolin/Calamine/Znox 113 Gm Tube) 1 applic TOPICAL BID [facility]; Protocol Last Admin: 12/27/20 11:52 Dose: Not Given Documented by: Dexamethasone (Dexamethasone 4 Mg Tablet) 8 mg PO Q12 [facility] Dextrose (Dextrose 50%-Water 25 Gm/50 Ml Disp.Syrin) 0 gm IV X1 PRN; Protocol PRN Reason: Hypoglycemia Doxycycline Monohydrate (Doxycycline 100 Mg Capsule) 100 mg PO BID [facility] Last Admin: 12/27/20 10:05 Dose: 100 mg Documented by: Glucagon (Glucagon 1 Mg/Ml Syringe) 1 mg IM .X1 PRN PRN Reason: Hypoglycemia Sodium Chloride () 250 mls @ 15 mls/hr IV .[id number] PRN PRN Reason: Saline Flush Last Infusion: 12/26/20 02:12 Dose: 0 mls/hr Documented by: Sodium Chloride () 250 mls @ 15 mls/hr IV .[id number] PRN PRN Reason: Additional IVPB Infusion Insulin Human Lispro (Insulin Lispro 100 Unit/Ml Insuln.Pen) 0 unit SC ACHS [facility]; Protocol Last Admin: 12/27/20 11:53 Dose: 6 u Documented by: Iopamidol (Contrast Allergy Safety Check) 0 ml IV X1 BRENDA Lactulose (Lactulose 20 Gm/30 Ml Udc) 20 gm PO BID [facility] Last Admin: 12/27/20 10:09 Dose: Not Given Documented by: Magnesium Hydroxide (Magnesium Hydroxide 30 Ml Udc) 30 ml PO DAILY PRN PRN PRN Reason: Constipation Last Admin: 12/26/20 06:38 Dose: 30 ml Documented by: Metoprolol Tartrate (Metoprolol Tartrate 25 Mg Tablet) 25 mg PO BID [facility] Last Admin: 12/27/20 10:07 Dose: 25 mg Documented by: Nutritional Formula (Lactose Free) (Glucerna Shake 120 Ml Liquid) 120 ml PO 4X/DAY [facility] Last Admin: 12/27/20 13:41 Dose: Not Given Documented by: Ondansetron HCl (Ondansetron 4 Mg/2 Ml Vial) 4 mg IV Q8H PRN PRN PRN Reason: NAUSEA/VOMITING Oxycodone HCl (Oxycodone 5 Mg Tablet) 10 mg PO Q4H PRN PRN PRN Reason: Pain Score 6-10 Last Admin: 12/27/20 13:37 Dose: 10 mg Documented by: Oxycodone HCl (Oxycodone 5 Mg Tablet) 10 mg PO Q6 [facility] Senna/Docusate Sodium (Senna/Docusate Sodium 1 Tablet) 1 tablet PO BID [facility] Last Admin: 12/27/20 10:09 Dose: Not Given Documented by: Sodium Chloride (0.9% Saline Lock 10 Ml Syringe) 10 - 40 ml IV UD PRN PRN Reason: SALINE FLUSH Last Admin: 12/26/20 02:08 Dose: 10 ml Documented by: Tamsulosin HCl (Tamsulosin Hcl 0.4 Mg Capsule) 0.4 mg PO DAILY@1730 [facility] Last Admin: 12/26/20 16:34 Dose: 0.4 mg Documented by: Medical Necessity - Tobacco Use Smoking Status: Former smoker Assessment/Plan All Active Problems (Last Reviewed 12/25/20 @ 02:[address] Dani Rinaldi MD) Balanitis (Resolved) Lower extremity weakness (Acute) Back pain (Acute) Prostate cancer metastatic to bone (Acute) Weakness (Acute) UTI (urinary tract infection) (Acute) Bilateral pulmonary embolism (Resolved) Acute respiratory failure with hypoxia (Resolved) #1 acute generalized debility secondary to metastatic prostate cancer of the lumbar spine-it is planned that the patient will go to an extended care facility for short-term rehab services, he may be set up for palliative radiation as an outpatient, this plan is pending at this point #2 metastatic prostate cancer-patient does not appear to be a candidate for chemotherapy, he is currently getting hormonal therapy as an outpatient, it appears that the patient had a diagnosis of prostate cancer as early as 2012 according to oncology. It is unknown why the patient has not been compliant with outpatient treatment for this prostate cancer, patient's told me yesterday that the patient felt he was not getting adequate answers from his physicians as to whether to continue treatment in the past. It appears that the patient now has advanced prostate cancer and is not a candidate for aggressive treatment. 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 Inpatient E&M: 20790 Subs Hosp L2
[2020-12-27 16:36] LABS: Bedside Glucose 335 mg/dL (70-110)
[2020-12-27 16:55] LABS: Hematocrit 29.9 % (40-54); Hemoglobin 9.5 g/dL (13.0-16.5); Mean Corp Hgb Conc 31.8 g/dL (32-36); Mean Corpuscular Hgb 30.4 pg (27.0-32.0); Mean Corpuscular Volume 95.8 fL (80-94); POSITIVE COUNT YES; POSITIVE MORPHOLOGY YES; Platelet Count 218 K/mm3 (150-450); RBC Distribution Width CV 17.7 % (11.6-14.6); RBC Distribution Width SD 60.4 fl (35.1-43.9); Red Blood Count 3.12 M/mm3 (4.6-6.2)
[2020-12-27 17:31] LABS: Eosinophil 1 % (0-5); Lymphocyte 28 % (19-41); Metamyelocyte 1 % (0-1); Monocyte 4 % (0-10); Myelocyte 2 % (0-0); Neutrophil-Band 1 % (0-5); Neutrophil-Segmented 62 % (47-70); Total Cells Counted 100 (MANUAL DIFF)
[2020-12-27 17:37] LABS: Differential Indicated MANUAL DIFF
[2020-12-27 17:50] LABS: Corrected WBC 9.5 K/mm3 (4.4-11.0); Nucleated Red Bld Cells,Manual 10 % (0-5)
[2020-12-27 17:52] LABS: Absolute Lymphocyte Count 2.66 X10^3/uL (0.83-4.51)
[2020-12-27 17:55] LABS: Blast 1 % (0-0)
[2020-12-27] MEDS: Tamsulosin HCl 0.4 MG Capsule PO (18:30)
[2020-12-27] MEDS: Oxymetazoline 0.05% 1 SPRAY SPRAY.BTL 2 SPRAY NASAL (21:09)
[2020-12-27] MEDS: dexAMETHasone 4 MG Tablet 8 MG PO (22:15)
[2020-12-27] MEDS: QUEtiapine 25 MG Tablet PO (22:15)
[2020-12-27] MEDS: Atorvastatin Calcium 80 MG Tablet PO (22:16)
[2020-12-27] MEDS: hydrALAZINE 20 MG/ML Vial 5 MG IV (22:17)
[2020-12-27] MEDS: 0.9% Saline Lock 10 ML Syringe IV (22:17)
[2020-12-27] MEDS: Senna/Docusate Sodium 1 Tablet PO (22:18)
[2020-12-27 22:46] LABS: Bedside Glucose 313 mg/dL (70-110)
[2020-12-28] VITALS (7 sets, daily range): BP systolic 116–137; BP diastolic 63–84; PULSE 89–108; RESP 16–18; TEMP 36.3–36.9; O2SAT 91–96
[2020-12-28] MEDS: Insulin Lispro 100 UNIT/ML INSULN.PEN SC ×4 (06:28→23:08)
[2020-12-28 06:35] LABS: Bedside Glucose 272 mg/dL (70-110)
--- NOTE | 2020-12-28 08:57 | NURSING ---
Patient has been pulling the ostomy appliance apart. nursing had to snap the pouch back on this morning. will try a one piece appliance to see of this will help from keeping patient from pulling it apart. stoma is pink and well budded. peristomal skin is intact. cleansed skin with warm water. pat dry. applied a flat 1 piece [place] appliance with a small amount of stoma paste. pt tolerated well. will continue to monitor.
--- NOTE | 2020-12-28 09:05 | CASEMGMT ---
Addendum entered by Gilma Simpson 12/28/20 14:48: ERNESTINA placed a call to Shiela in radiation ([phone]) to get pt's radiation treatment schedule for [facility]. Shiela states pt will get radiation treatment tomorrow at 9:00am and then Saturday, Saturday, Saturday, Saturday at 1:00pm. ERNESTINA placed a call to Gilma at [facility] and updated her on radiation treatment schedule. Gilma states she will relay schedule to their transportation. Addendum entered by Gilma Simpson 12/28/20 13:46: ERNESTINA received call from Gilma at [facility] stating pre-cert was obtained. ERNESTINA explained that plan is for pt to stay at [facility] today and then will discharge to [facility] tomorrow after radiation. Gilma states understanding, states she will just need to know the radiation schedule so they can arrange transportation for pt. ERNESTINA informed Gilma that this worker will reach out to product development chemist today to get radiation schedule and will call her back with schedule. Gilma states understanding. Plan: [facility] tomorrow after pt gets radiation treatment Addendum entered by Gilma Simpson 12/28/20 13:17: ERNESTINA updated pt and pt's on acceptance to [facility] pending pre-cert. ERNESTINA explained that plan is for pt to discharge tomorrow to [facility] after pt's radiation treatment if pre-cert is obtained by then. Pt and pt's state understanding. Addendum entered by Gilma Simpson 12/28/20 13:00: ERNESTINA updated that pt will begin radiation treatment tomorrow. Physician states that even if pre-cert is obtained today, pt will stay until tomorrow when pt can begin radiation treatment and then can discharge to SNF. ERNESTINA placed a call to Gilma in admissions at [facility] and left message updating her. ERNESTINA faxed updated clinicals. Plan: [facility] pending pre-cert Original Note: Social Work Note ERNESTINA placed a call to Gilma at [facility] to get update on pt's pre-cert. Gilma states pt's pre-cert is still pending. Gilma states pt will need COVID test. Plan: [facility] pending pre-cert Gilma Simpson NEUROPSYCHOLOGY DIVISION CHIEF, [employer]IRS[employer]ING I INSPECTOR
[2020-12-28] MEDS: Aspirin 81 MG TAB.CHEW PO (09:26)
[2020-12-28] MEDS: Lactulose 20 GM/30 ML UDC PO ×2 (09:27→23:06)
[2020-12-28] MEDS: dexAMETHasone 4 MG Tablet 8 MG PO ×2 (09:28→23:07)
[2020-12-28] MEDS: APIXABAN 5 MG TABLET PO ×2 (09:28→23:08)
[2020-12-28] MEDS: Doxycycline 100 MG CAPSULE PO ×2 (09:28→23:07)
[2020-12-28] MEDS: Metoprolol Tartrate 25 MG Tablet PO ×2 (09:29→23:09)
[2020-12-28] MEDS: Ascorbic Acid 500 MG Tablet PO (09:30)
[2020-12-28] MEDS: Senna/Docusate Sodium 1 Tablet PO ×2 (09:30→23:09)
--- NOTE | 2020-12-28 11:04 | ROFU.STAN ---
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 History of Present Illness: 11/06/2020: Patient underwent brain MRI without contrast. Suspected CVA. There is moderate cerebral atrophy with widening of the extra-axial spaces and ventricular dilation. There are limited number of small white matter hyperintensities distributed throughout the deep white matter tracts of the cerebral hemispheres consistent with chronic white matter ischemic changes. There are punctate hyperintensities of the periventricular white matter of the parietal lobes as well as both hemispheres and cerebellum which demonstrate diffusion consistent with acute/subacute embolic infarcts. 11/16/2020: X-ray of the left hip/pelvis was performed due to having left hip pain for several days. There is a question of mottled appearance of the visualized osseous structures which may represent metastatic disease. Moderate narrowing of the left hip joint without fracture or dislocation. 11/23/2020: Patient was evaluated by medical oncology due to having a very elevated PSA as well as pelvic bone changes on x-ray potentially consistent with metastatic disease. Recommended obtaining bone scan for further staging. 12/24/2020: Patient presented to the emergency room with generalized weakness and worse discomfort involving his back. 12/24/2020: CT chest without contrast was performed after sustaining a fall. This demonstrated evidence for retroperitoneal adenopathy suspicious for neoplasm. Right hydronephrosis which is incompletely visualized and may be from distal ureteral obstruction from either extrinsic mass or calculus. There is diffuse sclerosis and lysis of the thoracic spine which is new since 2019 and consistent with bone metastasis. There is mild mediastinal adenopathy. There is trace right pleural effusion with atelectasis in the lung bases. There is evidence for posterior left eighth and lateral left 11th rib fractures. There is asymmetric enlargement of the right psoas muscle which may be retroperitoneal adenopathy. There is a right perinephric soft tissue density which may represent a renal lesion versus enlarged retroperitoneal lymph node. 12/24/2020: MRI lumbar spine with and without contrast was performed. This demonstrated diffuse osseous metastatic disease with combination of lesions and marrow placement. There are probably late subacute or chronic unhealed fractures of T12, L1, and L3 with mild compression of T12. There are extraosseous soft tissue metastases with posterior cortical breakthrough at multiple levels and the thecal sac is severely stenotic at L4-L5, thecal sac is mildly stenotic at L2 due to extensive left anterolateral epidural metastasis. There is evidence of large bulky retroperitoneal metastatic lymph nodes as well as right hydronephrosis. Metastatic disease involves the right paraspinous musculature, psoas, and obliques. 12/24/2020: CT brain without contrast was performed which demonstrated no acute intracranial hemorrhage or mass-effect. Radiation Treatment History: No prior radiation therapy. No pacemaker. Interval History: Patient was seen in his hospital room with his in follow-up to yesterday's inpatient consult. He was able to complete the CT abdomen/pelvis and cervical MRI but not the thoracic MRI. His pain level today is 7/10 and primarily located in the upper thoracic spine between his shoulder blades. He otherwise denies having any new symptoms. He remains intermittently confused likely secondary to potential UTI as well as pain medication. Review of Systems: A 12-point review of systems was completed and was negative except for what is noted in the HPI/Interval History and by the nurse. Vital Signs Temperature 98.0 F 12/28/20 08:41 Temperature Source Oral 12/28/20 08:41 Pulse Rate 108 H 12/28/20 09:29 Pulse Strength Normal (2+) 12/26/20 22:13 Respiratory Rate 16 12/28/20 08:41 Respiratory Effort Non-Labored 12/27/20 21:30 Respiratory Depth Normal 12/27/20 02:20 Respiratory Pattern Normal 12/27/20 02:20 Blood Pressure 137/84 H 12/28/20 08:41 Blood Pressure Mean 101 12/28/20 08:41 Blood Pressure Source Monitor 12/28/20 08:41 Blood Pressure Position Semi-Fowlers 12/28/20 08:41 Blood Pressure Location Left Arm 12/28/20 08:41 Pulse Ox 91 12/28/20 08:59 Oxygen Delivery Method Room Air 12/28/20 08:59 Oxygen Flow Rate (L/min) 2 12/27/20 13:16 Physical Exam: CONSTITUTIONAL: Well-developed, well-nourished, and in no apparent distress. CARDIAC: Regular rate and rhythm. Normal S1, S2. No murmurs, rubs, or gallops. PULMONARY/CHEST: Lungs are clear to auscultation and percussion bilaterally. No wheezes, rhonchi, or crackles noted. No increased work of breathing. ABDOMINAL: Abdomen soft, non-tender, non-distended. No hepatomegaly. Normoactive bowel sounds in all four quadrants. No guarding, rebound. BACK: Straight and aligned. No CVA tenderness. Axial skeleton non-tender to percussion but pain is reported to be present in the upper thoracic spine. EXTREMITIES: Full range of motion in all four extremities, with normal strength equally and symmetrically. No evidence of edema. No clubbing. NEUROLOGICAL EXAM: Cranial nerves II through XII are grossly intact. No focal neurological deficit. There is no upper or lower extremity sensory deficit or motor deficit. Muscle strength is 5/5 in all muscle groups. Gait and posture are steady. Imaging: I reviewed the findings of the CT abdomen/pelvis with the patient and his . This demonstrates extensive osseous disease throughout the visualized spine as well as significant muscle involvement of disease particularly in the right paraspinal region and extensive retroperitoneal adenopathy likely resulting in the right hydronephrosis which is relatively mild. He has extensive pelvic adenopathy as well as inguinal adenopathy and the prostate appears enlarged. I reviewed the lumbar spine MRI with the radiologist and specifically discussed the encroachment of the spinal cord and cauda equina at various levels with central canal/epidural involvement, this is visible at L1, L2, L3, and L4. 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 Patient was seen to review imaging. I reviewed in detail the findings of the CT abdomen/pelvis and the cervical spine MRI, he was unable to complete the thoracic spine MRI due to confusion. I explained in detail that he has extremely extensive osseous disease as well as retroperitoneal adenopathy resulting in mild right hydronephrosis and that he also has an enlarged prostate and pelvic lymph nodes as well as muscle invasion particularly in the right paraspinal musculature/psoas region. He was treated with Lupron last week and not a candidate for any further aggressive systemic therapy due to relatively poor performance status. He does have confusion intermittently likely secondary to UTI and narcotic pain medication use. Palliative medicine has seen him and has been controlling pain medication. Due to the disease extent I had a discussion with the and patient about the appropriateness for hospice and I explained the general role of hospice and that getting hospice involved earlier in the course of stage IV disease is better than waiting. They are not currently ready for hospice care but have agreed to palliative care. I reviewed options of completing radiation therapy for palliative goals. Realistic goals may be to improve pain related to bone metastasis and to treat areas where he has pending neurologic compromise. Given the findings of the lumbar spine MRI demonstrating multilevel epidural disease with some stenosis I do believe it would be prudent to consider a short course of palliative radiation therapy to the lumbar spine to prevent further disease growth in this area and development of neurologic compromise which could significantly impact quality of life. The bulk of his pain is expressed in the thoracic spine and MRI was unable to be done. I reviewed the option of completing palliative radiation therapy to the area of most intense discomfort in an effort to improve this pain, given the extensive nature of his disease the potential benefit may be reduced as there is disease at every level and the chances of isolating the area of pain may be difficult, I do not want to complete palliative radiation therapy to the entire thoracic spine due to the significant risk of toxicities. I reviewed the logistics of radiation therapy including CT simulation, treatment planning, and likely 5 fractions of palliative radiation therapy. The risk, benefits, and alternatives to radiation therapy were reviewed in detail and all questions were addressed. The goals of palliative radiation therapy were addressed and include pain control and prevention of neurologic compromise. The potential acute and chronic toxicities were reviewed and include but are not limited to pain flare, fatigue, skin irritation, diarrhea/loose stool, bowel obstruction, fistula, bladder irritation, long-term risk of bone weakening and fracture risk. I reviewed the relative likelihood of these side effects as well as management and timing. Following our discussion the patient desired to proceed with palliative radiation therapy to the lumbar spine with goals of preventing neurologic compromise and to consider potential treatment to the sites of most intense pain within the upper thoracic spine. Informed consent was obtained and CT simulation will be completed later today in an effort to initiate treatment by 12/29/2020. If he is discharged to the retirement we will need to arrange transportation for 5 treatments. Plan: 1) CT simulation for palliative radiation therapy Cali Brown DO, MS Overlay Plastician, Department of Radiation Oncology [facility]
[2020-12-28 11:20] LABS: Bedside Glucose 316 mg/dL (70-110)
[2020-12-28 13:18] LABS: Pathologist Review Reviewed
[2020-12-28] MEDS: Glucerna Shake 120 ML LIQUID PO (14:42)
[2020-12-28] MEDS: Tamsulosin HCl 0.4 MG Capsule PO (16:33)
--- NOTE | 2020-12-28 18:27 | PCM.PROGNOTE ---
Patient Problems: Active and Suspected Problems (Last Reviewed 12/25/20 @ 02:[address] Dani Rinaldi MD) Lower extremity weakness (Acute) Back pain (Acute) Prostate cancer metastatic to bone (Acute) Weakness (Acute) UTI (urinary tract infection) (Acute) Subjective: Patient was seen and examined today, I had conversations with him and his who was in the room at the time of my examination, I also discussed his care with radiation oncology. Patient has extensive metastatic prostate cancer in the entire spine and he has bulky disease in the abdomen that will soon or later because renal obstruction, at this time, he shows no signs of severe hydronephrosis however. Radiation oncology has proposed that the patient receive radiation to the lumbar spine area due to the possibility of impending impingement of the spinal cord due to the cancer. Patient has agreed to undergo this radiation treatment. We are still awaiting approval for the patient to go to an extended care facility for short-term rehab services. I talked to the patient as to why he had not received any cancer treatment for several years for his known prostate cancer, he told me that he was receiving conflicting answers concerning whether he should take treatment for the prostate cancer. However, I talked to radiation oncology who reviewed notes written in 2017 by a physician the patient saw concerning his prostate cancer, at that time, his prognosis and medical treatment was explained to the patient in great detail and it appears that the patient did not follow-up regarding treatment. Objective: General: Alert, No apparent distress, Well developed, - - Patient is frail-appearing and older than his stated age, he did not appear confused to this examiner today HEENT: Atraumatic, PERRLA, EOMI, Normocephalic Oral: Moist Mucosa Neck: Supple, No JVD, Trachea Midline, Thyroid Normal Size and Texture Lungs: Clear to auscultation, Normal air movement, No rhonchi, No wheeze Cardiovascular: Regular rate, Regular Rhythm, Normal S1, Normal S2, No murmurs, PMI Normal, No rub noted, Tachycardic Abdomen: Bowel Sounds Present, Soft, Non Tender, Non-Distended Extremities: No clubbing, No cyanosis, No edema, Capillary Refill Less than 3 Seconds Skin: No rashes, No breakdown Musculoskeletal: No Tenderness to Palpation of Joints or Extremities, patient is cachectic appearing Neurological: Cranial nerves II-XII grossly intact, Neuro grossly intact, Sensory exam intact to light touch and pain Psych/Mental Status: Flat Affect, - -patient is alert and appropriate - Physical Exam Vitals/I&O's: Vital Signs Temp Pulse Resp BP Pulse Ox 98.4 F 89 16 116/63 96 12/28/20 14:35 12/28/20 14:35 12/28/20 14:35 12/28/20 14:35 12/28/20 14:35 Oxygen Flow Rate (L/min) 2 Oxygen Delivery Method Room Air Weight: 66.7 kg Body Mass Index (BMI) 23.7 Finger Stick Blood Glucose 148 Intake and Output for Last 24 Hours 12/26/20 12/27/20 12/28/20 23:59 23:59 23:59 Intake Total 1557.75 / 1557.75 104.375 / 104.375 Output Total 1675 / 1675 600 / 1350 750 / 750 Balance -117.25 / -117.25 -495.625 / -1245.625 -750 / -750 Laboratory Results 12/27/20 16:17: Diff Path Review Reviewed 12/27/20 22:34: POC Glucose 313 H 12/28/20 06:24: POC Glucose 272 H 12/28/20 11:08: POC Glucose 316 H Current Medications Acetaminophen (Acetaminophen 325 Mg Tablet) 650 mg PO Q6H PRN PRN PRN Reason: Pain Score 1-10/Temp > 100.7 F Last Admin: 12/27/20 13:36 Dose: 650 mg Documented by: Apixaban (Apixaban 5 Mg Tablet) 5 mg PO BID [facility] Last Admin: 12/28/20 09:28 Dose: 5 mg Documented by: Ascorbic Acid (Ascorbic Acid 500 Mg Tablet) 500 mg PO DAILY [facility] Last Admin: 12/28/20 09:30 Dose: 500 mg Documented by: Aspirin (Aspirin 81 Mg Tab.Chew) 81 mg PO DAILY@0800 [facility] Last Admin: 12/28/20 09:26 Dose: 81 mg Documented by: Atorvastatin Calcium (Atorvastatin Calcium 80 Mg Tablet) 80 mg PO QHS [facility] Last Admin: 12/27/20 22:16 Dose: 80 mg Documented by: Calamine/Phenol (Menthol/Lanolin/Calamine/Znox 113 Gm Tube) 1 applic TOPICAL BID [facility]; Protocol Last Admin: 12/28/20 09:27 Dose: Not Given Documented by: Dexamethasone (Dexamethasone 4 Mg Tablet) 8 mg PO Q12 [facility] Last Admin: 12/28/20 09:28 Dose: 8 mg Documented by: Dextrose (Dextrose 50%-Water 25 Gm/50 Ml Disp.Syrin) 0 gm IV X1 PRN; Protocol PRN Reason: Hypoglycemia Doxycycline Monohydrate (Doxycycline 100 Mg Capsule) 100 mg PO BID [facility] Last Admin: 12/28/20 09:28 Dose: 100 mg Documented by: Glucagon (Glucagon 1 Mg/Ml Syringe) 1 mg IM .X1 PRN PRN Reason: Hypoglycemia Hydralazine HCl (Hydralazine 20 Mg/Ml Vial) 5 mg IV Q4H PRN PRN PRN Reason: spb >170 Last Admin: 12/27/20 22:17 Dose: 5 mg Documented by: Sodium Chloride () 250 mls @ 15 mls/hr IV .[id number] PRN PRN Reason: Saline Flush Last Infusion: 12/26/20 02:12 Dose: 0 mls/hr Documented by: Sodium Chloride () 250 mls @ 15 mls/hr IV .[id number] PRN PRN Reason: Additional IVPB Infusion Insulin Human Lispro (Insulin Lispro 100 Unit/Ml Insuln.Pen) 0 unit SC ACHS [facility]; Protocol Last Admin: 12/28/20 16:33 Dose: 6 u Documented by: Lactulose (Lactulose 20 Gm/30 Ml Udc) 20 gm PO BID [facility] Last Admin: 12/28/20 09:27 Dose: 20 gm Documented by: Magnesium Hydroxide (Magnesium Hydroxide 30 Ml Udc) 30 ml PO DAILY PRN PRN PRN Reason: Constipation Last Admin: 12/26/20 06:38 Dose: 30 ml Documented by: Metoprolol Tartrate (Metoprolol Tartrate 25 Mg Tablet) 25 mg PO BID [facility] Last Admin: 12/28/20 09:29 Dose: 25 mg Documented by: Nutritional Formula (Lactose Free) (Glucerna Shake 120 Ml Liquid) 120 ml PO 4X/DAY [facility] Last Admin: 12/28/20 16:40 Dose: Not Given Documented by: Ondansetron HCl (Ondansetron 4 Mg/2 Ml Vial) 4 mg IV Q8H PRN PRN PRN Reason: NAUSEA/VOMITING Oxycodone HCl (Oxycodone 5 Mg Tablet) 10 mg PO Q4H PRN PRN PRN Reason: Pain Score 6-10 Last Admin: 12/27/20 13:37 Dose: 10 mg Documented by: Oxycodone HCl (Oxycodone 5 Mg Tablet) 10 mg PO Q6 [facility] Last Admin: 12/28/20 17:33 Dose: Not Given Documented by: Quetiapine Fumarate (Quetiapine 25 Mg Tablet) 25 mg PO QHS [facility] Last Admin: 12/27/20 22:15 Dose: 25 mg Documented by: Senna/Docusate Sodium (Senna/Docusate Sodium 1 Tablet) 1 tablet PO BID [facility] Last Admin: 12/28/20 09:30 Dose: 1 tablet Documented by: Sodium Chloride (0.9% Saline Lock 10 Ml Syringe) 10 - 40 ml IV UD PRN PRN Reason: SALINE FLUSH Last Admin: 12/27/20 22:17 Dose: 10 ml Documented by: Tamsulosin HCl (Tamsulosin Hcl 0.4 Mg Capsule) 0.4 mg PO DAILY@1730 [facility] Last Admin: 12/28/20 16:33 Dose: 0.4 mg Documented by: Medical Necessity - Tobacco Use Smoking Status: Former smoker Assessment/Plan All Active Problems (Last Reviewed 12/25/20 @ 02:[address] Dani Rinaldi MD) Balanitis (Resolved) Lower extremity weakness (Acute) Back pain (Acute) Prostate cancer metastatic to bone (Acute) Weakness (Acute) UTI (urinary tract infection) (Acute) Bilateral pulmonary embolism (Resolved) Acute respiratory failure with hypoxia (Resolved) #1 acute generalized debility secondary to metastatic prostate cancer of the lumbar spine, abdominal area, and cervical spine as well as the thoracic spine. To new PT and OT, patient will need at least temporary placement in a fci facility. It is likely the patient will be transferred to fci facility tomorrow after radiation treatment. #2 metastatic prostate cancer with neglect of treatment by patient due to unknown reasons. Patient will receive radiation treatment tomorrow to the lumbar spine area. 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 #7 moderate caloric and protein malnutrition-nutritional services is seeing patient Inpatient E&M: [id number] Subs Hosp L2
[2020-12-28 20:25] LABS: Bedside Glucose 313 mg/dL (70-110)
[2020-12-28] MEDS: Acetaminophen 325 MG Tablet 650 MG PO (20:43)
[2020-12-28] MEDS: QUEtiapine 25 MG Tablet PO (23:10)
[2020-12-28] MEDS: 0.9% Saline Lock 10 ML Syringe IV (23:16)
[2020-12-28] MEDS: Atorvastatin Calcium 80 MG Tablet PO (23:20)
[2020-12-28 23:25] LABS: Bedside Glucose 247 mg/dL (70-110)
[2020-12-29 02:45] VITALS: BP 112/65; PULSE 98; RESP 16; TEMP 36.7; O2SAT 94
[2020-12-29] MEDS: Insulin Lispro 100 UNIT/ML INSULN.PEN SC ×3 (06:25→16:52)
[2020-12-29 06:35] LABS: Bedside Glucose 261 mg/dL (70-110)
[2020-12-29 07:37] VITALS: O2SAT 92
[2020-12-29 11:08] VITALS: BP 95/54; PULSE 96; RESP 18; TEMP 36.6; O2SAT 96
--- NOTE | 2020-12-29 11:10 | CASEMGMT ---
Addendum entered by Gilma Simpson 12/29/20 15:52: ERNESTINA waiting for discharge so ERNESTINA can fax paperwork. ERNESTINA spoke with RN, pt is assist of two with transfers, pt can transport via cot. ERNESTINA placed a call to Gilma at [facility] and updated her that pt will still be discharged today, just waiting for discharge paperwork. ERNESTINA updated Gilma that pt will be coming via cot as pt is assist of two and updated her on this as previously [facility] had arrange wheelchair van transport for pt to transport to pt's radiation treatment tomorrow. SW to fax discharge paperwork once completed. ERNESTINA completed convalescent 7000 in [place]. Plan: [facility] today Original Note: Social Work Note ERNESTINA spoke with Gilma at [facility] and updated her that plan is still for pt to discharge to [facility] today. Gilma states understanding, [facility] can accept pt today. Plan: [facility] today Gilma Simpson SENIOR PRINCIPAL ARCHITECT, [employer]ESS
[2020-12-29] MEDS: Ascorbic Acid 500 MG Tablet PO (11:11)
[2020-12-29] MEDS: dexAMETHasone 4 MG Tablet 8 MG PO (11:11)
[2020-12-29] MEDS: Senna/Docusate Sodium 1 Tablet PO (11:11)
[2020-12-29] MEDS: Lactulose 20 GM/30 ML UDC PO (11:11)
[2020-12-29] MEDS: Aspirin 81 MG TAB.CHEW PO (11:11)
[2020-12-29] MEDS: Doxycycline 100 MG CAPSULE PO (11:11)
[2020-12-29] MEDS: APIXABAN 5 MG TABLET PO (11:12)
[2020-12-29 11:25] LABS: Bedside Glucose 312 mg/dL (70-110)
[2020-12-29] MEDS: oxyCODONE 5 MG Tablet 10 MG PO (14:51)
[2020-12-29] MEDS: Acetaminophen 325 MG Tablet 650 MG PO (14:51)
[2020-12-29 15:08] VITALS: BP 110/69; PULSE 107; RESP 18; TEMP 36.7; O2SAT 95
--- NOTE | 2020-12-29 15:35 | PCM.PN.PAL ---
Progress Note- Hospice Date: 12/29/20 Subjective: Patient lying in bed, visiting with . Denies any complaints other than having some pain, rating 8 out of 10 but says it is tolerable. He did ask for anoxia. Nursing tells me he has been refusing his 10 mg of ox he scheduled every 6 hours. Upon review of his EMAR, patient had one 10 mg dose of oxycodone 4/20 at 1330 and 1 scheduled dose 4/20 at 1830. Reasons for not being given for scheduled dose includes confusion, patient sleeping, patient refused. He did just have a dose at 1451 today. States his pain is usually an 8 out of 10 or more, however this is an acceptable level for him. Objective: Vital Signs Temp 98.0 F 12/29/20 15:08 Pulse 107 H 12/29/20 15:08 Resp 18 12/29/20 15:08 BP 110/69 12/29/20 15:08 Pulse Ox 95 12/29/20 15:08 Intake & Output 12/27/20 12/28/20 12/29/20 23:59 23:59 23:59 Intake Total 104.375 / 104.375 Output Total 600 / 1350 750 / 1100 700 / 700 Balance -495.625 / -1245.625 -750 / -1100 -700 / -700 Weight: 66.7 kg Intake: Intake, IV Amount 104.375 / 104.375 Zometa 3.5 MG In 0.9% Normal 104.375 / 104.375 Saline 100 ML @ 208.75 mls/hr IV X1 ONE Rx#:[id number] Output: Urine 600 / 1350 750 / 1100 700 / 700 Other: Number of Bowel Movements 1 1 1 12/28/20 12/28/20 12/29/20 16:32 23:04 06:24 POC Glucose 313 H 247 H 261 H 12/29/20 11:06 POC Glucose 312 H Current Medications Acetaminophen (Acetaminophen 325 Mg Tablet) 650 mg PO Q6H PRN PRN PRN Reason: Pain Score 1-10/Temp > 100.7 F Last Admin: 12/29/20 14:51 Dose: 650 mg Documented by: Apixaban (Apixaban 5 Mg Tablet) 5 mg PO BID BRENDA Last Admin: 12/29/20 11:12 Dose: 5 mg Documented by: Ascorbic Acid (Ascorbic Acid 500 Mg Tablet) 500 mg PO DAILY [facility] Last Admin: 12/29/20 11:11 Dose: 500 mg Documented by: Aspirin (Aspirin 81 Mg Tab.Chew) 81 mg PO DAILY@0800 [facility] Last Admin: 12/29/20 11:11 Dose: 81 mg Documented by: Atorvastatin Calcium (Atorvastatin Calcium 80 Mg Tablet) 80 mg PO QHS [facility] Last Admin: 12/28/20 23:20 Dose: 80 mg Documented by: Calamine/Phenol (Menthol/Lanolin/Calamine/Znox 113 Gm Tube) 1 applic TOPICAL BID [facility]; Protocol Last Admin: 12/29/20 11:09 Dose: Not Given Documented by: Dexamethasone (Dexamethasone 4 Mg Tablet) 8 mg PO Q12 [facility] Last Admin: 12/29/20 11:11 Dose: 8 mg Documented by: Dextrose (Dextrose 50%-Water 25 Gm/50 Ml Disp.Syrin) 0 gm IV X1 PRN; Protocol PRN Reason: Hypoglycemia Doxycycline Monohydrate (Doxycycline 100 Mg Capsule) 100 mg PO BID [facility] Last Admin: 12/29/20 11:11 Dose: 100 mg Documented by: Glucagon (Glucagon 1 Mg/Ml Syringe) 1 mg IM .X1 PRN PRN Reason: Hypoglycemia Hydralazine HCl (Hydralazine 20 Mg/Ml Vial) 5 mg IV Q4H PRN PRN PRN Reason: spb >170 Last Admin: 12/27/20 22:17 Dose: 5 mg Documented by: Sodium Chloride () 250 mls @ 15 mls/hr IV .[id number] PRN PRN Reason: Saline Flush Last Infusion: 12/26/20 02:12 Dose: 0 mls/hr Documented by: Sodium Chloride () 250 mls @ 15 mls/hr IV .[id number] PRN PRN Reason: Additional IVPB Infusion Insulin Human Lispro (Insulin Lispro 100 Unit/Ml Insuln.Pen) 0 unit SC [facility]; Protocol Last Admin: 12/29/20 11:12 Dose: 6 u Documented by: Lactulose (Lactulose 20 Gm/30 Ml Udc) 20 gm PO BID [facility] Last Admin: 12/29/20 11:11 Dose: 20 gm Documented by: Magnesium Hydroxide (Magnesium Hydroxide 30 Ml Udc) 30 ml PO DAILY PRN PRN PRN Reason: Constipation Last Admin: 12/26/20 06:38 Dose: 30 ml Documented by: Metoprolol Tartrate (Metoprolol Tartrate 25 Mg Tablet) 25 mg PO BID [facility] Last Admin: 12/29/20 11:09 Dose: Not Given Documented by: Nutritional Formula (Lactose Free) (Glucerna Shake 120 Ml Liquid) 120 ml PO 4X/DAY [facility] Last Admin: 12/29/20 12:40 Dose: Not Given Documented by: Ondansetron HCl (Ondansetron 4 Mg/2 Ml Vial) 4 mg IV Q8H PRN PRN PRN Reason: NAUSEA/VOMITING Oxycodone HCl (Oxycodone 5 Mg Tablet) 10 mg PO Q4H PRN PRN PRN Reason: Pain Score 6-10 Last Admin: 12/27/20 13:37 Dose: 10 mg Documented by: Oxycodone HCl (Oxycodone 5 Mg Tablet) 10 mg PO Q6 [facility] Last Admin: 12/29/20 14:51 Dose: 10 mg Documented by: Quetiapine Fumarate (Quetiapine 25 Mg Tablet) 25 mg PO QHS [facility] Last Admin: 12/28/20 23:10 Dose: 25 mg Documented by: Senna/Docusate Sodium (Senna/Docusate Sodium 1 Tablet) 1 tablet PO BID [facility] Last Admin: 12/29/20 11:11 Dose: 1 tablet Documented by: Sodium Chloride (0.9% Saline Lock 10 Ml Syringe) 10 - 40 ml IV UD PRN PRN Reason: SALINE FLUSH Last Admin: 12/28/20 23:16 Dose: 10 ml Documented by: Tamsulosin HCl (Tamsulosin Hcl 0.4 Mg Capsule) 0.4 mg PO DAILY@1730 [facility] Last Admin: 12/28/20 16:33 Dose: 0.4 mg Documented by: - Physical Exam General: Alert, Cooperative, No apparent distress, - - Somewhat confused Neck: Supple, Trachea Midline Lungs: Clear to auscultation Cardiovascular: Regular rate, Regular Rhythm Abdomen: Bowel Sounds Present, - - Ostomy, large amount of flatus in bag Extremities: No edema Neurological: Neuro grossly intact Psych/Mental Status: Appropriate, - - Some confusion but seems to be more forgetful than anything Assessment/Plan All Active Problems (Last Reviewed 12/25/20 @ 02:[address] Dani Rinaldi MD) Balanitis (Resolved) Lower extremity weakness (Acute) Back pain (Acute) Prostate cancer metastatic to bone (Acute) Weakness (Acute) UTI (urinary tract infection) (Acute) Bilateral pulmonary embolism (Resolved) Acute respiratory failure with hypoxia (Resolved) 75-year-old male with metastatic prostate cancer, seen today for initial palliative care consultation for symptom management of pain. Plans are for palliative radiation. 1. Back pain: Current orders include Tylenol 650 mg q6h PRN, dexamethasone 8 mg p.o. q12 hours scheduled, oxycodone 10 mg q4 hours PRN for breakthrough pain, with Oxycodone 10mg q6h scheduled. Confusion possibly 2/2 dexamethasone, oxycodone or disease processes, or combination. He really has not had any pain medication in the last 48 hours, so would assume his confusion is more related to dexamethasone or disease process. Recommendations: -c/w dexamethasone to 8mg BID -DC scheduled oxycodone -Continue prn oxyIR to 10mg q4h PRN breakthrough pain. -Patient to have palliative radiation per Dr. Brown -Palliative care will follow up with the patient at [facility] early next week 2. Metastatic prostate cancer/progressive weakness: In initial stages of work-up, plans are for palliative radiation. Reviewed radiation oncology notes. 3. PAF/recent bilateral PEs on Eliquis/pulmonary hypertension/RLS/T2DM/nonrheumatic TVI/history of colostomy secondary to benign tumor of rectum/arthritis/UTI: Complicates overall care, management, recovery, and prognosis. Unfortunately, his cancer seems quite advanced and he is having systemic symptoms. He is going to [facility] today. We will continue to follow him there. Thank you for the opportunity to participate in this patient's care, please do not hesitate to contact [facility] with any further questions or concerns. Palliative direct line is [phone]. We will have RN follow up approximately 3 days after discharge. Currently, and patient are agreeable to palliative services. Goals are for pain control and improvement of quality of life. We will work closely with his oncologist/radiation/PCP.
--- NOTE | 2020-12-29 16:42 | CASEMGMT ---
Social Work Note SW is leaving the day. Pt can discharge to [facility] once discharge is in and discharge paperwork is completed. SW placed Green sheet, transport form, COVID tool, COVID test, and [facility] 7000 on pt's chart. SW did fax COVID test and COVID screening tool to [facility]. Plan: [facility] today Gilma Simpson HOUSEHOLD WORKER, [employer] OPERATOR HELPER
[2020-12-29] MEDS: Tamsulosin HCl 0.4 MG Capsule PO (16:52)
--- NOTE | 2020-12-29 17:02 | PCM.TXEXTCAR ---
- Diet 12/25/20 15:01 Diet: Carbohydrate Controlled Food consistency:: Regular Liquid Consistency:: Regular/Thin Dietary Modifications:: Consistent Carbohydrate Type of Dietary Supplement:: Corey Diet Comments: Corey BID w/ breakfast and dinner; 1-2 oz extra protein/meat Q meal - Routine Orders/Code Status Routine Lab Work: - - FINGERSTICK BLOOD SUGAR ACQHS, COVERAGE WITH HUMALOG SQ PER PROTOCOL: 200-250: 5 UNITS, 251-300: 8 UNITS, 301-350: 12 UNITS, 351-400: 15 UNITS - Wound(s) coccyx Wound Type: Pressure Injury Dressing Change: Mepilex - Therapies Physical Therapy: Eval and Treat Occupational Therapy: Eval and Treat - Problem/Diagnosis (1) DM type 2 (diabetes mellitus, type 2) Status: Chronic (2) Prostate cancer metastatic to bone Status: Chronic Comment: WIDESPREAD METS-ABDOMINAL CAVITY, ENTIRE SPINE (3) UTI (urinary tract infection) Status: Acute (4) Pulmonary hypertension Status: Chronic Comment: RVSP 78 mmhg per echo 10/31/2018 (5) Hyperlipemia Status: Chronic - Allergies/Procedures Done in Hospital Allergies/Adverse Reactions: Allergies No Known Allergies Allergy (Verified 12/24/20 16:22) - Type of Care/Length of Stay Estimated LOS: Convalescent Care Less Than 30 days Type of Care Needed: Skilled Rehab Potential: Good Prognosis: Good - Additional Orders/Day of Discharge Additional Orders: PALLATIVE CARE ACTIVE WITH PATIENT. OATIENT TO CONTINUE RADIATION WITH DR WHITFIELD H&P will serve as current which was dated: 12/24/20 Day of Discharge: 12/29/20 - Dietary and Speech Recommendations Dietitian Recommendations/Changes: Will change diet to general carb control (no caloric restriction) with extra protein at meals. Will add Corey BID w/ meals for wound healing. Will continue glucerna shake w/ medpass as ordered. Will provide ensure pudding w/ pt meals for additional he/pro if consumed. - Follow Up Care Primary Care Physician: Wil Bradshaw DO [Primary Care Provider] -
[2020-12-30 02:21] LABS: Bedside Glucose 324 mg/dL (70-110)
--- NOTE | 2020-12-31 09:40 | PCM.DC.SUM ---
Discharge Date and Diagnosis - Problem List Patient Problems: Active and Suspected Problems (Last Reviewed 12/25/20 @ 02:[address] Dani Rinaldi MD) Lower extremity weakness (Acute) Back pain (Acute) Weakness (Acute) UTI (urinary tract infection) (Acute) Date of Admission: 12/27/20 Date of Discharge: 12/29/20 - Primary Discharge Diagnosis Acute Problems: Active Problems (Last Reviewed 12/25/20 @ 02:[address] 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) insufficiency (Chronic) DM type 2 (diabetes mellitus, type 2) (Chronic) History of pulmonary embolism (Chronic) Restless leg syndrome (Chronic) Prostate cancer (Chronic) Prostate cancer metastatic to bone (Chronic) WIDESPREAD METS-ABDOMINAL CAVITY, ENTIRE SPINE Hyperlipemia (Chronic) Nonrheumatic tricuspid (valve) insufficiency (Chronic) Mild (1+) pe echo 10/31/2018 Pulmonary hypertension (Chronic) RVSP 78 mmhg per echo 10/31/2018 Elevated PSA (Chronic) Paroxysmal atrial fibrillation (Chronic) Right bundle branch block (Chronic) Blood clotting disorder (Chronic) Abnormal electrocardiogram (Chronic) Benign tumor of colon (Chronic) Rectum - 2012 Enlarged prostate (Chronic) Arthritis (Chronic) Hospital Course and Treatment Consultations 12/24/20 22:02 Consult: Onc/Wound/certified coder Routine Comment: Reason for Consult:: colostomy Operations: None Procedures: - - Radiation treatment to lumbar spine Summary of Care Provided: The patient is a 75 year old M was seen in the emergency room at [facility] with complaints of generalized weakness over several weeks, he also complained of back pain. He has a history of prostate cancer over the last several years but has not sought treatment till recently and was given Lupron several days prior to being seen in the emergency room. Work-up in the ER included a chest CT which showed retroperitoneal adenopathy suspicious for neoplasm, right hydronephrosis was also noted. There is diffuse sclerosis and lysis of the thoracic spine that was new since the study in 2019. There is also right perinephric soft tissue density present. Patient's CBC showed a normal white blood cell count, hemoglobin was low at 9.9. Patient's creatinine was slightly elevated at 1.34, BUN was 34, glucose was 213. Patient was admitted to [place] [id number], he was seen by PT and OT, MRI of the lumbar spine was obtained which showed widespread metastatic disease in the lumbar spine. Renal ultrasound showed hydronephrosis but this was only mild to moderate. Patient was seen in consultation by palliative care and oncology, cervical spine MRI was obtained which showed metastatic disease in cervical spine. CT of the abdomen and pelvis was obtained that showed evidence of metastatic disease within the abdominal cavity also. The exact reason the patient had not sought medical care for several years for his known prostate cancer was unknown, patient told this examiner that he kept getting different stories from different doctors concerning his treatment, radiation oncology saw the patient and reviewed an old office visit from 2017 concerning his prostate cancer, at that time treatment options were explained to the patient so it appears that the patient neglected the treatment of his prostate cancer for unknown reasons. Radiation oncology felt that the patient could benefit from radiation to the lumbar spine of a palliative nature, they were worried that there could be a nerve impingement in the lumbar spine if this was not attempted. Patient underwent 1 radiation treatment on 12/29/20. Patient agreed to go to an extended care facility for short-term rehab services, multiple discussions were carried out with the patient and his prior to discharge. On 12/29/2020, patient was seen and examined: On examination he appeared frail and older than his stated age, he did not appear to be in any distress. Vital signs as documented. Skin warm and dry and without overt rashes. Neck without JVD, neck was supple, trachea midline, thyroid was normal. Lungs clear bilaterally, normal air movement was noted. Heart exam notable for regular rhythm, normal sounds and absence of murmurs, rubs or gallops. Abdomen unremarkable and without evidence of organomegaly, masses, or abdominal aortic enlargement. Bowel sounds are present, abdomen is not distended. Extremities nonedematous, no cyanosis was noted, no clubbing was noted. Neuro: Cranial nerves II through XII are grossly intact, no focal motor deficits were noted, sensation to light touch and pinprick intact, motor exam 5/5 throughout. Psych: Patient is alert and oriented x3, he does not appear anxious or depressed, he does not appear agitated. On 12/29/2020, patient was seen and examined and felt to be in stable condition for discharge to an extended care facility for inpatient rehab services. Patient Problems: Active and Suspected Problems (Last Reviewed 12/25/20 @ 02:[address] Dani Rinaldi MD) Lower extremity weakness (Acute) Back pain (Acute) Weakness (Acute) UTI (urinary tract infection) (Acute) - Physical Exam Vitals/I&O's: Vital Signs Temp Pulse Resp BP Pulse Ox 98.0 F 107 H 18 110/69 95 12/29/20 15:08 12/29/20 15:08 12/29/20 15:08 12/29/20 15:08 12/29/20 15:08 Oxygen Flow Rate (L/min) 2 Oxygen Delivery Method Room Air Weight: 66.7 kg Body Mass Index (BMI) 23.7 Finger Stick Blood Glucose 148 Intake and Output for Last 24 Hours 12/29/20 12/30/20 12/31/20 23:59 23:59 23:59 Output Total 700 / 700 Balance -700 / -700 Microbiology Past 72 Hours 12/29/20 09:10 Mucosa - Nose SARS-CoV-2 Antigen (Rapid) - Final Home Medications: Medications to take at Discharge ascorbic acid (vitamin C) 500 mg capsule 500 mg PO DAILY 08/30/20 apixaban 5 mg tablet 5 mg PO BID #60 tab 09/05/20 metoprolol tartrate 50 mg tablet 25 mg PO BID #180 tab 10/19/20 Atorvastatin Calcium [Lipitor] 80 mg PO QHS #30 tab 11/07/20 aspirin 81 mg chewable tablet 81 mg PO DAILY@0800 #90 tablet 12/07/20 tamsulosin 0.4 mg capsule 0.4 mg PO DAILY@1730 #90 cap 12/07/20 Dexamethasone [Decadron] 8 mg PO Q12 tablet 12/29/20 Doxycycline 100 mg PO BID #4 capsule 12/29/20 Lactulose [Chronulac] 20 gm PO BID udc 12/29/20 Oxycodone [Oxyir] 10 mg PO Q4H PRN PRN 7 Days #30 tablet 12/29/20 Quetiapine Fumarate [Seroquel] 25 mg PO QHS tablet 12/29/20 Following Prescriptions Were Given to Patient: Doxycycline 100 mg PO BID #4 capsule Oxycodone [Oxyir] 10 mg PO Q4H PRN PRN 7 Days #30 tablet PRN Reason: Pain Score 6-10 Prescription Printed Other Amb Orders: RAD ONC: CT Sim [RAD.ONC.[facility]] Facility: [facility], Location: [facility] Primary Care Physician: Wil Bradshaw DO [Primary Care Provider] - Disposition: Care Home facility Minutes spent on discharge:: 31 Patient Condition:: Stable Medical Necessity - Tobacco Use Smoking Status: Former smoker Meaningful Use Info Meaningful Use Diagnoses (Choose all that apply): None applicable Inpatient E&M: [id number] [facility]
== END 2020-12-29 19:24 | disposition skilled nursing facility (03) | DRG 861 ==
LOC: ED 19:27 → MS3 19:54
PROVIDERS: Family Medicine; Admitting Provider Hospitalist; Emergency Provider Emergency Medicine; PCP Family Medicine; Visit Provider Internal Medicine
DX: G89.3 Neoplasm related pain (acute) (chronic) (principal); Z51.11 Encounter for antineoplastic chemotherapy; N13.6 Pyonephrosis; B95.7 Other staphylococcus as the cause of diseases classified elsewhere; Z16.23 Resistance to quinolones and fluoroquinolones; C61 Malignant neoplasm of prostate; C79.51 Secondary malignant neoplasm of bone; C79.49 Secondary malignant neoplasm of other parts of nervous system; C78.6 Secondary malignant neoplasm of retroperitoneum and peritoneum; C79.89 Secondary malignant neoplasm of other specified sites; I36.1 Nonrheumatic tricuspid (valve) insufficiency; E11.65 Type 2 diabetes mellitus with hyperglycemia; E11.22 Type 2 diabetes mellitus with diabetic chronic kidney disease; I12.9 Hypertensive chronic kidney disease with stage 1 through stage 4 chronic kidney disease, or unspecified chronic kidney disease; L89.152 Pressure ulcer of sacral region, stage 2; N18.31 Chronic kidney disease, stage 3a; I48.0 Paroxysmal atrial fibrillation; I48.20 Chronic atrial fibrillation, unspecified; I27.20 Pulmonary hypertension, unspecified; E78.5 Hyperlipidemia, unspecified; D63.8 Anemia in other chronic diseases classified elsewhere; N40.1 Benign prostatic hyperplasia with lower urinary tract symptoms; R33.8 Other retention of urine; R35.0 Frequency of micturition; R32 Unspecified urinary incontinence; M19.90 Unspecified osteoarthritis, unspecified site; G25.81 Restless legs syndrome; E44.0 Moderate protein-calorie malnutrition; Z68.23 Body mass index [BMI] 23.0-23.9, adult; Z91.19 Patient's noncompliance with other medical treatment and regimen; Z93.3 Colostomy status; Z79.818 Long term (current) use of other agents affecting estrogen receptors and estrogen levels; Z79.01 Long term (current) use of anticoagulants; Z79.82 Long term (current) use of aspirin; Z79.84 Long term (current) use of oral hypoglycemic drugs; Z79.899 Other long term (current) drug therapy; Z86.711 Personal history of pulmonary embolism; Z86.73 Personal history of transient ischemic attack (TIA), and cerebral infarction without residual deficits; Z87.891 Personal history of nicotine dependence
CPT/HCPCS: 36415; 70450; 71250; 72141; 72158; 74178; 76770; 77014; 77280; 77290; 77295; 77300; 77334; 77412; 80048; 80053; 81001; 82962; 83690; 84484; 85025; 87077; 87086; 87088; 87186; 87426; 96401; 97110; 97162; 97163; 97166; 97530; 97535; 97802; 99285; A9575; J3489; J7030; J7050; Q9967; A4216; J0744; J2405; J9217

== ENCOUNTER 2021-01-17 13:30 | Outpatient (RCR) | payer MEDICAID, SELFPAY ==
[2020-12-21 13:11] VITALS: BMI 24.3
--- NOTE | 2020-12-22 14:41 | HP.PTEVAL ---
Patient's Visit Information LANDON MCKEON is a 75 year old M referred to Physical Therapy by EVERETTE Queen with a diagnosis of LOWER EXTREMITY WEAKNESS. Date of Evaluation: 12/22/20 Physical Therapist: Tracey Miguel PT, Cert MDT - Visit Plan Frequency: 2-3x /Week Duration: 4-6 Weeks Plan: GAIT AND BALANCE TRAINING. POSTURE CORRECTION/STRENGTHENING, INSTRUCTION IN APPROPRIATE BODY MECHANICS AND ACTIVITY MODIFICATIONS. DLS STARTING WITH A NEUTRAL SPINE PROGRESSING ROM TOLERATED. GENEVIEVE LE ROM, STRETCHING AND STRENGTHENING. HEP INSTRUCTION. - Subjective Work/Leisure: RETIRED. Disability: NO. Present symptoms: LOWER, MID AND UPPER BACK PAIN. LEFT HIP PAIN. GENEVIEVE LE WEAKNESS AND DIFFICULTY WALKING. Present since: OCT 2020. Pain Scale: WORST 8/10, LEAST 7/10. Currently: 7/10. Commenced as a result of: FALL IN THE YARD IN MAY 2020 AND WAS ALSO PULLING HARD ON COVER FOR PULL IN MAY 2020. ALSO TWISTED AND HEARD A POP IN HIS BACK WHILE TWISTING WITH A 40 LB BACK OF CEMENT. ALL OF THESE THINGS HAPPEND IN MAY 2020. HE CONTINUED TO BE ACTIVE AND BE ABLE TO WALK FINE UNTIL SOME TIME IN OCT BEFORE BEING DX'D WITH A STROKE AT THE END OF OCT 2020. Symptoms at onset: BACK PAIN THEN LEG WEAKNESS. PATIENT DENIES HAVING ANY SPINE SURGERY, TRACI'S OR PT IN THE PAST. REPORTS HIS SPINE PAIN HAS BEEN MANAGED WITH CHIROPRACTIC TREATMENTS NEEDED FOR YEARS. Worse: ITS ALWAYS THERE. LYING IN BED, GETTING UP FROM LYING DOWN. WALKING. Better: NOTHING. Disturbed sleep: YES. Previous history/Previous treatment: PATIENTS REPORTS PATIENT WENT TO CHIROPRACTOR END OF OCT 2020 AND THAT NIGHT HIS L UE WENT WEAK AND HE COULDN'T MOVE HIS HAND. HE CALLED THE CHIROPRACTOR AND WENT BACK TO HIM SATURDAY AND HAD X-RAYS. STARTED HAVING WEAKNESS IN LEGS BY SATURDAY AND WENT TO ED SATURDAY - ADMIT X 1 DAY AND DX'D WITH STROKE. REPORTS HE WAS ABLE TO GET AROUND OK WITH A CANE AND WALKER BUT GETTING WEAKER AGAIN. PATIENTS REPORTS HE IS NOT EATING AND BARELY GETTING AROUND THIS WEAK. PATIENT REPORTS MARTHA LARA NP AT [facility] IS AWARE OF INCREASED WEAKNESS AND ORDERED THERAPY FOR IT YESTERDAY. Coughing/sneezing/straining: NEGATIVE. Gait: WOBBLY. BARELY ABLE TO WALK WITH CANE TO CAR AND GET DOWN TWO STEPS. CLOSE SUPERVISION AND SOME ASSIST FROM . Unexplained weight loss: YES - DOCTORS AWARE. Imaging: IMAGING OF BRAIN, NECK, THORACIC SPINE, PELVIS AND HIPS ARE ALL IN [facility] EMR AND REVIEWED BY THIS PT. PMH: H/O BLOOD CLOTS. PATIENTS REPORTS PATIENT HAS HAD PROSTATE CANCER FOR A LONG TIME BUT HAD FIRST CHEMO TREATMENT YESTERDAY. PATIENT HAS OSTOMY. NIDDM. 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 PLOF (Prior Level of Function): VERY ACTIVE AND MOBILE UNTIL A FEW MONTHS AGO. OTHER: BONE SCAN PENDING SATURDAY. - Objective Sitting/Standing Posture: POOR. SCOLIOSIS, INCREASED KYPHOSIS AND DECREASED LORDOSIS. Active Correction of posture: WORSE. Other Observations: THIS PATIENT WAS BROUGHT BACK TO PT IN A W/C BY HIS . PATIENT REQUIRES MOD ASSIST +1 TO TRANSFER FROM SIT TO STAND. ONCE STANDING HE IS ABLE TO MAINTAIN STANDING BALANCE INDEP'LY WITH USE OF STRAIGHT CANE BUT PATIENT IS AFRAID OF FALLING. HE CAN AMBULATE SHORT DISTANCES INDEP'LY WITH THE CANE BUT HIS BALANCE IS POOR AND USE OF WALKER IS RECOMMENDED. PATIENT IS AGREEABLE WITH USING WALKER. REQUESTED PATIENT BRING HIS WALKER TO PT NEXT VISIT. Motor deficit: GENEVIEVE LE STRENGTH GROSSLY 4/5 WITH MMT'ING. Sensory deficit: GENEVIEVE LE LIGHT TOUCH SENSATION APPEARS INTACT AND SYMMETRICAL. ROM deficit: PATIENT HAS VERY TIGHT HIP FLEXORS AND HS'S. HE ALSO HAS TIGHT GASTROC SOLEUS COMPLEX'S. Reflexes: NT. Dural Signs: NEGATIVE GENEVIEVE LE'S. Lumbar mvmt loss: NT. Core strength: POOR. Palpation: PATIENT HAS TENDERNESS THROUGHOUT HIS SPINE. OTHER: PATIENT ALSO HAS DECREASED AROM OF UE'S L>R AND THIS PT RECOMMENDED PATIENT/ DISCUSS OT CONSULT WITH PHYSICIAN. ALSO RECOMMENDED PATIENT CONSIDER AND DISCUSS POSSIBLE OPTION OF HOME HEALTH WITH PHYSICIAN. TREATMENT: THER ACT - HEP INST FOR SEATED AP'S, KNEE EXT, MARCHING AND GLUT SETS X 10 TO 20 REPS EVERY FEW HOURS THROUGHOUT THE DAY. TRANSFER TRAINING WITH WEIGHT LOSS CONSULTANT () ATTEMPTING TO USE GAIT BELT BUT THIS CAUSED PATIENT MORE BACK PAIN. INSTRUCTED TO AVOID PULLING ON PATIENTS LUE. - Goals Goal 1:: DECREASE C/O SPINE PAIN Goal Time Frame: 4-6 Weeks Goal 2:: PATIENT WILL BE INDEP AND SAFE WITH LEAST ASSISITIVE DEVICE ON LEVEL SURFACES AND UP AND DOWN STEPS. Goal Time Frame: 4-6 Weeks Goal 3:: IMPROVE STANDING, WALKING, BENDING, LIFTING, ADL, RECREATIONAL AND SLEEP FUNCTION. Goal Time Frame: 4-6 Weeks Goal 4:: PATIENT WILL BE INDEP WITH A HEP FOR CONTINUED IMPROVEMENT ONCE FORMAL PHYSICAL THERAPY CONLCUDES. Goal Time Frame: 4-6 Weeks Goal 5:: PATIENT WILL BE INDEP WITH ALL TRANSFERS. Goal Time Frame: 4-6 Weeks - Anticipated Interventions Patient/Client Instruction: Educate patient on: Condition, Plan of Care, Risk Factors, Benefits of Fitness Program For the Purpose of:: To improve self management Therapeutic Exercise to Include: Strength training, Balance training, Body mechanics, Postural training, Flexibilty training, Gait and locomotor training, Neuromotor development, Dynamic Lumbar Stabilization For the Purpose of:: To decrease pain, To increase ROM, To improve muscle performance and motor function, To increase tolerance to activity/condition/position, To improve performance and independence with ADL's, To improve ability of physical actions for home/community/work/leisure, To improve gait and locomotor functions Thank you for the opportunity to evaluate your patient. For Medicare and Medicare HMO plans, please review the plan of care and approve it. It will need to be FAXED BACK to us at [phone] for Medicare purposes. For Medicare only, by signing this I certify the plan of care. Please let me know if there are questions or concerns regarding this plan of care. Physician Signature: Date:
--- NOTE | 2021-01-18 14:31 | HP.PTREVAL ---
Gertrudis Kenny, YUMIKO-C, It has been my pleasure to treat LANDON MCKEON over the last 2 visits for LOWER EXTREMITY WEAKNESS. Please see the progress note below for an update on the physical therapy plan of care! Subjective: PATIENTS REPORTS THAT THE PATIENT GOT REALLY WEAK SAT 12/24/20 AND HAD TO BE TAKEN TO THE HOSPITAL. HE WAS ADMIT. TO THE HOSPITAL AND DIAGNOSED WITH THE CANCER SPREADING TO HIS SPINE AND UNDERWENT RADIATION. HE WAS IN THE HOSPITAL ABOUT 6 DAYS AND THEN TRANSFERRED TO [facility] X 12 DAYS. PATIENT'S REPORTS THAT A SMALL BED SORE THAT HE HAD BEFORE HOSPITAL ADMIT IS NOW EXTREME. STATES THEY LEFT THE [facility] BEFORE THEY WANTED THEM TO AND THEN THEY RECOMMENDED HOME HEALTH BUT THEY REFUSED. PATIENTS REPORTS SHE WANTS HIM TO HAVE OUTPATIENT PT SO SHE BROUGHT HIM HERE. GOING TO SEE PCP DR. MCKEON IN 2 DAYS AND WILL DISCUSS OUT-PATIENT PT THEN AND ALSO WOUND CARE. Objective/Function: THIS PATIENT WAS BROUGHT BACK TO PT BY HIS IN A HIS WHEELCHAIR. PATIENT IS RATHER QUIET THROUGHOUT THE SESSION BUT DOES ANSWER DIRECT QUESTIONS AND TRIES TO FOLLOW COMMANDS. HE REPORTS HE IS JUST IN SO MUCH PAIN THAT HE CAN'T DO MUCH AT ALL. HIS ATTEMPTED TO SHOW ME EX'S THAT THAT SHE HAS BEEN TRYING TO HAVE HIM DO WITH HIS LEGS BUT HE WINCED WITH PAIN AND COULDN'T MOVE HIS LEGS MUCH. HE ASKED TO LEAVE STATING HE IS JUST IN TOO MUCH PAIN. HE STARTED TO GET AGGITATED AND SAID HE WANTED TO GET MOVING AND AT FIRST THIS PT THOUGHT HE WANTED TO GET GOING AGAIN WITH PT BUT HE CLARIFIED THAT HE REALLY WANTED TO LEAVE. THIS PT INSTRUCTED TO FOLLOW UP RECOMMENDED BY HIS DOCTORS AND THAT IF THEY CONCUR WITH RESUMING OUT-PATIENT PT TO CALL WITH A NEW ORDER. VERBAL AND VISUAL INSTRUCTION GIVEN TO PATIENT AND /CG FOR ANKLE PUMPS, KNEE EXTENSIONS AND SEATED MARCHING TOLERATED BUT PATIENT DID NOT WANT TO PARTICIPATE. Plan Plan: HOLD PT UNTIL NEW ORDERS RECEIVED. Goals Goal 1:: DECREASE C/O SPINE PAIN Goal Time Frame: 4-6 Weeks Goal 2:: PATIENT WILL BE INDEP AND SAFE WITH LEAST ASSISITIVE DEVICE ON LEVEL SURFACES AND UP AND DOWN STEPS. Goal Time Frame: 4-6 Weeks Goal 3:: IMPROVE STANDING, WALKING, BENDING, LIFTING, ADL, RECREATIONAL AND SLEEP FUNCTION. Goal Time Frame: 4-6 Weeks Goal 4:: PATIENT WILL BE INDEP WITH A HEP FOR CONTINUED IMPROVEMENT ONCE FORMAL PHYSICAL THERAPY CONLCUDES. Goal Time Frame: 4-6 Weeks Goal 5:: PATIENT WILL BE INDEP WITH ALL TRANSFERS. Goal Time Frame: 4-6 Weeks Anticipated Interventions Patient/Client Instruction: Educate patient on: Condition, Plan of Care, Risk Factors, Benefits of Fitness Program For the Purpose of:: To improve self management Therapeutic Exercise to Include: Strength training, Balance training, Body mechanics, Postural training, Flexibilty training, Gait and locomotor training, Neuromotor development, Dynamic Lumbar Stabilization For the Purpose of:: To decrease pain, To increase ROM, To improve muscle performance and motor function, To increase tolerance to activity/condition/position, To improve performance and independence with ADL's, To improve ability of physical actions for home/community/work/leisure, To improve gait and locomotor functions Please do not hesitate to contact me at [phone] by phone or if you have questions or concerns regarding this new plan of care! Sincerely, Tracey Miguel, PT, Cert MDT
== END 2021-01-17 19:00 | disposition home or self-care (01) ==
LOC: PT 13:30
PROVIDERS: PCP Family Medicine; Referring Provider Nurse Practitioner Family; Visit Provider Nurse Practitioner Family
DX: R29.898 Other symptoms and signs involving the musculoskeletal system (principal); C61 Malignant neoplasm of prostate
CPT/HCPCS: 97163; 97164; 97530

== ENCOUNTER → 2021-01-19 | Outpatient (CLI) | payer MEDICAID, SELFPAY ==
[2021-01-04 08:26] VITALS: BMI 23.7
[2021-01-19 10:09] LABS: Mucous, Urine 0 SEEN /hpf (<or=2+); Red Blood Cells-Urine 0 SEEN /hpf (0-5); Squamous Epithelial Cells - UA 0 SEEN /hpf (0-5)
[2021-01-19 12:29] LABS: Color, Urine Yellow (Yellow); Glucose, Dipstick 1000 mg/dl (Normal); Ketone-Dipstick Negative (Negative); Leukocyte Esterase-Dipstick 100 /ul (Negative); Nitrite-Dipstick Negative (Negative); Occult Blood-Urine 50 /ul (Negative); Protein-Dipstick 30 mg/dl (Negative); Specific Gravity, Urine 1.015 (1.002-1.030); Urine Bilirubin Dipstick Negative (Negative); Urine Clarity Sl. Cloudy (Clear); Urine Urobilinogen Normal (Normal)
[2021-01-19 12:46] LABS: Bacteria 3+ /hpf (None Seen); White Blood Cells 25-50 SEEN /hpf (0-5)
== END | disposition home or self-care (01) ==
LOC: LABSPEC 10:07
PROVIDERS: PCP Family Medicine; Referring Provider Family Medicine; Visit Provider Family Medicine
DX: R35.0 Frequency of micturition (principal)
CPT/HCPCS: 81001; 87077; 87086; 87088; 87186

== ENCOUNTER → 2021-01-23 11:00 | Outpatient (CLI) | payer MEDICAID, SELFPAY ==
[2021-01-23 10:00] VITALS: BMI 23.7
[2021-01-23 12:54] LABS: Glucose 301 mg/dL (74-106)
== END ==
PROVIDERS: PCP Family Medicine; Referring Provider Physician Assistant; Visit Provider Physician Assistant
DX: E11.9 Type 2 diabetes mellitus without complications (principal)
CPT/HCPCS: 36415; 82947

== ENCOUNTER → 2021-02-08 10:55 | Outpatient (CLI) | payer MEDICAID, SELFPAY ==
[2021-02-08 10:41] VITALS: BMI 23.7
[2021-02-08 10:56] LABS: Mucous, Urine 0 SEEN /hpf (<or=2+); Red Blood Cells-Urine 0 SEEN /hpf (0-5); Squamous Epithelial Cells - UA 0 SEEN /hpf (0-5)
[2021-02-08 12:09] LABS: Color, Urine Yellow (Yellow); Glucose, Dipstick 1000 mg/dl (Normal); Ketone-Dipstick 5 mg/dl (Negative); Leukocyte Esterase-Dipstick 500 /ul (Negative); Nitrite-Dipstick Positive (Negative); Occult Blood-Urine 25 /ul (Negative); Protein-Dipstick 30 mg/dl (Negative); Specific Gravity, Urine 1.015 (1.002-1.030); Urine Bilirubin Dipstick Negative (Negative); Urine Clarity Sl. Cloudy (Clear); Urine Urobilinogen Normal (Normal)
[2021-02-08 12:16] LABS: Bacteria 3+ /hpf (None Seen); White Blood Cells >100 SEEN /hpf (0-5)
== END ==
PROVIDERS: PCP Family Medicine; Visit Provider Family Medicine
DX: R35.0 Frequency of micturition (principal)
CPT/HCPCS: 81001

== ENCOUNTER 2021-02-10 14:20 | Outpatient (RCR) | payer MEDICAID, SELFPAY ==
[2021-02-01 13:04] VITALS: BMI 23.7
[2021-02-08 10:41] VITALS: BMI 23.7
--- NOTE | 2021-02-10 15:18 | HP.PTEVAL_ITS ---
Patient's Visit Information LANDON MCKEON is a 75 year old M referred to Physical Therapy by Dr. Wil Bradshaw, DO with a diagnosis of malaise. Date of Evaluation: 02/10/21 Physical Therapist: Rob Ramirez, DPT, OCS, CSCS - Visit Plan Frequency: 3x /Week Duration: 4-6 Weeks Plan: 3x/week for 4-6 weeks to start to work on sitting tolerance with trunk muscles without support, sit to stand transfer, stand balance and volume and gait with wh walker to tolerance. Extreme weakness is limiting factor and will need frequent rests. Please work toward seated LE strength adn postural program with band pt can eventually do at home. - Subjective Presents with today. He is very weak adn fatigued she says . Had a stroke in october. ER due to unable to see and hand numbness. Test showed mild stroke. Also found prostate CA. Was in a few days in October with stroke. 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 Spent a week inhospital and sent for rehab but did nothing but lie in bed. Fell behind and got weaker. Got out of there 3 weeks ago and has been trying to keep him moving. Has WC and that is how he gets around at home. Has not walked since more than a few steps in long time, L leg sometimes doesnt want to move properly. Walked with Walker in December . Walkd without AD and steps in September prior to stroke. Cannot safely trasnfer out of chair and helps, she is with him all day. Has steps at home but only two into house with ramp . Doesn't go in basement. Needs wifes help to dress as she gets it for him. Can pull his pants up and can weazle them on, does not stand. Sleeps good. No pain. Treating CA with hormpone and radiation. Hoping for the best, no more treatment needed. Radiation helped back pain. Spends day in watching TV in recliner. Has some ex he does pushing himself across floor with rollator. Enjoys electronics. Needs help getting to bed and can maneuver in bed himself. - Objective LE AROM WFL, some tightness in HS nad gastroc btu WFL .UE AROM wFL, needs to lean against back of chair fo r trunk support when lifting UE. Very weak trunk adn unable to sit without back of chair more than 8-10 seconds. LE strength 3/5 hips, knees, and ankles. Follows directions with visual cues well, hasrd to test sensation due to commnication deficits, cognitive deficits. Needs UE to transfer out of chair and VC to do so with Min A. Stands 15 seconds today at walker wtih legs starting to give every couple seconds adn self limited with fatigue. VC needed to use UE to sit. Stood with Min A a second time at walker and walked 3 very short steps with Min to mod A for balance and safety. Requesting to sit after two steps. looking very tirded collapsed in chair after these eforts. reflexes 1/3 patella adn achilles. Strength tests in hips 3, knees 3+ and ankles 3+, aROM WFL. HR 80 after standing. - Goals Goal 1:: sit in chair without support 5 minutes without fatigue and reach OH without LOB BW Goal Time Frame: 4-6 Weeks Goal 2:: Sit to stand mod I Goal Time Frame: 4-6 Weeks Goal 3:: Stand 60 seconds at walker mod Iconsistently Goal Time Frame: 4-6 Weeks Goal 4:: Walk with walker and min A 30 feet safely Goal Time Frame: 4-6 Weeks - Rehabilitation Potential Physical Therapy Diagnosis: weakness form medical history and sedentary and effecting activity. Rehabilitation Potential: Fair - Anticipated Interventions Patient/Client Instruction: Educate patient on: Condition, Plan of Care For the Purpose of:: To improve muscle performance and motor function, To incre ase tolerance to activity/condition/position, To improve ability of physical actions for home/community/work/leisure Therapeutic Exercise to Include: Strength training, Postural training, Flexibilty training, Gait and locomotor training For the Purpose of:: To improve muscle performance and motor function, To increase tolerance to activity/condition/position, To improve ability of physical actions for home/community/work/leisure, To improve gait and locomotor functions Functional Training to Include: Functional home training, Gait training For the Purpose of:: To improve muscle performance and motor function, To decrease level of supervision to perform tasks Thank you for the opportunity to evaluate your patient. For Medicare and Medicare HMO plans, please review the plan of care and approve it. It will need to be FAXED BACK to us at [phone] for Medicare purposes. For Medicare only, by signing this I certify the plan of care. Please let me know if there are questions or concerns regarding this plan of care. Physician Signature: Date:
--- NOTE | 2021-04-20 12:19 | HP.PT.NRP ---
LANDON MCKEON was seen in my office for initial evaluation on 02/10/21. The following Plan of Care was established for this patient: Initial Frequency: 3x /Week Initial Duration: 4-6 Weeks Patient/Client Instruction: Educate patient on: Condition, Plan of Care For the Purpose of:: To improve muscle performance and motor function, To increase tolerance to activity/condition/position, To improve ability of physical actions for home/community/work/leisure Therapeutic Exercise to Include: Strength training, Postural training, Flexibilty training, Gait and locomotor training For the Purpose of:: To improve muscle performance and motor function, To increase tolerance to activity/condition/position, To improve ability of physical actions for home/community/work/leisure, To improve gait and locomotor functions Functional Training to Include: Functional home training, Gait training For the Purpose of:: To improve muscle performance and motor function, To decrease level of supervision to perform tasks This patient was last seen in our office 02/10/21. Pertinent comments regarding their Physical therapy will appear below: Pt seen for initial evaluation but when we called to schedule him, he had fallen and was going to ER. They would call to schedule if appropriate. at this point, it has been over two months and I will disconintue due to nonattendance. At this point I will be discontinuing this patient from physical therapy. I would be happy to see this patient again in the future if found appropriate by the physician. Thank you! Rob Ramirez, DPT, OCS, CSCS Balance/Gait/Functional tests - Balance/Special Test Scores Lower Extremity Functional Score: 12
== END 2021-02-10 19:00 | disposition home or self-care (01) ==
LOC: PT 14:20
PROVIDERS: PCP Family Medicine; Referring Provider Family Medicine; Visit Provider Family Medicine
DX: R53.81 Other malaise (principal)
CPT/HCPCS: 97162

== ENCOUNTER 2021-02-14 07:33 | Emergency (ER) | payer MEDICAID, SELFPAY ==
[2021-02-08 10:41] VITALS: BMI 23.7
[2021-02-14] VITALS (8 sets, daily range): BP systolic 63–110; BP diastolic 47–64; PULSE 66–79; RESP 18–26; TEMP 36.3; O2SAT 92–97; BMI 17.7
--- NOTE | 2021-02-14 07:38 | EKG12_ITS ---
Test Reason : SYNCOPE Blood Pressure : / mmHG Vent. Rate : 076 BPM Atrial Rate : 076 BPM P-R Int : 124 ms QRS Dur : 078 ms QT Int : 420 ms P-R-T Axes : 028 -16 076 degrees QTc Int : 472 ms Normal sinus rhythm Nonspecific T wave abnormality Prolonged QT Abnormal ECG Confirmed by CARMEN HERNANDEZ, FRANCIS ([id number]), web editor ABRAHAM PELAYO ([id number]) on 02/17/2021 8:22:16 AM Referred By: DARREN Confirmed By:FRANCIS MORALES MD
--- NOTE | 2021-02-14 07:38 | RAD_ITS ---
STUDY: X-RAY CHEST REASON FOR EXAM: Male, 75 years old. Hypotension TECHNIQUE: Single AP portable view of the chest. COMPARISON: Comparison is made with prior examination dated 11/05/2020. FINDINGS: EKG electrodes are seen. There is mild elevation of the right diaphragm. There is no demonstrated pleural abnormality. Normal size heart. Normal mediastinum and margarito. Normal visualized pulmonary arteries. There is atherosclerotic tortuosity of the aortic arch and descending thoracic aorta. There are diffuse degenerative changes of the visualized thoracic spine. Normal visualized ribs, clavicles, and shoulders. There is no demonstrated abnormality of the visualized soft tissue structures of the upper abdomen. RAD/Chest 1 View (Portable) IMPRESSION: No acute abnormality is seen. Electronically Signed: Macario Chang MD at 8:29 EDT , Service support ,
--- NOTE | 2021-02-14 07:40 | CT_ITS ---
STUDY: CT BRAIN WITHOUT CONTRAST REASON FOR EXAM: Male, 75 years old. Injury/Pain following a fall. RADIATION DOSAGE (If Supplied By Facility): CTDIvol = ( 38.43 ) mGy, DLP = ( 712.69 ) mGycm TECHNIQUE: Transaxial CT imaging of the brain was performed without administration of intravenous contrast material. Individualized dose optimization techniques were used for this CT. COMPARISON: Comparison is made with prior examination dated 12/24/2020. FINDINGS: There is a nondisplaced vertical fracture through the mid and anterior aspect of the C2 vertebral body. This extends into the left lateral mass. Normal soft tissue structures. Normal calvarium. There is mild cerebral atrophy with widening of the extra-axial spaces and ventricular dilatation. There are areas of decreased attenuation within the white matter tracts of the supratentorial brain, consistent with microvascular disease changes. Normal basal ganglia and thalami. Normal brainstem. Normal cerebellum. There is no intracranial hemorrhage. There are no findings of an acute ischemic infarction. Atherosclerotic calcification of the cavernous portions of the internal carotid arteries bilaterally. Partial opacification of the right maxillary sinus. Mucosal thickening of the ethmoid sinuses. There is partial opacification of the left sphenoid sinus. CT/Brain/Head without Contrast IMPRESSION: Nondisplaced vertical fracture through the body of the C2 vertebra anteriorly extending into the left lateral portion of the C2 vertebrae. Partial opacification of the ethmoid sinuses, right maxillary and left sphenoid sinus. Electronically Signed: Macario Chang MD at 8:35 EDT , Service support ,
--- NOTE | 2021-02-14 07:40 | CT_ITS ---
STUDY: CT FACIAL BONES WITHOUT CONTRAST REASON FOR EXAM: Male, 75 years old. Facial trauma following a fall. RADIATION DOSAGE (If Supplied By Facility): CTDIvol = ( 25.01 ) mGy, DLP = ( 448.60 ) mGycm TECHNIQUE: The patient was scanned in a multi detector CT scanner. Sagittal and coronal images were reconstructed. Individualized dose optimization techniques were used for this CT. COMPARISON: None. FINDINGS: Nondisplaced vertical fracture through the anterior aspect of the C2 vertebra extending to the left lateral vertebral mass. Normal orbital robles and orbital contents. Normal nasal bones and anterior nasal spine. Normal facial bones. Partial opacification of the right maxillary sinus as well as the ethmoid sinus and left sphenoid sinus. CT/Sinus/Facial Bone IMPRESSION: Nondisplaced vertical fracture through the anterior aspect of the C2 vertebra extending to the left lateral vertebral bony mass. Sinusitis. Electronically Signed: Macario Chang MD at 8:36 EDT , Service support ,
--- NOTE | 2021-02-14 07:40 | CT_ITS ---
STUDY: CT CERVICAL SPINE WITHOUT CONTRAST REASON FOR EXAM: Male, 75 years old. Injury/Pain following a fall. RADIATION DOSAGE (If Supplied By Facility): CTDIvol = ( 21.94 ) mGy, DLP = ( 474.07 ) mGycm TECHNIQUE: High resolution transaxial imaging was performed without contrast material. Sagittal and coronal images were reconstructed. Individualized dose optimization techniques were used for this CT. COMPARISON: None FINDINGS: Normal craniovertebral junction. There are degenerative changes of the anterior atlantoaxial articulation. Normal odontoid process. There is an exaggerated cervical lordosis. C2-3: There is a nondisplaced vertical fracture through the anterior aspect of the C2 vertebrae extending into the left side of the C2 bony mass. The C2 vertebrae is of heterogeneous density. Metastatic deposits should be ruled out. C3-4: Moderate degree of disc space narrowing. Spondylosis. Uncovertebral arthrosis. Bilateral neural foraminal stenosis worse on the right side. C4-5: Marked degree of disc space narrowing and spondylosis. Uncovertebral arthrosis. Marked degree of bilateral neural foraminal stenosis worse on the left side. C5-6: Marked degree of disc space narrowing. Facet joint osteoarthritis. Moderate degree of bilateral neural foraminal stenosis. There is sclerosis of the CT C6 vertebrae. Metastatic deposit should be ruled out. C6-7: Moderate degree of disc space narrowing. Spondylosis. Uncovertebral arthrosis and bilateral neural foraminal stenosis. Loss of height and wedging of the C7 vertebrae. This is unchanged as compared to prior MRI of the cervical spine dated 12/27/2020. Heterogeneous appearance of the cervical vertebrae suggestive of metastatic disease. Normal visualized soft tissue structures. CT/Spine Cervical without Contras IMPRESSION: Nondisplaced fracture through the anterior aspect of the C2 vertebra extending to the left side of the CT bony mass. Heterogeneous appearance of multiple vertebrae as described suggestive of metastatic disease. Multilevel disc space narrowing and spinal stenosis. Loss of height of the superior endplate of the C7 vertebrae. Electronically Signed: Macario Chang MD at 8:41 EDT , Service support ,
--- NOTE | 2021-02-14 07:44 | EX.ED.DYSGE1 ---
HPI History of Present Illness Chief Complaint: Syncope Informant: spouse/S.O. and EMS Narrative Narrative: Patient is a 75-year-old male with history of metastatic prostate cancer presenting with syncope. states that patient's been lightheaded for the past few days but this morning when he went to get out of bed he passed out. He hit his head. Patient is on Eliquis chronically. When EMS arrived the patient was hypotensive with a blood pressure of 80/50 and confused per EMS. His heart rate was in the 80s. notes that for the past few days he has been more weak and lightheaded. He is not been drinking as much but has been eating. Patient is currently being treated for UTI and is on day 6 of 7. believes he is on Bactrim. Patient does have chronic back pain associated with his metastatic disease process. Patient is currently receiving radiation therapy for palliative reasons to his lumbar spine. Patient is currently confused per the . He denies baseline. Does complain of back pain. [facility] Medical History Abnormal electrocardiogram Acute respiratory failure with hypoxia Arthritis Benign tumor of colon Bilateral pulmonary embolism Blood clotting disorder Debility Decubitus ulcer, buttock Elevated PSA Elevated troponin I level Enlarged prostate Nonrheumatic tricuspid (valve) insufficiency Paroxysmal atrial fibrillation Pulmonary hypertension Right bundle branch block Home Medications ascorbic acid (vitamin C) 500 mg capsule 500 mg PO DAILY 08/30/20 [History Last Taken 12/24/20 09:00] metoprolol tartrate 50 mg tablet 25 mg PO BID #180 tab 10/19/20 [Rx Last Taken 12/24/20 09:00] tamsulosin 0.4 mg capsule 0.4 mg PO DAILY@1730 #90 cap 12/07/20 [Rx Last Taken 12/23/20 20:00] glipizide 5 mg tablet 5 mg PO DAILY #30 tab 01/19/21 [Rx Last Taken Unknown] apixaban 5 mg tablet 5 mg PO BID #60 tab 02/08/21 [Rx Last Taken Unknown] sulfamethoxazole 800 mg-trimethoprim 160 mg tablet 1 tab PO BID #14 tab 02/08/21 [Rx Last Taken Unknown] Allergy/AdvReac Type Severity Reaction Status Date / Time No Known Allergies Allergy Verified 02/14/21 07:34 Surgical History History of colostomy Hx of tonsillectomy Social History Smoking Status: Former smoker alcohol intake: current alcohol intake frequency: holidays/special occasions only substance use type: does not use what type of physical activity do you participate in: other details: gardening, outside work ROS ROS ED Constitutional Constitutional ED: Reports frequent falls; Denies fever(s) Eyes Eyes: Denies change in vision or eye pain ENT ENT ED: Denies dental pain, mouth lesions or nasal trauma Cardiovascular Cardiovascular: Denies chest pain or syncope Respiratory/Chest Respiratory/Chest: Denies cough or dyspnea Gastrointestinal Gastrointestinal: Denies abdominal pain or nausea Genitourinary Genitourinary ED: Denies dysuria or hematuria Musculoskeletal Musculoskeletal: Reports back pain and neck pain; Denies arthralgias or myalgias Integumentary Reports Abrasions; Denies wounds Neurologic Neurologic: Reports weakness; Denies headache(s) or paresthesias Psychiatric Psychiatric: Denies anxiety or depression Hematologic/Lymphatic Hematologic/Lymphatic: Denies easy bleeding or easy bruising EXAM Physical Exam Const Vital Signs: 02/14/21 07:34 02/14/21 07:48 02/14/21 08:15 Temperature 97.3 F L Temperature Source Temporal Pulse Rate 75 76 66 Respiratory Rate 26 H 20 H 18 Respiratory Effort Normal Non-Labored Respiratory Depth Respiratory Pattern Normal Blood Pressure 63/47 L 101/61 83/61 L Blood Pressure Mean 52 74 68 Pulse Ox 92 95 96 Oxygen Delivery Method Room Air Room Air 02/14/21 08:48 02/14/21 09:00 02/14/21 09:01 Temperature Temperature Source Pulse Rate 70 77 Respiratory Rate 18 19 H Respiratory Effort Normal Non-Labored Respiratory Depth Normal Respiratory Pattern Normal Blood Pressure 73/53 L 83/56 L Blood Pressure Mean 59 65 Pulse Ox 97 97 97 Oxygen Delivery Method Room Air Nasal Cannula Room Air Positive well nourished and well developed General Appearance ED: well developed HEENT Reports head/scalp atraumatic, hearing grossly normal bilaterally, TM's clear, TM's normal bilaterally and dry mucous membranes normocephalic and atraumatic; Negative for Angeles's sign, raccoon eyes or scalp tenderness Nose: no nasal discharge Tympanic Membrane ED: Yes TM's clear and TM's normal bilaterally Tympanic Membrane: TM's normal bilaterally Mouth ED: Yes dry mucous membranes and Yes other Mouth: dry mucous membranes and other Other Details: No Malocclusion Eyes PERRL and EOMs intact bilaterally Eyes Narrative: No hemotympanum. Neck full ROM and no JVD Neck Narrative: Not moving neck General: tenderness Thyroid: Negative for tender Chest Wall inspection of chest normal and palpation of chest normal Chest: Negative for crepitus Resp normal respiratory effort, no retractions and clear to auscultation bilaterally Cardio regular rate and regular rhythm Jugular Venous Distention: Negative for JVD Peripheral Pulses: pulses 2+ throughout GI non-tender and non-distended Palpation: soft; Negative for guarding or rebound tenderness present Back/Spine Back/Spine Narrative: did not tolerate rolling secondary to pain Extremity normal to inspection and full ROM Extremity Narrative: pelvis stable, no deformity , patient has diminished behavioral health care coordinator strength bilaterally. He claims significant pain in his arms diffusely. Is not able to raise his arms off the bed. Normal movement of his lower extremities. Neuro moves all extremities and no sensory deficits noted Neuro Narrative: Decreased upper extremity strength, cannot raise them against gravity. Diminished behavioral health care coordinator strength bilaterally. Sensorium / Orientation: alert and orientation impaired Motor Exam: strength abnormal Psych mental status grossly normal Skin Skin Narrative: Superficial abrasion to forehead. Small mount of blood noted in the nasal passages but no active epistaxis. Trauma: abrasion MDM MDM MDM Narrative Medical decision making narrative: Patient is evaluated after syncopal episode and then subsequent fall. He is on a novel oral anticoagulant. He is complaining of diffuse pain. Initially is hypotensive. He does have some improvement of his blood pressure with IV fluid boluses and given 50 mcg of fentanyl. Imaging shows a vertebral body fracture at C2 that is nondisplaced. Patient is placed in a c-collar. He has slight worsening of his chronic anemia but does not appear to have active bleeding. Work-up is otherwise negative. Patient has persistent hypotension and is noted to have weakness of his upper extremities compared to his lower extremities. Concern is that he might have anterior cord syndrome or some type of neurogenic shock. Is also possible he could have septic shock from infection which cause a syncopal episode. Patient be transferred to higher level of care, trauma center after discussion with the family. They feel that he is doing well and do not want to entertain hospice only care at this time. Discussed the case with Matthew Mcdonnell, Dr. Albrecht, who accepts. Patient is empirically started on Zosyn. Given his hypotension and concern for cord syndrome and shock, will transfer via [facility] . Lab Data Labs: Laboratory Results - last 24 hr 02/14/21 02/14/21 02/14/21 07:20 07:20 07:20 WBC 5.8 RBC 2.68 L Hgb 8.6 L Hct 27.8 L MCV 103.7 H MCH 32.1 H MCHC 30.9 L RDW Std Deviation 75.7 H RDW Coeff of Tulio 20.0 H Plt Count 258 MPV 10.0 Immature Gran % (Auto) 5.000 H Neut % (Auto) 69.3 Lymph % (Auto) 14.4 L [place] % (Auto) 9.9 Eos % (Auto) 0.7 Baso % (Auto) 0.7 Absolute Neuts (auto) 4.0 Absolute Lymphs (auto) 0.83 Nucleated RBC % 4.9 Differential Comment SCANNED Platelet Estimate ADEQUATE Polychromasia 1+ Hypochromasia 2+ Anisocytosis 2+ Macrocytosis 1+ PT 16.3 H INR 1.4 APTT 29.3 Sodium 136 Potassium 4.2 Chloride 107 Carbon Dioxide 21.0 Anion Gap 8 BUN 18 Creatinine 0.71 Estim Creat Clear Calc 51.52 Est GFR (MDRD) Af Amer 140 Est GFR (MDRD) Non-Af 116 BUN/Creatinine Ratio 25.5 H Glucose 133 H Lactic Acid Calcium 7.2 L Total Bilirubin 0.30 AST 15 ALT 18 Alkaline Phosphatase 344 H Troponin I < 0.015 Total Protein 6.0 L Albumin 2.2 L Globulin 3.8 Albumin/Globulin Ratio 0.6 L 02/14/21 07:47 WBC RBC Hgb Hct MCV MCH MCHC RDW Std Deviation RDW Coeff of [place] Plt Count MPV Immature Gran % (Auto) Neut % (Auto) Lymph % (Auto) [place] % (Auto) Eos % (Auto) Baso % (Auto) Absolute Neuts (auto) Absolute Lymphs (auto) Nucleated RBC % Differential Comment Platelet Estimate Polychromasia Hypochromasia Anisocytosis Macrocytosis PT INR APTT Sodium Potassium Chloride Carbon Dioxide Anion Gap BUN Creatinine Estim Creat Clear Calc Est GFR (MDRD) Af Amer Est GFR (MDRD) Non-Af BUN/Creatinine Ratio Glucose Lactic Acid 1.6 Calcium Total Bilirubin AST ALT Alkaline Phosphatase Troponin I Total Protein Albumin Globulin Albumin/Globulin Ratio Radiography Diagnostic Testing: Radiology Impression Chest X-Ray 02/14/21 07:38 IMPRESSION: No acute abnormality is seen. Electronically Signed: Macario Chang MD at 8:29 EDT , Service support , Brain CT 02/14/21 07:40 IMPRESSION: Nondisplaced vertical fracture through the body of the C2 vertebra anteriorly extending into the left lateral portion of the C2 vertebrae. Partial opacification of the ethmoid sinuses, right maxillary and left sphenoid sinus. Electronically Signed: Macario Chang MD at 8:35 EDT , Service support , Cervical Spine CT 02/14/21 07:40 IMPRESSION: Nondisplaced fracture through the anterior aspect of the C2 vertebra extending to the left side of the CT bony mass. Heterogeneous appearance of multiple vertebrae as described suggestive of metastatic disease. Multilevel disc space narrowing and spinal stenosis. Loss of height of the superior endplate of the C7 vertebrae. Electronically Signed: Macario Chang MD at 8:41 EDT , Service support , Facial/Sinus 02/14/21 07:40 IMPRESSION: Nondisplaced vertical fracture through the anterior aspect of the C2 vertebra extending to the left lateral vertebral bony mass. Sinusitis. Electronically Signed: Macario Chang MD at 8:36 EDT , Service support , Critical Care Time Critical Care Time: Yes Critical care time (excluding procedures): 30-74 minutes (45), Discussing w/Patient &/or Family/Cottrell Blower, Arranging Admission or Transfer, Performing Direct Patient Care at Bedside and - (Patient has life-threatening condition requiring higher level of care. He has possible anterior cord syndrome, neurogenic shock versus septic shock. Discussed at length with [facility] and their desire to continue aggressive treatment.) Discharge Plan Triage Chief Complaint: Syncope ED Provider: Kelli Sandhu Dx/Rx/DC Orders Clinical Impression: C2 cervical fracture, Acute hypotension, Neurogenic shock due to traumatic injury Prescriptions: No Action apixaban 5 mg tablet 5 mg PO BID Qty: 60 RF: 3 ascorbic acid (vitamin C) 500 mg capsule 500 mg PO DAILY RF: 0 glipizide 5 mg tablet 5 mg PO DAILY Qty: 30 RF: 2 metoprolol tartrate 50 mg tablet 25 mg PO BID Qty: 180 RF: 1 tamsulosin 0.4 mg capsule 0.4 mg PO DAILY@1730 Qty: 90 RF: 2 sulfamethoxazole-trimethoprim 800-160 mg tablet 1 tab PO BID Qty: 14 RF: 1 Primary Care Provider: Wil Bradshaw Referrals: Wil Bradshaw, [Primary Care Provider] -
[2021-02-14 07:46] LABS: Absolute Lymphocyte Count 0.83 X10^3/uL (0.83-4.51); Basophil# 0.04 X10^3/uL; Basophil% 0.7 % (0-1); Eosinophil# 0.04 X10^3/uL; Eosinophils% 0.7 % (0-5); Hematocrit 27.8 % (40-54); Hemoglobin 8.6 g/dL (13.0-16.5); Lymphocyte # 0.83 X10^3/ul (0.83-4.51); Lymphocyte % 14.4 % (19-41); Mean Corp Hgb Conc 30.9 g/dL (32-36); Mean Corpuscular Hgb 32.1 pg (27.0-32.0); Mean Corpuscular Volume 103.7 fL (80-94); Monocyte# 0.57 X10^3/uL; Monocyte% 9.9 % (0-10); NRBC Flagged by Analyzer 4.9 % (0-5); Neutrophil # 3.99 X10^3/uL (2.7-7.7); Neutrophil % 69.3 % (47-70); POSITIVE MORPHOLOGY YES; Platelet Count 258 K/mm3 (150-450); RBC Distribution Width SD 75.7 fl (35.1-43.9); Red Blood Count 2.68 M/mm3 (4.6-6.2); White Blood Count 5.8 K/mm3 (4.4-11.0)
[2021-02-14 07:47] LABS: Differential Indicated SCAN CRITERIA MET
[2021-02-14] MEDS: 0.9% Normal Saline 1,000 ML 999 ML IV ×2 (07:47→08:46)
[2021-02-14] MEDS: fentaNYL 100 MCG/2 ML Ampul 50 MCG IV (07:54)
[2021-02-14 07:59] LABS: International Normalized Ratio 1.4; Prothrombin Time (Protime)PT. 16.3 SECONDS (11.7-14.9)
[2021-02-14 08:00] LABS: Partial Thromboplast Time 29.3 Seconds (24.1-36.2)
[2021-02-14 08:01] LABS: ALB/GLOB Ratio 0.6 RATIO (0.9-2.4); AST(SGOT) 15 U/L (15-37); Alanine Aminotransfer ALT/SGPT 18 U/L (16-61); Albumin, Serum 2.2 g/dL (3.2-5.0); Alkaline Phosphatase 344 U/L (45-117); Anion Gap 8 (5-15); BUN 18 mg/dL (7-18); BUN/Creat Ratio 25.5 RATIO (10-20); Calcium,Total 7.2 mg/dL (8.5-10.1); Chloride 107 mmol/L (98-107); Creatinine, Serum 0.71 mg/dL (0.70-1.30); EST Glomerular Filtration Rate 116 mL/min (>60); Est Glom Filt Rate - Afr Amer 140 mL/min (>60); Estimated Creatinine Clearance 51.52 ml/min; Globulin 3.8 g/dL (2.2-4.2); Glucose 133 mg/dL (74-106); Potassium 4.2 mmol/L (3.5-5.1); Sodium Level 136 mmol/L (136-145)
[2021-02-14 08:10] LABS: Anisocytosis 2+; Hypochromasia 2+; Macrocytosis 1+; Platelet Estimate ADEQUATE (ADEQ); Polychromasia 1+
[2021-02-14 08:11] LABS: Differential Comment SCANNED
--- NOTE | 2021-02-14 08:19 | ED.RN ---
radiology called about c23 fx. hard collar applied in radiology
[2021-02-14 08:23] LABS: Lactic Acid 1.6 mmol/L (0.4-1.9)
--- NOTE | 2021-02-14 09:02 | RAD_ITS ---
STUDY: X-RAY - PELVIS REASON FOR EXAM: Male, 75 years old. Fall TECHNIQUE: One view of the pelvis was obtained. COMPARISON: None. FINDINGS: There is a non-specific bowel gas pattern. Surgical clips are seen in the right hemipelvis. 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 There is a 5.7 cm x 5.5 cm blastic metastasis is overlying the left lateral iliac bone. Normal visualized right femoral head. There is osteoarthritic spur formation of the right acetabular rim. Osteoblastic metastasis is on the right acetabulum. There is moderate articular joint space narrowing of the right hip. Normal visualized left femoral head. Osteoblastic metastasis seen in the left acetabulum. There is moderate articular joint space narrowing of the left hip. RAD/Pelvis 1 or 2 Views IMPRESSION: Metastatic bony deposits as described. No fracture is seen. Electronically Signed: Macario Chang MD at 10:00 EDT , Service support ,
[2021-02-14 09:23] LABS: Mucous, Urine 0 SEEN /hpf (<or=2+)
--- NOTE | 2021-02-14 09:30 | ED.RN ---
pt ostomy bag pulling away from abdomen. pt bag removed using alcohol wipes.
--- NOTE | 2021-02-14 09:32 | ED.RN ---
pt cleaned with bathwipes removing all stool. new ostomy cut to size and secured to abdomen. pt tolerated well. removed soft brown formed stool. per , pt has coxxyx pressure wound
[2021-02-14 09:40] LABS: Color, Urine Yellow (Yellow); Glucose, Dipstick Normal (Normal); Ketone-Dipstick Negative (Negative); Leukocyte Esterase-Dipstick 500 /ul (Negative); Nitrite-Dipstick Negative (Negative); Occult Blood-Urine 10 /ul (Negative); Protein-Dipstick 30 mg/dl (Negative); Specific Gravity, Urine 1.015 (1.002-1.030); Urine Bilirubin Dipstick Negative (Negative); Urine Clarity Sl. Cloudy (Clear); Urine Urobilinogen Normal (Normal)
[2021-02-14 09:51] LABS: Red Blood Cells-Urine 0-5 SEEN /hpf (0-5)
[2021-02-14 09:52] LABS: Bacteria 1+ /hpf (None Seen); Squamous Epithelial Cells - UA 0-5 SEEN /hpf (0-5); White Blood Cells 25-50 SEEN /hpf (0-5)
== END 2021-02-14 09:38 | disposition short-term general hospital (02) ==
LOC: ED 08:08
PROVIDERS: Emergency Provider Emergency Medicine; PCP Family Medicine
DX: S12.101A Unspecified nondisplaced fracture of second cervical vertebra, initial encounter for closed fracture (principal); T79.4XXA Traumatic shock, initial encounter; S00.81XA Abrasion of other part of head, initial encounter; R41.0 Disorientation, unspecified; W06.XXXA Fall from bed, initial encounter; Y93.9 Activity, unspecified; Y92.9 Unspecified place or not applicable; Y99.9 Unspecified external cause status; G89.3 Neoplasm related pain (acute) (chronic); C61 Malignant neoplasm of prostate; C79.51 Secondary malignant neoplasm of bone; I48.0 Paroxysmal atrial fibrillation; I27.20 Pulmonary hypertension, unspecified; M19.90 Unspecified osteoarthritis, unspecified site; N39.0 Urinary tract infection, site not specified; N40.0 Benign prostatic hyperplasia without lower urinary tract symptoms; Z79.01 Long term (current) use of anticoagulants; Z79.84 Long term (current) use of oral hypoglycemic drugs; Z87.891 Personal history of nicotine dependence
CPT/HCPCS: 51702; 70450; 70486; 71045; 72125; 72170; 80053; 81001; 83605; 84484; 85025; 85610; 85730; 87040; 87086; 87088; 87186; 93005; 96361; 96374; 96375; 99285; J7030; A4216

== ENCOUNTER → 2021-07-19 | Outpatient (CLI) | payer MEDICAID, SELFPAY ==
[2021-07-19 12:16] LABS: Mucous, Urine 0 SEEN /hpf (<or=2+)
[2021-07-19 15:03] LABS: Color, Urine Yellow (Yellow); Glucose, Dipstick Normal (Normal); Ketone-Dipstick Negative (Negative); Leukocyte Esterase-Dipstick 500 /ul (Negative); Nitrite-Dipstick Positive (Negative); Occult Blood-Urine 25 /ul (Negative); Protein-Dipstick 15 mg/dl (Negative); Specific Gravity, Urine 1.025 (1.002-1.030); Urine Bilirubin Dipstick Negative (Negative); Urine Clarity Sl. Cloudy (Clear); Urine Urobilinogen Normal (Normal)
[2021-07-19 15:10] LABS: Bacteria 2+ /hpf (None Seen); Red Blood Cells-Urine 0-5 SEEN /hpf (0-5); Squamous Epithelial Cells - UA 0-5 SEEN /hpf (0-5); White Blood Cells 25-50 SEEN /hpf (0-5)
== END | disposition home or self-care (01) ==
LOC: LABSPEC 12:15
PROVIDERS: PCP Family Medicine; Referring Provider Nurse Practitioner Family; Visit Provider Nurse Practitioner Family
DX: R30.0 Dysuria (principal)
CPT/HCPCS: 81001; 87077; 87086; 87088; 87186

== ENCOUNTER 2021-10-27 15:10 | Outpatient (CLI) | payer MEDICAID, SELFPAY ==
[2021-10-27 15:57] LABS: Bacteria 0 SEEN /hpf (None Seen); Mucous, Urine 0 SEEN /hpf (<or=2+); Red Blood Cells-Urine 0 SEEN /hpf (0-5); White Blood Cells 0 SEEN /hpf (0-5)
[2021-10-27 16:21] LABS: Color, Urine Yellow (Yellow); Glucose, Dipstick Normal (Normal); Ketone-Dipstick Negative (Negative); Leukocyte Esterase-Dipstick 25 /ul (Negative); Nitrite-Dipstick Negative (Negative); Occult Blood-Urine Negative /ul (Negative); Protein-Dipstick Negative (Negative); Urine Bilirubin Dipstick Negative (Negative); Urine Clarity Clear (Clear); Urine Urobilinogen Normal (Normal)
[2021-10-27 16:55] LABS: Squamous Epithelial Cells - UA 0-5 SEEN /hpf (0-5)
== END 2021-10-27 23:59 | disposition home or self-care (01) ==
LOC: LABSPEC 15:11
PROVIDERS: PCP Family Medicine; Visit Provider Nurse Practitioner Family
DX: N39.0 Urinary tract infection, site not specified (principal)
CPT/HCPCS: 81001; 87086

== ENCOUNTER 2021-12-24 17:46 | Inpatient (IN) | payer MEDICAID, SELFPAY ==
[2021-12-24] VITALS (9 sets, daily range): BP systolic 106–149; BP diastolic 56–80; PULSE 109–130; RESP 15–28; TEMP 37.3–38.5; O2SAT 94–99; BMI 23.1; BMI 25.8
--- NOTE | 2021-12-24 18:02 | EKG12_ITS ---
Test Reason : FEVER Blood Pressure : / mmHG Vent. Rate : 116 BPM Atrial Rate : 116 BPM P-R Int : 140 ms QRS Dur : 082 ms QT Int : 314 ms P-R-T Axes : 028 -34 056 degrees QTc Int : 436 ms Sinus tachycardia Left axis deviation Nonspecific ST abnormality Abnormal ECG Confirmed by LILIA HERNANDEZ, VEE ([id number]), non linear editor MALLORIE FERRER ([id number]) on 12/27/2021 8:50:30 AM Referred By: HERNANDEZ Confirmed By:VEE RODRIGUES MD
--- NOTE | 2021-12-24 18:02 | RAD_ITS ---
STUDY: X-RAY CHEST REASON FOR EXAM: Male, 76 years old. fever TECHNIQUE: 1 view COMPARISON: 02/14/2021 FINDINGS: Cardiomediastinal silhouette is unremarkable. Costophrenic angles are sharp. Patchy opacities in the left mid to lower lung zone, suspicious for pneumonia. The trachea is midline. There is no pneumothorax. Old healed rib fractures bilaterally. Multilevel thoracic spondylosis. RAD/Chest 1 View (Portable) IMPRESSION: Findings suspicious for pneumonia involving the left mid to lower lung zones. Follow-up chest x-ray to resolution is recommended. Electronically Signed: Pablo Patrick MD at 19:40 EDT ,
--- NOTE | 2021-12-24 18:06 | EDS_ITS ---
HPI History of Present Illness Chief Complaint: Fever Narrative Narrative: Patient presents with fever. He has a history of recurrent urinary tract infections he is being treated with fosfomycin every other day x3 doses, he continues to have urinary symptoms, he has some back pain, he has no abdominal pain. No testicular or scrotal pain no rash in that region. He has no chest pain or shortness of breath. No generalized rash. No neck pain or stiffness. His temperature at home was as high as 101 Fahrenheit [facility] Medical History Abnormal electrocardiogram Acute respiratory failure with hypoxia Arthritis Benign tumor of colon Bilateral pulmonary embolism Blood clotting disorder CVA (cerebral vascular accident) Debility Debility Decubitus ulcer, buttock Dysuria Elevated PSA Elevated troponin I level Enlarged prostate Muscle spasticity Nonrheumatic tricuspid (valve) insufficiency Paroxysmal atrial fibrillation Pulmonary hypertension Recurrent UTI (urinary tract infection) Right bundle branch block Right sided weakness Home Medications acetaminophen 325 mg capsule 325 mg PO ONCE PRN 06/26/21 [History Last Taken Unknown] aspirin 81 mg tablet,delayed release 81 mg PO DAILY 06/26/21 [History Last Taken Unknown] lisinopril 5 mg tablet 5 mg PO DAILY 06/26/21 [History Last Taken Unknown] metformin 500 mg tablet 500 mg PO BID tab 07/18/21 [History Last Taken Unknown] clopidogrel 75 mg tablet 75 mg PO DAILY #30 tab 08/08/21 [Rx Last Taken Unknown] metoprolol succinate 25 mg tablet,extended release 24 hr 12.5 mg PO BID #60 tab 08/08/21 [Rx Last Taken Unknown] cholecalciferol (vitamin D3) 10 mcg (400 unit) capsule 10 mcg PO DAILY #30 cap 10/27/21 [Rx Last Taken Unknown] ferrous sulfate 325 mg (65 mg iron) tablet 325 mg PO DAILY #30 tab 10/27/21 [Rx Last Taken Unknown] sennosides 8.6 mg tablet 8.6 mg PO DAILY #30 tab 10/27/21 [Rx Last Taken Unknown] doxazosin 1 mg tablet 1 mg PO DAILY 12/13/21 [History Last Taken Unknown] ostomy supplies #1 ea 12/13/21 [Rx Last Taken Unknown] baclofen 5 mg tablet 5 mg PO TID PRN #90 tab 12/20/21 [Rx Last Taken Unknown] Allergy/AdvReac Type Severity Reaction Status Date / Time No Known Allergies Allergy Verified 12/24/21 17:49 Surgical History History of colostomy Hx of tonsillectomy Social History Smoking Status: Former smoker alcohol intake: current alcohol intake frequency: holidays/special occasions only substance use type: does not use what type of physical activity do you participate in: other details: gardening, outside work ROS ROS ED ROS Narrative Past medical history: Reviewed in the EMR Medications: Reviewed Social history: Noncontributory Review of systems: All systems negative except as indicated General: Fever and increased weakness as in HPI Eyes: No visual changes ENT: No upper airway congestion, normal voice Neck: No neck pain Cardiovascular: No chest pain Respiratory: No shortness of breath or cough Gastrointestinal: No abdominal pain, nausea vomiting or diarrhea Genitourinary: As in HPI Musculoskeletal: Chronic lower extremity weakness and right-sided edema and contractures. This has not changed. Skin: No rash Neurological: No memory loss, confusion or any new focal weakness Psych: No recent behavioral changes Hematologic: No easy bleeding or easy bruising EXAM Physical Exam Narrative Exam Narrative: Physical exam General: Patient appears chronically ill. He does not appear in significant distress. Head: Normocephalic, Atraumatic Eyes: Conjunctiva not pale ENT: Somewhat dry mucous membranes Neck: Supple, Nontender, No lymphadenopathy Cardiovascular: Regular rate, Regular rhythm Respiratory: No distress, CTA bilaterally Abdomen: Soft, Nontender, Nondistended : There is no testicular tenderness. Normal external genitalia uncircumcised without any discharge. No rash in that region. Back: Patient has some tenderness over the left rib region mid and lower rib posteriorly. No tenderness in the spine region. Extremities: Right lower extremity has slight contracture, there is also edema which is chronic. No erythema or calor. Skin: Normal color, No rash Neurological: Right lower extremity weakness which is chronic otherwise no other neurological deficit. Psychological: Normal affect Const Vital Signs: 12/24/21 17:47 12/24/21 18:17 Temperature 99.2 F H Temperature Source Temporal Pulse Rate 125 H 119 H Respiratory Rate 15 28 H Respiratory Pattern Tachypnea Blood Pressure 129/80 H Blood Pressure Mean 96 Pulse Ox 99 98 Oxygen Delivery Method Room Air Room Air MDM MDM MDM Narrative Medical decision making narrative: Patient is found to have pneumonia, he is still slightly tachycardic but his lactate is normal and the rest of his blood work and vitals are unremarkable. He was given IV fluids and antibiotics. His pain corresponds with the site of his pneumonia. He is not hypoxic and does not need oxygen, however he continues to be somewhat tachycardic and has significant weakness therefore I will admit him. Lab Data Labs: Laboratory Results - last 24 hr 12/24/21 12/24/21 12/24/21 18:40 18:40 18:40 WBC 10.0 RBC 4.39 L Hgb 12.8 L Hct 38.7 L MCV 88.2 MCH 29.2 MCHC 33.1 RDW Std Deviation 47.2 H RDW Coeff of Tulio 14.6 Plt Count 285 MPV 9.0 Immature Gran % (Auto) 0.600 Neut % (Auto) 86.1 H Lymph % (Auto) 5.4 L [place] % (Auto) 7.4 Eos % (Auto) 0.1 Baso % (Auto) 0.4 Absolute Neuts (auto) 8.6 H Absolute Lymphs (auto) 0.54 L Nucleated RBC % 0 Differential Comment SCANNED PT 13.8 INR 1.1 APTT 29.0 Sodium 134 L Potassium 4.5 Chloride 100 Carbon Dioxide 26.0 Anion Gap 8 BUN 22 H Creatinine 0.92 Estim Creat Clear Calc 58.09 Est GFR (MDRD) Af Amer 103 Est GFR (MDRD) Non-Af 85 BUN/Creatinine Ratio 23.9 H Glucose 161 H Lactic Acid Calcium 9.1 Total Bilirubin 0.40 AST 21 ALT 16 Alkaline Phosphatase 77 Total Protein 7.2 Albumin 3.3 Globulin 3.9 Albumin/Globulin Ratio 0.8 L 12/24/21 18:40 WBC RBC Hgb Hct MCV MCH MCHC RDW Std Deviation RDW Coeff of Tulio Plt Count MPV Immature Gran % (Auto) Neut % (Auto) Lymph % (Auto) [place] % (Auto) Eos % (Auto) Baso % (Auto) Absolute Neuts (auto) Absolute Lymphs (auto) Nucleated RBC % Differential Comment PT INR APTT Sodium Potassium Chloride Carbon Dioxide Anion Gap BUN Creatinine Estim Creat Clear Calc Est GFR (MDRD) Af Amer Est GFR (MDRD) Non-Af BUN/Creatinine Ratio Glucose Lactic Acid 1.5 Calcium Total Bilirubin AST ALT Alkaline Phosphatase Total Protein Albumin Globulin Albumin/Globulin Ratio Radiography Diagnostic Testing: Clinical Impression(s) from Imaging Studies Chest X-Ray 12/24/21 18:02 IMPRESSION: Findings suspicious for pneumonia involving the left mid to lower lung zones. Follow-up chest x-ray to resolution is recommended. Electronically Signed: Pablo Patrick MD at 19:40 EDT , EKG Initial EKG: Comments: Sinus rhythm with a rate of 116. Normal [place] and QTc intervals. Left axis deviation. ST changes throughout likely rate related. Otherwise unremarkable EKG Interpreted by emergency doctor Discharge Plan Dx/Rx/DC Orders Clinical Impression: Pneumonia, Fever Disposition Disposition: Acute Care Hospital [facility]
[2021-12-24 18:56] LABS: Absolute Lymphocyte Count 0.54 X10^3/uL (0.83-4.51); Absolute Neutrophil Count 8.6 X10^3/uL (2.0-7.7); Basophil# 0.04 X10^3/uL; Basophil% 0.4 % (0-1); Eosinophil# 0.01 X10^3/uL; Eosinophils% 0.1 % (0-5); Hematocrit 38.7 % (40-54); Hemoglobin 12.8 g/dL (13.0-16.5); Lymphocyte # 0.54 X10^3/ul (0.83-4.51); Lymphocyte % 5.4 % (19-41); Mean Corp Hgb Conc 33.1 g/dL (32-36); Mean Corpuscular Hgb 29.2 pg (27.0-32.0); Mean Corpuscular Volume 88.2 fL (80-94); Monocyte# 0.74 X10^3/uL; Monocyte% 7.4 % (0-10); NRBC Flagged by Analyzer 0 % (0-5); Neutrophil # 8.58 X10^3/uL (2.7-7.7); Neutrophil % 86.1 % (47-70); POSITIVE DIFFERENTIAL YES; Platelet Count 285 K/mm3 (150-450); RBC Distribution Width CV 14.6 % (11.6-14.6); RBC Distribution Width SD 47.2 fl (35.1-43.9); Red Blood Count 4.39 M/mm3 (4.6-6.2)
[2021-12-24] MEDS: 0.9% Normal Saline 1,000 ML 999 ML IV ×2 (19:00→21:38)
[2021-12-24 19:02] LABS: Differential Indicated SCAN CRITERIA MET
[2021-12-24 19:09] LABS: International Normalized Ratio 1.1; Prothrombin Time (Protime)PT. 13.8 SECONDS (11.7-14.9)
[2021-12-24 19:17] LABS: ALB/GLOB Ratio 0.8 RATIO (0.9-2.4); AST(SGOT) 21 U/L (15-37); Alanine Aminotransfer ALT/SGPT 16 U/L (16-61); Albumin, Serum 3.3 g/dL (3.2-5.0); Alkaline Phosphatase 77 U/L (45-117); Anion Gap 8 (5-15); BUN 22 mg/dL (7-18); BUN/Creat Ratio 23.9 RATIO (10-20); Calcium,Total 9.1 mg/dL (8.5-10.1); Chloride 100 mmol/L (98-107); Creatinine, Serum 0.92 mg/dL (0.70-1.30); EST Glomerular Filtration Rate 85 mL/min (>60); Est Glom Filt Rate - Afr Amer 103 mL/min (>60); Estimated Creatinine Clearance 58.09 ml/min; Globulin 3.9 g/dL (2.2-4.2); Glucose 161 mg/dL (74-106); Potassium 4.5 mmol/L (3.5-5.1); Protein, Total 7.2 g/dL (6.4-8.2); Sodium Level 134 mmol/L (136-145)
[2021-12-24 19:23] LABS: Differential Comment SCANNED
[2021-12-24 19:51] LABS: Lactic Acid 1.5 mmol/L (0.4-1.9)
--- NOTE | 2021-12-24 20:15 | ED.RN ---
attempted to straight cath pt. unable to pass catheter to obtain urine. dr easley aware.
--- NOTE | 2021-12-24 20:32 | HP.PCM.HOS_ITS ---
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 Reportedly patient had a fever of 101 Fahrenheit at home. Also he has chills. Further he has weakness. Patient is a full chair bound. Her reported patient was recently started on baclofen and think that the baclofen is causing his weakness. Earnest patient has had a history of recurrent UTIs and completed a fosfomycin treatment within the past 7 days. Her family reports that patient continually has yellowish purulent penile drainage which is malodorous. Patient has poor appetite. Patient has had some on and off pain at his left rib. Family reports rhinorrhea with postnasal drip. Patient denies shortness of breath and cough. The emergency department attempts were made to catheterize patient to obtain urine.. However at the time of examination attempts to catheterize patient had not been successful. [facility] Medical History Abnormal electrocardiogram Acute respiratory failure with hypoxia Arthritis Benign tumor of colon Bilateral pulmonary embolism Blood clotting disorder CVA (cerebral vascular accident) Debility Debility Decubitus ulcer, buttock Dysuria Elevated PSA Elevated troponin I level Enlarged prostate Muscle spasticity Nonrheumatic tricuspid (valve) insufficiency Paroxysmal atrial fibrillation Pulmonary hypertension Recurrent UTI (urinary tract infection) Right bundle branch block Right sided weakness Home Medications acetaminophen 325 mg capsule 650 mg PO Q6H PRN PRN 06/26/21 [History Last Taken Unknown] aspirin 81 mg tablet,delayed release 81 mg PO DAILY 06/26/21 [History Last Taken 12/24/21] lisinopril 5 mg tablet 5 mg PO QHS 06/26/21 [History Last Taken 12/23/21] doxazosin 1 mg tablet 2 mg PO QHS 12/13/21 [History Last Taken 12/23/21] ostomy supplies #1 ea 12/13/21 [Rx Last Taken Unknown] baclofen 5 mg tablet 5 mg PO TID PRN #90 tab 12/20/21 [Rx Last Taken 12/23/21] cholecalciferol (vitamin D3) 10 mcg PO DAILY 12/24/21 [History Last Taken 12/24/21] clopidogrel [Plavix] 75 mg PO QHS 12/24/21 [History Last Taken 12/23/21] ferrous sulfate 325 mg PO DAILY 12/24/21 [History Last Taken 12/24/21] metoprolol succinate 12.5 mg PO BID 12/24/21 [History Last Taken 12/24/21] sennosides [Natural Senna Laxative] 8.6 mg PO QHS 12/24/21 [History Last Taken 12/23/21] Allergy/AdvReac Type Severity Reaction Status Date / Time No Known Allergies Allergy Verified 12/24/21 17:49 unable to obtain (Patient does not know.) Surgical History History of colostomy Hx of tonsillectomy Social History Smoking Status: Former smoker alcohol intake: current alcohol intake frequency: holidays/special occasions only substance use type: does not use what type of physical activity do you participate in: other details: gardening, outside work ROS ROS Narrative Pertinent positives and pertinent negatives as noted in HPI. All other systems were reviewed and are negative. Vital Signs Vital Signs Vital Signs: 12/24/21 17:47 12/24/21 18:17 Temperature 99.2 F H Temperature Source Temporal Pulse Rate 125 H 119 H Respiratory Rate 15 28 H Respiratory Pattern Tachypnea Blood Pressure 129/80 H Blood Pressure Mean 96 Pulse Ox 99 98 Oxygen Delivery Method Room Air Room Air Weight Weight: 61.235 kg Body Mass Index (BMI) 23.1 Physical Exam Narrative Physical exam: General: Well-nourished, well-developed. Head: Normocephalic, atraumatic, no tenderness Eyes: Vision is grossly intact. EOMI ENT, no trauma, moist mucous membranes, no rhinorrhea Neck: Nontender, full range of motion, no spinal tenderness, deformities, step- off CVS: Regular rate and rhythm. S1-S2 present. No murmur, gallop or rub. Respiratory : clear to auscultation bilaterally, chest wall nontender, no wheezing Abdomen: Soft, nontender, nondistended, normal bowel sounds, no masses. Colostomy in place. : Deferred Back: Nontender, no CVA tenderness, no midline spinal tenderness, deformities, step-offs Extremities: Nontender full range of motion, no trauma Skin: Normal color, no trauma, abrasions Neuro: Alert, oriented, cranial nerves II through XII grossly intact. Raise left upper extremity up. Unable to raise bilateral legs. Unable to lift right upper extremity above the bed. Psychiatry: Monotonic speech. Flat affect. Results Lab / Micro Data Result Diagrams: 12/24/21 18:40 12/24/21 18:40 Labs: Laboratory Results - last 24 hr 12/24/21 18:40: WBC 10.0, RBC 4.39 L, Hgb 12.8 L, Hct 38.7 L, MCV 88.2, MCH 29.2, MCHC 33.1, RDW Std Deviation 47.2 H, RDW Coeff of Tulio 14.6, Plt Count 285, MPV 9.0, Immature Gran % (Auto) 0.600, Neut % (Auto) 86.1 H, Lymph % (Auto) 5.4 L, Emmet % (Auto) 7.4, Eos % (Auto) 0.1, Baso % (Auto) 0.4, Absolute Neuts (auto) 8.6 H, Absolute Lymphs (auto) 0.54 L, Nucleated RBC % 0, Differential Comment SCANNED 12/24/21 18:40: PT 13.8, INR 1.1, APTT 29.0 12/24/21 18:40: Sodium 134 L, Potassium 4.5, Chloride 100, Carbon Dioxide 26.0, Anion Gap 8, BUN 22 H, Creatinine 0.92, Estim Creat Clear Calc 58.09, Est GFR (MDRD) Af Amer 103, Est GFR (MDRD) Non-Af 85, BUN/Creatinine Ratio 23.9 H, Glucose 161 H, Calcium 9.1, Total Bilirubin 0.40, AST 21, ALT 16, Alkaline Phosphatase 77, Total Protein 7.2, Albumin 3.3, Globulin 3.9, Albumin/Globulin Ratio 0.8 L 12/24/21 18:40: Lactic Acid 1.5 Micro: Microbiology 12/24/21 18:30 Nasal Secretion SARS-CoV-2 & FLU Antigen (Rapid) - Final Radiology Impression Chest X-Ray 12/24/21 18:02 IMPRESSION: Findings suspicious for pneumonia involving the left mid to lower lung zones. Follow-up chest x-ray to resolution is recommended. Electronically Signed: Pablo Patrick MD at 19:40 EDT , Assessment & Plan Assessment/Plan (1) Pneumonia: PLAN: Sepsis secondary to Pneumonia Gram positive; gram negative. Patient meet SIRS criteria with heart rate of as high as 130; respiratory rate as high as 28. Temperature is borderline at 100.4 Fahrenheit Review of CBC showed normal white counts. SOFA score: 2 points (pH to of 66 with FiO2 of 45% (corresponding to 6L of nasal cannula oxygen)) Lactic acid: 1.5 Blood culture x2 was ordered emergency department; follow. Strep pneumoniae antigen and Legionella urine antigen ordered. Chest x-ray was visualized and independent interpreted: Chest x-ray with mild opacity at left mid to lower lung zones. I agree with radiologist interpretation. Received ceftriaxone and azithromycin IV in the emergency department and continued. Legionella urine antigen and Strep pneumoniae antigen ordered Hypertension Blood pressure is stable in regard to his age Lisinopril and metoprolol continued. Trend blood pressure and adjust blood pressure medications. DVT prophylaxis: Subcutaneous Lovenox ordered. Charges/Coding Visit Charges Inpatient E&M: 76050 Init Hosp L3
[2021-12-24] MEDS: Ceftriaxone 1 GM/50 ML BAG IV (20:41)
[2021-12-24] MEDS: Acetaminophen 325 MG Tablet 650 MG PO (21:38)
[2021-12-24] MEDS: 0.9% Saline Lock 10 ML Syringe IV (22:40)
[2021-12-24] MEDS: Ondansetron 4 MG/2 ML Vial IV (22:40)
[2021-12-25] VITALS (11 sets, daily range): BP systolic 94–127; BP diastolic 62–70; PULSE 101–119; RESP 16–20; TEMP 36.6–38; O2SAT 92–96
[2021-12-25 05:19] LABS: Absolute Lymphocyte Count 0.62 X10^3/uL (0.83-4.51); Absolute Neutrophil Count 9.4 X10^3/uL (2.0-7.7); Basophil# 0.03 X10^3/uL; Basophil% 0.3 % (0-1); Eosinophil# 0.01 X10^3/uL; Eosinophils% 0.1 % (0-5); Hematocrit 32.7 % (40-54); Hemoglobin 10.7 g/dL (13.0-16.5); Lymphocyte # 0.62 X10^3/ul (0.83-4.51); Lymphocyte % 5.5 % (19-41); Mean Corp Hgb Conc 32.7 g/dL (32-36); Mean Corpuscular Hgb 29.2 pg (27.0-32.0); Mean Corpuscular Volume 89.1 fL (80-94); Monocyte# 1.24 X10^3/uL; NRBC Flagged by Analyzer 0 % (0-5); Neutrophil # 9.38 X10^3/uL (2.7-7.7); Neutrophil % 82.7 % (47-70); Platelet Count 254 K/mm3 (150-450); RBC Distribution Width CV 14.9 % (11.6-14.6); RBC Distribution Width SD 48.8 fl (35.1-43.9); Red Blood Count 3.67 M/mm3 (4.6-6.2); White Blood Count 11.3 K/mm3 (4.4-11.0)
[2021-12-25 05:45] LABS: Anion Gap 7 (5-15); BUN 17 mg/dL (7-18); BUN/Creat Ratio 21.5 RATIO (10-20); Calcium,Total 8.4 mg/dL (8.5-10.1); Chloride 103 mmol/L (98-107); Creatinine, Serum 0.79 mg/dL (0.70-1.30); EST Glomerular Filtration Rate 101 mL/min (>60); Est Glom Filt Rate - Afr Amer 123 mL/min (>60); Estimated Creatinine Clearance 53.44 ml/min; Glucose 136 mg/dL (74-106); Sodium Level 135 mmol/L (136-145)
--- NOTE | 2021-12-25 07:31 | PCM.PN.HOSP ---
Subjective Subjective Patient is a 76-year-old gentleman who presented with fever generalized weakness and back spasms. Imaging studies during admission demonstrated left mid to lower lung findings suspicious for pneumonia and assessment of sepsis secondary to pneumonia made admitted to regular nursing floor for further management Objective Data Objective Data Vital Signs: Vital Signs Temp Pulse Resp BP Pulse Ox 98.9 F 119 H 20 H 110/70 96 12/25/21 04:50 12/25/21 04:50 12/25/21 04:50 12/25/21 04:50 12/25/21 04:50 Oxygen Delivery Method Room Air Weight: 68.3 kg Body Mass Index (BMI) 25.8 Intake & Output: Intake and Output for Last 24 Hours 12/23/21 12/24/21 12/25/21 23:59 23:59 23:59 Intake Total 2305 / 2305 Balance 2305 / 2305 Lab / Micro Data Result Diagrams: 12/25/21 05:02 12/25/21 05:02 Labs: Laboratory Results - last 24 hr 12/24/21 18:40: WBC 10.0, RBC 4.39 L, Hgb 12.8 L, Hct 38.7 L, MCV 88.2, MCH 29.2, MCHC 33.1, RDW Std Deviation 47.2 H, RDW Coeff of Tulio 14.6, Plt Count 285, MPV 9.0, Immature Gran % (Auto) 0.600, Neut % (Auto) 86.1 H, Lymph % (Auto) 5.4 L, Mcleod % (Auto) 7.4, Eos % (Auto) 0.1, Baso % (Auto) 0.4, Absolute Neuts (auto) 8.6 H, Absolute Lymphs (auto) 0.54 L, Nucleated RBC % 0, Differential Comment SCANNED 12/24/21 18:40: PT 13.8, INR 1.1, APTT 29.0 12/24/21 18:40: Sodium 134 L, Potassium 4.5, Chloride 100, Carbon Dioxide 26.0, Anion Gap 8, BUN 22 H, Creatinine 0.92, Estim Creat Clear Calc 58.09, Est GFR (MDRD) Af Amer 103, Est GFR (MDRD) Non-Af 85, BUN/Creatinine Ratio 23.9 H, Glucose 161 H, Calcium 9.1, Total Bilirubin 0.40, AST 21, ALT 16, Alkaline Phosphatase 77, Total Protein 7.2, Albumin 3.3, Globulin 3.9, Albumin/Globulin Ratio 0.8 L 12/24/21 18:40: Lactic Acid 1.5 12/25/21 05:02: WBC 11.3 H, RBC 3.67 L, Hgb 10.7 L, Hct 32.7 L, MCV 89.1, MCH 29.2, MCHC 32.7, RDW Std Deviation 48.8 H, RDW Coeff of Tulio 14.9 H, Plt Count 254, MPV 9.0, Immature Gran % (Auto) 0.400, Neut % (Auto) 82.7 H, Lymph % (Auto) 5.5 L, Mcleod % (Auto) 11.0 H, Eos % (Auto) 0.1, Baso % (Auto) 0.3, Absolute Neuts (auto) 9.4 H, Absolute Lymphs (auto) 0.62 L, Nucleated RBC % 0 12/25/21 05:02: Sodium 135 L, Potassium 4.0, Chloride 103, Carbon Dioxide 25.0, Anion Gap 7, BUN 17, Creatinine 0.79, Estim Creat Clear Calc 53.44, Est GFR (MDRD) Af Amer 123, Est GFR (MDRD) Non-Af 101, BUN/Creatinine Ratio 21.5 H, Glucose 136 H, Calcium 8.4 L Micro: Microbiology 12/24/21 18:30 Nasal Secretion SARS-CoV-2 & FLU Antigen (Rapid) - Final Radiography Diagnostic Testing: Radiology Impression Chest X-Ray 12/24/21 18:02 IMPRESSION: Findings suspicious for pneumonia involving the left mid to lower lung zones. Follow-up chest x-ray to resolution is recommended. Electronically Signed: Pablo Patrick MD at 19:40 EDT , Physical Exam Narrative GENERAL: cooperative but frail looking HEENT: Atraumatic; EYES; Anicteric, Normal Conjunctiva NECK; supple, normal thyroid, RESPIRATORY: Diminished to auscultation CARDIOVASCULAR: Regular S1 S2, GI: soft, normoactive bowel sounds, : No Renal angle tenderness; EXTREMITIES: No edema, no clubbing, MUSCULOSKELETAL: no muscle wasting NEURO: Awake; no lateralizing signs. SKIN: No Rash PSYCH; Flat affect Assessment & Plan Assessment/Plan (1) Pneumonia: PLAN: Patient is a 76-year-old gentleman who presented with fever generalized weakness and back spasms. Imaging studies during admission demonstrated left mid to lower lung findings suspicious for pneumonia and assessment of sepsis secondary to pneumonia made admitted to regular nursing floor for further management 1. Sepsis secondary to pneumonia ? Suspected to be secondary to streptococcal pneumonia, Blood and sputum cultures sent. Patient placed on Rocephin and Zithromax and placed on oxygen titrated to keep Pulse Ox greater than 90 2. Essential hypertension ? Blood pressure stable?continue home meds 3. History of prostate CA ? With mets to the bone currently being followed by oncology as outpatient. This may be contributing to patient back pain patient is on baclofen did continue 4. Paroxysmal A. fib ? Currently in sinus rhythm not on systemic anticoagulation 5. History of bilateral pulmonary embolism ? Patient completed treatment with systemic anticoagulation 6. Severe physical deconditioning - Requested for PT OT eval and social welfare clerk to assist with discharge planning 7. DVT prophylaxis - On enoxaparin Charges/Coding Visit Charges Inpatient E&M: 51741 Subs Hosp L3
[2021-12-25] MEDS: Ferrous Sulfate 325 MG Tablet PO (08:47)
[2021-12-25] MEDS: Cholecalciferol (VIT D3) 25 MCG TABLET (1,000 UNITS) PO (08:47)
[2021-12-25] MEDS: Aspirin E.C. 81 MG Tablet PO (08:47)
[2021-12-25] MEDS: Fluticasone 0.05% 1 SPRAY NASAL.SRY NASAL ×2 (08:47→21:22)
[2021-12-25] MEDS: Enoxaparin 40 MG/0.4 ML Syringe SC (11:47)
[2021-12-25 15:21] LABS: Color, Urine Yellow (Yellow); Glucose, Dipstick Normal (Normal); Ketone-Dipstick Negative (Negative); Leukocyte Esterase-Dipstick 500 /ul (Negative); Mucous, Urine 0 SEEN /hpf (<or=2+); Nitrite-Dipstick Positive (Negative); Occult Blood-Urine 150 /ul (Negative); Protein-Dipstick 100 mg/dl (Negative); Red Blood Cells-Urine 0 SEEN /hpf (0-5); Squamous Epithelial Cells - UA 0 SEEN /hpf (0-5); Urine Bilirubin Dipstick Negative (Negative); Urine Clarity Turbid (Clear); Urine Urobilinogen Normal (Normal)
[2021-12-25] MEDS: Acetaminophen 325 MG Tablet 650 MG PO (15:26)
--- NOTE | 2021-12-25 15:42 | CASEMGMT ---
LUIS F LOPEZ Assessment: Face to Face with pt for initial transition planning/care coordination assessment. LUIS F LOPEZ introduced self and role at [facility], pt voices understanding and consents to assessment. Pt is A/O x4 and answers all questions appropriately at this time. Pt present at bedside. Pt is who pt designates as his counter sales person to discuss dc planning with. Care providers, pharmacy, and demographics verified/updated. Admitting Dx: pneumonia PCP:[facility]:Pt denies. Pt states he will see a neuro on February 08 to see about getting botox in the R leg to help straighten it. Preferred [facility]acy: [facility] Insurance: [facility] Prescription Benefit: yes LW/HPOA: Pt denies having a LW/DPOA and denies need for info regarding AD. LNOK: Geoffrey Foster, Living Arrangements: Pt lives with iin a single story house with a ramp to enter. Pt is dependent on for ADL/IADL's. Pt has been w/c bound as of late. Transportation: Pt transports him to medical appts. DME/HHC/SNF: Pt has a w/c, shower chair, FWW and gets his colostomy supplies through [employer]. Pt denies hx of HHC and has been at [facility] and [facility]. Pt was dc'd from SNF in July. Pt is adamant that pt will not go back to SNF. Discussed that pt is needing assist of 2 currently. Pt states she can take care of him at home and manage him by herself. She states pt was going to [facility] for PT and OT and she just cancelled the appts for this week. Pt states no concerns with going home at time of dc. agrees. Pt and feel pt can still get out of the home to go to [facility]. Discussed having HHC until pt is stronger to go back to [facility]. As of now, pt and decline this. Pt states no further concerns/needs. CM to follow. Advised pt to ask CM if any further question/concerns/needs arise, voices understanding. Pt Goal: [facility] for OT and PT to resume Plan: TBD- HHC vs resuming [facility] outpt therapy
[2021-12-25 16:05] LABS: Bacteria 1+ /hpf (None Seen); White Blood Cells >100 SEEN /hpf (0-5)
[2021-12-25] MEDS: MELATONIN 3 MG TABLET PO (21:22)
[2021-12-25] MEDS: cycloBENZAPRine HCl 10 MG Tablet PO (21:22)
[2021-12-25] MEDS: Doxazosin 1 MG Tablet 2 MG PO (21:22)
[2021-12-25] MEDS: Lisinopril 5 MG Tablet PO (21:23)
[2021-12-25] MEDS: Senna Tablet 1 TABLET PO (21:23)
[2021-12-25] MEDS: Ceftriaxone 1 GM/50 ML BAG IV (21:23)
[2021-12-25] MEDS: Clopidogrel Bisulfate 75 MG Tablet PO (21:23)
[2021-12-25] MEDS: 0.9% Saline Lock 10 ML Syringe IV (21:24)
[2021-12-26] VITALS (11 sets, daily range): BP systolic 93–97; BP diastolic 56–74; PULSE 85–101; RESP 15–18; TEMP 36.6–37.3; O2SAT 95–99
--- NOTE | 2021-12-26 07:23 | PN.HOSP_ITS ---
Subjective Subjective Patient seen remains frail. Urinalysis obtained the day prior came back consistent with acute cystitis. Patient is on Rocephin. Awaiting cultures. Objective Data Objective Data Vital Signs: Vital Signs Temp Pulse Resp BP Pulse Ox 97.8 F 92 18 97/56 L 97 12/26/21 06:54 12/26/21 06:54 12/26/21 06:54 12/26/21 06:54 12/26/21 06:54 Oxygen Flow Rate (L/min) 2 Oxygen Delivery Method Nasal Cannula Weight: 68.3 kg Body Mass Index (BMI) 25.8 Intake & Output: Intake and Output for Last 24 Hours 12/24/21 12/25/21 12/26/21 23:59 23:59 23:59 Intake Total 2305 / 2305 305 / 305 Balance 2305 / 2305 305 / 305 Lab / Micro Data Result Diagrams: 12/25/21 05:02 12/25/21 05:02 Labs: Laboratory Results - last 24 hr 12/25/21 15:11: Urine Color Yellow, Urine Clarity Turbid, Urine pH 6.0, Ur Specific [place] 1.020, Urine Protein 100 H, Urine Glucose (UA) Normal, Urine Ketones Negative, Urine Occult Blood 150 H, Urine Nitrite Positive H, Urine Bilirubin Negative, Urine Urobilinogen Normal, Ur Leukocyte Esterase 500 H, Urine RBC 0 SEEN, Urine WBC >100 SEEN, Ur Squamous Epith Cells 0 SEEN, Urine Bacteria 1+, Urine Mucus 0 SEEN Micro: Microbiology 12/25/21 15:11 Urine, Clean Catch Legionella Antigen - Final 12/25/21 15:11 Urine, Clean Catch Streptococcus pneumoniae Antigen (M - Final 12/24/21 18:30 Nasal Secretion SARS-CoV-2 & FLU Antigen (Rapid) - Final Physical Exam Narrative GENERAL: cooperative but frail looking HEENT: Atraumatic; EYES; Anicteric, Normal Conjunctiva NECK; supple, normal thyroid, RESPIRATORY: Diminished to auscultation CARDIOVASCULAR: Regular S1 S2, GI: soft, normoactive bowel sounds, : No Renal angle tenderness; EXTREMITIES: No edema, no clubbing, MUSCULOSKELETAL: no muscle wasting NEURO: Awake; no lateralizing signs. SKIN: No Rash PSYCH; Flat affect Assessment & Plan Assessment/Plan (1) Pneumonia: PLAN: Patient is a 76-year-old gentleman who presented with fever generalized weakness and back spasms. Imaging studies during admission demonstrated left mid to lower lung findings suspicious for pneumonia and as sessment of sepsis secondary to pneumonia made admitted to regular nursing floor for further management 1. Sepsis secondary to pneumonia ? Suspected to be secondary to streptococcal pneumonia, Blood and sputum cultures sent. Patient placed on Rocephin and Zithromax and placed on oxygen titrated to keep Pulse Ox greater than 90 2. Essential hypertension ? Blood pressure stable?continue home meds 3. History of prostate CA ? With mets to the bone currently being followed by oncology as outpatient. This may be contributing to patient back pain patient is on baclofen did continue 4. Paroxysmal A. fib ? Currently in sinus rhythm not on systemic anticoagulation 5. History of bilateral pulmonary embolism ? Patient completed treatment with systemic anticoagulation 6. Severe physical deconditioning - Requested for PT OT eval and social security assessor to assist with discharge planning 7. DVT prophylaxis - On enoxaparin 8. Acute cystitis ? Patient on Rocephin cultures pending Charges/Coding Visit Charges Inpatient E&M: 89141 Subs Hosp L2
[2021-12-26] MEDS: Enoxaparin 40 MG/0.4 ML Syringe SC (08:20)
[2021-12-26] MEDS: Ferrous Sulfate 325 MG Tablet PO (08:20)
[2021-12-26] MEDS: Aspirin E.C. 81 MG Tablet PO (08:20)
[2021-12-26] MEDS: Fluticasone 0.05% 1 SPRAY NASAL.SRY NASAL ×2 (08:20→22:04)
[2021-12-26] MEDS: Cholecalciferol (VIT D3) 25 MCG TABLET (1,000 UNITS) PO (08:20)
[2021-12-26] MEDS: Menthol/Lanolin/Calamine/Znox 113 GM Tube 1 APPLIC TOPICAL ×2 (08:51→22:03)
[2021-12-26] MEDS: cycloBENZAPRine HCl 10 MG Tablet PO ×2 (08:51→18:07)
--- NOTE | 2021-12-26 09:52 | WOUNDNOTE ---
Colostomy appliance changed. patient states that his changes the appliance once a week. states it has been a little over a week since it was changed. removed the pouch and flange. peristomal skin is intact. stoma sits just above the skin level. stoma is pink and moist. cleansed the skin with warm water. pat dry. applied a new 2 piece convex Regis appliance with a closed end pouch that the had brought in. pt tolerated well.
--- NOTE | 2021-12-26 09:55 | WOUNDNOTE ---
was asked to see patient for wound to the sacrum. patient appears to have had a previous pressure injury to the sacrum. there is some scarred tissue noted. no open areas noted. will monitor closely. applied calmoseptine as a moisture barrier. may consider a Mepilex dressing if changes are noted. see skin photo.
--- NOTE | 2021-12-26 10:03 | WOUNDNOTE ---
skin photo: sacrum
[2021-12-26] MEDS: Doxazosin 1 MG Tablet 2 MG PO (22:02)
[2021-12-26] MEDS: Lisinopril 5 MG Tablet PO (22:02)
[2021-12-26] MEDS: Acetaminophen 325 MG Tablet 650 MG PO (22:02)
[2021-12-26] MEDS: MELATONIN 3 MG TABLET PO (22:02)
[2021-12-26] MEDS: Senna Tablet 1 TABLET PO (22:02)
[2021-12-26] MEDS: Clopidogrel Bisulfate 75 MG Tablet PO (22:02)
[2021-12-26] MEDS: Ceftriaxone 1 GM/50 ML BAG IV (22:05)
[2021-12-26] MEDS: 0.9% Saline Lock 10 ML Syringe IV (22:05)
[2021-12-27] VITALS (10 sets, daily range): BP systolic 104–126; BP diastolic 62–80; PULSE 88–101; RESP 16–18; TEMP 36.4–36.8; O2SAT 94–100
--- NOTE | 2021-12-27 07:25 | PCM.PN.HOSP ---
Subjective Subjective Patient seen still complains of feeling weak and has a nonproductive cough. Blood cultures so far negative to date. Urine cultures still pending. Had a discussion with patient about possibility of going to halfway facility patient is not interested and his preference will be to discharge home when ready Objective Data Objective Data Vital Signs: Vital Signs Temp Pulse Resp BP Pulse Ox 98.2 F 96 18 126/75 H 98 12/27/21 04:40 12/27/21 04:40 12/27/21 04:40 12/27/21 04:40 12/27/21 06:53 Oxygen Flow Rate (L/min) 2 Oxygen Delivery Method Nasal Cannula Weight: 68.3 kg Body Mass Index (BMI) 25.8 Intake & Output: Intake and Output for Last 24 Hours 12/25/21 12/26/21 12/27/21 23:59 23:59 23:59 Intake Total 305 / 305 50 / 50 255 / 255 Output Total 200 / 200 Balance 305 / 305 -150 / -150 255 / 255 Lab / Micro Data Result Diagrams: 12/27/21 08:05 12/25/21 05:02 Micro: Microbiology 12/24/21 18:51 Blood Culture (Wb) - Left Hand Blood Culture - Preliminary No growth in 48 hours. 12/24/21 18:40 Blood Culture (Wb) - Right Hand Blood Culture - Preliminary No growth in 48 hours. 12/25/21 15:11 Urine, Clean Catch Legionella Antigen - Final 12/25/21 15:11 Urine, Clean Catch Streptococcus pneumoniae Antigen (M - Final 12/24/21 18:30 Nasal Secretion SARS-CoV-2 & FLU Antigen (Rapid) - Final Physical Exam Narrative GENERAL: cooperative but frail looking HEENT: Atraumatic; EYES; Anicteric, Normal Conjunctiva NECK; supple, normal thyroid, RESPIRATORY: Diminished to auscultation CARDIOVASCULAR: Regular S1 S2, GI: soft, normoactive bowel sounds, : No Renal angle tenderness; EXTREMITIES: No edema, no clubbing, MUSCULOSKELETAL: no muscle wasting NEURO: Awake; no lateralizing signs. SKIN: No Rash PSYCH; Flat affect Assessment & Plan Assessment/Plan (1) Pneumonia: PLAN: Patient is a 76-year-old gentleman who presented with fever generalized weakness and back spasms. Imaging studies during admission demonstrated left mid to lower lung findings suspicious for pneumonia and assessment of sepsis secondary to pneumonia made admitted to regular nursing floor for further management 1. Sepsis secondary to pneumonia ? Suspected to be secondary to streptococcal pneumonia, Blood and sputum cultures sent. Patient placed on Rocephin and Zithromax and placed on oxygen titrated to keep Pulse Ox greater than 90 ? 12/27/2021 blood cultures so far negative to date. Patient remains on supplemental oxygen 2. Essential hypertension ? Blood pressure stable?continue home meds 3. History of prostate CA ? With mets to the bone currently being followed by oncology as outpatient. This may be contributing to patient back pain patient is on baclofen did continue 4. Paroxysmal A. fib ? Currently in sinus rhythm not on systemic anticoagulation 5. History of bilateral pulmonary embolism ? Patient completed treatment with systemic anticoagulation 6. Severe physical deconditioning - Requested for PT OT eval and social media coordinator to assist with discharge planning 7. DVT prophylaxis - On enoxaparin 8. Acute cystitis ? Patient on Rocephin cultures pending 12/27/2021. Urine culture still pending Charges/Coding Visit Charges Inpatient E&M: 98743 Subs Hosp L2
[2021-12-27 08:13] LABS: Absolute Lymphocyte Count 0.62 X10^3/uL (0.83-4.51); Absolute Neutrophil Count 4.7 X10^3/uL (2.0-7.7); Basophil# 0.04 X10^3/uL; Basophil% 0.7 % (0-1); Eosinophil# 0.24 X10^3/uL; Hematocrit 31.1 % (40-54); Hemoglobin 10.1 g/dL (13.0-16.5); Lymphocyte # 0.62 X10^3/ul (0.83-4.51); Lymphocyte % 10.2 % (19-41); Mean Corp Hgb Conc 32.5 g/dL (32-36); Mean Corpuscular Hgb 29.3 pg (27.0-32.0); Mean Corpuscular Volume 90.1 fL (80-94); Monocyte# 0.47 X10^3/uL; Monocyte% 7.8 % (0-10); NRBC Flagged by Analyzer 0 % (0-5); Neutrophil # 4.65 X10^3/uL (2.7-7.7); Neutrophil % 76.8 % (47-70); Platelet Count 248 K/mm3 (150-450); RBC Distribution Width CV 14.9 % (11.6-14.6); RBC Distribution Width SD 49.1 fl (35.1-43.9); Red Blood Count 3.45 M/mm3 (4.6-6.2); White Blood Count 6.1 K/mm3 (4.4-11.0)
[2021-12-27 08:34] LABS: Anion Gap 8 (5-15); BUN 20 mg/dL (7-18); BUN/Creat Ratio 28.6 RATIO (10-20); Calcium,Total 8.7 mg/dL (8.5-10.1); Chloride 103 mmol/L (98-107); EST Glomerular Filtration Rate 117 mL/min (>60); Est Glom Filt Rate - Afr Amer 142 mL/min (>60); Estimated Creatinine Clearance 53.44 ml/min; Glucose 116 mg/dL (74-106); Magnesium 2.4 mg/dL (1.6-2.6); Potassium 4.3 mmol/L (3.5-5.1); Sodium Level 138 mmol/L (136-145)
[2021-12-27] MEDS: Aspirin E.C. 81 MG Tablet PO (08:39)
[2021-12-27] MEDS: Ferrous Sulfate 325 MG Tablet PO (08:40)
[2021-12-27] MEDS: Fluticasone 0.05% 1 SPRAY NASAL.SRY NASAL (08:40)
[2021-12-27] MEDS: Cholecalciferol (VIT D3) 25 MCG TABLET (1,000 UNITS) PO (08:40)
[2021-12-27] MEDS: Menthol/Lanolin/Calamine/Znox 113 GM Tube 1 APPLIC TOPICAL (08:40)
[2021-12-27] MEDS: Enoxaparin 40 MG/0.4 ML Syringe SC (08:41)
--- NOTE | 2021-12-27 09:10 | CASEMGMT ---
Addendum entered by Noemi Freire 12/27/21 12:23: LUIS F LOPEZ back into pt room, pt states they will plan on pt resuming [facility]. Pt in agreement. She states they will have the insurance provide transportation to [facility] as well as home today. Patient/ was provided a list of HHC providers including quality and resource use data and consistent with the patient?s preferred geographic region, medical needs, and insurance network in case pt is not able to go. They are aware to notify PCP if this is the case. Pt/ deny further needs. Addendum entered by Noemi Freire 12/27/21 11:52: LUIS F LOPEZ in to pt room, therapy working with patient, present. Pt needing max x2 to get in chair. Therapy spoke with as far as safety of her completing trf's on own with pt. She is adamant she does not want pt to go to SNF. Discussed the option of HHC until able to return to [facility]. Pt and to consider. LUIS F LOPEZ to check back. Original Note: LUIS F LOPEZ in to pt room, pt sitting up in bed. Discussed dc planning. Pt again states he will go to resume his outpt therapy at [facility] as appts are already scheduled. He states his can manage him at home. Discussed having HHC until stronger to resume [facility] as pt is assist of 2 right now. Pt declines. Made pt aware he would qualify for these services, he again denies. Will discuss with when she is present in room.
--- NOTE | 2021-12-27 14:53 | DS.PCM_ITS ---
Providers Date of Admission: 12/24/21 Primary Care Physician: Dr. Wil Bradshaw, DO Consultations 12/26/21 05:42 Consult: Onc/Wound/human resources trainer Routine Comment: Reason for Consult:: pressure area to sacrum Reason For Visit: PNEUMONIA Diagnosis Discharge Diagnosis (1) Pneumonia: Status: Acute Code(s): J18.9 - Pneumonia, unspecified organism Medications at Discharge Home Medications acetaminophen 325 mg capsule 650 mg PO Q6H PRN PRN 06/26/21 aspirin 81 mg tablet,delayed release 81 mg PO DAILY 06/26/21 lisinopril 5 mg tablet 5 mg PO QHS 06/26/21 doxazosin 1 mg tablet 2 mg PO QHS 12/13/21 ostomy supplies #1 ea 12/13/21 baclofen 5 mg tablet 5 mg PO TID PRN #90 tab 12/20/21 cholecalciferol (vitamin D3) 10 mcg PO DAILY 12/24/21 clopidogrel [Plavix] 75 mg PO QHS 12/24/21 ferrous sulfate 325 mg PO DAILY 12/24/21 metoprolol succinate 12.5 mg PO BID 12/24/21 sennosides [Natural Senna Laxative] 8.6 mg PO QHS 12/24/21 cefdinir 300 mg PO BID #10 cap 12/27/21 Hospital Course Summary of Care Provided Minutes Spent on Discharge: 35 Hospital Course: Patient is a 76-year-old gentleman who presented with fever generalized weakness and back spasms. Imaging studies during admission demonstrated left mid to lower lung findings suspicious for pneumonia and assessment of sepsis secondary to pneumonia made admitted to regular nursing floor for further management 1. Sepsis secondary to pneumonia ? Suspected to be secondary to streptococcal pneumonia, Blood and sputum cultures sent. Patient placed on Rocephin and Zithromax and placed on oxygen titrated to keep Pulse Ox greater than 90 ? 12/27/2021 blood cultures so far negative to date. Patient remains on supplemental oxygen -Will 2. Essential hypertension ? Blood pressure stable?continue home meds 3. History of prostate CA ? With mets to the bone currently being followed by oncology as outpatient. This may be contributing to patient back pain patient is on baclofen did continue 4. Paroxysmal A. fib ? Currently in sinus rhythm not on systemic anticoagulation 5. History of bilateral pulmonary embolism ? Patient completed treatment with systemic anticoagulation 6. Severe physical deconditioning - Requested for PT OT eval and social professionals to assist with discharge planning 7. DVT prophylaxis - On enoxaparin 8. Acute cystitis ? Patient on Rocephin cultures pending 12/27/2021. Urine culture still pending -Urine Cx no significant growth Physical Exam Narrative GENERAL: cooperative but frail looking HEENT: Atraumatic; EYES; Anicteric, Normal Conjunctiva NECK; supple, normal thyroid, RESPIRATORY: Diminished to auscultation CARDIOVASCULAR: Regular S1 S2, GI: soft, normoactive bowel sounds, : No Renal angle tenderness; EXTREMITIES: No edema, no clubbing, MUSCULOSKELETAL: no muscle wasting NEURO: Awake; no lateralizing signs. SKIN: No Rash PSYCH; Flat affect Weight / BMI Weight Weight: 68.3 kg Body Mass Index (BMI) 25.8 ABG / Lab / Microbiology Data Result Diagrams: 12/27/21 08:05 12/27/21 08:05 Laboratory: Laboratory Results - last 24 hr 12/27/21 08:05: WBC 6.1, RBC 3.45 L, Hgb 10.1 L, Hct 31.1 L, MCV 90.1, MCH 29.3, MCHC 32.5, RDW Std Deviation 49.1 H, RDW Coeff of Tulio 14.9 H, Plt Count 248, MPV 9.0, Immature Gran % (Auto) 0.500, Neut % (Auto) 76.8 H, Lymph % (Auto) 10.2 L, Roberts % (Auto) 7.8, Eos % (Auto) 4.0, Baso % (Auto) 0.7, Absolute Neuts (auto) 4.7, Absolute Lymphs (auto) 0.62 L, Nucleated RBC % 0 12/27/21 08:05: Sodium 138, Potassium 4.3, Chloride 103, Carbon Dioxide 27.0, Anion Gap 8, BUN 20 H, Creatinine 0.70, Estim Creat Clear Calc 53.44, Est GFR (MDRD) Af Amer 142, Est GFR (MDRD) Non-Af 117, BUN/Creatinine Ratio 28.6 H, Glucose 116 H, Calcium 8.7, Magnesium 2.4 Microbiology: Microbiology 12/25/21 15:11 Urine, Clean Catch Urine Culture - Preliminary GNR lactose fancy stitcher 12/24/21 18:51 Blood Culture (Wb) - Left Hand Blood Culture - Preliminary No growth in 48 hours. 12/24/21 18:40 Blood Culture (Wb) - Right Hand Blood Culture - Preliminary No growth in 48 hours. 12/25/21 15:11 Urine, Clean Catch Legionella Antigen - Final 12/25/21 15:11 Urine, Clean Catch Streptococcus pneumoniae Antigen (M - Final 12/24/21 18:30 Nasal Secretion SARS-CoV-2 & FLU Antigen (Rapid) - Final D/C Instructions Discharge Diet: No restrictions Discharge Activity: Return to Normal Activity Call your doctor if you observe: Fever of 101 or Higher, Shortness of breath, Fainting spells and Chest pain Meaningful Use Info Meaningful Use Diagnoses (Choose all that apply): None applicable Discharge Plan Admission Admit Date/Time: 12/24/21 20:25 Attending Provider: Bo Barreto Primary Care Provider: Wil Bradshaw Discharge Orders/Prescriptions Prescriptions: New cefdinir 300 mg capsule 300 mg PO BID Qty: 10 RF: 0 Continued acetaminophen 325 mg capsule 650 mg PO Q6H PRN PRN (Reason: Pain) RF: 0 aspirin [Adult Aspirin Regimen] 81 mg tablet,delayed release (DR/EC) 81 mg PO DAILY RF: 0 lisinopril 5 mg tablet 5 mg PO QHS RF: 0 doxazosin 1 mg tablet 2 mg PO QHS RF: 0 (DME) [place] Replacement Filters Misc See Rx Instructions .ROUTE .MEDSUPPLY Qty: 1 RF: 0 sennosides [Natural Senna Laxative] 8.6 mg tablet 8.6 mg PO QHS RF: 0 clopidogrel [Plavix] 75 mg tablet 75 mg PO QHS RF: 0 ferrous sulfate 325 mg (65 mg iron) tablet 325 mg PO DAILY RF: 0 metoprolol succinate 25 mg tablet extended release 24 hr 12.5 mg PO BID RF: 0 cholecalciferol (vitamin D3) 10 mcg (400 unit) capsule 10 mcg PO DAILY RF: 0 baclofen 5 mg tablet 5 mg PO TID PRN (Reason: spasms) Qty: 90 RF: 0 Referrals / Follow Up: Wil Bradshaw DO [Primary Care Provider] - Within 1 Week Disposition Disposition (needs filled in before D/C Order can be placed): Home, Self Care Charges/Coding Visit Charges Inpatient E&M: 34918 Disch Hosp
--- NOTE | 2021-12-27 17:45 | NURSING ---
pt dressed by and up in recliner chair. dc instructions given to pt and with no questions voiced. all belongings packed. up to [facility] for dc per winston addison rn and tracey blevins d/t mod/max assist and assisted off unit to private vehicle
== END 2021-12-27 17:40 | disposition home or self-care (01) | DRG 720 ==
LOC: ED 20:21 → MS3 20:40
PROVIDERS: Admitting Provider Hospitalist; Emergency Provider Emergency Medicine; PCP Family Medicine; Visit Provider Internal Medicine
DX: A41.9 Sepsis, unspecified organism (principal); J15.4 Pneumonia due to other streptococci; L89.152 Pressure ulcer of sacral region, stage 2; I48.0 Paroxysmal atrial fibrillation; Z93.3 Colostomy status; I10 Essential (primary) hypertension; N30.00 Acute cystitis without hematuria; Z99.3 Dependence on wheelchair; Z79.02 Long term (current) use of antithrombotics/antiplatelets; Z79.82 Long term (current) use of aspirin; Z79.899 Other long term (current) drug therapy; Z86.73 Personal history of transient ischemic attack (TIA), and cerebral infarction without residual deficits; Z85.46 Personal history of malignant neoplasm of prostate; Z86.711 Personal history of pulmonary embolism; Z87.891 Personal history of nicotine dependence; Z90.49 Acquired absence of other specified parts of digestive tract
CPT/HCPCS: 36415; 71045; 80048; 80053; 81001; 83605; 83735; 85025; 85610; 85730; 87040; 87077; 87086; 87088; 87186; 87428; 87449; 93005; 97110; 97162; 97167; 97530; 97535; 97802; 99285; J7030; J7040; A4216; J2405

== ENCOUNTER → 2022-01-02 | Outpatient (CLI) | payer MEDICAID, SELFPAY ==
[2022-01-02 15:10] LABS: Absolute Lymphocyte Count 1.09 X10^3/uL (0.83-4.51); Absolute Neutrophil Count 6.6 X10^3/uL (2.0-7.7); Basophil# 0.05 X10^3/uL; Basophil% 0.6 % (0-1); Eosinophils% 2.3 % (0-5); Hematocrit 35.2 % (40-54); Hemoglobin 11.4 g/dL (13.0-16.5); Lymphocyte # 1.09 X10^3/ul (0.83-4.51); Lymphocyte % 12.3 % (19-41); Mean Corp Hgb Conc 32.4 g/dL (32-36); Mean Corpuscular Hgb 29.4 pg (27.0-32.0); Mean Corpuscular Volume 90.7 fL (80-94); Mean Platelet Vol. 9.1 fl (6.2-12.0); Monocyte# 0.65 X10^3/uL; Monocyte% 7.3 % (0-10); NRBC Flagged by Analyzer 0 % (0-5); Neutrophil % 74.5 % (47-70); Platelet Count 396 K/mm3 (150-450); RBC Distribution Width SD 49.1 fl (35.1-43.9); Red Blood Count 3.88 M/mm3 (4.6-6.2); White Blood Count 8.9 K/mm3 (4.4-11.0)
[2022-01-02 16:04] LABS: ALB/GLOB Ratio 0.8 RATIO (0.9-2.4); AST(SGOT) 15 U/L (15-37); Alanine Aminotransfer ALT/SGPT 26 U/L (16-61); Albumin, Serum 3.1 g/dL (3.2-5.0); Alkaline Phosphatase 75 U/L (45-117); Anion Gap 7 (5-15); BUN 23 mg/dL (7-18); Calcium,Total 9.1 mg/dL (8.5-10.1); Chloride 102 mmol/L (98-107); Creatinine, Serum 0.66 mg/dL (0.70-1.30); EST Glomerular Filtration Rate 126 mL/min (>60); Est Glom Filt Rate - Afr Amer 152 mL/min (>60); Globulin 3.7 g/dL (2.2-4.2); Glucose 109 mg/dL (74-106); Magnesium 2.2 mg/dL (1.6-2.6); Potassium 4.3 mmol/L (3.5-5.1); Protein, Total 6.8 g/dL (6.4-8.2); Sodium Level 134 mmol/L (136-145)
[2022-01-02 16:13] LABS: BNP,B-Type NATRIURETIC PEPTIDE 16.6 pg/mL (0-100)
== END | disposition home or self-care (01) ==
PROVIDERS: PCP Family Medicine; Referring Provider Physician Assistant; Visit Provider Physician Assistant
DX: R06.02 Shortness of breath (principal); C79.51 Secondary malignant neoplasm of bone; C61 Malignant neoplasm of prostate; J18.9 Pneumonia, unspecified organism; M62.838 Other muscle spasm; R10.9 Unspecified abdominal pain; R29.898 Other symptoms and signs involving the musculoskeletal system; G25.81 Restless legs syndrome
CPT/HCPCS: 36415; 80053; 83735; 83880; 85025

== ENCOUNTER → 2022-01-16 | Outpatient (CLI) | payer MEDICAID, SELFPAY ==
[2022-01-16 17:45] LABS: D-Dimer Quantitative (DVT/PE) 11.62 FEU/ug/m (0.27-0.49)
== END | disposition home or self-care (01) ==
LOC: BIMLAB 15:49
PROVIDERS: PCP Family Medicine; Referring Provider Physician Assistant; Visit Provider Physician Assistant
DX: M79.89 Other specified soft tissue disorders (principal)
CPT/HCPCS: 36415; 85379

== ENCOUNTER → 2022-01-17 | Outpatient (CLI) | payer MEDICAID, SELFPAY ==
--- NOTE | 2022-01-17 14:19 | RAD_ITS ---
STUDY: X-RAY CHEST REASON FOR EXAM: Male, 76 years old. recheck pneumonia TECHNIQUE: XR Chest 2 Views COMPARISON: 12/24/2021 FINDINGS: There is a left bilateral infiltrates. Normal size heart. Normal mediastinum and margarito. Normal visualized pulmonary arteries. There is atherosclerotic calcification of the aortic arch with tortuosity. There are diffuse degenerative changes of the visualized thoracic spine. There is degenerative osteoarthritis of the bilateral shoulders. There is no demonstrated abnormality of the visualized soft tissue structures of the upper abdomen. RAD/Chest PA and Lateral IMPRESSION: Pulmonary findings appear improved. Electronically Signed: Dwight Fountain MD at 18:29 EDT ,
--- NOTE | 2022-01-17 14:19 | VDLE_ITS ---
Reason For Study: Elevated D-dimer RIGHT LEFT CFV is compressible, spontaneous, phasic, Acute deep vein thrombosis is noted in the competent and demonstrates normal left CFV, ProfundaV, FV, PopV, T/P Trunk, augmentation. GastrocV, PTV, and PeroV. Procedure Acute superficial vein thrombosis is noted This is a venous duplex using B-mode, color in the left GSV from junction to prox thigh, flow and spectral Doppler. and SSV. Exam performed in department. A preliminary report was called and/or faxed to [facility]. VL/Venous Duplex US, Unilateral Interpretation Summary Extensive acute deep venous thrombosis of the left common femoral, profunda, fe moral, popliteal, tibioperoneal trunk, gastrocnemius, posterior tibial, and peroneal veins. Superficial thrombophlebitis left great saphenous vein from the junction to the proximal thigh Superficial thrombophlebitis left small saphenous vein Normal flow patterns right common femoral vein Ordering Physician: Izabella Sam Referring Physician: Lloyd Bradshaw M.D. Performed By: Gilma Gamboa RVT
== END | disposition home or self-care (01) ==
PROVIDERS: PCP Family Medicine; Referring Provider Physician Assistant; Visit Provider Physician Assistant
DX: J18.9 Pneumonia, unspecified organism (principal); R60.0 Localized edema; R79.89 Other specified abnormal findings of blood chemistry
CPT/HCPCS: 71046; 93971

== ENCOUNTER → 2022-01-19 | Outpatient (CLI) | payer MEDICAID, SELFPAY ==
--- NOTE | 2022-01-19 13:43 | CT_ITS ---
STUDY: CT ABDOMEN AND PELVIS WITH CONTRAST REASON FOR EXAM: Male, 76 years old. Abdominal pain, metastatic prostate cancer RADIATION DOSAGE (If Supplied By Facility): CTDIvol = ( 12.26 ) mGy, DLP = ( 1206.46 ) mGycm TECHNIQUE: Transaxial images were obtained from the dome of the diaphragm to the symphysis pubis without oral contrast. [id number] 100ML was administered. Sagittal and coronal images were reconstructed. Individualized dose optimization techniques were used for this CT. COMPARISON: Comparison is made with prior study dated 12/27/2020. FINDINGS: Focal calcified pleural plaque along the anterior aspect of the left pleural surface. Minimal degree of left basilar atelectasis. Coronary artery calcification. Normal liver. The gallbladder is contracted. Normal spleen. Normal pancreas. Normal bilateral adrenal glands. 1 cm cyst in the upper lateral aspect of the right upper pole. Is a mild degree of right hydronephrosis and right hydroureter. Minimal left-sided hydronephrosis. Normal left kidney. Normal visualized stomach. Normal small intestine. The patient is status post abdominal perineal resection with colostomy in the left anterior abdominal wall. The appendix is visualized and appears normal. There is diffuse atherosclerotic calcification of the abdominal aorta. Endoluminal stent grafting is seen. The [place] abdominal aorta has a transverse dimension of 4 cm. A femoral to femoral bypass graft is seen and is patent. Normal inferior vena cava. There is evidence of retroperitoneal lymphadenopathy more prominent on the left side. This has markedly improved as compared to prior study. Distended urinary bladder. Almost complete resolution of the pelvic lymphadenopathy. There is enlargement of the prostate gland. It measures 6.4 cm x 5 cm. Central calcifications are seen. The prostate causes indentation at the bladder base. Normal abdominal wall. 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 CT/Abdomen/Pelvis WITH Contrast IMPRESSION: Marked improvement in the retroperitoneal and pelvic lymphadenopathy as compared to prior study. Mild right hydronephrosis and hydroureter. Prior abdominal perineal resection. Distended urinary bladder. Prostatic enlargement with indentation at the bladder base. 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 Electronically Signed: Macario Chang MD at 15:01 EDT ,
== END | disposition home or self-care (01) ==
LOC: CT 13:42
PROVIDERS: PCP Family Medicine; Referring Provider Physician Assistant; Visit Provider Physician Assistant
DX: R10.9 Unspecified abdominal pain (principal); C79.51 Secondary malignant neoplasm of bone; C61 Malignant neoplasm of prostate; M79.89 Other specified soft tissue disorders
CPT/HCPCS: 74177; Q9967; A4216

== ENCOUNTER 2022-01-31 13:30 | Outpatient (RCR) | payer MEDICAID, SELFPAY ==
--- NOTE | 2021-08-24 16:06 | HP.PTEVAL_ITS ---
Patient's Visit Information LANDON MCKEON is a 75 year old M referred to Physical Therapy by EVERETTE Angeles with a diagnosis of Weakness, R53.1; Other malaise, R53.81; Cerebral infarction, I63.9. Date of Evaluation: 08/24/21 Physical Therapist: Erickson Kellogg - Visit Plan Frequency: 2x /Week Duration: 4 Weeks Plan: Will try to work on improving LE ROM, strength, and mobility as able. Will transfer care to another PT at this time. - Subjective Pt. is a 75 y.o. male who suffered a stroke back in October of this year which affected mostly his left side. He then found out he had prostate cancer which also had spread to his lumbar spine. He had radiation for his cancer. Pt. then fell in February when he passed out sitting on the edge of his bed and was found to have a cervical spine fracture as well as cancer in his neck. Pt. was in a neck brace for 12 weeks following this. During this time, he was also found to have an abdominal aortic aneurysm and had surgery on this in February. Pt. has just noticed that he has been getting weaker and has not walked as much in the last year. Pt. has been non ambulatory since October of this year. He has difficulty with walking, standing, getting up from a chair, ascending/descending stairs, showering, dressing, driving, and housework. Pt. is retired. His goal with physical therapy is to be able to walk again. He has had previous physical therapy as [facility] until beginning of July. He denies any pain currently but will get pain in his right leg. Pt. PMH includes abdominal aortic anyersum, two strokes, current cancer unclear of where cancer is, tonsillectomy, rectal tumor and has a colostomy bag. Pt. lives with his in a one story home with a ramped entrance. His hobbies include playing with electronics, computers, and fixing things. - Objective Observation- Right knee contracture. Rounded shoulders and forward flexed posture in sitting. Right knee flexion contraction at 70 degrees. Left knee AROM WNL. Left hip flexion 4-/5, abduction 4-/5, adduction 4-/5, extension 4- /5, knee extension 4/5, knee flexion 4/5, ankle DF 4+/5, ankle PF 4+/5. Right hip flexion 3+/5, abduction 3+/5, adduction 3+/5, extension 3+/5, knee extension 2-/5, knee flexion 3+/5, ankle DF 2/5, PF 3-/5. Sit to stand- Unable. Max assist for transfer from w/c to bed. Sitting balance- Good. Gait- Pt. is unable to ambulate at this time. Stairs- NA - Balance/Special Test Scores Lower Extremity Functional Score: 12 - Goals Goal 1:: Pt. will be able to tolerate at least 30 mins of sitting balance exercise in order to improve endurance. Goal Time Frame: 6-8 Weeks Goal 2:: Pt. will be able to complete transfers with rolling walker and supervision. Goal Time Frame: 6-8 Weeks Goal 3:: Pt. will be able to ambulate at least 20 ft with rolling walker and min assist. Goal Time Frame: 6-8 Weeks Goal 4:: Pt. will be able to complete at least 3 sit to stands in 30 secs with bilateral arm assist in order to improve mobility. Goal Time Frame: 6-8 Weeks - Rehabilitation Potential Physical Therapy Diagnosis: Decreased LE ROM, strength, balance, and mobility Rehabilitation Potential: Fair - Anticipated Interventions Patient/Client Instruction: Educate patient on: Condition, Plan of Care, Benefits of Fitness Program For the Purpose of:: To increase ROM, To improve ability to perform ADL's, To improve performance and independence with ADL's, To improve safety with gait, To assume or resume ADL's, To improve tolerance to ADL's Therapeutic Exercise to Include: Strength training, Balance training, Flexibilty training, Gait and locomotor training, Passive ROM, Active ROM Comment: Focus on improving right knee ROM, LE strength, and improve mobility as able. For the Purpose of:: To increase ROM, To improve ability to perform ADL's, To improve performance and independence with ADL's, To improve safety with gait, To assume or resume ADL's, To improve tolerance to ADL's Functional Training to Include: ADL Training, Gait training For the Purpose of:: To improve ability to perform ADL's, To increase tolerance to activity/condition/position, To improve performance and independence with ADL's, To improve gait and locomotor functions, To improve endurance, To improve balance, To improve safety with gait, To assume or resume ADL's, To improve tolerance to ADL's Assistive Devices: Wheeled walker, Wheelchair For the Purpose of:: To improve ability to perform ADL's, To improve performance and independence with ADL's, To improve gait and locomotor functions, To improve safety with gait, To assume or resume ADL's, To improve tolerance to ADL's Thank you for the opportunity to evaluate your patient. For Medicare and Medicare HMO plans, please review the plan of care and approve it. It will need to be FAXED BACK to us at [phone] for Medicare purposes. For Medicare only, by signing this I certify the plan of care. Please let me know if there are questions or concerns regarding this plan of care. Physician Signature: Date:
--- NOTE | 2021-10-03 08:34 | HP.PTREVAL ---
Junaid Davies, YUMIKO-C, It has been my pleasure to treat LANDON MCKEON over the last 9 visits for Weakness, R53.1; Other malaise, R53.81; Cerebral infarction, I63.9. Please see the progress note below for an update on the physical therapy plan of care! Subjective: Pt. arrives today in wheel chair with spouse. Pt. reports no major pain in sitting. She reports doing stretching at home 1-2 per day, with spouse assistance. Landon continues to express goals of walking independently. He spends most of his time in reclining chair at home. He is also having difficulty with R UE, minimal ability to lift ~75deg, passively pain past 90deg. Pt. is completing transfer with increased assistance from spouse, stand pivot performed. Objective/Function: Pt. is able to complete squat pivot transfer with PT assistance. Max assistance to complete. Pt. maintains crouched pattern throughout and minimal ability to to bear wt. through his R leg. Pt. is able to stand with max assistance with blocking LLE into knee extension, increased WBing through LLE. STANDING: pt. was able to stand 45sec. at parallel bars with 2 person assistance, 1 to block LLE into knee extension with another to add assistance with effort and increased hip extension. He has increased R shoulder pain with all standing. Minimal WBing throughout R side. SITTING BALANCE: Pt. is able to sit unsupported without issues. he is able to lean to R side and brace in RUE Wbing position on elbow no issues. He can reach anteriorly without LOB. MMT: LLE 4/5 throughout. RLE: ankle 2-/5 throughout; knee: ext lacking last 20deg of extension (3/5 through available range), flexion 4/5. Hip: flexion 3/5, abd 3-/5, ext 3-/5. ROM: pt. is lacking final 20deg of knee extension on R knee. He has a slight leathery end feel, but may be contracted at this point in time. he continues to express goals of standing, walking. I talked to him about setting more short term goals, such as standing, then standing un supported. Due to his limited R knee extension ROM I suggested looking into Botox or potentially a dynamic brace to use during rest periods and a knee stability brace that locks into extension to assist with WBing. Plan Plan: 1.) Work on standing with increasing WBing through RLE, will need assistance to increase WBing and to lock out to increase stability. 2.) continue with HS stretching, must be completed at home for long durations at low load to have a chance to change tissue length. 3.) Repeated sit to stand transfers working on strength and control, once better can work on stand pivot transfers to ease customer care representative burden. Pt. is looking into Botox/spasticity management for his RLE. It this is not a valid option I will into a dynamic brace to increase HS length. I stressed importance to compliance at home with patient and spouse. They are to work on frequent HS stretching and LLE placement to increase knee extension. They are also to work on static standing at counter top or prior to transfers to work on a bit of standing at home. Balance/Gait/Functional tests - Balance/Special Test Scores Lower Extremity Functional Score: 12 Goals Goal 1:: Pt. will be able to tolerate at least 30 mins of sitting balance exercise in order to improve endurance. Goal Time Frame: 6-8 Weeks Goal Progress: Progressing Goal 2:: Pt. will be able to complete transfers with rolling walker and supervision. Goal Time Frame: 6-8 Weeks Goal Progress: Progressing Goal 3:: Pt. will be able to ambulate at least 20 ft with rolling walker and min assist. Goal Time Frame: 6-8 Weeks Goal Progress: Not Progressing Goal 4:: Pt. will be able to complete at least 3 sit to stands in 30 secs with bilateral arm assist in order to improve mobility. Goal Time Frame: 6-8 Weeks Goal Progress: Not Progressing Goal 5:: LTG: Pt. to quality control inspector heading parallel bars for 1 minute with mod A with increased erect posture and increased WBing through RLE. Goal Time Frame: 4-6 Weeks Goal Progress: Progressing Goal 6:: LTG: Pt. to have less than 10deg loss of R knee extension allowing for increased ability to stand and weight bare through his RLE. Goal Time Frame: 4-6 Weeks Goal Progress: Progressing Anticipated Interventions Patient/Client Instruction: Educate patient on: Condition, Plan of Care, Benefits of Fitness Program For the Purpose of:: To increase ROM, To improve ability to perform ADL's, To improve performance and independence with ADL's, To improve safety with gait, To assume or resume ADL's, To improve tolerance to ADL's Therapeutic Exercise to Include: Strength training, Balance training, Flexibilty training, Gait and locomotor training, Passive ROM, Active ROM Comment: Focus on improving right knee ROM, LE strength, and improve mobility as able. For the Purpose of:: To increase ROM, To improve ability to perform ADL's, To improve performance and independence with ADL's, To improve safety with gait, To assume or resume ADL's, To improve tolerance to ADL's Functional Training to Include: ADL Training, Gait training For the Purpose of:: To improve ability to perform ADL's, To increase tolerance to activity/condition/position, To improve performance and independence with ADL's, To improve gait and locomotor functions, To improve endurance, To improve balance, To improve safety with gait, To assume or resume ADL's, To improve tolerance to ADL's Assistive Devices: Wheeled walker, Wheelchair For the Purpose of:: To improve ability to perform ADL's, To improve performance and independence with ADL's, To improve gait and locomotor functions, To improve safety with gait, To assume or resume ADL's, To improve tolerance to ADL's Please do not hesitate to contact me at [phone] by phone or if you have questions or concerns regarding this new plan of care! Sincerely, Raul Castañeda DPT
--- NOTE | 2021-10-18 07:59 | HP.OTEVAL_ITS ---
Patient's Visit Information LANDON MCKEON is a 76 year old M, referred to Occupational Therapy by EVERETTE Angeles, with a diagnosis of Weakness- Cerebral infarction. Date of Evaluation: 10/16/21 Occupational Therapist: IRIS Wright/Azul, CHT - Subjective This 76 year old male was seen for OT eval with dx of debility. - pt went into hospital February and out on Jul.10. pt states in he has had two strokes one in oct. and one in march- and then dx with prostate cancer with mets- prior to that dx pt with IND with bathing dressing and was driving. pt states right side was affected by his 2nd stroke in March 2021. pt currently receiving PT for increase LE strength due to weakness he is limited with arm use for mobility with assistive devices- is performing stand pivot tsf. and 90% of his bathing and dressing tasks- both would like to improve pts strength for increase safe performance of ADls and IADLs. - ADLs Comments: pt lives in one story with First floor set-up. pt assist with bathing and dressing pt states she assist with 90% of his bathing and dressing- walk in shower use of shower chair-. pt states he sits in a WC in the home and recliner-. pt does work at computer for email. pt states slight vision change with mcmullen - Pain right arm 3 Pain Intensity Range: 4 - ROM Shoulder: right 15 left 155 Elbow: right -15/ 120 left 0/145 ROM Comments: pt demo with limited functional ROM - Strength Telecommunications Equipment Installer: right 20# left 15# Lateral Pinch: right 4# left 4# Tripod Pinch: right 2# left 2# Strength Comments: pt demo weakness in bilateral hands and UE limiting functional mobility- - Stroke Specific Quality of Life Total SS-QOL Score: 130 - Quick DASH-Disab of Arm,Shoulder& Hand Quick DASH Score: 62.5000 - Goals Goal:: pt will demo right UE MMT 4/5 to increase pts ind. with safe performance of ADLS. pt will demo a increase in bilateral fire hydrant mechanic strength by 15# to increase pts ind. with ADLs and IADls by d/c Goal:: pt will demo a increase in right shoulder flex to 150* or greater to increase pts ability to dress self 90* of the time by d/c Goal:: pt will report pain no greater than 2/10 with use of right UE with ADls and IADLs by d/c - Rehabilitation General Assessment: pt demo with limited right shoulder ROM and weakness bilaterally increasing pts need of assist with ADLs and IADls. Pt would benefit from skilled OT services 2-3xweek for 6 weeks to increase pts strength for increase safe performance of ADls and IADLs. Pt and pts agree to POC. Rehabilitation Potential: Good - Anticipated Interventions A/AAROM/PROM, Strengthening, ADL Training, Education re assistive Equipment - Visit Plan Frequency: 2-3x /Week Duration: 6 Weeks TEXT: Thank you for the opportunity to evaluate your patient. For Medicare and Medicare HMO plans, please review the plan of care and approve it. It will need to be FAXED BACK to us at [phone] for Medicare purposes. Please let me know if there are questions or concerns regarding this plan of care. Physician Signature: Da te:
--- NOTE | 2021-11-07 12:04 | HP.PTREVAL_ITS ---
Junaid Davies, YUMIKO-C, It has been my pleasure to treat LANDON MCKEON over the last 17 visits for Weakness, R53.1; Other malaise, R53.81; Cerebral infarction, I63.9. Please see the progress note below for an update on the physical therapy plan of care! Subjective: Pt. reports noticing some improvement with his standing and with general mobility. He is still working on transfers and standing at home. He is scheduled to have imput from neuro about spasticity management. He continues to report increased R shoulder pain as well limited his ability to use. He reports being 15% better overall. Objective/Function: POSTURE: Pt. continues to have general flexed posture in seated position. L knee ROM lacking ~30deg of extension, very tight HS. Possibly contracted HS vs tone. MMT: LLE: ankle 5/5 throughout; knee: ext 1+/5 I can feel quad tighten, but no volitional movement. knee flexion 4/5; hip: flexion 4/5, abd 4/5, ext 4/5. Transfers pt. able to complete with modA x2 with posterior assistance to increase wt. shifting fwrd and to R side. Due to his limited ROM and lack of strength in his R leg it is difficult to do WBing. Pt. able to stand for upto 2 min with max A to increase anterior wt. shift with heavy use of UEs. Pt. has difficulty wt. bearing on RLE and RUE. I would like to either have spasticity management and/or dynamic bracing to increase R knee ROM. Once he is able increase ability to weight bare he should have increased muscle recruitment. If still having difficulty we can look into alternating immobilization bracing to allow for stability and walking. Plan Plan: I am asking for another x2 per week for 6 weeks to work on LLE strength, ROM, transfers progressing to walking. May need to looking bracing both for stretcihng and for immobilization allowing for increased ability standing and walking. Balance/Gait/Functional tests - Balance/Special Test Scores Lower Extremity Functional Score: 12 Goals Goal 1:: Pt. will be able to tolerate at least 30 mins of sitting balance exercise in order to improve endurance. Goal Time Frame: 6-8 Weeks Goal Progress: Progressing Goal 2:: Pt. will be able to complete transfers with rolling walker and supervision. Goal Time Frame: 6-8 Weeks Goal Progress: Progressing Goal 3:: Pt. will be able to ambulate at least 20 ft with rolling walker and min assist. Goal Time Frame: 6-8 Weeks Goal Progress: Not Progressing Goal 4:: Pt. will be able to complete at least 3 sit to stands in 30 secs with bilateral arm assist in order to improve mobility. Goal Time Frame: 6-8 Weeks Goal Progress: Progressing Goal 5:: LTG: Pt. to machine molder squeeze parallel bars for 1 minute with mod A with increased erect posture and increased WBing through RLE. Goal Time Frame: 4-6 Weeks Goal Progress: Progressing Goal 6:: LTG: Pt. to have less than 10deg loss of R knee extension allowing for increased ability to stand and weight bare through his RLE. Goal Time Frame: 4-6 Weeks Goal Progress: Progressing Anticipated Interventions Patient/Client Instruction: Educate patient on: Condition, Plan of Care, Benefits of Fitness Program For the Purpose of:: To increase ROM, To improve ability to perform ADL's, To improve performance and independence with ADL's, To improve safety with gait, To assume or resume ADL's, To improve tolerance to ADL's Therapeutic Exercise to Include: Strength training, Balance training, Flexibilty training, Gait and locomotor training, Passive ROM, Active ROM Comment: Focus on improving right knee ROM, LE strength, and improve mobility as able. For the Purpose of:: To increase ROM, To improve ability to perform ADL's, To improve performance and independence with ADL's, To improve safety with gait, To assume or resume ADL's, To improve tolerance to ADL's Functional Training to Include: ADL Training, Gait training For the Purpose of:: To improve ability to perform ADL's, To increase tolerance to activity/condition/position, To improve performance and independence with ADL's, To improve gait and locomotor functions, To improve endurance, To improve balance, To improve safety with gait, To assume or resume ADL's, To improve tolerance to ADL's Assistive Devices: Wheeled walker, Wheelchair For the Purpose of:: To improve ability to perform ADL's, To improve performance and independence with ADL's, To improve gait and locomotor functions, To improve safety with gait, To assume or resume ADL's, To improve tolerance to ADL's Please do not hesitate to contact me at [phone] by phone or if you have questions or concerns regarding this new plan of care! Sincerely, CARLOS A GarciaT
--- NOTE | 2021-11-30 16:05 | HP.OTREVAL ---
Junaid Davies, IMPORT MANAGER-C, It has been my pleasure to treat LANDON MCKEON over the last 12 visits for Weakness- Cerebral infarction. Please see the progress note below for an update on the occupational therapy plan of care! Subjective: This treatment/re-eval was completed by Aubree Soto S/OT under the direct supervision of Angela KUMAR, OTR/L--. pt. arrived with in wc. No c/o pain. Objective/Function: R licensed psychiatric technician 40# up from 25#. L licensed psychiatric technician 28# up from 20#. L Lat 6#. R Lat 8.5# up from 6#. R Tri 6# stabilized. L Tri 12# up from 5#. R shoulder flexion 40* active. R shldr 45 abduction. R elbow 0-70. LUE AROM WFL-WNL Plan Frequency: 2-3x /Week Duration: 6 Weeks Visits in this POC: 12 Plan: cont OT services for improvement with ADL tasks such as UB dressing and transfers. pt. continues to show consistent progress Goals - Goals Patient Goals: Regain Mobility, Regain Strength, Increase ROM Goal:: pt will demo right UE MMT 4/5 to increase pts ind. with safe performance of ADLS. pt will demo a increase in bilateral licensed psychiatric technician strength by 15# to increase pts ind. with ADLs and IADls by d/c Goal:: pt will demo a increase in right shoulder flex to 150* or greater to increase pts ability to dress self 90* of the time by d/c Goal:: pt will report pain no greater than 2/10 with use of right UE with ADls and IADLs by d/c Anticipated Interventions Anticipated Interventions: A/AAROM/PROM, Strengthening, ADL Training, Education re assistive Equipment Please do not hesitate to contact me at [phone] by phone or if you have questions or concerns regarding this new plan of care! Sincerely, IRIS Reis/L
--- NOTE | 2021-12-21 14:02 | HP.PTREVAL ---
Junaid Davies, YUMIKO-C, It has been my pleasure to treat LANDON MCKEON over the last 25 visits for Weakness, R53.1; Other malaise, R53.81; Cerebral infarction, I63.9. Please see the progress note below for an update on the physical therapy plan of care! Subjective: Pt. is here today for his re check. He is still in the process of getting his dynamic splint for his R knee. He is also having increased mid back pain today, been having increased pain for ~2 weeks. He has been taking muscle relaxers with slight relief, not much. Objective/Function: Pt continues to have very tight R HR (tone vs contracture hard to tell) he is missing ~20-25deg of extension. Very noticeable in stance with attempts of WBing. He has some active R quad 1+/5, some contraction. He has swing his leg a bit, but stiff very difficult to do actively. He had a lot of pain in his back with attempts with lying down today, but once down he did better. He is sitting a lot at home and in a slouched posture. This may be contributing, but he was having a good deal of pain. I talked to him if he is not improving to get further imaging or get checked by his physician. He consents. He was able to stand at [facility] for 15sec with max A, increased pain in back. He is still limited with R knee ROm and WBing. I would like to be able to get his knee straighter then brace to increase stability allowing for increased safety/stability in stance. Plan Plan: I am asking for another x2 per week for 6 weeks to work on LLE strength, ROM, transfers progressing to walking. May need to looking bracing both for stretching and for immobilization allowing for increased ability standing and walking. Balance/Gait/Functional tests - Balance/Special Test Scores Lower Extremity Functional Score: 12 Goals Goal 1:: Pt. will be able to tolerate at least 30 mins of sitting balance exercise in order to improve endurance. Goal Time Frame: 6-8 Weeks Goal Progress: Progressing Goal 2:: Pt. will be able to complete transfers with rolling walker and supervision. Goal Time Frame: 6-8 Weeks Goal Progress: Progressing Goal 3:: Pt. will be able to ambulate at least 20 ft with rolling walker and min assist. Goal Time Frame: 6-8 Weeks Goal Progress: Not Progressing Goal 4:: Pt. will be able to complete at least 3 sit to stands in 30 secs with bilateral arm assist in order to improve mobility. Goal Time Frame: 6-8 Weeks Goal Progress: Progressing Goal 5:: LTG: Pt. to clinical registered nurse parallel bars for 1 minute with mod A with increased erect posture and increased WBing through RLE. Goal Time Frame: 4-6 Weeks Goal Progress: Progressing Goal 6:: LTG: Pt. to have less than 10deg loss of R knee extension allowing for increased ability to stand and weight bare through his RLE. Goal Time Frame: 4-6 Weeks Goal Progress: Progressing Anticipated Interventions Patient/Client Instruction: Educate patient on: Condition, Plan of Care, Benefits of Fitness Program For the Purpose of:: To increase ROM, To improve ability to perform ADL's, To improve performance and independence with ADL's, To improve safety with gait, To assume or resume ADL's, To improve tolerance to ADL's Therapeutic Exercise to Include: Strength training, Balance training, Flexibilty training, Gait and locomotor training, Passive ROM, Active ROM Comment: Focus on improving right knee ROM, LE strength, and improve mobility as able. For the Purpose of:: To increase ROM, To improve ability to perform ADL's, To improve performance and independence with ADL's, To improve safety with gait, To assume or resume ADL's, To improve tolerance to ADL's Functional Training to Include: ADL Training, Gait training For the Purpose of:: To improve ability to perform ADL's, To increase tolerance to activity/condition/position, To improve performance and independence with ADL's, To improve gait and locomotor functions, To improve endurance, To improve balance, To improve safety with gait, To assume or resume ADL's, To improve tolerance to ADL's Assistive Devices: Wheeled walker, Wheelchair For the Purpose of:: To improve ability to perform ADL's, To improve performance and independence with ADL's, To improve gait and locomotor functions, To improve safety with gait, To assume or resume ADL's, To improve tolerance to ADL's Please do not hesitate to contact me at [phone] by phone or if you have questions or concerns regarding this new plan of care! Sincerely, CARLOS A GarciaT
== END 2022-01-31 19:00 | disposition home or self-care (01) ==
LOC: PT 13:30
PROVIDERS: PCP Family Medicine; Referring Provider Nurse Practitioner Family; Visit Provider Nurse Practitioner Family
DX: R53.81 Other malaise (principal); R53.1 Weakness; Z86.73 Personal history of transient ischemic attack (TIA), and cerebral infarction without residual deficits
CPT/HCPCS: 97110; 97162; 97164; 97166

== ENCOUNTER 2022-03-15 13:43 | Outpatient (RCR) | payer MEDICAID, SELFPAY ==
--- NOTE | 2022-03-15 16:03 | HP.OTEVAL_ITS ---
Patient's Visit Information LANDON MCKEON is a 76 year old M, referred to Occupational Therapy by Dr. Wil Bradsahw, DO, with a diagnosis of chronic acquired lymphedema sequela of DVT left LE. Date of Evaluation: 03/15/22 Occupational Therapist: Marley Valverde, OTR/Azul, CHT - Subjective This 76 year old male was seen for OT eval with dx of chronic acquired lymphedema - states she noticed increase limb size in January and he was fond to have DVT L leg on 01/17/[address] a/p on 01/19/2022 showed decrease in retroperitoneal nodes, enlarged prostate, bone metastases. states fluid in is thighs/hips and belly-. did get compression socks at [facility] this did not appear to be helping. pt is basically non ambulatory and is dep. tsf from [id number] etc. would like to know what more they can do to help with fluid retention . - Objective pt in WC with knee high compression socks on - unable to lift LE as they are demo with fluid retention-. pt demo with fibrotic tissue in bilateral thighs - Lymphedema (Circumferential Measure) Mid-foot: right 25cm left 25cm Ankle: right 27cm left 27cm Lower calf: right 28.5cm left 27cm Largest calf: right 37cm left 42cm Below knee: right 43cm left 42cm Lower Exremity Comments: pt demo with swelling in BLE - Lower Limb Functional Index Lower Extremity Functional Score: 4 - Goals Demonstrate a 20% reduction in edema by d/c: Yes Demonstrate adequate knowledge of self-bangaging by 1st week: Yes Demonstrate adequate knowledge of self-massage by 2nd week: Yes Demonstrate adequate knowledge skin care/prec by 2nd week: Yes Demonstrate adequate knowledge therapeutic exercises by d/c: Yes Select approp compression garment w/donning/care/wear by d/c: Yes Voice need to replace compression garment every 4-6mo by dc: Yes Goal: Patient will demonstrate ROM WFL by discharge.: Yes - Rehabilitation General Assessment: pt has multiple comorbidities limiting pts treatment options -. pt demo with sig. edema in BLE from waist down- noted pt SOB with sitting in WC - pt would benefit from skilled OT services 1-2x week for 3-4 weeks to ed. pt and his on lymphedema treatment options - due to soft tissue becoming fibrotic pt would benefit from compression wraps ( velcro closure) at night and knee high or pantyhose high to assist in fluid circulation. pt is non ambulatory and unable to lift or straighten his legs on his own- therapist ed. to the PROM ex. to stimulate fluid circulation- receptive- therapist also initiated ed. on the lymph fluid massage taryn. - pt would benefit from compression socks 20-30mmHg- if pt can tolerate thigh high if not knee high and compression alternative at night. therapist ed. pt on internet site for compression devices as insurance typically does not cover cost- receptive but was getting compression garment order from Dr. Bradshaw. pt limited mobility will decrease effectiveness of lymph treatments- if cleared by will work on getting pt a home compression pump for circulation but may cause pain at knees due to bilateral knee contractures - therapist will continue to work treatment options with Rehabilitation Potential: Questionable - Anticipated Interventions Education re Diagnosis, Manual Lymph Drainage, Education re Life-long lymphedema Management, Education re Self-Bandaging Techniques, Education re Skin Care and Precautions, Education re Self Massage Techniques, Education re Correct Donning Tech,Care&Wearing Sched Comp Garments, Caregiver Training, Home Program - Visit Plan Frequency: 1-2x /Week Duration: 3 Weeks TEXT: Thank you for the opportunity to evaluate your patient. For Medicare and Medicare HMO plans, please review the plan of care and approve it. It will need to be FAXED BACK to us at [phone] for Medicare purposes. Please let me know if there are questions or concerns regarding this plan of car alejandro Physician Signature: Date:
--- NOTE | 2022-08-15 14:55 | HP.OT.NRP ---
LANDON MCKEON was seen in my office for initial evaluation on 03/15/22. The following Plan of Care was established for this patient: Initial Frequency: 1-2x /Week Initial Duration: 3 Weeks Anticipated Interventions: Education re Diagnosis, Manual Lymph Drainage, Education re Life-long lymphedema Management, Education re Self-Bandaging Techniques, Education re Skin Care and Precautions, Education re Self Massage Techniques, Education re Correct Donning Tech,Care&Wearing Sched Comp Garments, Caregiver Training, Home Program This patient was last seen in our office 03/15/22. Pertinent comments regarding their Occupational therapy will appear below: Pt was seen for OT eval only. No further apts scheduled and due to time lapse in services pt d.c at this time. At this point I will be discontinuing this patient from occupational therapy. I would be happy to see this patient again in the future if found appropriate by the physician. Thank you! Marley Valverde, OTR/L, CHT
== END 2022-03-15 19:00 | disposition home or self-care (01) ==
LOC: OT 13:43
PROVIDERS: PCP Family Medicine; Referring Provider Family Medicine; Visit Provider Family Medicine
DX: I89.0 Lymphedema, not elsewhere classified (principal); Z86.718 Personal history of other venous thrombosis and embolism
CPT/HCPCS: 97166; 97530

== ENCOUNTER 2022-03-16 16:43 | Emergency (ER) | payer MEDICAID, SELFPAY ==
[2022-03-16 16:44] VITALS: BP 114/80; PULSE 110; RESP 16; TEMP 36.6; O2SAT 100; BMI 25.7
[2022-03-16 18:21] VITALS: BP 126/77; PULSE 109; RESP 16; O2SAT 97
--- NOTE | 2022-03-16 18:41 | EKG12_ITS ---
Test Reason : DYSRHYTHMIA Blood Pressure : / mmHG Vent. Rate : 110 BPM Atrial Rate : 110 BPM P-R Int : 112 ms QRS Dur : 072 ms QT Int : 336 ms P-R-T Axes : 024 -33 059 degrees QTc Int : 454 ms Sinus tachycardia Left axis deviation Nonspecific ST abnormality Abnormal ECG Confirmed by CARMEN HERNANDEZ, FRANCIS ([id number]), technical writer and editor MALLORIE FERRER ([id number]) on 03/20/2022 8:56:42 AM Referred By: CHRISTOPHE Confirmed By:FRANCIS MORALES MD
--- NOTE | 2022-03-16 18:41 | EDS_ITS ---
HPI History of Present Illness Chief Complaint: Edema Narrative Narrative: 76-year-old male past medical history of left lower extremity DVT, on Xarelto, presents with bilateral leg swelling, weight gain, and shortness of breath. His relates history that back in January he was diagnosed with a DVT and had a leg swelling on the left side ever since. He was placed on Xarelto. He did have mild swelling of his pelvic area. Over the last few weeks, he has had probable weight gain and swelling of his bilateral lower extremities. He is sometimes short of breath. He has not had any fevers or chills. No cough or chest pain. They state that they tried to call his primary care physician today but they were unable to see him. They went to urgent care subsequently sent him to the emergency department for evaluation of his swelling of his bilateral lower legs and his shortness of breath. He has past medical history of prostate carcinoma, but they state that he has had CTs which look okay and better. [facility] Medical History Abnormal electrocardiogram Acute respiratory failure with hypoxia Arthritis Benign tumor of colon Bilateral pulmonary embolism Blood clotting disorder CVA (cerebral vascular accident) Debility Debility Decubitus ulcer, buttock Dysuria Elevated PSA Elevated troponin I level Enlarged prostate Muscle spasticity Nonrheumatic tricuspid (valve) insufficiency Paroxysmal atrial fibrillation Pulmonary hypertension Recurrent UTI (urinary tract infection) Right bundle branch block Right sided weakness Home Medications acetaminophen 325 mg capsule 650 mg PO Q6H PRN PRN Pain 06/26/21 [History Last Taken Unknown] lisinopril 5 mg tablet 5 mg PO QHS blood pressure 06/26/21 [History Last Taken 12/23/21] doxazosin 1 mg tablet 2 mg PO QHS urinary 12/13/21 [History Last Taken 12/23/21] ostomy supplies ([place] Replacement Filters) #1 ea 12/13/21 [Rx Last Taken Unknown] cholecalciferol (vitamin D3) 10 mcg (400 unit) capsule 10 mcg PO DAILY supplement #90 caps 01/01/22 [Rx Last Taken Unknown] ferrous sulfate 325 mg (65 mg iron) tablet 325 mg PO DAILY supplement #90 tabs 02/08/22 [Rx Last Taken Unknown] rivaroxaban 20 mg tablet (Xarelto) 20 mg PO DAILY BLOOD THINNER #30 tabs 02/08/22 [Rx Last Taken Unknown] sennosides 8.6 mg tablet (Natural Senna Laxative) 8.6 mg PO QHS bowels #30 tabs 02/08/22 [Rx Last Taken Unknown] metoprolol succinate 25 mg tablet,extended release 24 hr 12.5 mg PO BID blood pressure #90 tabs 03/08/22 [Rx Last Taken Unknown] baclofen 10 mg tablet 10 mg PO QHS 03/16/22 [History Last Taken Unknown] Allergy/AdvReac Type Severity Reaction Status Date / Time No Known Allergies Allergy Verified 03/16/22 16:44 Surgical History History of colostomy Hx of tonsillectomy Social History Smoking Status: Former smoker second hand exposure: No alcohol intake: current alcohol intake frequency: holidays/special occasions only details: occasionally substance use type: does not use caffeine: No what type of physical activity do you participate in: other details: gardening, outside work marcelo/restorationism: None seatbelt use: always ROS ROS ED ROS Narrative Constitutional: No fever, no chills. HEENT: No sore throat. No neck pain. No loss of vision. No rhinorrhea. Cardiovascular: No chest pain. No palpitations. Bilateral pedal edema with left beginning secondary to DVT.. Respiratory: No cough, mild shortness of breath. Abdominal: No abdominal pain. No nausea. No vomiting. Genitourinary: No dysuria. No hematuria. Musculoskeletal: No myalgias. No arthralgias. Neurologic: No headaches. No dizziness. No lightheadedness. Skin: No rash. No change in color. Psychiatric: No depression. No anxiety. EXAM Physical Exam Narrative Exam Narrative: Afebrile. Vital signs noted. HEENT: Normocephalic. Atraumatic. PERRL, EOMI. Neck soft and supple. No point tenderness or step off. Cardiovascular: Mild irregular tachycardia.. No murmurs, rubs, or gallops appreciated. Respiratory: No tachypnea. Lungs clear to auscultation bilaterally. Gastrointestinal: Abdomen soft, nontender, with normoactive bowel sounds. No rebound or guarding. Neurological: Awake. Alert. Nonfocal, nonlateralizing. Skin: No rash. Normal color. No pallor. Musculoskeletal: Bilateral pedal edema left greater than right. Compression stockings in place. Pitting edema on left more so than right full range of motion extremities. Const Vital Signs: 03/16/22 16:44 03/16/22 18:21 03/16/22 18:21 Temperature 97.9 F Temperature Source Temporal Pulse Rate 110 H 109 H Respiratory Rate 16 16 Respiratory Effort Short of Breath Respiratory Pattern Irregular Blood Pressure 114/80 126/77 H Blood Pressure Mean 91 93 Pulse Ox 100 97 Oxygen Delivery Method Room Air Room Air 03/16/22 20:02 03/16/22 21:14 Temperature Temperature Source Pulse Rate 113 H 107 H Respiratory Rate 19 H 18 Respiratory Effort Respiratory Pattern Blood Pressure 108/78 Blood Pressure Mean 88 Pulse Ox 97 95 Oxygen Delivery Method Room Air Room Air MDM MDM MDM Narrative Medical decision making narrative: Comprehensive work-up was pursued. Concern is for CHF. Pulse ox is 97 to 100% on room air. EKG interpreted by myself shows sinus tachycardia at 110 bpm without other ectopy or acute ST changes. CBC shows normal white count of 6.3, hemoglobin stable at 10.6, platelet count normal at 242. High-sensitivity troponin 4. BNP normal at 12.3. BUN is elevated at 29 with a creatinine of 0.4. My interpretation of the chest x-ray shows no evidence of pneumonia or CHF. Radiology does read metastatic bone carcinoma with multiple rib fractures. At this point in time, I feel he can be discharged safely home with follow-up. I discussed with the patient and his that even if he did have a blood clot on his right lower extremity, he is already taking the anticoagulant. She does admit that he sits in a wheelchair more often and does not elevate his legs. I do feel this is more peripheral edema. He will continue his compression stockings. He was given 1 dose of Lasix orally. I suggested that further Lasix be written by his primary care physician as his potassium and kidney function need to be monitored with long-term use of this. They will elevate his legs at home. Return instructions were reviewed. Disposition is discharged home in stable condition. Lab Data Labs: Laboratory Results - last 24 hr 03/16/22 03/16/22 03/16/22 18:55 18:55 18:55 WBC 6.3 RBC 3.62 L Hgb 10.6 L Hct 34.5 L MCV 95.3 H MCH 29.3 MCHC 30.7 L RDW Std Deviation 57.0 H RDW Coeff of Tulio 16.1 H Plt Count 242 MPV 9.7 Immature Gran % (Auto) 0.800 Neut % (Auto) 74.7 H Lymph % (Auto) 12.8 L [place] % (Auto) 7.3 Eos % (Auto) 3.8 Baso % (Auto) 0.6 Absolute Neuts (auto) 4.7 Absolute Lymphs (auto) 0.80 L Nucleated RBC % 0 Sodium Potassium Chloride Carbon Dioxide Anion Gap BUN Creatinine Estim Creat Clear Calc Est GFR (MDRD) Af Amer Est GFR (MDRD) Non-Af BUN/Creatinine Ratio Glucose Calcium Total Bilirubin AST ALT Alkaline Phosphatase Troponin I High Sens 4 B-Natriuretic Peptide 12.3 Total Protein Albumin Globulin Albumin/Globulin Ratio 03/16/22 18:55 WBC RBC Hgb Hct MCV MCH MCHC RDW Std Deviation RDW Coeff of Tulio Plt Count MPV Immature Gran % (Auto) Neut % (Auto) Lymph % (Auto) [place] % (Auto) Eos % (Auto) Baso % (Auto) Absolute Neuts (auto) Absolute Lymphs (auto) Nucleated RBC % Sodium 141 Potassium 3.8 Chloride 106 Carbon Dioxide 30.0 Anion Gap 5 BUN 29 H Creatinine 0.94 Estim Creat Clear Calc 56.86 Est GFR (MDRD) Af Amer 101 Est GFR (MDRD) Non-Af 84 BUN/Creatinine Ratio 31.0 H Glucose 161 H Calcium 9.1 Total Bilirubin 0.20 AST 21 ALT 16 Alkaline Phosphatase 82 Troponin I High Sens B-Natriuretic Peptide Total Protein 6.7 Albumin 3.0 L Globulin 3.7 Albumin/Globulin Ratio 0.8 L Radiography Diagnostic Testing: Clinical Impression(s) from Imaging Studies Chest X-Ray 03/16/22 18:55 IMPRESSION: Diffuse metastatic bone disease. Electronically Signed: Dwight Fountain MD at 19:39 EDT , Discharge Plan Triage Chief Complaint: Edema ED Provider: Geraldo Peña Dx/Rx/DC Orders Clinical Impression: Leg edema, Prostate cancer metastatic to bone, SOB (shortness of breath) Instructions: ED Dyspnea, ED Peripheral Edema, Bilateral Prescriptions: No Action acetaminophen 325 mg capsule 650 mg PO Q6H PRN PRN (Reason: Pain) lisinopril 5 mg tablet 5 mg PO QHS doxazosin 1 mg tablet 2 mg PO QHS (DME) [place] Replacement Filters Misc See Rx Instructions .ROUTE .MEDSUPPLY Qty: 1 0RF Rx Instructions: As directed Regis 11443 Closed pouch with Filter --60 units. [id number] baclofen 10 mg tablet 10 mg PO QHS cholecalciferol (vitamin D3) 10 mcg (400 unit) capsule 10 mcg PO DAILY Qty: 90 3RF ferrous sulfate 325 mg (65 mg iron) tablet 325 mg PO DAILY Qty: 90 3RF sennosides [Natural Senna Laxative] 8.6 mg tablet 8.6 mg PO QHS Qty: 30 2RF Xarelto 20 mg tablet 20 mg PO DAILY Qty: 30 1RF Rx Instructions: must administer with evening meal metoprolol succinate 25 mg tablet extended release 24 hr 12.5 mg PO BID Qty: 90 1RF Primary Care Provider: Wil Bradshaw Referrals: Wil Bradshaw, [Primary Care Provider] - 3-5 Days Disposition Disposition: Home, Self Care
--- NOTE | 2022-03-16 18:55 | RAD_ITS ---
STUDY: X-RAY CHEST REASON FOR EXAM: Male, 76 years old. Shortness of Breath TECHNIQUE: XR Chest 1 View COMPARISON: 01/17/22 FINDINGS: Multiple healed bilateral rib fractures. There are multiple sclerotic and lytic lesions noted in the bones which are likely related to metastatic disease. Normal size heart. Normal mediastinum and margarito. Normal visualized pulmonary arteries. There is atherosclerotic calcification of the aortic arch with tortuosity. There are diffuse degenerative changes of the visualized thoracic spine. There is degenerative osteoarthritis of the bilateral shoulders. There is no demonstrated abnormality of the visualized soft tissue structures of the upper abdomen. RAD/Chest 1 View (Portable) IMPRESSION: Diffuse metastatic bone disease. Electronically Signed: Dwight Fountain MD at 19:39 EDT ,
[2022-03-16 19:16] LABS: Absolute Neutrophil Count 4.7 X10^3/uL (2.0-7.7); Basophil# 0.04 X10^3/uL; Basophil% 0.6 % (0-1); Eosinophil# 0.24 X10^3/uL; Eosinophils% 3.8 % (0-5); Hematocrit 34.5 % (40-54); Hemoglobin 10.6 g/dL (13.0-16.5); Lymphocyte % 12.8 % (19-41); Mean Corp Hgb Conc 30.7 g/dL (32-36); Mean Corpuscular Hgb 29.3 pg (27.0-32.0); Mean Corpuscular Volume 95.3 fL (80-94); Mean Platelet Vol. 9.7 fl (6.2-12.0); Monocyte# 0.46 X10^3/uL; Monocyte% 7.3 % (0-10); NRBC Flagged by Analyzer 0 % (0-5); Neutrophil # 4.68 X10^3/uL (2.7-7.7); Neutrophil % 74.7 % (47-70); Platelet Count 242 K/mm3 (150-450); RBC Distribution Width CV 16.1 % (11.6-14.6); Red Blood Count 3.62 M/mm3 (4.6-6.2); White Blood Count 6.3 K/mm3 (4.4-11.0)
[2022-03-16 19:34] LABS: Troponin-I HS 4 pg/mL (3.0-78.0)
[2022-03-16 19:43] LABS: BNP,B-Type NATRIURETIC PEPTIDE 12.3 pg/mL (0-100)
[2022-03-16 20:02] VITALS: PULSE 113; RESP 19; O2SAT 97
[2022-03-16 20:16] LABS: BUN 29 mg/dL (7-18); Creatinine, Serum 0.94 mg/dL (0.70-1.30); EST Glomerular Filtration Rate 84 mL/min (>60); Est Glom Filt Rate - Afr Amer 101 mL/min (>60); Estimated Creatinine Clearance 56.86 ml/min; Globulin 3.7 g/dL (2.2-4.2); Glucose 161 mg/dL (74-106); Protein, Total 6.7 g/dL (6.4-8.2)
[2022-03-16 20:17] LABS: ALB/GLOB Ratio 0.8 RATIO (0.9-2.4); AST(SGOT) 21 U/L (15-37); Alanine Aminotransfer ALT/SGPT 16 U/L (16-61); Alkaline Phosphatase 82 U/L (45-117); Anion Gap 5 (5-15); Calcium,Total 9.1 mg/dL (8.5-10.1); Chloride 106 mmol/L (98-107); Potassium 3.8 mmol/L (3.5-5.1); Sodium Level 141 mmol/L (136-145)
[2022-03-16 21:14] VITALS: BP 108/78; PULSE 107; RESP 18; O2SAT 95
[2022-03-16] MEDS: Furosemide 40 MG Tablet PO (22:50)
[2022-03-16 22:51] VITALS: BP 111/92; PULSE 117; RESP 20; O2SAT 98
== END 2022-03-16 23:04 | disposition home or self-care (01) ==
PROVIDERS: Emergency Provider Emergency Medicine; PCP Family Medicine; Visit Provider Emergency Medicine
DX: R60.0 Localized edema (principal); C79.51 Secondary malignant neoplasm of bone; I48.0 Paroxysmal atrial fibrillation; C61 Malignant neoplasm of prostate; R06.02 Shortness of breath; S22.49XA Multiple fractures of ribs, unspecified side, initial encounter for closed fracture; Z79.01 Long term (current) use of anticoagulants; Z79.899 Other long term (current) drug therapy; Z87.891 Personal history of nicotine dependence; Z86.718 Personal history of other venous thrombosis and embolism; Z86.711 Personal history of pulmonary embolism; Z86.73 Personal history of transient ischemic attack (TIA), and cerebral infarction without residual deficits
CPT/HCPCS: 71045; 80053; 83880; 84484; 85025; 93005; 99285; A4216

== ENCOUNTER → 2022-03-28 | Outpatient (CLI) | payer MEDICAID, SELFPAY | END | disposition home or self-care (01) | LOC: LABSPEC 14:02 | PROVIDERS: PCP Family Medicine; Referring Provider Physician Assistant; Visit Provider Physician Assistant | DX: U07.1 COVID-19 (principal); R05.9 Cough, unspecified | CPT/HCPCS: 87635; U0003; U0005 ==

== ENCOUNTER → 2022-04-10 | Outpatient (CLI) | payer MEDICAID, SELFPAY ==
[2022-04-10 15:37] LABS: Anion Gap 7 (5-15); BUN 30 mg/dL (7-18); BUN/Creat Ratio 31.9 RATIO (10-20); Calcium,Total 8.5 mg/dL (8.5-10.1); Chloride 105 mmol/L (98-107); Creatinine, Serum 0.94 mg/dL (0.70-1.30); EST Glomerular Filtration Rate 83 mL/min (>60); Est Glom Filt Rate - Afr Amer 101 mL/min (>60); Glucose 138 mg/dL (74-106); Potassium 4.1 mmol/L (3.5-5.1); Sodium Level 137 mmol/L (136-145)
== END | disposition home or self-care (01) ==
LOC: BIMLAB 12:32
PROVIDERS: PCP Family Medicine; Visit Provider Physician Assistant
DX: R60.9 Edema, unspecified (principal)
CPT/HCPCS: 36415; 80048

== ENCOUNTER → 2022-10-11 | Outpatient (CLI) | payer MEDICAID, SELFPAY ==
[2022-10-11 12:18] LABS: Mucous, Urine 0 SEEN /hpf (<or=2+); Squamous Epithelial Cells - UA 0 SEEN /hpf (0-5)
[2022-10-11 14:57] LABS: Color, Urine Yellow (Yellow); Glucose, Dipstick Normal (Normal); Ketone-Dipstick Negative (Negative); Leukocyte Esterase-Dipstick 500 /ul (Negative); Nitrite-Dipstick Negative (Negative); Occult Blood-Urine 25 /ul (Negative); Protein-Dipstick 500 mg/dl (Negative); Specific Gravity, Urine 1.015 (1.002-1.030); Urine Bilirubin Dipstick Negative (Negative); Urine Clarity Turbid (Clear); Urine Urobilinogen Normal (Normal)
[2022-10-11 15:04] LABS: Red Blood Cells-Urine 0-5 SEEN /hpf (0-5); White Blood Cells 25-50 SEEN /hpf (0-5)
[2022-10-11 15:05] LABS: Amorphous Sediment 2+; Bacteria 2+ /hpf (None Seen)
== END | disposition home or self-care (01) ==
LOC: LABSPEC 12:17
PROVIDERS: PCP Family Medicine; Referring Provider Family Medicine; Visit Provider Family Medicine
DX: N39.0 Urinary tract infection, site not specified (principal)
CPT/HCPCS: 81001

== ENCOUNTER → 2022-10-29 | Outpatient (CLI) | payer MEDICAID, SELFPAY ==
[2022-10-29 11:12] LABS: Mucous, Urine 0 SEEN /hpf (<or=2+)
[2022-10-29 12:29] LABS: Color, Urine Yellow (Yellow); Glucose, Dipstick Normal (Normal); Ketone-Dipstick Negative (Negative); Leukocyte Esterase-Dipstick 500 /ul (Negative); Nitrite-Dipstick Positive (Negative); Occult Blood-Urine 50 /ul (Negative); Protein-Dipstick 30 mg/dl (Negative); Specific Gravity, Urine 1.015 (1.002-1.030); Urine Bilirubin Dipstick Negative (Negative); Urine Clarity Cloudy (Clear); Urine Urobilinogen Normal (Normal)
[2022-10-29 13:05] LABS: Bacteria 2+ /hpf (None Seen); Red Blood Cells-Urine 0-5 SEEN /hpf (0-5); Squamous Epithelial Cells - UA 0-5 SEEN /hpf (0-5); White Blood Cells 25-50 SEEN /hpf (0-5)
== END | disposition home or self-care (01) ==
LOC: LABSPEC 11:11
PROVIDERS: PCP Family Medicine; Referring Provider Nurse Practitioner Family; Visit Provider Nurse Practitioner Family
DX: N39.0 Urinary tract infection, site not specified (principal)
CPT/HCPCS: 81001; 87077; 87086; 87088; 87186

== ENCOUNTER 2023-05-25 16:02 | Inpatient (IN) | payer MEDICAID, SELFPAY ==
[2023-05-25] VITALS (15 sets, daily range): BP systolic 87–130; BP diastolic 61–82; PULSE 93–104; RESP 12–36; TEMP 35.9–36.6; O2SAT 86–95; BMI 23.3; BMI 22.4
--- NOTE | 2023-05-25 16:16 | EKG12_ITS ---
Test Reason : SOB Blood Pressure : / mmHG Vent. Rate : 096 BPM Atrial Rate : 096 BPM P-R Int : 126 ms QRS Dur : 078 ms QT Int : 380 ms P-R-T Axes : 018 -31 057 degrees QTc Int : 480 ms Normal sinus rhythm Left axis deviation Low voltage QRS Nonspecific T wave abnormality Abnormal ECG Confirmed by JASPER HERNANDEZ, VAHE ([id number]), commissioning editor TIMOTHY AUGUSTINE ([id number]) on 05/28/2023 11:45:01 AM Referred By: Confirmed By:DAVID HUTCHINSON MD
[2023-05-25] MEDS: MethylPREDNISolone 125 MG/2 ML Vial IV (16:33)
[2023-05-25 16:41] LABS: Absolute Neutrophil Count 4.6 X10^3/uL (2.0-7.7); Basophil# 0.08 X10^3/uL; Basophil% 1.2 % (0-1); Eosinophil# 0.26 X10^3/uL; Hematocrit 41.8 % (40-54); Hemoglobin 13.9 g/dL (13.0-16.5); Lymphocyte % 13.8 % (19-41); Mean Corp Hgb Conc 33.3 g/dL (32-36); Mean Corpuscular Hgb 31.5 pg (27.0-32.0); Mean Corpuscular Volume 94.8 fL (80-94); Mean Platelet Vol. 10.5 fl (6.2-12.0); Monocyte# 0.65 X10^3/uL; NRBC Flagged by Analyzer 0 % (0-5); Neutrophil # 4.55 X10^3/uL (2.7-7.7); Neutrophil % 70.1 % (47-70); Platelet Count 181 K/mm3 (150-450); RBC Distribution Width CV 15.6 % (11.6-14.6); RBC Distribution Width SD 54.4 fl (35.1-43.9); Red Blood Count 4.41 M/mm3 (4.6-6.2); White Blood Count 6.5 K/mm3 (4.4-11.0)
[2023-05-25] MEDS: Ipratropium/Albuterol Sulfate 3 ML AMPUL.NEB INHALATION (16:47)
--- NOTE | 2023-05-25 16:51 | RAD_ITS ---
INDICATION: cough, sob EXAMINATION/TECHNIQUE: X-RAY - XR Chest 1 View AP portable. 4:53 PM COMPARISON: 03/16/2022 FINDINGS: LINES/DEVICES: None. LUNGS: Complete opacification of the left hemithorax. Patchy opacity at the right lung base. No pneumothorax. MEDIASTINUM: Unremarkable. CARDIAC SILHOUETTE: Obscured. Likely not enlarged. BONES AND SOFT TISSUES: Chest wall deformity on the right ovary right rib fracture.. RAD/Chest 1 View (Portable) IMPRESSION: Opacification of the left hemithorax may be due to atelectasis, consolidation, pleural effusion and/or mass. Minimal right basilar atelectasis or infiltrate. CT may be helpful for further evaluation. Electronically Signed: Vannessa Fierro MD at 17:29 EDT ,
[2023-05-25 16:58] LABS: Anion Gap 6 (5-15); BUN 35 mg/dL (7-18); BUN/Creat Ratio 34.3 RATIO (10-20); Calcium,Total 9.3 mg/dL (8.5-10.1); Chloride 107 mmol/L (98-107); Creatinine, Serum 1.02 mg/dL (0.70-1.30); EST Glomerular Filtration Rate 75 mL/min (>60); Est Glom Filt Rate - Afr Amer 91 mL/min (>60); Estimated Creatinine Clearance 51.59 ml/min; Glucose 121 mg/dL (74-106); Potassium 4.1 mmol/L (3.5-5.1); Sodium Level 138 mmol/L (136-145); Troponin-I HS 21 pg/mL (3.0-78.0)
[2023-05-25 17:02] LABS: BNP,B-Type NATRIURETIC PEPTIDE 72.9 pg/mL (0-100)
--- NOTE | 2023-05-25 19:08 | CT_ITS ---
STUDY: CTA CHEST REASON FOR EXAM: Male, 77 years old. opacification L lung RADIATION DOSAGE (If Supplied By Facility): CTDIvol = ( 16.35 ) mGy, DLP = ( 454.58 ) mGycm TECHNIQUE: The examination was performed with the intravenous administration of IV 100mL [id number]-[id number]. Post-processing of the angiographic images was performed, with multiplanar reformation and 3D reconstruction. Individualized dose optimization techniques were used for this CT. COMPARISON: CT chest 12/24/2020. There is a report of CT abdomen and pelvis 01/19/2022, images are not available. FINDINGS: LUNGS: Complete atelectasis of the entire left lung. Partial atelectasis of the right lower lobe, and right middle lobe, secondary compressive. Cannot exclude mass in the atelectatic lung. 2 adjacent nodules in the right upper lobe, largest 5 mm.. PLEURA: Large bilateral pleural effusions greater on the left. Nodular pleural-based masses on the left superiorly, with smaller components anteriorly in the lower chest. No pneumothorax. PULMONARY VESSELS: Limited by respiratory motion. No definite pulmonary emboli identified. MEDIASTINUM: Extensive bulky masses throughout the mediastinum. Largest bulky mass retrosternal midsternum to the xiphoid, measures approximately 10 x 4 cm axial by 7 cm cranial caudal, extends through the sternum to the anterior chest wall. HEART: Not enlarged. AORTA/GREAT VESSELS: Thoracic aorta is normal caliber. No aneurysm or dissection. UPPER ABDOMEN: Fullness of the right renal collecting system mild right hydronephrosis partially included, is similar to on the prior CT chest and reported on prior CT abdomen and pelvis the left renal collecting system was not included. Portion of an aortic stent noted on the lowermost images. BONES/SOFT TISSUES: Diffuse sclerotic and lytic lesions throughout the included bony skeleton. Large destructive lesion of the mid sternum with large bulky associated mass. Significantly increased size and extent compared to prior. Large lytic lesion in the proximal right humerus proximal diaphysis with a subtle linear lucency suggesting pathologic fracture, nondisplaced. OTHER: None. CT/CTA Chest W/WO Contrast IMPRESSION: 1. No definite evidence of pulmonary emboli. Suboptimal study. 2. Extensive abnormal findings consistent with metastatic disease diffuse osseous metastases and associated soft tissue masses, and bulky mediastinal adenopathy. Particular, large bulky mass associated with the destructive sternal lesion with extension into the anterior mediastinum and overlying chest wall. 3. Large bilateral pleural effusions greater on the left with bulky pleural-based masses on the left. 4. Complete atelectasis of the left lung and partial atelectasis on the right. Cannot exclude underlying pulmonary mass in the atelectatic lung. Small nodules in the right lung. 5. Mild right hydronephrosis similar to prior studies. 6. Lytic lesion in the proximal humerus with questionable nondisplaced pathologic fracture correlate for specific symptoms. Electronically Signed: Vannessa Fierro MD at 20:05 EDT ,
--- NOTE | 2023-05-25 20:32 | HP.PCM.HOS_ITS ---
HPI - General General Date of Admission: 05/25/23 Date of Service: 05/25/23 Chief Complaint: Shortness of breath HPI Narrative LANDON MCKEON, is a 77 M with a significant history of metastatic prostate cancer who is wheelchair-bound presents emergency department with shortness of breath. Patient was on BiPAP and could not provide much history. History of present taken from his who was at the bedside. Per his patient has been having shortness of breath over 3 to 4 days. Under presentation his shortness of breath worsened. ED doctor reported that on presentation patient was hypoxic and required supplemental oxygenation at the ED. He was eventually transitioned to BiPAP. X-ray showed complete white out of his left lung. A CT scan of his chest showed a possible metastatic lesions. [facility] Medical History Abnormal electrocardiogram Acute respiratory failure with hypoxia Arthritis Benign tumor of colon Bilateral pulmonary embolism Blood clotting disorder CVA (cerebral vascular accident) Debility Debility Decubitus ulcer, buttock Dysuria Elevated PSA Elevated troponin I level Enlarged prostate Muscle spasticity Nonrheumatic tricuspid (valve) insufficiency Paroxysmal atrial fibrillation Pulmonary hypertension Recurrent UTI (urinary tract infection) Right bundle branch block Right sided weakness Home Medications acetaminophen 325 mg capsule 650 mg PO Q6H PRN PRN Pain 06/26/21 [History Last Taken Unknown] ostomy supplies (Regis Replacement Filters) #1 ea 12/13/21 [Rx Last Taken Unknown] cholecalciferol (vitamin D3) 10 mcg (400 unit) capsule 10 mcg PO DAILY supplement #90 caps 01/01/22 [Rx Last Taken Unknown] ferrous sulfate 325 mg (65 mg iron) tablet 325 mg PO DAILY supplement #90 tabs 02/08/22 [Rx Last Taken Unknown] sennosides 8.6 mg tablet (Natural Senna Laxative) 8.6 mg PO QHS bowels #30 tabs 02/08/22 [Rx Last Taken Unknown] enzalutamide 40 mg capsule (Xtandi) 160 mg PO DAILY 03/28/22 [History Last Taken Unknown] tadalafil 5 mg tablet 5 mg PO DAILY #7 tabs 08/08/22 [Rx Last Taken Unknown] doxazosin 1 mg tablet 2 mg (2 x 1 mg) PO QHS urinary #90 tabs 11/20/22 [Rx Last Taken Unknown] metoprolol succinate 25 mg tablet,extended release 24 hr 12.5 mg (1/2 x 25 mg) PO BID blood pressure #90 tabs 03/07/23 [Rx Last Taken Unknown] rivaroxaban 20 mg tablet (Xarelto) 20 mg PO DAILY BLOOD THINNER #30 tabs 03/19/23 [Rx Last Taken Unknown] pramipexole 0.5 mg tablet 0.5 mg PO QHS #90 tabs 05/01/23 [Rx Last Taken Unknown] Allergy/AdvReac Type Severity Reaction Status Date / Time No Known Allergies Allergy Verified 03/19/23 13:22 Family History Other Cancer Surgical History History of colostomy Hx of tonsillectomy Social History Smoking Status: Former smoker second hand exposure: No alcohol intake: current alcohol intake frequency: holidays/special occasions only details: occasionally substance use type: does not use caffeine: No what type of physical activity do you participate in: other details: gardening, outside work marcelo/mormonism: None seatbelt use: always ROS Review of Systems ROS Unobtainable: other Details: Patient being on BiPAP. Vital Signs Vital Signs Vital Signs: 05/25/23 16:07 05/25/23 16:14 05/25/23 16:47 Temperature 96.7 F L Temperature Source Temporal Pulse Rate 93 96 Respiratory Rate 35 H 33 H Respiratory Effort Short of Breath Respiratory Depth Normal Respiratory Pattern Tachypnea Tachypnea Blood Pressure 127/71 H Blood Pressure Mean 89 Pulse Ox 86 Oxygen Delivery Method Room Air Nasal Cannula Oxygen Flow Rate (L/min) 4 Fraction of Inspired Oxygen (FIO2) 05/25/23 16:47 05/25/23 18:03 05/25/23 19:20 Temperature 98 F Temperature Source Temporal Pulse Rate 100 96 Respiratory Rate 18 28 H Respiratory Effort Respiratory Depth Respiratory Pattern Blood Pressure 130/82 H 123/71 H Blood Pressure Mean 98 88 Pulse Ox 92 92 90 Oxygen Delivery Method Nasal Cannula Nasal Cannula Nasal Cannula Oxygen Flow Rate (L/min) 4 4 5 Fraction of Inspired Oxygen (FIO2) 05/25/23 19:32 05/25/23 19:43 05/25/23 19:37 Temperature Temperature Source Pulse Rate 95 94 97 Respiratory Rate 27 H 25 H 28 H Respiratory Effort Respiratory Depth Respiratory Pattern Blood Pressure 114/71 Blood Pressure Mean 85 Pulse Ox 92 93 92 Oxygen Delivery Method High Flow Bi-pap Oxygen Flow Rate (L/min) 10 Fraction of Inspired Oxygen (FIO2) 50 05/25/23 20:07 05/25/23 20:10 Temperature Temperature Source Pulse Rate 98 99 Respiratory Rate 27 H 24 H Respiratory Effort Respiratory Depth Respiratory Pattern Blood Pressure 111/76 Blood Pressure Mean 87 Pulse Ox 93 95 Oxygen Delivery Method Bi-pap Oxygen Flow Rate (L/min) Fraction of Inspired Oxygen (FIO2) 45 Weight Weight: 61.6 kg Body Mass Index (BMI) 23.3 Physical Exam Narrative Physical exam: General: Well-nourished, well-developed. Head: Normocephalic, atraumatic, no tenderness Eyes: Vision is grossly intact. EOMI ENT, no trauma, moist mucous membranes, no rhinorrhea Neck: Nontender, No thyromegaly. CVS: Tachycardia. S1-S2 present. No murmur, gallop or rub. Respiratory : On BiPAP. Tachypnea, diminished lung sounds Abdomen: Soft, nontender, nondistended, normal bowel sounds, no masses : Deferred Back: Nontender, no CVA tenderness, no midline spinal tenderness, deformities, step-offs Extremities: Nontender full range of motion, no trauma Skin: Normal color, no trauma, abrasions Neuro: Alert, oriented, cranial nerves II through XII grossly intact. Psychiatry: Normal mood. Normal affect. Not depressed. Not anxious. Results Lab / Micro Data 05/26/23 07:05 05/26/23 07:05 Labs: Laboratory Results - last 24 hr 05/25/23 16:00: WBC 6.5, RBC 4.41 L, Hgb 13.9, Hct 41.8, MCV 94.8 H, MCH 31.5, MCHC 33.3, RDW Std Deviation 54.4 H, RDW Coeff of Tulio 15.6 H, Plt Count 181, MPV 10.5, Immature Gran % (Auto) 0.900, Neut % (Auto) 70.1 H, Lymph % (Auto) 13.8 L, [place] % (Auto) 10.0, Eos % (Auto) 4.0, Baso % (Auto) 1.2 H, Absolute Neuts (auto) 4.6, Absolute Lymphs (auto) 0.90, Nucleated RBC % 0, Sodium 138, Potassium 4.1, Chloride 107, Carbon Dioxide 25.0, Anion Gap 6, BUN 35 H, Creatinine 1.02, Estim Creat Clear Calc 51.59, Est GFR (MDRD) Af Amer 91, Est GFR (MDRD) Non-Af 75, BUN/Creatinine Ratio 34.3 H, Glucose 121 H, Calcium 9.3, Troponin I High Sens 21, B-Natriuretic Peptide 72.9 Micro: Microbiology 05/25/23 16:37 Nasal Secretion SARS-CoV-2 & FLU Antigen (Rapid) - Final Radiology Impression Chest X-Ray 05/25/23 16:51 IMPRESSION: Opacification of the left hemithorax may be due to atelectasis, consolidation, pleural effusion and/or mass. Minimal right basilar atelectasis or infiltrate. CT may be helpful for further evaluation. Electronically Signed: Vannessa Fierro MD at 17:29 EDT , Chest CTA 05/25/23 19:08 IMPRESSION: 1. No definite evidence of pulmonary emboli. Suboptimal study. 2. Extensive abnormal findings consistent with metastatic disease diffuse osseous metastases and associated soft tissue masses, and bulky mediastinal adenopathy. Particular, large bulky mass associated with the destructive sternal lesion with extension into the anterior mediastinum and overlying chest wall. 3. Large bilateral pleural effusions greater on the left with bulky pleural-based masses on the left. 4. Complete atelectasis of the left lung and partial atelectasis on the right. Cannot exclude underlying pulmonary mass in the atelectatic lung. Small nodules in the right lung. 5. Mild right hydronephrosis similar to prior studies. 6. Lytic lesion in the proximal humerus with questionable nondisplaced pathologic fracture correlate for specific symptoms. Electronically Signed: Vannessa Fierro MD at 20:05 EDT , Assessment & Plan Assessment/Plan (1) Metastatic cancer: QUALIFIERS: Area of secondary neoplastic involvement: respiratory structure Respiratory structure secondary neoplasm location: metastatic to lung Laterality: bilateral Qualified Code(s): C78.01 - Secondary malignant neoplasm of right lung; C78.02 - Secondary malignant neoplasm of left lung PLAN: Plan Metastatic cancer to Lung Chest x-ray with complete whiteout of left hemithorax. Chest x-ray was independently interpreted, agrees to radiology interpretation. CBC with normal white count, hemoglobin and platelets, trend. Impression of chest CTA by radiology: 1. No definite evidence of pulmonary emboli. Suboptimal study. 2. Extensive abnormal findings consistent with metastatic disease diffuse osseous metastases and associated soft tissue masses, and bulky mediastinal adenopathy. Particular, large bulky mass associated with the destructive sternal lesion with extension into the anterior mediastinum and overlying chest wall. 3. Large bilateral pleural effusions greater on the left with bulky pleural-based masses on the left. 4. Complete atelectasis of the left lung and partial atelectasis on the right. Cannot exclude underlying pulmonary mass in the atelectatic lung. Small nodules in the right lung. 5. Mild right hydronephrosis similar to prior studies. 6. Lytic lesion in the proximal humerus with questionable nondisplaced pathologic fracture correlate for specific symptoms. Will consult pulmonology, oncology and hospice. In the setting of a possible thoracentesis will hold off patient's Xarelto at this time. Please consider heparin drip while further decision is being made on thoracentesis. PE Patient is on home Xarelto. Xarelto has been held at this time secondary to possible thoracentesis if indicated. Time spent in the patient's overall evaluation,decision-making process, review of diagnostic data, adjustment of management, discussion with other providers, nursing nursing and ancillary staff involved in patient's care documentation, 75 minutes. Charges/Coding Visit Charges Inpatient E&M: 68826 Init Hosp L3
--- NOTE | 2023-05-25 20:33 | EDS_ITS ---
HPI History of Present Illness Chief Complaint: Shortness of Breath Informant: patient and family Onset/Context/Timing Context: Gradual Onset Timing: Continuous Maximum Severity: Severe Narrative Narrative: Patient presents from home. He has a history of metastatic prostate cancer. Presents with increasing shortness of breath as well as left-sided chest pain and swelling. Denies fever or hemoptysis. Denies sputum. [facility] Medical History Abnormal electrocardiogram Acute respiratory failure with hypoxia Arthritis Benign tumor of colon Bilateral pulmonary embolism Blood clotting disorder CVA (cerebral vascular accident) Debility Debility Decubitus ulcer, buttock Dysuria Elevated PSA Elevated troponin I level Enlarged prostate Muscle spasticity Nonrheumatic tricuspid (valve) insufficiency Paroxysmal atrial fibrillation Pulmonary hypertension Recurrent UTI (urinary tract infection) Right bundle branch block Right sided weakness Home Medications acetaminophen 325 mg capsule 650 mg PO Q6H PRN PRN Pain 06/26/21 [History Last Taken Unknown] ostomy supplies (Regis Replacement Filters) #1 ea 12/13/21 [Rx Last Taken Unknown] cholecalciferol (vitamin D3) 10 mcg (400 unit) capsule 10 mcg PO DAILY supplement #90 caps 01/01/22 [Rx Last Taken Unknown] ferrous sulfate 325 mg (65 mg iron) tablet 325 mg PO DAILY supplement #90 tabs 02/08/22 [Rx Last Taken Unknown] sennosides 8.6 mg tablet (Natural Senna Laxative) 8.6 mg PO QHS bowels #30 tabs 02/08/22 [Rx Last Taken Unknown] enzalutamide 40 mg capsule (Xtandi) 160 mg PO DAILY 03/28/22 [History Last Taken Unknown] tadalafil 5 mg tablet 5 mg PO DAILY #7 tabs 08/08/22 [Rx Last Taken Unknown] doxazosin 1 mg tablet 2 mg (2 x 1 mg) PO QHS urinary #90 tabs 11/20/22 [Rx Last Taken Unknown] metoprolol succinate 25 mg tablet,extended release 24 hr 12.5 mg (1/2 x 25 mg) PO BID blood pressure #90 tabs 03/07/23 [Rx Last Taken Unknown] rivaroxaban 20 mg tablet (Xarelto) 20 mg PO DAILY BLOOD THINNER #30 tabs 03/19/23 [Rx Last Taken Unknown] pramipexole 0.5 mg tablet 0.5 mg PO QHS #90 tabs 05/01/23 [Rx Last Taken Unknown] Allergy/AdvReac Type Severity Reaction Status Date / Time No Known Allergies Allergy Verified 03/19/23 13:22 Surgical History History of colostomy Hx of tonsillectomy Social History Smoking Status: Former smoker second hand exposure: No alcohol intake: current alcohol intake frequency: holidays/special occasions only details: occasionally substance use type: does not use caffeine: No what type of physical activity do you participate in: other details: gardening, outside work marcelo/taoist: None seatbelt use: always ROS ROS ED Constitutional Constitutional ED: Denies chills or fever(s) Eyes Eyes: Denies blurry vision ENT ENT ED: Denies ear pain Cardiovascular Cardiovascular: Reports chest pain Respiratory/Chest Respiratory/Chest: Reports dyspnea and dyspnea on exertion Gastrointestinal Gastrointestinal: Denies abdominal pain Genitourinary Genitourinary ED: Denies dysuria Musculoskeletal Musculoskeletal: Denies arthralgias Integumentary Denies abscess Neurologic Neurologic: Denies headache(s) Psychiatric Psychiatric: Denies anxiety Endocrine Endocrinology: Denies cold intolerance Hematologic/Lymphatic Hematologic/Lymphatic: Denies systems reviewed and no addt'l complaints, except as documented Allergic/Immunologic Allergic/Immunologic ED: Denies mouth swelling EXAM Physical Exam Const Vital Signs: 05/25/23 16:07 05/25/23 16:14 05/25/23 16:47 Temperature 96.7 F L Temperature Source Temporal Pulse Rate 93 96 Respiratory Rate 35 H 33 H Respiratory Effort Short of Breath Respiratory Depth Normal Respiratory Pattern Tachypnea Tachypnea Blood Pressure 127/71 H Blood Pressure Mean 89 Pulse Ox 86 Oxygen Delivery Method Room Air Nasal Cannula Oxygen Flow Rate (L/min) 4 Fraction of Inspired Oxygen (FIO2) 05/25/23 16:47 05/25/23 18:03 05/25/23 19:20 Temperature 98 F Temperature Source Temporal Pulse Rate 100 96 Respiratory Rate 18 28 H Respiratory Effort Respiratory Depth Respiratory Pattern Blood Pressure 130/82 H 123/71 H Blood Pressure Mean 98 88 Pulse Ox 92 92 90 Oxygen Delivery Method Nasal Cannula Nasal Cannula Nasal Cannula Oxygen Flow Rate (L/min) 4 4 5 Fraction of Inspired Oxygen (FIO2) 05/25/23 19:32 05/25/23 19:43 05/25/23 19:37 Temperature Temperature Source Pulse Rate 95 94 97 Respiratory Rate 27 H 25 H 28 H Respiratory Effort Respiratory Depth Respiratory Pattern Blood Pressure 114/71 Blood Pressure Mean 85 Pulse Ox 92 93 92 Oxygen Delivery Method High Flow Bi-pap Oxygen Flow Rate (L/min) 10 Fraction of Inspired Oxygen (FIO2) 50 05/25/23 20:07 05/25/23 20:10 Temperature Temperature Source Pulse Rate 98 99 Respiratory Rate 27 H 24 H Respiratory Effort Respiratory Depth Respiratory Pattern Blood Pressure 111/76 Blood Pressure Mean 87 Pulse Ox 93 95 Oxygen Delivery Method Bi-pap Oxygen Flow Rate (L/min) Fraction of Inspired Oxygen (FIO2) 45 Positive well developed General Appearance ED: well developed and pallor HEENT Reports moist mucous membranes Eyes EOMs intact bilaterally Neck no lymphadenopathy Resp No clear to auscultation bilaterally Auscultation: diminished lung sounds Cardio regular rate and regular rhythm GI normal to inspection, nondistended, normoactive bowel sounds Extremity normal to inspection General Extremety ED: Negative for edema or tenderness General Extremity: Negative for edema Neuro oriented x3 Sensorium / Orientation: alert Psych mental status grossly normal Skin General Skin Exam: pallor MDM MDM MDM Narrative Medical decision making narrative: I considered cardiovascular, pulmonary, infectious etiologies. EKG was done on arrival showed sinus rhythm with no sign of [place]. Low voltage throughout. He was placed on the monitor. He was doing well on nasal cannula initially. Chest x-ray was reviewed by the radiologist and myself and showed white out of the left lung. A CT was ordered. On return from CT, he was more hypoxic and breathing faster. He was started on high flow nasal cannula and this did not help so he was placed on BiPAP. He seemed to do well on BiPAP with good oxygenation and decreased respiratory rate. CT resulted and showed multiple abnormal findings including what appears to be metastatic cancer with erosion in the mediastinum. Results were discussed with the patient. Prognosis is poor, and I suspect this will be nonsurvivable. His daughter inquired about hospice, but the patient is not ready for hospice. I advised that we can try to get more information from specialist to see if there is anything we can do to buy him more time or make him more comfortable. Also suggested that hospice could see him while admitted. He seems to be doing well on BiPAP. His vitals are improved. No pain. Breathing more comfortable. Hospitalist was contacted to admit. Impression #1 metastatic lung cancer Impression #2 history of metastatic prostate cancer Lab Data Labs: Laboratory Results - last 24 hr 05/25/23 16:00 WBC 6.5 RBC 4.41 L Hgb 13.9 Hct 41.8 MCV 94.8 H MCH 31.5 MCHC 33.3 RDW Std Deviation 54.4 H RDW Coeff of Tulio 15.6 H Plt Count 181 MPV 10.5 Immature Gran % (Auto) 0.900 Neut % (Auto) 70.1 H Lymph % (Auto) 13.8 L [place] % (Auto) 10.0 Eos % (Auto) 4.0 Baso % (Auto) 1.2 H Absolute Neuts (auto) 4.6 Absolute Lymphs (auto) 0.90 Nucleated RBC % 0 Sodium 138 Potassium 4.1 Chloride 107 Carbon Dioxide 25.0 Anion Gap 6 BUN 35 H Creatinine 1.02 Estim Creat Clear Calc 51.59 Est GFR (MDRD) Af Amer 91 Est GFR (MDRD) Non-Af 75 BUN/Creatinine Ratio 34.3 H Glucose 121 H Calcium 9.3 Troponin I High Sens 21 B-Natriuretic Peptide 72.9 Radiography Diagnostic Testing: Clinical Impression(s) from Imaging Studies Chest X-Ray 05/25/23 16:51 IMPRESSION: Opacification of the left hemithorax may be due to atelectasis, consolidation, pleural effusion and/or mass. Minimal right basilar atelectasis or infiltrate. CT may be helpful for further evaluation. Electronically Signed: Vannessa Fierro MD at 17:29 EDT , Chest CTA 05/25/23 19:08 IMPRESSION: 1. No definite evidence of pulmonary emboli. Suboptimal study. 2. Extensive abnormal findings consistent with metastatic disease diffuse osseous metastases and associated soft tissue masses, and bulky mediastinal adenopathy. Particular, large bulky mass associated with the destructive sternal lesion with extension into the anterior mediastinum and overlying chest wall. 3. Large bilateral pleural effusions greater on the left with bulky pleural-based masses on the left. 4. Complete atelectasis of the left lung and partial atelectasis on the right. Cannot exclude underlying pulmonary mass in the atelectatic lung. Small nodules in the right lung. 5. Mild right hydronephrosis similar to prior studies. 6. Lytic lesion in the proximal humerus with questionable nondisplaced pathologic fracture correlate for specific symptoms. Electronically Signed: Vannessa Fierro MD at 20:05 EDT , Discharge Plan Triage Chief Complaint: Shortness of Breath ED Provider: Mehran Hernandez Dx/Rx/DC Orders Prescriptions: No Action acetaminophen 325 mg capsule 650 mg PO Q6H PRN PRN (Reason: Pain) (DME) Regis Replacement Filters Misc See Rx Instructions .ROUTE .MEDSUPPLY Qty: 1 0RF Rx Instructions: As directed Regis [id number] Closed pouch with Filter --60 units. [id number] Xtandi 40 mg capsule 160 mg PO DAILY tadalafil 5 mg tablet 5 mg PO DAILY Qty: 7 0RF Xarelto 20 mg tablet 20 mg PO DAILY Qty: 30 6RF Rx Instructions: must administer with evening meal cholecalciferol (vitamin D3) 10 mcg (400 unit) capsule 10 mcg PO DAILY Qty: 90 3RF ferrous sulfate 325 mg (65 mg iron) tablet 325 mg PO DAILY Qty: 90 3RF sennosides [Natural Senna Laxative] 8.6 mg tablet 8.6 mg PO QHS Qty: 30 2RF doxazosin 1 mg tablet 2 mg PO QHS Qty: 90 3RF metoprolol succinate 25 mg tablet extended release 24 hr 12.5 mg PO BID Qty: 90 1RF pramipexole 0.5 mg tablet 0.5 mg PO QHS Qty: 90 0RF Primary Care Provider: Wil Bradshaw Referrals: Wil Bradshaw, [Primary Care Provider] -
--- NOTE | 2023-05-25 21:28 | ED.RN ---
Called [facility] for referral for IPU admission per Dr. Corey's request. Per Gretta at [facility], no nurses available for evaluation this evening. Patient name, birthday and room number on PCU given, she reports referral office will follow up tomorrow. Dr. Hernandez notified of same.
[2023-05-25] MEDS: Senna Tablet 1 TABLET PO (23:38)
[2023-05-25] MEDS: Metoprolol(XL)Succ 25 MG Tablet 12.5 MG PO (23:38)
[2023-05-25] MEDS: Pramipexole Di-HCl 0.5 MG Tablet PO (23:38)
[2023-05-26] VITALS (10 sets, daily range): BP systolic 93–112; BP diastolic 60–79; PULSE 73–93; RESP 12–40; TEMP 36.4–36.6; O2SAT 92–97
[2023-05-26 07:25] LABS: Absolute Lymphocyte Count 0.73 X10^3/uL (0.83-4.51); Absolute Neutrophil Count 5.9 X10^3/uL (2.0-7.7); Basophil# 0.01 X10^3/uL; Basophil% 0.1 % (0-1); Eosinophil# 0.01 X10^3/uL; Eosinophils% 0.1 % (0-5); Hematocrit 38.9 % (40-54); Lymphocyte # 0.73 X10^3/ul (0.83-4.51); Lymphocyte % 9.7 % (19-41); Mean Corp Hgb Conc 33.4 g/dL (32-36); Mean Corpuscular Hgb 31.7 pg (27.0-32.0); Mean Corpuscular Volume 94.9 fL (80-94); Mean Platelet Vol. 10.8 fl (6.2-12.0); Monocyte# 0.82 X10^3/uL; Monocyte% 10.9 % (0-10); NRBC Flagged by Analyzer 0 % (0-5); Neutrophil # 5.92 X10^3/uL (2.7-7.7); Neutrophil % 78.5 % (47-70); Platelet Count 156 K/mm3 (150-450); RBC Distribution Width CV 15.6 % (11.6-14.6); RBC Distribution Width SD 53.6 fl (35.1-43.9); White Blood Count 7.5 K/mm3 (4.4-11.0)
[2023-05-26 07:52] LABS: Anion Gap 7 (5-15); BUN 36 mg/dL (7-18); Calcium,Total 9.5 mg/dL (8.5-10.1); Chloride 109 mmol/L (98-107); Creatinine, Serum 1.09 mg/dL (0.70-1.30); EST Glomerular Filtration Rate 70 mL/min (>60); Est Glom Filt Rate - Afr Amer 84 mL/min (>60); Estimated Creatinine Clearance 48.28 ml/min; Glucose 120 mg/dL (74-106); Potassium 4.3 mmol/L (3.5-5.1); Sodium Level 138 mmol/L (136-145)
[2023-05-26] MEDS: Ferrous Sulfate 325 MG Tablet PO (09:46)
[2023-05-26] MEDS: Metoprolol(XL)Succ 25 MG Tablet 12.5 MG PO (09:46)
[2023-05-26] MEDS: Miconazole Nitrate 43 GM Bottle 1 APPLIC TOPICAL (09:49)
[2023-05-26] MEDS: Menthol/Lanolin/Calamine/Znox 113 GM Tube 1 APPLIC TOPICAL (09:49)
--- NOTE | 2023-05-26 13:00 | DS.PCM_ITS ---
Providers Date of Admission: 05/25/23 Date of Discharge: 05/26/23 Primary Care Physician: Dr. Wil Bradshaw, DO Consultations 05/26/23 08:11 Consult: Hospice / Palliative Care Routine Consulting Provider: [facility] Reason for Consult: Metastatic cancer EMERGENT Consult: No MD Notified: Yes Date Notified: 05/26/23 Time Notified: 11:20 Method of Notification: Verbal Reason For Visit: METASTATIC CANCER Diagnosis Discharge Diagnosis (1) Metastatic cancer: Status: Acute Code(s): C79.9 - Secondary malignant neoplasm of unspecified site Qualifiers: Area of secondary neoplastic involvement: respiratory structure Respiratory structure secondary neoplasm location: metastatic to lung Laterality: bilateral Qualified Code(s): C78.01 - Secondary malignant neoplasm of right lung; C78.02 - Secondary malignant neoplasm of left lung Medications at Discharge Home Medications acetaminophen 325 mg capsule 650 mg PO Q6H PRN PRN Pain 06/26/21 sennosides 8.6 mg tablet (Natural Senna Laxative) 8.6 mg PO QHS bowels #30 tabs 02/08/22 tadalafil 5 mg tablet 5 mg PO DAILY #7 tabs 08/08/22 metoprolol succinate 25 mg tablet,extended release 24 hr 12.5 mg (1/2 x 25 mg) PO BID blood pressure #90 tabs 03/07/23 rivaroxaban 20 mg tablet (Xarelto) 20 mg PO DAILY BLOOD THINNER #30 tabs 03/19/23 pramipexole 0.5 mg tablet 0.5 mg PO QHS #90 tabs 05/01/23 Hospital Course Procedures - (Chest x-ray/CTA chest) Summary of Care Provided Minutes Spent on Discharge: 25 Hospital Course: Mr. Foster is a 77-year-old white male with a history of metastatic prostate cancer that was diagnosed back in 2017 who presented to the emergency department at [facility] on 05/25/2023 with worsening shortness of breath. He also complained of some concomitant left-sided chest pain and swelling. He denied fever or chills, sputum production, or hemoptysis. His shortness of breath had really worsened over the last 3 to 4 days and he was found to be hypoxic requiring supplemental oxygen. He eventually required transition to BiPAP. X-ray showed complete whiteout of his left lung and CT scan of his chest demonstrated no pulmonary emboli but extensive metastatic disease that is diffuse with osseous metastasis as well as associated soft tissue masses and bulky mediastinal adenopathy. There was a particularly large bulky mass with destructive sternal lesion and extension into the anterior mediastinum overlying the chest wall. He also had bilateral pleural effusions which were large and complete atelectasis of the left lung with partial atelectasis on the right. He had mild hydronephrosis and lytic lesions in the proximal humerus as well as a possible nondisplaced pathologic fracture in the proximal humerus as well. After extensive discussion with family and the patient they requested hospice consultation. Hospice evaluated the patient on 05/26/2023 and he was admitted to the inpatient hospice unit. He is able to be discharged there on 05/26/2023. Discharge diagnoses: Metastatic prostate cancer Large bilateral pleural effusions Mild right hydronephrosis Possible proximal humeral fracture-pathologic History of stroke History of DVT BPH PAF Pulmonary hypertension Debility History of C2 cervical fracture History of carotid artery stenosis Restless leg syndrome Physical Exam Const alert, oriented x3, no apparent distress and no limitations; Negative for average body habitus, healthy appearing or well nourished Constitutional Narrative: Very debilitated and frail appearing older white male lying in bed on high flow nasal cannula with at bedside, patient appears comfortable at this time and nontoxic but extraordinarily fatigued General Appearance: cooperative, comfortable and well kempt Exam Limitations: no limitations Nutritional Appearance: cachectic HEENT normocephalic, head/scalp atraumatic and hearing grossly normal bilaterally Resp No normal respiratory effort, no retractions, no use of accessory muscles and No clear to auscultation bilaterally Resp Narrative: Absent breath sounds on the left, diminished at the right base with decent aeration of the right lung, tachypnea Auscultation: Negative for rales, rhonchi or wheezes Cardio regular rate, regular rhythm, S1 normal heart sound, S2 normal heart sound, no murmurs, no rub, no gallops and no clicks GI normal to inspection, nondistended, normoactive bowel sounds, soft to palpation and non-tender GI Narrative: Scaphoid abdomen Extremity no clubbing, cyanosis or edema Extremity Narrative: Significant loss of lean muscle mass Neuro oriented x3 and moves all extremities Neuro Narrative: Marked generalized weakness with debility Speech: speech normal Psych Psych Narrative: Affect is flat Weight / BMI Weight Weight: 59.2 kg Body Mass Index (BMI) 22.4 ABG / Lab / Microbiology Data 05/26/23 07:05 05/26/23 07:05 Laboratory: Laboratory Results - last 24 hr 05/25/23 16:00: WBC 6.5, RBC 4.41 L, Hgb 13.9, Hct 41.8, MCV 94.8 H, MCH 31.5, MCHC 33.3, RDW Std Deviation 54.4 H, RDW Coeff of Tulio 15.6 H, Plt Count 181, MPV 10.5, Immature Gran % (Auto) 0.900, Neut % (Auto) 70.1 H, Lymph % (Auto) 13.8 L, Miner % (Auto) 10.0, Eos % (Auto) 4.0, Baso % (Auto) 1.2 H, Absolute Neuts (auto) 4.6, Absolute Lymphs (auto) 0.90, Nucleated RBC % 0, Sodium 138, Potassium 4.1, Chloride 107, Carbon Dioxide 25.0, Anion Gap 6, BUN 35 H, Creatinine 1.02, Estim Creat Clear Calc 51.59, Est GFR (MDRD) Af Amer 91, Est GFR (MDRD) Non-Af 75, BUN/Creatinine Ratio 34.3 H, Glucose 121 H, Calcium 9.3, Troponin I High Sens 21, B-Natriuretic Peptide 72.9 05/26/23 07:05: WBC 7.5, RBC 4.10 L, Hgb 13.0, Hct 38.9 L, MCV 94.9 H, MCH 31.7, MCHC 33.4, RDW Std Deviation 53.6 H, RDW Coeff of Tulio 15.6 H, Plt Count 156, MPV 10.8, Immature Gran % (Auto) 0.700, Neut % (Auto) 78.5 H, Lymph % (Auto) 9.7 L, Miner % (Auto) 10.9 H, Eos % (Auto) 0.1, Baso % (Auto) 0.1, Absolute Neuts (auto) 5.9, Absolute Lymphs (auto) 0.73 L, Nucleated RBC % 0, Sodium 138, Potassium 4.3, Chloride 109 H, Carbon Dioxide 22.0, Anion Gap 7, BUN 36 H, Creatinine 1.09, Estim Creat Clear Calc 48.28, Est GFR (MDRD) Af Amer 84, Est GFR (MDRD) Non-Af 70, BUN/Creatinine Ratio 33.0 H, Glucose 120 H, Calcium 9.5 Microbiology: Microbiology 05/25/23 16:37 Nasal Secretion SARS-CoV-2 & FLU Antigen (Rapid) - Final Radiography Diagnostic Testing: Radiology Impression Chest X-Ray 05/25/23 16:51 IMPRESSION: Opacification of the left hemithorax may be due to atelectasis, consolidation, pleural effusion and/or mass. Minimal right basilar atelectasis or infiltrate. CT may be helpful for further evaluation. Electronically Signed: Vannessa Fierro MD at 17:29 EDT , Chest CTA 05/25/23 19:08 IMPRESSION: 1. No definite evidence of pulmonary emboli. Suboptimal study. 2. Extensive abnormal findings consistent with metastatic disease diffuse osseous metastases and associated soft tissue masses, and bulky mediastinal adenopathy. Particular, large bulky mass associated with the destructive sternal lesion with extension into the anterior mediastinum and overlying chest wall. 3. Large bilateral pleural effusions greater on the left with bulky pleural-based masses on the left. 4. Complete atelectasis of the left lung and partial atelectasis on the right. Cannot exclude underlying pulmonary mass in the atelectatic lung. Small nodules in the right lung. 5. Mild right hydronephrosis similar to prior studies. 6. Lytic lesion in the proximal humerus with questionable nondisplaced pathologic fracture correlate for specific symptoms. 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 Discharge Orders/Prescriptions Prescriptions: Continued acetaminophen 325 mg capsule 650 mg PO Q6H PRN PRN (Reason: Pain) tadalafil 5 mg tablet 5 mg PO DAILY Qty: 7 0RF Xarelto 20 mg tablet 20 mg PO DAILY Qty: 30 6RF Rx Instructions: must administer with evening meal sennosides [Natural Senna Laxative] 8.6 mg tablet 8.6 mg PO QHS Qty: 30 2RF metoprolol succinate 25 mg tablet extended release 24 hr 12.5 mg PO BID Qty: 90 1RF pramipexole 0.5 mg tablet 0.5 mg PO QHS Qty: 90 0RF Discontinued (DME) Regis Replacement Filters Misc See Rx Instructions .ROUTE .MEDSUPPLY Qty: 1 0RF Rx Instructions: As directed Regis [id number] Closed pouch with Filter --60 units. [id number] Xtandi 40 mg capsule 160 mg PO DAILY cholecalciferol (vitamin D3) 10 mcg (400 unit) capsule 10 mcg PO DAILY Qty: 90 3RF ferrous sulfate 325 mg (65 mg iron) tablet 325 mg PO DAILY Qty: 90 3RF doxazosin 1 mg tablet 2 mg PO QHS Qty: 90 3RF Referrals / Follow Up: Wil Bradshaw, [Primary Care Provider] - Disposition Disposition (needs filled in before D/C Order can be placed): Hospice in Medical Facility Charges/Coding Visit Charges Inpatient E&M: 03749 Disch Hosp
[2023-05-26] MEDS: 0.9% Saline Lock 10 ML Syringe IV (13:32)
[2023-05-26] MEDS: HYDROmorphone 1 MG/ML Syringe IV (13:33)
== END 2023-05-26 14:10 | disposition hospice, inpatient (51) | DRG 136 ==
LOC: ED 17:43 → PCU 20:59
PROVIDERS: Admitting Provider Hospitalist; Emergency Provider Emergency Medicine; PCP Family Medicine; Visit Provider Internal Medicine
DX: C78.02 Secondary malignant neoplasm of left lung (principal); C79.51 Secondary malignant neoplasm of bone; I27.20 Pulmonary hypertension, unspecified; C78.1 Secondary malignant neoplasm of mediastinum; M84.521A Pathological fracture in neoplastic disease, right humerus, initial encounter for fracture; I48.0 Paroxysmal atrial fibrillation; C78.01 Secondary malignant neoplasm of right lung; C61 Malignant neoplasm of prostate; G25.81 Restless legs syndrome; R09.02 Hypoxemia; N40.0 Benign prostatic hyperplasia without lower urinary tract symptoms; Z87.891 Personal history of nicotine dependence; Z79.01 Long term (current) use of anticoagulants; Z79.899 Other long term (current) drug therapy; Z99.3 Dependence on wheelchair
CPT/HCPCS: 36415; 71045; 71275; 80048; 83880; 84484; 85025; 87428; 93005; 94002; 94003; 94640; 97802; 99285; J7030; Q9967; A4216